=== PATIENT | female | born 1990 | race Caucasian/White ===

== ENCOUNTER 2023-04-20 13:21 | Emergency (ER) | payer OTHER, MEDICAID, SELFPAY ==
[2023-04-20 13:32] VITALS: BP 148/97; PULSE 116; RESP 20; TEMP 36.8; O2SAT 99; BMI 46.9
--- NOTE | 2023-04-20 13:41 | CT_ITS ---
The [address] [address] Patient Name: NICKIE FORD MRN: [id number] date: 1990 Sex: F Assigned Patient Location: ER Current Patient Location: ER Accession/Order Number: [id number] Exam Date: 04/20/2023 14:35 Report Date: 04/20/2023 15:04 At the request of: JUSTINA MEJIA Procedure: CT abdomen pelvis w con EXAM: CT abdomen pelvis w con HISTORY: Right sided abdominal pain COMPARISON: None. TECHNIQUE: Following intravenous administration of 99 cc of Omnipaque 300, axial soft tissue windows of the abdomen and pelvis were performed with coronal and sagittal reformats. CT dose reduction technique was used including Automated Exposure Control. Findings: ABDOMEN: There is fatty infiltration of the liver. Splenic calcifications likely relating to prior granulomatous disease. The pancreas, adrenal glands and kidneys are unremarkable. The bilateral ureters are nondilated. Evaluation of the bowel is limited given the absence of oral contrast. No bowel obstruction. The appendix is nondilated. The aorta is normal caliber. No enlarged abdominal lymph nodes or free abdominal fluid. Small fat-containing umbilicus hernia. Pelvis: Unremarkable bladder. The uterus is present and unremarkable within the limits of CT. No enlarged pelvic lymph nodes or free pelvic fluid. No aggressive sclerotic or lytic osseous lesions. CT/CT abdomen pelvis w con IMPRESSION: 1. No acute abdominal or pelvic abnormality. 2. Fatty liver. Electronically authenticated by: BAY CLEVELAND Date: 04/20/2023 15:04
--- NOTE | 2023-04-20 13:43 | ED.ABDPAIN1 ---
HPI - Abdominal Pain General Chief Complaint: Abdominal Pain Stated Complaint: ABDOMINAL PAIN Time Seen by Provider: 04/20/23 13:25 Source: patient Mode of arrival: walk-in Limitations: no limitations History of Present Illness HPI narrative: patient is a 32-year-old female who presents to the emergency department for the evaluation of right-sided abdominal pain that began last night. She reports a dull ache in the right upper quadrant with a sharp pain radiation into the right lower quadrant. She denies any history of abdominal issues, she has had nausea and one episode of emesis last night. She states her stools have been loose/putty for the last day as well. She has had no fevers or upper respiratory symptoms. She denies any urinary symptoms. She is not concerned for . No medications taken prior to arrival. She denies any previous abdominal surgeries. Related Data Home Medications Medication Instructions Recorded Confirmed norethindrone 1 mg-ethinyl 1 tab PO DAILY 04/20/23 04/20/23 estradiol 35 mcg tablet (Nortrel) Previous Rx's Medication Instructions Recorded hyoscyamine sulfate 0.125 mg 0.125 mg PO Q6H PRN abdominal pain 04/20/23 tablet (Levsin) #12 tabs ondansetron 4 mg disintegrating 4 mg PO Q6H PRN nausea and 04/20/23 tablet vomiting #12 tabs Allergies Allergy/AdvReac Type Severity Reaction Status Date / Time cephalexin [From Keflex] Allergy Severe Verified 04/20/23 13:37 erythromycin base Allergy Severe Verified 04/20/23 13:37 nickel Allergy Severe Verified 04/20/23 13:37 codeine AdvReac Severe Verified 04/20/23 13:37 Review of Systems ROS Constitutional Denies: fever or chills Ears, nose, mouth, and throat Denies: throat pain Cardiovascular Denies: chest pain Respiratory Denies: shortness of breath or cough Gastrointestinal Reports: abdominal pain, nausea, vomiting and diarrhea Genitourinary Denies: painful urination Musculoskeletal Denies: back pain Integumentary/Breast Denies: rash Neurological Denies: headache PFSH PFSH Social History Smoking status: Never smoker Exam Narrative Exam Narrative: Gen.: Awake, alert, in no distress Head: Normocephalic, atraumatic ENT: Moist mucous membranes Respiratory: No respiratory distress, lungs clear bilaterally Cardio: Regular rate and rhythm Gastrointestinal: Abdomen is soft, nondistended and tender to palpation in the right upper quadrant with no guarding or rebound, mild epigastric tenderness Extremities: Moves extremities equally Psych: Normal mood and affect Neuro: No focal neuro deficit Skin: Warm, dry, intact Constitutional Vital Signs, click to edit/add: Last Vital Signs Temp 98.2 F 04/20/23 13:32 Pulse 116 H 04/20/23 13:32 Resp 20 04/20/23 13:32 BP 148/97 H 04/20/23 13:32 Pulse Ox 99 04/20/23 13:32 O2 Del Method Room Air 04/20/23 13:32 Course Vital Signs Vital signs: Vital Signs Temperature 98.2 F 04/20/23 13:32 Pulse Rate 116 H 04/20/23 13:32 Respiratory Rate 20 04/20/23 13:32 Blood Pressure 148/97 H 04/20/23 13:32 Pulse Oximetry 99 04/20/23 13:32 Oxygen Delivery Method Room Air 04/20/23 13:32 Temperature 98.2 F 04/20/23 13:32 Pulse Rate 116 H 04/20/23 13:32 Respiratory Rate 20 04/20/23 13:32 Blood Pressure 148/97 H 04/20/23 13:32 Pulse Oximetry 99 04/20/23 13:32 Oxygen Delivery Method Room Air 04/20/23 13:32 MDM - Abdominal Pain MDM Narrative Medical decision making narrative: patient treated with IV fluids, pain medication and nausea medication. She had no episodes of emesis in the Emergency Room. Labs studies within normal limits, CT of abdomen and pelvis with no evidence of acute abnormalities. Patient discharged with Levsin and Zofran for home. Follow-up with PCP and return to the Emergency Room if symptoms change or worsen. Abdomen is soft and nonsurgical on reevaluation by attending physician Medical Records Attestation: I reviewed the patient's medical records. Lab Data Attestation: I reviewed the patient's lab results. Labs: Lab Results 04/20/23 04/20/23 Range/Units 13:45 13:47 WBC 8.5 (4.0-11.0) 10^3/uL RBC 4.94 (4.20-5.40) 10^6/uL Hgb 13.6 (12.0-16.0) g/dL Hct 41.1 (36.0-48.0) % MCV 83.2 (81.0-99.0) fL MCH 27.5 (26.7-34.0) pg MCHC 33.1 (29.9-35.2) g/dL RDW 13.1 (11.0-15.0) % Plt Count 375 (150-450) 10^3/uL MPV 10.2 (9.5-13.5) fL Neut % (Auto) 57.2 (43.0-75.0) % Lymph % (Auto) 35.9 (20.5-60.0) % [place] % (Auto) 5.3 (1.7-12.0) % Eos % (Auto) 0.8 L (0.9-7.0) % Baso % (Auto) 0.6 (0.2-2.0) % Neut # (Auto) 4.9 (1.4-6.5) 10^3/uL Lymph # (Auto) 3.1 (1.2-3.8) 10^3/uL [place] # (Auto) 0.5 (0.3-0.8) 10^3/uL Eos # (Auto) 0.1 (0.0-0.7) 10^3/uL Baso # (Auto) 0.1 (0.0-0.1) 10^3/uL Abs Immat Gran (auto) 0.02 (0.00-0.03) 10^3/uL Imm/Tot Granulo (auto) 0.2 (0.0-0.5) % Sodium 137 (136-145) mmol/L Potassium 3.6 (3.5-5.1) mmol/L Chloride 101 (98-107) mmol/L Carbon Dioxide 24.9 (21.0-32.0) mmol/L Anion Gap 14.7 BUN 10.0 (7.0-18.0) mg/dL Creatinine 0.81 (0.55-1.02) mg/dL Est GFR ( Amer) >60 (>=60) Est GFR (Non-Af Amer) >60 (>=60) BUN/Creatinine Ratio 12.3 Glucose 90 (74-106) mg/dL Lactate 2.0 (0.4-2.0) mmol/L Calcium 9.5 (8.5-10.1) mg/dL Total Bilirubin 0.3 (0.2-1.0) mg/dL AST 25 (15-37) U/L ALT 31 (14-59) U/L Alkaline Phosphatase 116 (46-116) U/L Total Protein 8.7 H (6.4-8.2) g/dL Albumin 3.4 (3.4-5.0) g/dL Globulin 5.3 g/dL Albumin/Globulin Ratio 0.6 Lipase 40.0 (16.0-77.0) U/L Serum HCG, Qual Negative (NEGATIVE) Urine Color Lt. yellow (YELLOW) Urine Clarity Cloudy A (CLEAR) Urine pH 6.0 (5.0-9.0) Ur Specific [place] >=1.030 A (1.005-1.025) Urine Protein Negative (NEG/TRACE) mg/dL Urine Glucose (UA) Negative (NEGATIVE) mg/dL Urine Ketones Negative (NEGATIVE) mg/dL Urine Occult Blood Trace-i (NEGATIVE) Urine Nitrite Negative (NEGATIVE) Urine Bilirubin Negative (NEGATIVE) Urine Urobilinogen 0.2 (0.2-1.0) EU/dL Ur Leukocyte Esterase Trace A (NEGATIVE) Urine RBC 2-5 A (0-2) #/HPF Urine WBC 10-20 A (NONE SEEN) #/HPF Ur Squamous Epith Cells Moderate A (NONE/RARE) #/LPF Urine Crystals None seen (None Seen) #/HPF Urine Bacteria Large A (NONE SEEN) #/HPF Urine Casts None seen (NONE SEEN) #/LPF Urine Mucus None seen (NONE SEEN) Ur Culture Indicated? Yes Imaging Data CT scan - abdomen: Attestation: I have reviewed the pertinent imaging results. Radiologist's impression: ON: None. TECHNIQUE: Following intravenous administration of 99 cc of Omnipaque 300, axial soft tissue windows of the abdomen and pelvis were performed with coronal and sagittal reformats. CT dose reduction technique was used including Automated Exposure Control. Findings: ABDOMEN: There is fatty infiltration of the liver. Splenic calcifications likely relating to prior granulomatous disease. The pancreas, adrenal glands and kidneys are unremarkable. The bilateral ureters are nondilated. Evaluation of the bowel is limited given the absence of oral contrast. No bowel obstruction. The appendix is nondilated. The aorta is normal caliber. No enlarged abdominal lymph nodes or free abdominal fluid. Small fat-containing umbilicus hernia. Pelvis: Unremarkable bladder. The uterus is present and unremarkable within the limits of CT. No enlarged pelvic lymph nodes or free pelvic fluid. No aggressive sclerotic or lytic osseous lesions. IMPRESSION: 1. No acute abdominal or pelvic abnormality. 2. Fatty liver. Electronically authenticated by: BAY C[place]AND Date: 04/20/2023 15:04 Discharge Plan Discharge Chief Complaint: Abdominal Pain Clinical Impression: Abdominal pain Patient Disposition: Home, Self-Care Time of Disposition Decision: 15:26 Condition: Good Prescriptions / Home Meds: New hyoscyamine sulfate [Levsin] 0.125 mg tablet 0.125 mg PO Q6H PRN (Reason: abdominal pain) Qty: 12 0RF ondansetron 4 mg tablet,disintegrating 4 mg PO Q6H PRN (Reason: nausea and vomiting) Qty: 12 0RF No Action Nortrel 35 (28) 1-35 mg-mcg tablet 1 tab PO DAILY Instructions: Abdominal Pain (ED) Stand Alone Forms: Portal Instructions Referrals: VANI SINGH [Primary Care Provider] - 1 week
[2023-04-20] MEDS: MORPHINE SULFATE 2 MG/ML SYRINGE 4 MG IV (14:06)
[2023-04-20] MEDS: ONDANSETRON PF 4 MG/2 ML VIAL IV (14:06)
[2023-04-20] MEDS: KETOROLAC TROMETHAMINE 30 MG/ML VIAL IVP (14:06)
[2023-04-20] MEDS: 0.9 % SODIUM CHLORIDE 1,000 ML 999 ML IV (14:06)
[2023-04-20 14:14] LABS: Basophils Absolute Auto 0.1 10^3/uL (0.0-0.1); Basophils Percent Auto 0.6 % (0.2-2.0); Eosinophils Absolute Auto 0.1 10^3/uL (0.0-0.7); Eosinophils Percent Auto 0.8 % (0.9-7.0); Hematocrit 41.1 % (36.0-48.0); Hemoglobin 13.6 g/dL (12.0-16.0); Immature Granulocytes Abs Auto 0.02 10^3/uL (0.00-0.03); Immature Granulocytes Pct Auto 0.2 % (0.0-0.5); Lymphocytes Absolute Auto 3.1 10^3/uL (1.2-3.8); Lymphocytes Percent Auto 35.9 % (20.5-60.0); Mean Corpuscular HGB Conc 33.1 g/dL (29.9-35.2); Mean Corpuscular Hemoglobin 27.5 pg (26.7-34.0); Mean Corpuscular Volume 83.2 fL (81.0-99.0); Mean Platelet Volume 10.2 fL (9.5-13.5); Monocytes Absolute Auto 0.5 10^3/uL (0.3-0.8); Monocytes Percent Auto 5.3 % (1.7-12.0); Neutrophils Absolute Auto 4.9 10^3/uL (1.4-6.5); Neutrophils Percent Auto 57.2 % (43.0-75.0); Platelet Count 375 10^3/uL (150-450); Red Blood Count 4.94 10^6/uL (4.20-5.40); Red Cell Distribution Width 13.1 % (11.0-15.0); White Blood Count 8.5 10^3/uL (4.0-11.0)
[2023-04-20 14:24] LABS: Alanine Aminotransferase 31 U/L (14-59); Albumin Globulin Ratio 0.6; Albumin Level 3.4 g/dL (3.4-5.0); Alkaline Phosphatase 116 U/L (46-116); Anion Gap 14.7; Aspartate Amino Transferase 25 U/L (15-37); BUN Creatinine Ratio 12.3; Bilirubin Total 0.3 mg/dL (0.2-1.0); Calcium 9.5 mg/dL (8.5-10.1); Carbon Dioxide 24.9 mmol/L (21.0-32.0); Chloride 101 mmol/L (98-107); Estimated GFR (African America >60 (>=60); Estimated GFR (Non-African Ame >60 (>=60); Globulin 5.3 g/dL; Glucose 90 mg/dL (74-106); Potassium 3.6 mmol/L (3.5-5.1); Sodium 137 mmol/L (136-145); Total Protein 8.7 g/dL (6.4-8.2)
[2023-04-20 14:25] LABS: HCG Qualitative NEGATIVE (NEGATIVE)
[2023-04-20 14:30] LABS: Bilirubin Urine NEGATIVE (NEGATIVE); Blood Urine TRACE-I (NEGATIVE); Clarity Urine CLOUDY (CLEAR); Color Urine LT. YELLOW (YELLOW); Glucose Urine UA NEGATIVE (NEGATIVE); Ketones Urine NEGATIVE (NEGATIVE); Leukocyte Esterase Urine TRACE (NEGATIVE); Nitrite Urine NEGATIVE (NEGATIVE); Protein Urine NEGATIVE (NEG/TRACE); Specific Gravity Urine >=1.030 (1.005-1.025); Urobilinogen Urine 0.2 EU/dL (0.2-1.0)
[2023-04-20 14:31] LABS: Urine Microscopic Indicated YES
[2023-04-20 14:36] LABS: Bacteria Urine LARGE #/HPF (NONE SEEN); Cast Seen? NONE SEEN #/LPF (NONE SEEN); Crystals Seen? None Seen #/HPF (None Seen); Mucus Urine NONE SEEN (NONE SEEN); Squamous Epithelial Cell Urine MODERATE #/LPF (NONE/RARE); Urine Culture Indicated YES
== END 2023-04-20 16:09 | disposition home or self-care (01) ==
PROVIDERS: Physician Assistant; Emergency Provider Emergency Medicine; PCP Family Medicine
DX: R10.9 Unspecified abdominal pain (principal); Z79.899 Other long term (current) drug therapy
CPT/HCPCS: 36415; 74177; 80053; 81001; 83605; 83690; 84703; 85025; 87086; 96374; 96375; 99285; Q9967

== ENCOUNTER 2023-05-03 20:12 | Emergency (ER) | payer OTHER, MEDICAID, SELFPAY ==
[2023-05-03 20:17] VITALS: BP 136/90; PULSE 105; RESP 18; TEMP 36.6; O2SAT 99; BMI 46.9
--- NOTE | 2023-05-03 20:25 | PC.NURSE ---
Pt presents to ER after being ran over by a bore goat Pt states this is a large goat that knocked her over and knocked her into things Pt is experiencing pain down the left side of her neck and into her left arm that is causing some tingling to her fingers
--- NOTE | 2023-05-03 20:54 | CT_ITS ---
[address] [address] Patient Name: NICKIE FORD MRN: [id number] date: 1990 Sex: F Assigned Patient Location: Current Patient Location: Accession/Order Number: [id number] Exam Date: 05/03/2023 21:35 Report Date: 05/03/2023 21:51 At the request of: JACI MARKER Procedure: CT cervical spine wo con EXAMINATION: CT cervical spine wo con TECHNIQUE: Axial CT images were obtained through the cervical spine. Sagittal and coronal reformatted images were also obtained. Dose reduction techniques were achieved by using automated exposure control and/or adjustment of mA and/or kV according to patient size and/or use of iterative reconstruction technique. HISTORY: blunt neck trauma. COMPARISON: None. FINDINGS: Bones: No acute fracture. 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 Alignment: The alignment is anatomic. No acute subluxation. Arthritic changes: No significant arthritic changes Disc spaces: No gross disc herniation given limitation of CT scan. Soft tissues: No soft tissue mass or large hematoma. CT/CT cervical spine wo con IMPRESSION: No acute fracture or subluxation. Electronically authenticated by: BE ROSE Date: 05/03/2023 21:51
--- NOTE | 2023-05-03 21:01 | ED_ITS ---
HPI - Neck Pain/Injury General Chief Complaint: Neck Pain/Injury Stated Complaint: LT SIDE PAIN Time Seen by Provider: 05/03/23 20:26 Source: patient Mode of arrival: walk-in History of Present Illness HPI Narrative: Is 32-year-old female who is right-hand dominant presents for evaluation of left-sided neck pain and stiffness with radiation of pain and numbness and tingling down her left arm. 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 She states that she struck the left side of her neck and upper back into the gate. She was forced to the ground but was able to get herself off the ground and was not trampled by the go. She has bruising and superficial abrasions to the medial aspect of both thighs and t enderness and pain in the left side of her neck. She has been using [id number] Tylenol and Motrin without significant relief. She did get rid of the goat today. She has no chest pain or shortness of breath. She denies any headache or difficulty breathing or swallowing. She has pain with range of motion of her neck in all directions. Related Data Home Medications Medication Instructions Recorded Confirmed norethindrone 1 mg-ethinyl 1 tab PO DAILY 04/20/23 04/20/23 estradiol 35 mcg tablet (Nortrel) Previous Rx's Medication Instructions Recorded hyoscyamine sulfate 0.125 mg 0.125 mg PO Q6H PRN abdominal pain 04/20/23 tablet (Levsin) #12 tabs ondansetron 4 mg disintegrating 4 mg PO Q6H PRN nausea and 04/20/23 tablet vomiting #12 tabs Allergies Allergy/AdvReac Type Severity Reaction Status Date / Time cephalexin [From Keflex] Allergy Severe Verified 04/20/23 13:37 erythromycin base Allergy Severe Verified 04/20/23 13:37 nickel Allergy Severe Verified 04/20/23 13:37 latex Allergy Unknown Verified 05/03/23 20:22 codeine AdvReac Severe Verified 04/20/23 13:37 Review of Systems ROS Status of ROS 10 or more systems reviewed and unremarkable except as noted in history and below PFSH PFSH Social History Smoking status: Never smoker Exam Narrative Exam Narrative: Nurses note and vital signs reviewed and patient is not hypoxic. General: Alert, nontoxic, overweight adult female, no resp distress Skin: Warm, dry, Bruising and superficial abrasions to the medial aspect of both thighs Head: Normocephalic, atraumatic Eye: Normal conjunctiva, no drainage, EOMI. PERRL Ears, Nose, Mouth, and Throat: oral mucosa is moist, no posterior pharyngeal swelling Neck: Decreased range of motion in all directions with tenderness at the posterior left sternocleidomastoid muscle. No midline bony vertebral tenderness or step-off, there is mmuscle spasm and tenderness from the occipital mastoid to the scapular region Cardiovascular: Regular Rate and Rhythm, Pulses are brisk and equal bilaterally Respiratory: Patient is in no distress, no accessory muscle use, lungs are clear to auscultation, no wheezing, rales or rhonchi Back: non-tender, no CVA tenderness bilaterally to percussion. GI: Normal bowel sounds, no tenderness to palpation, no masses appreciated. No rebound, guarding, or rigidity noted. Musculoskeletal: Bruising and superficial abrasions to the medial aspect of both thighs, no laceration or bony tenderness, patient is able to her with a steady gait, neck tenderness as described above, Decreased range of motion of the left upper extremity due to pain in the neck radiating into the left arm. Neurological: A&O x4, normal speech, It Network Engineer strength is intact, subjective decrease in sensation to the left tricep muscle Psychiatric: Cooperative Constitutional Vital Signs, click to edit/add: Last Vital Signs Temp 97.8 F 05/03/23 20:17 Pulse 105 H 05/03/23 20:17 Resp 18 05/03/23 20:17 BP 136/90 05/03/23 20:17 Pulse Ox 99 05/03/23 20:17 O2 Del Method Room Air 05/03/23 20:17 Course Vital Signs Vital signs: Vital Signs Temperature 97.8 F 05/03/23 20:17 Pulse Rate 105 H 05/03/23 20:17 Respiratory Rate 18 05/03/23 20:17 Blood Pressure 136/90 05/03/23 20:17 Pulse Oximetry 99 05/03/23 20:17 Oxygen Delivery Method Room Air 05/03/23 20:17 Temperature 97.8 F 05/03/23 20:17 Pulse Rate 105 H 05/03/23 20:17 Respiratory Rate 18 05/03/23 20:17 Blood Pressure 136/90 05/03/23 20:17 Pulse Oximetry 99 05/03/23 20:17 Oxygen Delivery Method Room Air 05/03/23 20:17 MDM - Neck Pain/Injury MDM Narrative Medical decision making narrative: 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 She was not trampled by the go. She has been using [id number] Tylenol and Motrin without relief. She has tenderness and decreased range of motion of her neck with posterior belly of sternocleidomastoid muscle spasm. She has no neurologic symptoms but does have some decreased sensation to light touch in her trapezius muscle. Her registered nurse obstetrics strength is intact, pulses are brisk and equal. There were no pulsatile masses in her neck. She is medicated in emergency department with IV fluids, Toradol, Solu-Medrol, oral Valium and IV Zofran and Percocet. CT scan of the cervical spine was negative for acute findings. I explained this to the patient. She is feeling better after medications in thee emergency department. She did have an additional episode of nausea and was medicated with oral Zofran prior to discharge. I explained gentle stretching to her and referred her to outpatient family practice. She'll be discharged home with a perception for prednisone to use for the next 6 days, Percocet, Parafon forte and Motrin. Medical Records Medical records narrative: [place] [address] CT Scan Report Signed Patient: NICKIE FORD MR#: [id number] : 1990 Acct:[id number] Age/Sex: 32 / F ADM Date: 05/03/23 Loc: ER Attending Dr: Ordering Physician: Corie Richey Date of Service: 05/03/23 Procedure(s): CT cervical spine wo con Accession Number(s): [id number] cc: VANI SINGH ~ [facility] [place] [id number] Patient Name: NICKIE FORD MRN: [id number] date: 1990 Sex: F Assigned Patient Location: ER Current Patient Location: Accession/Order Number: [id number] Exam Date: 05/03/2023 21:35 Report Date: 05/03/2023 21:51 At the request of: CORIE MARKER Procedure: CT cervical spine wo con EXAMINATION: CT cervical spine wo con TECHNIQUE: Axial CT images were obtained through the cervical spine. Sagittal and coronal reformatted images were also obtained. Dose reduction techniques were achieved by using automated exposure control and/or adjustment of mA and/or kV according to patient size and/or use of iterative reconstruction technique. HISTORY: blunt neck trauma. COMPARISON: None. FINDINGS: Bones: No acute fracture. 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 Alignment: The alignment is anatomic. No acute subluxation. Arthritic changes: No significant arthritic changes Disc spaces: No gross disc herniation given limitation of CT scan. Soft tissues: No soft tissue mass or large hematoma. CT/CT cervical spine wo con IMPRESSION: No acute fracture or subluxation. Electronically authenticated by: BE ROSE Date: 05/03/2023 21:51 Discharge Plan Discharge Chief Complaint: Neck Pain/Injury Clinical Impression: Cervical radiculopathy, Cervical strain, acute Patient Disposition: Home, Self-Care Time of Disposition Decision: 22:00 Condition: Good Prescriptions / Home Meds: No Action Nortrel (28) 1-35 mg-mcg tablet 1 tab PO DAILY hyoscyamine sulfate [Levsin] 0.125 mg tablet 0.125 mg PO Q6H PRN (Reason: abdominal pain) Qty: 12 0RF ondansetron 4 mg tablet,disintegrating 4 mg PO Q6H PRN (Reason: nausea and vomiting) Qty: 12 0RF Instructions: Cervical Strain (ED), Cervical Sprain (ED), Cervical Radiculopathy (ED), Neck Pain (ED) Stand Alone Forms: Portal Instructions Referrals: VANI SINGH [Primary Care Provider] - 1 week
[2023-05-03] MEDS: OXYCODONE HCL/ACETAMINOPHEN 5MG/325MG 1 TAB PO (21:31)
[2023-05-03] MEDS: DIAZEPAM 5 MG TABLET PO (21:31)
[2023-05-03] MEDS: METHYLPREDNISOLONE SOD SUCC PF 125 MG/2 ML VIAL IVP (21:51)
[2023-05-03] MEDS: 0.9 % SODIUM CHLORIDE 1,000 ML 1000 ML IV (21:51)
[2023-05-03] MEDS: KETOROLAC TROMETHAMINE 30 MG/ML VIAL IVP (21:51)
[2023-05-03] MEDS: ONDANSETRON PF 4 MG/2 ML VIAL IV (21:51)
[2023-05-03] MEDS: ONDANSETRON 4 MG RAPDIS TABLET SL (22:50)
== END 2023-05-03 22:50 | disposition home or self-care (01) ==
PROVIDERS: Emergency Provider Emergency Medicine; PCP Family Medicine
DX: S16.1XXA Strain of muscle, fascia and tendon at neck level, initial encounter (principal); M54.12 Radiculopathy, cervical region; W55.32XA Struck by other hoof stock, initial encounter
CPT/HCPCS: 72125; 96374; 96375; 96376; 99285; J2930

== ENCOUNTER 2023-05-22 07:05 | Outpatient (OUT) | payer OTHER, MEDICAID, SELFPAY ==
[2023-05-22 08:00] LABS: Basophils Absolute Auto 0.1 10^3/uL (0.0-0.1); Basophils Percent Auto 0.5 % (0.2-2.0); Eosinophils Absolute Auto 0.1 10^3/uL (0.0-0.7); Eosinophils Percent Auto 0.4 % (0.9-7.0); Hematocrit 39.9 % (36.0-48.0); Immature Granulocytes Pct Auto 0.8 % (0.0-0.5); Lymphocytes Absolute Auto 4.3 10^3/uL (1.2-3.8); Lymphocytes Percent Auto 33.9 % (20.5-60.0); Mean Corpuscular HGB Conc 32.6 g/dL (29.9-35.2); Mean Corpuscular Hemoglobin 27.4 pg (26.7-34.0); Mean Platelet Volume 10.2 fL (9.5-13.5); Monocytes Absolute Auto 0.4 10^3/uL (0.3-0.8); Monocytes Percent Auto 3.3 % (1.7-12.0); Neutrophils Absolute Auto 7.7 10^3/uL (1.4-6.5); Neutrophils Percent Auto 61.1 % (43.0-75.0); Platelet Count 295 10^3/uL (150-450); Red Blood Count 4.75 10^6/uL (4.20-5.40); Red Cell Distribution Width 13.1 % (11.0-15.0); White Blood Count 12.6 10^3/uL (4.0-11.0)
[2023-05-22 08:18] LABS: Estimated Average Glucose 114 mg/dL; Glycohemoglobin A1C 5.6 % (4.5-6.2)
[2023-05-22 08:45] LABS: Alanine Aminotransferase 27 U/L (14-59); Albumin Globulin Ratio 0.6; Albumin Level 3.1 g/dL (3.4-5.0); Alkaline Phosphatase 88 U/L (46-116); Anion Gap 16.4; Aspartate Amino Transferase 17 U/L (15-37); BUN Creatinine Ratio 24.7; Bilirubin Total 0.2 mg/dL (0.2-1.0); Calcium 8.8 mg/dL (8.5-10.1); Carbon Dioxide 25.9 mmol/L (21.0-32.0); Chloride 101 mmol/L (98-107); Chol HDL Ratio 2.5; Cholesterol 202 mg/dL (<=200); Estimated GFR (African America >60 (>=60); Estimated GFR (Non-African Ame >60 (>=60); Globulin 4.8 g/dL; Glucose 81 mg/dL (74-106); HDL Cholesterol 80 mg/dL (40-60); Potassium 4.3 mmol/L (3.5-5.1); Sodium 139 mmol/L (136-145); Total Protein 7.9 g/dL (6.4-8.2); Triglycerides 178 mg/dL (<=150); VLDL CHOLESTEROL 35.6 mg/dL
[2023-05-22 09:56] LABS: TSH W/ REFLEX FT4 1.623 (0.358-3.740)
[2023-05-23 06:08] LABS: HCV Ab Non Reactive (Non Reactive)
[2023-05-23 08:17] LABS: HIV Ab/p24 Ag Screen Non Reactive (Non Reactive)
== END 2023-05-22 07:06 | disposition home or self-care (01) ==
LOC: LAB 07:07
PROVIDERS: PCP Nurse Practitioner Primary Care; Visit Provider Nurse Practitioner Primary Care
DX: Z00.00 Encounter for general adult medical examination without abnormal findings (principal); Z11.59 Encounter for screening for other viral diseases; Z13.29 Encounter for screening for other suspected endocrine disorder; Z11.4 Encounter for screening for human immunodeficiency virus [HIV]; Z13.6 Encounter for screening for cardiovascular disorders
CPT/HCPCS: 36415; 80053; 80061; 83036; 84443; 85025; 86803; 87389

== ENCOUNTER 2023-05-23 14:35 | Outpatient (OUT) | payer OTHER, MEDICAID, SELFPAY ==
--- NOTE | 2023-05-23 14:40 | MR_ITS ---
The [place] [id number] Patient Name: NICKIE FORD MRN: [id number] date: 1990 Sex: F Assigned Patient Location: MRI Current Patient Location: Accession/Order Number: [id number] Exam Date: 05/23/2023 14:50 Report Date: 05/24/2023 08:13 At the request of: IRAJ ROSAS Procedure: MR shoulder LT wo con MR shoulder LT wo con, 05/23/2023 2:50 PM EST INDICATION: Left Shoulder Tendinopathy M67.912 COMPARISON: There is no appropriate prior study for comparison. TECHNIQUE: Multiplanar and multisequential MR images of the left shoulder were obtained without contrast. FINDINGS: The quality of this study has decreased likely due to patient's body habitus. There are mild hypertrophic degenerative changes of AC joint. There is no os acromiale. No Hill-Sachs is noted. No acute fracture or dislocation is noted. The quadrilateral space and supraspinous notch are unremarkable. The T2 prolongation within the insertional portions of the supraspinatus may suggest tendinosis. The long head of biceps , infraspinatus subscapularis and teres minor are unremarkable. No fatty muscle atrophy is noted. The labrum shows no definite abnormality. There is trace intra articular joint effusion. MR/MR shoulder LT wo con IMPRESSION: Mild insertional tendinosis of supraspinatus. No high-grade tear. Electronically authenticated by: YOSSI LEGGETT Date: 05/24/2023 08:13
== END 2023-05-23 14:36 | disposition home or self-care (01) ==
LOC: MRI 14:36
PROVIDERS: PCP Nurse Practitioner Primary Care; Visit Provider Nurse Practitioner Primary Care
DX: M67.912 Unspecified disorder of synovium and tendon, left shoulder (principal)
CPT/HCPCS: 73221

== ENCOUNTER 2023-07-14 11:02 | Outpatient (OUT) | payer OTHER, MEDICAID, SELFPAY ==
--- OUTSIDE RECORDS SUMMARY | 2023-07-14 11:06 | XMS_ITS | CCD ---
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 Role Phone OPAL GERARDO Unavailable Unavailable OPAL GERARDO Unavailable Unavailable SELF, REFERRED Unavailable Unavailable SELF, REFERRED Unavailable Unavailable Jaymie Tripp Unavailable Cleopatra Durbin Unavailable FRANCISCO, DR LUDWIG Primary Care Unavailable NAHID LA Admitting Unavailable NAHID LA Attending Unavailable NAHID AL Consulting Unavailable FRANCISCO, DR LUDWIG Primary Care Unavailable JEANMARIE, DR AGUILAR Admitting Unavailable JEANMARIE, DR AGUILAR Attending Unavailable JEANMARIE, DR AGUILAR Consulting Unavailable NAHID LA Consulting Unavailable JONH WALTON Consulting Unavailable FRANCISCO, DR LUDWIG Primary Care Unavailable NAHID LA Admitting Unavailable NAHID LA Attending Unavailable NAHID LA Consulting Unavailable FRANCISCO, DR LUDWIG Primary Care Unavailable MELECIO, DR MARTINS Admitting Unavailable MELECIO, DR MARTINS Attending Unavailable MELECIO, DR MARTINS Consulting Unavailable ADIS, DR OLESYA Gtz Consulting Unavaildarcy SHERIDAN, DR LINK Consulting Unavailable SHAIKH Jose AMAYA Consulting Unavailable NIKOLAY LOTT Consulting Unavailable FRANCISCO, DR LUDWIG Primary Care Unavailable JEANMARIE, DR AGUILAR Admitting Unavailable JEANMARIE, DR AGUILAR Attending Unavailable PRANAV, DR DANNY Brambila Consulting Unavailable JEANMARIE, DR AGUILAR Consulting Unavailable FRANCISCO, DR LUDWIG Primary Care Unavailable ADIS, DR OLESYA Gtz Admitting Unavaildarcy ARCEO, DR OLESYA Gtz Attending Unavaildarcy ARCEO, DR OLESYA Gtz Consulting Unavaildarcy SINGH, DR LUDWIG Primary Care Unavailable DONNA COREY Admitting Unavailable DONNA COREY Attending Unavailable DAMION MEJIA Consulting Unavailable MADYSON CISNEROS Consulting Unavailable FRANCISCO, DR LUDWIG Primary Care Unavailable NAHID LA Consulting Unavailable NAHID LA Admitting Unavailable ABHINAV, NAHID Attending Unavailable Sherron Singh Unavailable NO FAMILY, PHYSICIAN Primary Care Provider Unava ilable MO Singh Attending Provider Jeimy Verduzco Unavailable Sherron Singh Attending Unavailable Sherron Singh Admitting Unavailable NO FAMILY, PHYSICIAN Primary Care Unavailable HAIR, JACI Attending Unavailable APLING, LILIANA B Referring Unavailable BRINK, HUYEN Attending Unavailable APLING, LILIANA B Referring Unavailable BRINK, HUYEN Attending Unavailable APLING, LILIANA B Referring Unavailable APLING, LILIANA B Attending Unavailable APLING, LILIANA B Attending Unavailable APLING, LILIANA B Referring Unavailable APLING, LILIANA B Attending Unavailable JESUSITA HARLEY Attending Unavailable APLING, LILIANA B Referring Unavailable BRINK, HUYEN Attending Unavailable APLING, LILIANA B Referring Unavailable KELBLEY, JACI Attending Unavailable APLING, LILIANA B Referring Unavailable BRINK, HUYEN Attending Unavailable APLING, LILIANA B Referring Unavailable BRINK, HUYEN Attending Unavailable APLING, LILIANA B Referring Unavailable BRINK, HUYEN Attending Unavailable APLING, LILIANA B Referring Unavailable BRINK, HUYEN Attending Unavailable APLING, LILIANA B Referring Unavailable BRINK, HUYEN Attending Unavailable APLING, LILIANA B Referring Unavailable Allergies Allergy Classification Reported Allergen(s) Allergy Type Date of Onset Reaction(s) Facility (2 sources) codeine Drug Allergy 5 [facility] Repository (2 sources) erythromycin base Drug allergy (disorder) 1 [facility] Repository (6 sources) Acetaminophen / Codeine Drug Allergy vomiting and can't control body [facility] Other (6 sources) Cephalexin Drug Allergy rash [facility] Other (6 sources) Erythromycin Drug Allergy rash [facility] Other (6 sources) nickel Drug Allergy rash [facility] Other (1 source) Cephalexin Drug Allergy 0 [facility] Repository (1 source) Leucine Drug Allergy [facility] Repository Medications Current Medications Medication Drug Class(es) Dates Sig (Normalized) Sig (Original) amoxicillin 875 mg / clavulanate 125 mg oral tablet (1 source) Penicillin-class Antibacterial Start: 10-20-2021 take 1 tablet by mouth every twelve hours Amoxicillin-Pot Clavulanate 875-125 MG 1 tablet Orally every 12 hrs for 10 day(s) Oct, Active cetirizine hydrochloride 10 mg oral tablet (1 source) Histamine-1 Receptor Antagonist Start: 03-29-2021 take 1 tablet by mouth every twelve hours Cetirizine HCl 10 MG 1 tablet Orally bid for 5 days Mar, Active dextromethorphan hydrobromide 15 mg / guaiFENesin 400 mg / pseudoephedrine hydrochloride 60 mg oral tablet (1 source) alpha-Adrenergic Agonist, Uncompetitive P-xfstua-U-aspartate Receptor Antagonist, Sigma-1 Agonist Start: 02-09-2023 take 1 tablet by mouth every six hours as needed for cough Capmist DM 60-15-400 MG 1 tablet Orally q6hrs prn congestion/cough for 7 days Jan, Active Escitalopram (6 sources) Serotonin Reuptake Inhibitor Lexapro Active famotidine 20 mg oral tablet (1 source) Histamine-2 Receptor Antagonist Start: 03-29-2021 take 1 tablet by mouth every twelve hours Famotidine 20 MG 1 tablet Orally Twice a day for 7 days Mar, Active fluticasone propionate 0.05 mg/actuat metered dose nasal spray (1 source) Corticosteroid Start: 10-20-2021 take 2 spray(s) nasal route once daily Fluticasone Propionate 50 MCG/ACT 2 sprays Nasally Once a day for 14 day(s) Oct, Active Ketorolac (8 sources) Nonsteroidal Anti-inflammatory Drug, Cyclooxygenase Inhibitor Start: 04-27-2019 Toradol per 15 mg Apr, 60 mg Start: 08-26-2016 Toradol per 15 mg Aug, 30 mg Nortrel 1/35 (21) (6 sources) Nortrel 1/35 (21 ) Active predniSONE 20 mg oral tablet (1 source) Start: 10-20-2021 take 1 tablet by mouth every twelve hours predniSONE 20 MG 1 tablet Orally bid for 5 day(s) Oct, Active triamcinolone acetonide 5 mg/ml topical cream (10 sources) Corticosteroid Start: 02-09-2023 Triamcinolone Acetonide 0.5 % 1 application Externally TID for 7 days Jan, Active Start: 01-24-2023 Triamcinolone Acetonide 0.1 % 1 application Externally TID for 7 days Dec, Not-Taking Start: 03-29-2021 KENALOG - 10 m g Mar, 40 mg Start: 09-05-2019 KENALOG - 10 m g Aug, 40 mg Completed/Discontinued Medications Medication Drug Class(es) Dates Sig (Normalized) Sig (Original) Aircast AirSport Ankle Brace - (3 sources) Start: 04-23-2021 Aircast AirSport Ankle Brace - as directed left ankle sprain Apr, Not-Taking Start: 04-23-2021 Aircast AirSpo rt Ankle Brace - as directed left ankle sprain Apr, Active hydrOXYzine hydrochloride 25 mg oral tablet (1 source) Antihistamine Start: 01-24-2023 take 1 tablet by mouth every eight hours as needed hydrOXYzine HCl 25 MG 1 tablet Orally q8hrs prn itching, rash for 5 days Dec, Not-Taking methylPREDNISolone 4 mg oral tablet (4 sources) Corticosteroid Start: 10-21-2022 methylPREDNISolone 4 MG as directed Orally for daily dose take half with breakfast, half with dinner for 6 days October, Not-Taking Start: 03-29-2021 methylPREDNISo lone 4 MG start tomorrow as directed Orally Once a day for 6 days Mar, Active naproxen 500 mg oral tablet (1 source) Nonsteroidal Anti-inflammatory Drug Start: 01-17-2023 take 1 tablet by mouth every twelve hours at mealtime as needed Naproxen 500 MG 1 tablet with food or milk as needed Orally every 12 hrs for 7 days Dec, Not-Taking ondansetron 4 mg disintegrating oral tablet (2 sources) Serotonin-3 Receptor Antagonist Start: 10-21-2022 take 1 tablet by mouth every eight hours Ondansetron 4 MG 1 tablet on the tongue and allow to dissolve Orally every 8 hours for 5 days Oct, Not-Taking valACYclovir 1000 mg oral tablet (1 source) Herpesvirus Nucleoside Analog DNA Polymerase Inhibitor, Herpes Simplex Virus Nucleoside Analog DNA Polymerase Inhibitor, Herpes Zoster Virus Nucleoside Analog DNA Polymerase Inhibitor Start: 11-17-2022 take 1 tablet by mouth every eight hours valACYclovir HCl 1 GM 1 tablet Orally TID for 7 days October, Not-Taking Problems Active Problems Problem Classification Problem Date Documented Da te Episodic/Chronic Allergic reactions (9 sources) Allergy status to narcotic agent status; Translations: [Allergy to bee venom] Onset: 11-07-2017 Resolved: 03-29-2021 Episodic Headache; including migraine (4 sources) Headache; including migraine; Translations: [HEADACHE UNSPECIFIED] Onset: 06-17-2021 Immunizations and screening for infectious disease (3 sources) Contact with and (suspected) exposure to other viral communicable diseases Onset: 09-15-2021 Resolved: 10-20-2021 Episodic Nausea and vomiting (4 sources) Vomiting, unspecified; Translations: [Nausea] Onset: 09-17-2021 Episodic Other injuries and conditions due to external causes (4 sources) Unspecified injury of left thigh, initial encounter; Translations: [UNSPECIFIED INJURY OF LEFT THIGH, INITIAL ENCOUNTER] Onset: 11-07-2017 Episodic Other nervous system disorders (2 sources) Anesthesia of skin; Translations: [Paresthesia of skin] Onset: 11-07-2017 Episodic Other upper respiratory disease (6 sources) Seasonal allergy; Translations: [Other seasonal allergic rhinitis] Chronic Other upper respiratory disease (1 source) Nasal congestion Episodic Other upper respiratory infections (6 sources) Frontal sinusitis; Translations: [Chronic frontal sinusitis] Chronic Other upper respiratory infections (6 sources) Acute upper respiratory infection, unspecified; Translations: [Acute sinusitis, unspecified] Onset: 09-15-2021 Resolved: 10-20-2021 Episodic Unclassified (2 sources) Unknown / UNK(Unknown) Onset: 11-07-2017 Unclassified (3 sources) COUGH, UNSPECIFIED; Translations: [COUGH, UNSPECIFIED] Onset: 06-17-2021 Unclassified (1 source) CONTACT W/AND (SUSP) EXPOS COVID-19; Translations: [CONTACT W/AND (SUSP) EXPOS COVID-19] Onset: 06-06-2022 Unclassified (1 source) Strain of unspecified muscle(s) and tendon(s) at lower leg level, right leg, initial encounter; Translations: [Strain of unspecified muscle(s) and tendon(s) at lower leg level, right leg, initial encounter] Onset: 01-17-2023 Viral infection (1 source) Viral infection, unspecified Episodic Past or Other Problems Problem Classification Problem Date Documented Da te Episodic/Chronic Disorders of teeth and jaw (9 sources) Other specified disorders of teeth and supporting structures; Translations: [Jaw pain] Onset: 07-17-2021 Episodic E Codes: Struck by; against (1 source) Striking against or struck by other objects, initial encounter; Translations: [STRIKING AGNST/STRUCK OTH OBJ INIT] Onset: 03-07-2022 Episodic Intestinal infection (1 source) Viral intestinal infection, unspecified; Translations: [VIRAL INTESTINAL INFECTION UNSPEC] Onset: 09-21-2021 Episodic Intracranial injury (1 source) Concussion without loss of consciousness, initial encounter; Translations: [CONCUSSION WITHOUT LOC INITIAL ENC] Onset: 03-07-2022 Episodic Nonspecific chest pain (4 sources) Chest pain, unspecified; Translations: [CHEST PAIN UNSPECIFIED] Onset: 06-15-2021 Episodic Other aftercare (1 source) Other assisted (current) drug therapy; Translations: [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] Onset: 03-07-2022 Episodic Other aftercare (1 source) [facility] (current) use of hormonal contraceptives; Translations: [[facility] HORMONAL CONTRACEPTIVES] Onset: 07-20-2021 Episodic Other injuries and conditions due to external causes (1 source) Other specified injuries of head, initial encounter; Translations: [OTH SPEC INJURIES HEAD INITIAL ENC] Onset: 03-07-2022 Episodic Other non-traumatic joint disorders (1 source) Pain in left ankle and joints of left foot; Translations: [Acute left ankle pain M25.572] Onset: 04-23-2021 Resolved: 04-23-2021 Episodic Other skin disorders (1 source) Localized swelling, mass and lump, head; Translations: [LOCALIZED SWELLING MASS AND LUMP HEAD] Onset: 07-21-2021 Episodic Spondylosis; intervertebral disc disorders; other back problems (1 source) Cervicalgia; Translations: [CERVICALGIA] Onset: 06-17-2021 Episodic Sprains and strains (1 source) Sprain of unspecified ligament of right ankle, initial encounter; Translations: [Sprain of right ankle, unspecified ligament, initial encounter S93.401A] Onset: 04-23-2021 Resolved: 04-23-2021 Episodic Superficial injury; contusion (1 source) Contusion of other part of head, initial encounter; Translations: [CONTUS OTH PRT HEAD INITIAL ENCNTR] Onset: 03-07-2022 Episodic Unclassified (1 source) COUGH, UNSPECIFIED; Translations: [COUGH, UNSPECIFIED] Onset: 06-04-2022 Unclassified (1 source) Suspected COVID-19 virus infection Z20.822 Results Test Name Value Interpretation Reference Range Facility COVID Quick Testingon 2022 Result Negative [employer] Other XR knee RT 4V*on 01-17-2023 XR knee RT 4V* [facility] [place] [address] [place] [address] XRay Report Signed Patient: Nickie Ford MR#: [id number] : 1990 Acct:[id number] Age/Sex: 32 / F ADM Date: 01/17/23 Loc: XDUCLY Room: Type: [facility] Attending Dr: Sherron Singh APRN Copies to: Sherron Singh APRN Ordering Provider: Sherron Singh APRN Date of Service: 01/17/23 XR/XR knee RT 4V*: Injury RIGHT KNEE - 4 views COMPARISON: None CLINICAL DATA: Patient slipped and fell and has pain at the right knee. AP, lateral and both oblique views were obtained. There is no acute fracture or dislocation. No joint space narrowing is identified. There is no sizable knee effusion or focal soft tissue swelling. XR/XR knee RT 4V* IMPRESSION: NO ACUTE BONY INJURY. Impression dictated by: Maria Elena Lucio M.D.01/17/2023 9:46 AM Dictation Location: [facility] Transcribed By: [facility] 01/17/23945 Dictated By: Maria Elena Lucio MD 01/17/23944 Signed By: 01/17/23945 [facility] COVID/FLU RT-PCRon SARS-CoV-2 (COVID-19) RNA SOCO+probe Ql (Unsp spec) Negative [facility] Other COVID/FLU RT-PCR Negative [employer] Other Urinalysis - AUTOMATEDon Appearance (U) cloudy eflow Other Bilirubin Ql (U) Negative [employer] Other Color (U) dark yellow [employer] Other Glucose Ql (U) Negative eflow Other Hemoglobin Ql (U) Negative [employer] Other Ketones Ql (U) Negative eflow Other Leukocyte esterase Test strip Ql (U) Negative [employer] Other Nitrite Ql (U) Negative eflow Other pH (U) 6.0 [pH] [employer] Other Protein Ql (U) 30 eflow Other Specific gravity (U) [Rel density] >=1.030 [employer] Other Urobilinogen (U) [Mass/Vol] 0.2 mg/dL [employer] Other Urinalysis - AUTOMATED [employer] Other Covid-19 PCR ([facility])on SARS-CoV-2 (COVID-19) RNA SOCO+probe Ql (Unsp spec) Not detected Normal NOT DETECTED [facility] Comment on above: Result Comment: When diagnostic testing is negative, the possibility of a false negative should be considered in the context of a patient's recent exposures and the presence of clinical signs and symptoms consistent with SARS-CoV-2. This test is not yet approved or cleared by the [place] FDA. When there are no FDA-approved or cleared tests available, and other criteria are met, FDA can make tests available under an emergency access mechanism called an Emergency Use Authorization (EUA). The EUA for this test is supported by the [place] of Health and Human Service's declaration that circumstances exist to justify the emergency use of in vitro diagnostics for the detection and/or diagnosis of the virus that causes COVID-19. This EUA will remain in effect for the duration of the COVID-19 declaration justifying emergency of IVDs, unless it is terminated or revoked by the FDA (after which the test may no longer be used). Performed By: #### E ITZEL CHANDLER #### [facility] [address] [place] [address] Dr. Timothy Adair GROUP A STREP CULTUREon S. pyogenes Ag Ql (Unsp spec) Culture Observations: NEGATIVE FOR GROUP A STREPTOCOCCUS. Normal [facility] Comment on above: Performed By: #### C BC #### [facility] [address] [place] [address] Dr. Timothy Adair INFLUENZA A AND B AGon 06-04 INFLUANE SEE BELOW Normal [facility] Comment on above: Result Comment: Nega tive for Flu A protein angiten. Infection due to Flu A cannot be ruled out. Flu A angiten in the sample may be below the detection limit of the test. Performed By: #### I NFLUAB #### [facility] [address] [place] [address] Dr. Timothy Adair INFLUBNEGH SEE BELOW Normal [facility] Comment on above: Result Comment: Nega tive for Flu B protein antigen. Infection due to Flu B cannot be ruled out. Flu B antigen in the sample may be below the detection limit of the test. Performed By: #### I NFLUAB #### [facility] [address] [place] [address] Dr. Timothy Adair INFLUENZA A AG Negative Normal NEGATIVE SEE COMMENT [facility] Comment on above: Performed By: #### I NFLUAB #### [facility] [address] [place] [address] Dr. Timothy Adair INFLUENZA B AG Negative Normal NEGATIVE SEE COMMENT [facility] Comment on above: Performed By: #### I NFLUAB #### [facility] [address] [place], [place] [id number] Dr. Timothy Adair INTERNAL CONTROLS Within Normal Limits Normal Wi thin Normal Limits [facility] Comment on above: Performed By: #### I NFLUAB #### [facility] [id number] Timothy Adair STREPT SCREENon 06-04-2022 STREP SCREEN A Negative Normal NEGATIVE [facility] Comment on above: Performed By: #### S SCRN #### [facility] [id number] Timothy Adair XR CHEST 1 Von 06-04-2022 XR CHEST 1 V EXAMINATION: XR CHES T 1 V HISTORY: Cough COMPARISON: Chest x-ray 06/04/2015 TECHNIQUE: Portable chest FINDINGS: The lung parenchyma is free of consolidation or infiltrate. No pneumothorax or pleural effusion. The cardiac, mediastinal and hilar contours are normal. The visualized osseous structures exhibit no gross abnormality. IMPRESSION: No acute cardiopulmonary abnormality. Electronically authenticated by: JONH WALTON Date: 2022-06-04 20:47 Normal [facility] CT HEAD WO CONon 03-03-2022 CT HEAD WO CON EXAMINATION: CT HEAD WO CON, CT FACIAL BONES WO CON HISTORY: UNSPECIFIED INJURY OF HEAD, INITIAL ENCOUNTER ; frontal head injury; additional impact to nose COMPARISON: CT head 04/04/2016 TECHNIQUE: Axial CT images were obtained without IV contrast. Dose reduction techniques were achieved by using automated exposure control and/or adjustment of mA and/or kV according to patient size and/or use of iterative reconstruction technique. FINDINGS: BRAIN: No edema, hemorrhage, mass, acute infarction, or inappropriate atrophy. CSF SPACES: No hydrocephalus, subarachnoid hemorrhage, or mass. Appropriate for age. SKULL: No fracture, mass, or other significant visible lesion. FACIAL BONES: No bony lesion or fracture. SINUSES: No visible mass, significant fluid or mucosal thickening. NASAL FOSSA: No mass, fracture, or significant septal deviation. SKULL BASE: No mass or bone destruction. ORBITS: No visible mass, hematoma, edema or fracture. OTHER: No lymphadenopathy. Unremarkable nasopharynx, oropharynx, and oral cavity. IMPRESSION: 1. Normal CT appearance of the brain. No intracranial hemorrhage. 2. No fracture of the calvarium or scalp hematoma. 3. No fracture of the facial bones with specific attention to the nasal bones. Electronically authenticated by: DANNY ROCK Date: 2022-03-03 14:44 Normal [facility] COVID Quick Testingon 2021 Result Negative [facility] Other Quick Fluon 10-20-2021 FLUAV Ab CF (S) [Titer] Negative [facility] Other FLUBV Ab CF (S) [Titer] Negative [employer] [facility] [employer] Other AMYLASEon 09-17-2021 Amylase [Catalytic activity/Vol] 41 U/L Normal 31-110 [facility] Comment on above: Performed By: #### A MY, CMP, LIPA #### [facility] [address] [place] [address] Dr. Timothy Adair CBC AUTO DIFFon 09-17-2021 BASO # 0.0 103/ul Normal 0.0-0.1 [facility] Comment on above: Performed By: #### C BC #### [facility] [address] [place] [address] Dr. Timothy Adair Basophils/100 WBC (Bld) 0.4 % Normal 0.2-2.0 [facility] Comment on above: Performed By: #### C BC #### [facility] [address] [place] [address] Dr. Timothy Adair EO # 0.0 103/ul Normal 0.0-0.7 [facility] Comment on above: Performed By: #### C BC #### [facility] [address] [place] [address] Dr. Timothy Adair Eosinophils/100 WBC (Bld) 0.4 % Critically low 0.9-7.0 [facility] Comment on above: Performed By: #### C BC #### [facility] [address] [place] [address] Dr. Timothy Adair Erythrocyte distribution width (RBC) [Ratio] 13.0 % Normal 11.0-15.0 [facility] Comment on above: Performed By: #### C BC #### [facility] [address] [place] [address] Dr. Timothy Adair Hematocrit (Bld) [Volume fraction] 40.5 % Normal 36.0-48.0 [facility] Comment on above: Performed By: #### C BC #### [facility] [address] [place] [address] Dr. Timothy Adair Hemoglobin (Bld) [Mass/Vol] 13.1 g/dL Normal 12.0-16.0 [facility] Comment on above: Performed By: #### C BC #### [facility] [address] [place] [address] Dr. Timothy Adair IG # 0.04 10e3/ul Critically high 0.00-0.03 [facility] Comment on above: Performed By: #### C BC #### [facility] [address] [place] [address] Dr. Timothy Adair IG % 0.4 % Normal 0.0-0.5 [facility] Comment on above: Performed By: #### C BC #### [facility] [address] [place] [address] Dr. Timothy Adair LYMPH # 1.9 103/ul Normal 1.2-3.8 [facility] Comment on above: Performed By: #### C BC #### [facility] [address] [place] [address] Dr. Timothy Adair Lymphocytes/100 WBC (Bld) 16.8 % Critically low 20.5-60.0 [facility] Comment on above: Performed By: #### C BC #### [facility] [address] [place] [address] Dr. Timothy Adair MANUAL DIFF REQ NO Normal [facility] Comment on above: Performed By: #### C BC #### [facility] [address] [place] [address] Dr. Timothy Adair MCH (RBC) [Entitic mass] 27.5 pg Normal 26.7-34.0 [facility] Comment on above: Performed By: #### C BC #### [facility] [address] [place] [address] Dr. Timothy Adair MCHC (RBC) [Mass/Vol] 32.3 g/dL Normal 29.9-35.2 [facility] Comment on above: Performed By: #### C BC #### [facility] [address] [place] [address] Dr. Timothy Adair MCV (RBC) [Entitic vol] 85.1 fL Normal 81.0-99.0 [facility] Comment on above: Performed By: #### C BC #### [facility] [address] [address] [address] Timothy Adair MONO # 0.5 103/ul Normal 0.3-0.8 [facility] Comment on above: Performed By: #### C BC #### [facility] [address] [place] [address] Dr. Timothy Adair Monocytes/100 WBC (Bld) 4.7 % Normal 1.7-12.0 [facility] Comment on above: Performed By: #### C BC #### [facility] [address] [place] [address] Dr. Timothy Adair NEUT # 8.6 103/ul Critically high 1.4-6.5 [facility] Comment on above: Performed By: #### C BC #### [facility] [address] [place] [address] Dr. Timothy Adair Neutrophils/100 WBC (Bld) 77.3 % Critically high 43.0-75.0 [facility] Comment on above: Performed By: #### C BC #### [facility] [address] [place] [address] Dr. Timothy Adair Platelet mean volume (Bld) [Entitic vol] 9.9 fL Normal 9.5-13.5 [facility] Comment on above: Performed By: #### C BC #### [facility] [address] [place] [address] Dr. Timothy Adair PLT 357 103/ul Normal 150-450 [facility] Comment on above: Performed By: #### C BC #### [facility] [address] [place] [address] Dr. Timothy Adair RBC 4.76 106/ul Normal 4.20-5.40 [facility] Comment on above: Performed By: #### C BC #### [facility] [address] [place] [address] Dr. Timothy Adair WBC 11.1 103/ul Critically high 4.0-11.0 [facility] Comment on above: Performed By: #### C BC #### [facility] [address] [place] [address] Dr. Timothy Adair CULTURE URINEon 09-17-2021 CULTURE URINE Culture Observations : LIGHT GROWTH OF MIXED GENITAL CHRISTINE. NO POTENTIAL PATHOGENS SEEN. Normal [facility] Comment on above: Performed By: #### C BC #### [facility] [address] [place] [address] Dr. Timothy Adair ER URINE PROFILEon Bilirubin Ql (U) Negative Normal NEGATIVE [facility] Comment on above: Performed By: #### Sanjiv CHANDLER UMICRO #### [facility] [address] [place] [address] Dr. Timothy Adair Clarity (U) CLEAR Normal CLEAR [facility] Comment on above: Performed By: #### Sanjiv CHANDLER UMICRO #### [facility] [address] [place] [address] Dr. Timothy Adair Color (U) LT. YELLOW Normal YELLOW [facility] Comment on above: Performed By: #### Sanjiv CHANDLER UMICRO #### [facility] [address] [place] [address] Dr. Timothy Adair ERUAHD A micrscopic examina tion will be performed if indicated. Normal The [facility] Comment on above: Performed By: #### Sanjiv CHANDLER UMICRO #### [facility] [address] [place] [address] Dr. Timothy Adair Glucose Ql (U) Negative Normal NEGATIVE [facility] Comment on above: Performed By: #### Sanjiv CHANDLER UMICRO #### [facility] [address] [place] [address] Dr. Timothy Adair Hemoglobin Ql (U) TRACE-INTACT Abnormal NEGATIVE [facility] Comment on above: Performed By: #### MASOOD LINARESRO #### [facility] [address] [place] [address] Dr. Timothy Adair Ketones Ql (U) Negative Normal NEGATIVE [facility] Comment on above: Performed By: #### MASOOD LINARESRO #### [facility] [address] [place] [address] Dr. Timothy Adair LEUKOCYTES SMALL Abnormal NEGATIVE [facility] Comment on above: Performed By: #### Sanjiv CHANDLER UMICRO #### [facility] [address] [place] [address] Dr. Timothy Adair Nitrite Ql (U) Negative Normal NEGATIVE [facility] Comment on above: Performed By: #### MASOOD LINARESRO #### [facility] [address] [place] [address] Dr. Timothy Adair pH (U) 5.0 [pH] Normal 5-9 [facility] Comment on above: Performed By: #### MASOOD LINARESRO #### [facility] [address] [place] [address] Dr. Timothy dAair SPEC GRAVITY >=1.030 Abnormal 1.005-<=1.02 5 [facility] Comment on above: Performed By: #### MASOOD LINARESRO #### [facility] [address] [place] [address] Dr. Timothy Adair UA PROTEIN Negative Normal NEGATIVE/ TRACE [facility] Comment on above: Performed By: #### MASOOD LINARESRO #### [facility] [address] [place] [address] Dr. Timothy Adair UR MICRO IND INDICATED Normal [facility] Comment on above: Performed By: #### MASOOD LINARESRO #### [facility] [address] [place] [address] Dr. Timothy Adair Urobilinogen Qn (U) 0.2 {João'U}/dL Normal 0.2 - 1.0 [facility] Comment on above: Performed By: #### MASOOD LINARESRO #### [facility] [address] [place] [address] Dr. Timothy Adair LIPASEon 09-17-2021 Lipase [Catalytic activity/Vol] 125.0 U/L Normal 23.0-300.0 [facility] Comment on above: Performed By: #### A MY, CMP, LIPA #### [facility] [address] [place] [address] Dr. Timothy Adair PROF 14(COMP METB)on 022 Albumin [Mass/Vol] 3.1 g/dL Critically low 3.5-5.0 [facility] Comment on above: Performed By: #### A MY, CMP, LIPA #### [facility] [address] [place] [address] Dr. Timothy Adair Albumin/Globulin [Mass ratio] 0.6 {ratio} Normal [facility] Comment on above: Performed By: #### A MY, CMP, LIPA #### [facility] [address] [place] [address] Dr. Timothy Adair ALP [Catalytic activity/Vol] 105 U/L Normal 38-126 [facility] Comment on above: Performed By: #### A MY, CMP, LIPA #### [facility] [address] [place] [address] Dr. Timothy Adair ALT [Catalytic activity/Vol] 18 U/L Normal 9-52 [facility] Comment on above: Performed By: #### A MY, CMP, LIPA #### [facility] [address] [address] [address] Timothy Adair Anion gap [Moles/Vol] 13.6 mmol/L Normal [facility] Comment on above: Performed By: #### A MY, CMP, LIPA #### [facility] [address] [place] [address] Dr. Timothy Adair AST [Catalytic activity/Vol] 14 U/L Normal 14-36 [facility] Comment on above: Performed By: #### A MY, CMP, LIPA #### [facility] [address] [place] [address] Dr. Timothy Adair Bilirubin [Mass/Vol] 0.3 mg/dL Normal 0.2-1.3 [facility] Comment on above: Performed By: #### A MY, CMP, LIPA #### [facility] [address] [place] [address] Dr. Timothy Adair Calcium [Mass/Vol] 8.8 mg/dL Normal 8.4-10.2 [facility] Comment on above: Performed By: #### A MY, CMP, LIPA #### [facility] [address] [address] [address] Timothy Adair Chloride [Moles/Vol] 101 mmol/L Normal 98-107 [facility] Comment on above: Performed By: #### A MY, CMP, LIPA #### [facility] [address] [place] [address] Dr. Timothy Adair CO2 [Moles/Vol] 28.2 mmol/L Normal 22.0-30.0 [facility] Comment on above: Performed By: #### A MY, CMP, LIPA #### [facility] [address] [place] [address] Dr. Timothy Adair Creatinine [Mass/Vol] 0.87 mg/dL Normal 0.52-1.04 [facility] Comment on above: Performed By: #### A MY, CMP, LIPA #### [facility] [address] [place] [address] Dr. Timothy Adair EGFR-AF SERBIAN >60 Normal >=60 [facility] Comment on above: Performed By: #### A MY, CMP, LIPA #### [facility] [address] [place] [address] Dr. Timothy Adair EGFR-NON AF SERBIAN >60 Normal >=60 [facility] Comment on above: Performed By: #### A MY, CMP, LIPA #### [facility] [address] [place] [address] Dr. Timothy Adair Globulin (S) [Mass/Vol] 5.2 g/dL Normal [facility] Comment on above: Performed By: #### A MY, CMP, LIPA #### [facility] [address] [place] [address] Dr. Timothy Adair Glucose [Mass/Vol] 111 mg/dL Critically high 74-106 [facility] Comment on above: Performed By: #### A MY, CMP, LIPA #### [facility] [address] [address] [address] Timothy Adair Potassium [Moles/Vol] 3.8 mmol/L Normal 3.4-5.0 [facility] Comment on above: Performed By: #### A MY, CMP, LIPA #### [facility] [address] [place] [address] Dr. Timothy Adair Protein [Mass/Vol] 8.3 g/dL Critically high 6.1-8.2 [facility] Comment on above: Performed By: #### A MY, CMP, LIPA #### [facility] [address] [place] [address] Dr. Timothy Adair Sodium [Moles/Vol] 139 mmol/L Normal 137-145 [facility] Comment on above: Performed By: #### A MY, CMP, LIPA #### [facility] [address] [place] [address] Dr. Timothy Adair Urea nitrogen [Mass/Vol] 15.0 mg/dL Normal 7.0-17.0 [facility] Comment on above: Performed By: #### A MY, CMP, LIPA #### [facility] [address] [place] [address] Dr. Timothy Adair Urea nitrogen/Creatini ne [Mass ratio] 17.2 mg/mg Normal [facility] Comment on above: Performed By: #### A MY, CMP, LIPA #### [facility] [address] [place] [address] Dr. Timothy Adair URINE MICROSCOPIC ONLYon BACTERIA LARGE Abnormal NONE SEEN The [facility] Comment on above: Performed By: #### ITZEL LINARES #### [facility] [address] [place] [address] Dr. Timothy Adair Bacteria identified Cx Nom (U) INDICATED Normal [facility] Comment on above: Performed By: #### ITZEL LINARES #### [facility] [address] [place] [address] Dr. Timothy Adair CAST NONE SEEN Normal NONE SEEN The [facility] Comment on above: Performed By: #### MASOOD LINARESRO #### [facility] [address] [place] [address] Dr. Timothy Adair Crystals LM Nom (Urine sed) NONE SEEN Normal NONE SEEN The [facility] Comment on above: Performed By: #### MASOOD LINARESRO #### [facility] [address] [place] [address] Dr. Timothy Adair Epithelial cells LM Ql (Urine sed) MODERATE Abnormal NONE SEEN /RARE The [facility] Comment on above: Performed By: #### MASOOD LINARESRO #### [facility] [address] [place] [address] Dr. Timothy Adair MUCOUS SMALL Abnormal NONE SEEN The [facility] Comment on above: Performed By: #### MASOOD LINARESRO #### [facility] [address] [place] [address] Dr. Timothy Adair RBC 0-2 Normal 0-2 [facility] Comment on above: Performed By: #### ITZEL LINARES #### [facility] [address] [place] [address] Dr. Timothy Adair WBC 5-10 Abnormal NONE SEEN The [facility] Comment on above: Performed By: #### ITZEL LINARES #### [facility] [address] [place] [address] Dr. Timothy Adair CBC AUTO DIFFon 07-19-2021 BASO # 0.0 103/ul Normal 0.0-0.1 [facility] Comment on above: Performed By: #### MASOOD LINARESRO #### [facility] [address] [place] [address] Dr. Timothy Adair Basophils/100 WBC (Bld) 0.1 % Critically low 0.2-2.0 [facility] Comment on above: Performed By: #### MASOOD LINARESRO #### [facility] [address] [place] [address] Dr. Timothy Adair EO # 0.0 103/ul Normal 0.0-0.7 [facility] Comment on above: Performed By: #### MASOOD LINARESRO #### [facility] [address] [place] [address] Dr. Timothy Adair Eosinophils/100 WBC (Bld) 0.0 % Critically low 0.9-7.0 [facility] Comment on above: Performed By: #### MASOOD LINARESRO #### [facility] [address] [place] [address] Dr. Timothy Adair Erythrocyte distribution width (RBC) [Ratio] 12.8 % Normal 11.0-15.0 [facility] Comment on above: Performed By: #### MASOOD LINARESRO #### [facility] [address] [place] [address] Dr. Timothy Adair Hematocrit (Bld) [Volume fraction] 36.6 % Normal 36.0-48.0 [facility] Comment on above: Performed By: #### MASOOD LINARESRO #### [facility] [address] [place] [address] Dr. Timothy Adair Hemoglobin (Bld) [Mass/Vol] 12.0 g/dL Normal 12.0-16.0 [facility] Comment on above: Performed By: #### ERNESTINE LINARESICRO #### [facility] [address] [place] [address] Dr. Timothy Adair IG # 0.03 10e3/ul Normal 0.00-0.03 [facility] Comment on above: Performed By: #### ERNESTINE LINARESICRO #### [facility] [address] [place] [address] Dr. Timothy Adair IG % 0.4 % Normal 0.0-0.5 [facility] Comment on above: Performed By: #### Sanjiv CHANDLER UMICRO #### [facility] [address] [place] [address] Dr. Timothy Adair LYMPH # 1.0 103/ul Critically low 1.2-3.8 [facility] Comment on above: Performed By: #### MASOOD LINARESRO #### [facility] [address] [place] [address] Dr. Timothy Adair Lymphocytes/100 WBC (Bld) 13.2 % Critically low 20.5-60.0 [facility] Comment on above: Performed By: #### MASOOD LINARESRO #### [facility] [address] [place] [address] Dr. Timothy Adair MANUAL DIFF REQ NO Normal [facility] Comment on above: Performed By: #### MASOOD LINARESRO #### [facility] [address] [place] [address] Dr. Timothy Adair MCH (RBC) [Entitic mass] 28.1 pg Normal 26.7-34.0 [facility] Comment on above: Performed By: #### MASOOD LINARESRO #### [facility] [address] [place] [address] Dr. Timothy Adair MCHC (RBC) [Mass/Vol] 32.8 g/dL Normal 29.9-35.2 [facility] Comment on above: Performed By: #### MASOOD LINARESRO #### [facility] [address] [place] [address] Dr. Timothy Adair MCV (RBC) [Entitic vol] 85.7 fL Normal 81.0-99.0 [facility] Comment on above: Performed By: #### MASOOD LINARESRO #### [facility] [address] [place] [address] Dr. Timothy Adair MONO # 0.1 103/ul Critically low 0.3-0.8 [facility] Comment on above: Performed By: #### MASOOD LINARESRO #### [facility] [address] [place] [address] Dr. Timothy Adair Monocytes/100 WBC (Bld) 0.9 % Critically low 1.7-12.0 [facility] Comment on above: Performed By: #### MASOOD LINARESRO #### [facility] [address] [address] [address] Timothy Adair NEUT # 6.6 103/ul Critically high 1.4-6.5 [facility] Comment on above: Performed By: #### ERNESTINE LINARESICRO #### [facility] [address] [place] [address] Dr. Timothy Adair Neutrophils/100 WBC (Bld) 85.4 % Critically high 43.0-75.0 [facility] Comment on above: Performed By: #### Sanjiv CHANDLER UMICRO #### [facility] [address] [place] [address] Dr. Timothy Adair Platelet mean volume (Bld) [Entitic vol] 10.3 fL Normal 9.5-13.5 [facility] Comment on above: Performed By: #### Sanjiv CHANDLER UMICRO #### [facility] [address] [place] [address] Dr. Timothy Adair PLT 341 103/ul Normal 150-450 [facility] Comment on above: Performed By: #### Sanjiv CHANDLER UMICRO #### [facility] [address] [place] [address] Dr. Timothy Adair RBC 4.27 106/ul Normal 4.20-5.40 [facility] Comment on above: Performed By: #### Sanjiv CHANDLER UMICRO #### [facility] [address] [place] [address] Dr. Timothy Adair WBC 7.7 103/ul Normal 4.0-11.0 [facility] Comment on above: Performed By: #### Sanjiv CHANDLER UMICRO #### [facility] [address] [place] [address] Dr. Timothy Adair PROF CHEM 8 (BAS METB)on Anion gap [Moles/Vol] 17.1 mmol/L Normal [facility] Comment on above: Performed By: #### Sanjiv CHANDLER, UMICRO #### [facility] [address] [place] [address] Dr. Timothy Adair Calcium [Mass/Vol] 9.2 mg/dL Normal 8.4-10.2 [facility] Comment on above: Performed By: #### MASOOD LINARESRO #### [facility] [address] [place] [address] Dr. Timothy Adair Chloride [Moles/Vol] 100 mmol/L Normal 98-107 [facility] Comment on above: Performed By: #### MASOOD LINARESRO #### [facility] [address] [place] [address] Dr. Timothy Adair CO2 [Moles/Vol] 24.1 mmol/L Normal 22.0-30.0 [facility] Comment on above: Performed By: #### MASOOD LINARESRO #### [facility] [address] [place] [address] Dr. Timothy Adair Creatinine [Mass/Vol] 0.99 mg/dL Normal 0.52-1.04 [facility] Comment on above: Performed By: #### MASOOD LINARESRO #### [facility] [address] [place] [address] Dr. Timothy Adair EGFR-AF SERBIAN >60 Normal >=60 [facility] Comment on above: Performed By: #### MASOOD LINARESRO #### [facility] [address] [place] [address] Dr. Timothy Adair EGFR-NON AF SERBIAN >60 Normal >=60 The [facility] Comment on above: Performed By: #### MASOOD LINARESRO #### [facility] [address] [place] [address] Dr. Timothy Adair Glucose [Mass/Vol] 154 mg/dL Critically high 74-106 The [facility] Comment on above: Performed By: #### MASOOD LINARESRO #### [facility] [address] [place] [address] Dr. Timothy Adair Potassium [Moles/Vol] 4.2 mmol/L Normal 3.4-5.0 [facility] Comment on above: Performed By: #### MASOOD LINARESRO #### [facility] [address] [place] [address] Dr. Timothy Adair Sodium [Moles/Vol] 137 mmol/L Normal 137-145 The [facility] Comment on above: Performed By: #### ITZEL LINARES #### [facility] [address] [place] [address] Dr. Timothy Adair Urea nitrogen [Mass/Vol] 13.0 mg/dL Normal 7.0-17.0 [facility] Comment on above: Performed By: #### ITZEL LINARES #### [facility] [address] [place] [address] Dr. Timothy Adair Urea nitrogen/Creatini ne [Mass ratio] 13.1 mg/mg Normal [facility] Comment on above: Performed By: #### ITZEL LINARES #### [facility] [address] [place] [address] Dr. Timothy Adair CBC AUTO DIFFon 07-18-2021 BASO # 0.0 103/ul Normal 0.0-0.1 [facility] Comment on above: Performed By: #### C BC #### [facility] [address] [place] [address] Dr. Timothy Adair Basophils/100 WBC (Bld) 0.3 % Normal 0.2-2.0 [facility] Comment on above: Performed By: #### C BC #### [facility] [address] [place] [address] Dr. Timothy Adair EO # 0.0 103/ul Normal 0.0-0.7 [facility] Comment on above: Performed By: #### C BC #### [facility] [address] [place] [address] Dr. Timothy Adair Eosinophils/100 WBC (Bld) 0.1 % Critically low 0.9-7.0 [facility] Comment on above: Performed By: #### C BC #### [facility] [address] [place] [address] Dr. Timothy Adair Erythrocyte distribution width (RBC) [Ratio] 13.2 % Normal 11.0-15.0 [facility] Comment on above: Performed By: #### C BC #### [facility] [address] [place] [address] Dr. Timothy Adair Hematocrit (Bld) [Volume fraction] 39.1 % Normal 36.0-48.0 [facility] Comment on above: Performed By: #### C BC #### [facility] [address] [place] [address] Dr. Timothy Adair Hemoglobin (Bld) [Mass/Vol] 12.9 g/dL Normal 12.0-16.0 [facility] Comment on above: Performed By: #### C BC #### [facility] [address] [place] [address] Dr. Timothy Adair IG # 0.04 10e3/ul Critically high 0.00-0.03 [facility] Comment on above: Performed By: #### C BC #### [facility] [address] [place] [address] Dr. Timothy Adair IG % 0.3 % Normal 0.0-0.5 [facility] Comment on above: Performed By: #### C BC #### [facility] [address] [place] [address] Dr. Timothy Adair LYMPH # 3.7 103/ul Normal 1.2-3.8 [facility] Comment on above: Performed By: #### C BC #### [facility] [address] [place] [address] Dr. Timothy Adair Lymphocytes/100 WBC (Bld) 32.3 % Normal 20.5-60.0 [facility] Comment on above: Performed By: #### C BC #### [facility] [address] [place] [address] Dr. Timothy Adair MANUAL DIFF REQ NO Normal [facility] Comment on above: Performed By: #### C BC #### [facility] [address] [place] [address] Dr. Timothy Adair MCH (RBC) [Entitic mass] 27.9 pg Normal 26.7-34.0 [facility] Comment on above: Performed By: #### C BC #### [facility] [address] [place] [address] Dr. Timothy Adair MCHC (RBC) [Mass/Vol] 33.0 g/dL Normal 29.9-35.2 [facility] Comment on above: Performed By: #### C BC #### [facility] [address] [address] [address] Timothy Adair MCV (RBC) [Entitic vol] 84.4 fL Normal 81.0-99.0 [facility] Comment on above: Performed By: #### C BC #### [facility] [address] [address] [address] Timothy Adair MONO # 0.5 103/ul Normal 0.3-0.8 [facility] Comment on above: Performed By: #### C BC #### [facility] [address] [place] [address] Dr. Timothy Adair Monocytes/100 WBC (Bld) 3.9 % Normal 1.7-12.0 [facility] Comment on above: Performed By: #### C BC #### [facility] [address] [place] [address] Dr. Timothy Adair NEUT # 7.3 103/ul Critically high 1.4-6.5 [facility] Comment on above: Performed By: #### C BC #### [facility] [address] [place] [address] Dr. Timothy Adair Neutrophils/100 WBC (Bld) 63.1 % Normal 43.0-75.0 [facility] Comment on above: Performed By: #### C BC #### [facility] [address] [place] [address] Dr. Timothy Adair Platelet mean volume (Bld) [Entitic vol] 10.4 fL Normal 9.5-13.5 The [facility] Comment on above: Performed By: #### C BC #### [facility] [address] [place] [address] Dr. Timothy Adair PLT 319 103/ul Normal 150-450 [facility] Comment on above: Performed By: #### C BC #### [facility] [address] [place] [address] Dr. Timothy Adair RBC 4.63 106/ul Normal 4.20-5.40 [facility] Comment on above: Performed By: #### C BC #### [facility] [address] [place], [place] [address] Dr. Timothy Adair WBC 11.5 103/ul Critically high 4.0-11.0 [facility] Comment on above: Performed By: #### C BC #### [facility] [address] [place], [place] [address] FACIAL BONES W CONon 07-03 CT FACIAL BONES W CON STUDY: CT face with contrast TECHNIQUE: CT imaging of the face was performed after the administration of IV contrast. Coronal and sagittal reformats were provided. Dose reduction techniques were achieved by using automated exposure control and/or adjustment of mA and/or kV according to patient size and/or use of iterative reconstruction technique. INDICATION: Neck pain COMPARISON: Same date CT neck, head CT 02/03/2016 FINDINGS: Osseous structures of the face and orbits are intact. No focal osseous abnormalities. Paranasal sinuses and mastoid air cells are clear. Dentition is unremarkable. There is subtle fat stranding in the left buccal soft tissues and slight asymmetric thickening of the platysma on the left. Prominent to minimally enlarged cervical chain lymph nodes, left worse than right. No abnormal enhancement. Visualized intracranial structures are unremarkable. IMPRESSION: Inflammatory changes in the left face to include subtle fat stranding and slight thickening of the platysma. Prominent likely reactive cervical chain lymph nodes. The balance of findings suggest infection without abscess. Electronically authenticated by: NIKOLAY LOTT Date: 2021-07-18 14:44 Normal The [facility] CT NECK ST W CONon CT NECK ST W CON STUDY: CT neck with contrast TECHNIQUE: CT imaging of the neck was performed after administration of IV contrast. Coronal and sagittal reformats were provided. Dose reduction techniques were achieved by using automated exposure control and/or adjustment of mA and/or kV according to patient size and/or use of iterative reconstruction technique. INDICATION: Neck pain COMPARISON: CT chest angiogram 07/16/2020 FINDINGS: Soft tissue spaces of the neck are normal and symmetric. No solid or cystic mass lesions. No areas of abnormal enhancement. No retropharyngeal fluid. Prominent cervical chain lymph nodes measuring up to 9 x 18 mm in the left level IIB level. Thyroid, submandibular and parotid glands are normal in appearance. Vascular structures of the neck enhance normally. The lung apices are clear. Imaged portions of the brain are unremarkable. The imaged paranasal sinuses and mastoid air cells are clear. Osseous structures are unremarkable. IMPRESSION: Prominent to minimally enlarged cervical chain lymph nodes which may be reactive in the acute setting. No retropharyngeal fluid or rim-enhancing fluid collection. Electronically authenticated by: NIKOLAY LOTT Date: 2021-07-18 14:37 Normal The [facility] CULTURE BLOODon 07-18-2021 Microscopic examination of blood, culture Culture Observations: NO GROWTH AT 5 DAYS. Normal [facility] Comment on above: Performed By: #### C BC #### [facility] [address] [place] [address] Dr. Timothy Adair Microscopic examination of blood, culture Culture Observations: NO GROWTH AT 5 DAYS. Normal [facility] Comment on above: Performed By: #### C BC #### [facility] [address] [address] [address] Timothy Adair Covid-19 PCR (CVDTB)on 07-03 SARS-CoV-2 (COVID-19) RNA SOCO+probe Ql (Unsp spec) Not detected Normal NOT DETECTED The [facility] Comment on above: Result Comment: When diagnostic testing is negative, the possibility of a false negative should be considered in the context of a patient's recent exposures and the presence of clinical signs and symptoms consistent with SARS-CoV-2. This test is not yet approved or cleared by the [place] FDA. When there are no FDA-approved or cleared tests available, and other criteria are met, FDA can make tests available under an emergency access mechanism called an Emergency Use Authorization (EUA). The EUA for this test is supported by the Flow Manager of Health and Human Service's declaration that circumstances exist to justify the emergency use of in vitro diagnostics for the detection and/or diagnosis of the virus that causes COVID-19. This EUA will remain in effect for the duration of the COVID-19 declaration justifying emergency of IVDs, unless it is terminated or revoked by the FDA (after which the test may no longer be used). Performed By: #### C BC #### [facility] [address] [place] [address] Dr. Timothy Adair PROF CHEM 8 (BAS METB)on Anion gap [Moles/Vol] 11.2 mmol/L Normal [facility] Comment on above: Performed By: #### MASOOD LINARESRO #### [facility] [address] [place] [address] Dr. Timothy Adair Calcium [Mass/Vol] 8.7 mg/dL Normal 8.4-10.2 [facility] Comment on above: Performed By: #### Sanjiv CHANDLER UMVIOLETRO #### [facility] [address] [place] [address] Dr. Timothy Adair Chloride [Moles/Vol] 99 mmol/L Normal 98-107 [facility] Comment on above: Performed By: #### MASOOD LINARESRO #### [facility] [address] [place] [address] Dr. Timothy Adair CO2 [Moles/Vol] 28.7 mmol/L Normal 22.0-30.0 [facility] Comment on above: Performed By: #### MASOOD LINARESRO #### [facility] [address] [place] [address] Dr. Timothy Adair Creatinine [Mass/Vol] 0.84 mg/dL Normal 0.52-1.04 [facility] Comment on above: Performed By: #### MASOOD LINARESRO #### [facility] [address] [place] [address] Dr. Timothy Adair EGFR-AF SERBIAN >60 Normal >=60 [facility] Comment on above: Performed By: #### MASOOD LINARESRO #### [facility] [address] [place] [address] Dr. Timothy Adair EGFR-NON AF SERBIAN >60 Normal >=60 [facility] Comment on above: Performed By: #### MASOOD LINARESRO #### [facility] [address] [place] [address] Dr. Timothy Adair Glucose [Mass/Vol] 87 mg/dL Normal 74-106 [facility] Comment on above: Performed By: #### ITZEL LINARES #### [facility] [address] [place] [address] Dr. Timothy Adair Potassium [Moles/Vol] 3.9 mmol/L Normal 3.4-5.0 [facility] Comment on above: Performed By: #### MASOOD LINARESRO #### [facility] [address] [place] [address] Dr. Timothy Adair Sodium [Moles/Vol] 135 mmol/L Critically low 137-145 [facility] Comment on above: Performed By: #### ITZEL LINARES #### [facility] [address] [place] [address] Dr. Timothy Adair Urea nitrogen [Mass/Vol] 12.0 mg/dL Normal 7.0-17.0 [facility] Comment on above: Performed By: #### MASOOD LINARESRO #### [facility] [address] [place] [address] Dr. Timothy Adair Urea nitrogen/Creatini ne [Mass ratio] 14.3 mg/mg Normal [facility] Comment on above: Performed By: #### ITZEL LINARES #### [facility] [address] [place] [address] Dr. Timothy Adair CBC AUTO DIFFon 07-17-2021 BASO # 0.0 103/ul Normal 0.0-0.1 [facility] Comment on above: Performed By: #### MASOOD LINARESRO #### [facility] [address] [place] [address] Dr. Timothy Adair Basophils/100 WBC (Bld) 0.1 % Critically low 0.2-2.0 [facility] Comment on above: Performed By: #### MASOOD LINARESRO #### [facility] [address] [place] [address] Dr. Timothy Adair EO # 0.0 103/ul Normal 0.0-0.7 [facility] Comment on above: Performed By: #### MASOOD LINARESRO #### [facility] [address] [place] [address] Dr. Timothy Adair Eosinophils/100 WBC (Bld) 0.0 % Critically low 0.9-7.0 [facility] Comment on above: Performed By: #### ITZEL LINARES #### [facility] [address] [place] [address] Dr. Timothy Adair Erythrocyte distribution width (RBC) [Ratio] 13.0 % Normal 11.0-15.0 [facility] Comment on above: Performed By: #### MASOOD LINARESRO #### [facility] [address] [place] [address] Dr. Timothy Adair Hematocrit (Bld) [Volume fraction] 40.3 % Normal 36.0-48.0 [facility] Comment on above: Performed By: #### MASOOD LINARESRO #### [facility] [address] [place] [address] Dr. Timothy Adair Hemoglobin (Bld) [Mass/Vol] 13.1 g/dL Normal 12.0-16.0 [facility] Comment on above: Performed By: #### ITZEL LINARES #### [facility] [address] [place] [address] Dr. Timothy Adair IG # 0.06 10e3/ul Critically high 0.00-0.03 [facility] Comment on above: Performed By: #### MASOOD LINARESRO #### [facility] [address] [place] [address] Dr. Timothy Adair IG % 0.4 % Normal 0.0-0.5 [facility] Comment on above: Performed By: #### MASOOD LINARESRO #### [facility] [address] [place] [address] Dr. Timothy Adair LYMPH # 3.3 103/ul Normal 1.2-3.8 [facility] Comment on above: Performed By: #### MASOOD LINARESRO #### [facility] [address] [place] [address] Dr. Timothy Adair Lymphocytes/100 WBC (Bld) 21.0 % Normal 20.5-60.0 [facility] Comment on above: Performed By: #### MASOOD LINARESRO #### [facility] [address] [place] [address] Dr. Timothy Adair MANUAL DIFF REQ NO Normal [facility] Comment on above: Performed By: #### MASOOD LINARESRO #### [facility] [address] [place] [address] Dr. Timothy Adair MCH (RBC) [Entitic mass] 27.6 pg Normal 26.7-34.0 [facility] Comment on above: Performed By: #### MASOOD LINARESRO #### [facility] [address] [place] [address] Dr. Timothy Adair MCHC (RBC) [Mass/Vol] 32.5 g/dL Normal 29.9-35.2 [facility] Comment on above: Performed By: #### MASOOD LINARESRO #### [facility] [address] [place] [address] Dr. Timothy Adair MCV (RBC) [Entitic vol] 84.8 fL Normal 81.0-99.0 [facility] Comment on above: Performed By: #### MASOOD LINARESRO #### [facility] [address] [place] [address] Dr. Timothy Adair MONO # 0.8 103/ul Normal 0.3-0.8 [facility] Comment on above: Performed By: #### MASOOD LINARESRO #### [facility] [address] [place] [address] Dr. Timothy Adair Monocytes/100 WBC (Bld) 5.2 % Normal 1.7-12.0 [facility] Comment on above: Performed By: #### MASOOD LINARESRO #### [facility] [address] [place] [address] Dr. Timothy Adair NEUT # 11.5 103/ul Critically high 1.4-6.5 [facility] Comment on above: Performed By: #### E RUR, UMICRO #### [facility] [address] [place] [address] Dr. Timothy Adair Neutrophils/100 WBC (Bld) 73.3 % Normal 43.0-75.0 [facility] Comment on above: Performed By: #### Sanjiv CHANDLER UMICRO #### [facility] [address] [place] [address] Dr. Timothy Adair Platelet mean volume (Bld) [Entitic vol] 9.7 fL Normal 9.5-13.5 [facility] Comment on above: Performed By: #### Sanjiv CHANDLER UMICRO #### [facility] [address] [place] [address] Dr. Timothy Adair PLT 369 103/ul Normal 150-450 [facility] Comment on above: Performed By: #### Sanjiv CHANDLER UMICRO #### [facility] [address] [place] [address] Dr. Timothy Adair RBC 4.75 106/ul Normal 4.20-5.40 [facility] Comment on above: Performed By: #### Sanjiv CHANDLER UMICRO #### [facility] [address] [place] [address] Dr. Timothy Adair WBC 15.7 103/ul Critically high 4.0-11.0 [facility] Comment on above: Performed By: #### Sanjiv CHANDLER UMICRO #### [facility] [address] [place] [address] Dr. Timothy Adair CRPon 07-17-2021 CRP 7.6 mg/dL Critically high <=1.0 [facility] Comment on above: Performed By: #### Sanjiv CHANDLER UMICRO #### [facility] [address] [place] [address] Dr. Timothy Adair PROF CHEM 8 (BAS METB)on Anion gap [Moles/Vol] 11.9 mmol/L Normal [facility] Comment on above: Performed By: #### Sanjiv CHANDLER UMICRO #### [facility] [address] [place] [address] Dr. Timothy Adair Calcium [Mass/Vol] 8.8 mg/dL Normal 8.4-10.2 [facility] Comment on above: Performed By: #### ITZEL LINARES #### [facility] [address] [address] [address] Timothy Adair Chloride [Moles/Vol] 102 mmol/L Normal 98-107 [facility] Comment on above: Performed By: #### ITZEL LINARES #### [facility] [address] [address] [address] Timothy Adair CO2 [Moles/Vol] 26.5 mmol/L Normal 22.0-30.0 [facility] Comment on above: Performed By: #### ITZEL LINARES #### [facility] [address] [place] [address] Dr. Timothy Adair Creatinine [Mass/Vol] 1.02 mg/dL Normal 0.52-1.04 [facility] Comment on above: Performed By: #### ITZEL LINARES #### [facility] [address] [place] [address] Dr. Timothy Adair EGFR-AF SERBIAN >60 Normal >=60 [facility] Comment on above: Performed By: #### ITZEL LINARES #### [facility] [address] [place] [address] Dr. Timothy Adair EGFR-NON AF SERBIAN >60 Normal >=60 [facility] Comment on above: Performed By: #### ITZEL LINARES #### [facility] [address] [place] [address] Dr. Timothy Adair Glucose [Mass/Vol] 110 mg/dL Critically high 74-106 [facility] Comment on above: Performed By: #### ITZEL LINARES #### [facility] [address] [place] [address] Dr. Timothy Adair Potassium [Moles/Vol] 3.4 mmol/L Normal 3.4-5.0 [facility] Comment on above: Performed By: #### ITZEL LINARES #### [facility] [address] [place] [address] Dr. Timothy Adair Sodium [Moles/Vol] 137 mmol/L Normal 137-145 [facility] Comment on above: Performed By: #### Sanjiv CHANDLER UMICRO #### [facility] [address] [place] [address] Dr. Timothy Adair Urea nitrogen [Mass/Vol] 12.0 mg/dL Normal 7.0-17.0 [facility] Comment on above: Performed By: #### Sanjiv CHANDLER, UMICRO #### [facility] [address] [place] [address] Dr. Timothy Adair Urea nitrogen/Creatini ne [Mass ratio] 11.8 mg/mg Normal [facility] Comment on above: Performed By: #### Sanjiv CHANDLER UMICRO #### [facility] [address] [place] [address] Dr. Timothy Adair CBC AUTO DIFFon 07-16-2021 BASO # 0.0 103/ul Normal 0.0-0.1 [facility] Comment on above: Performed By: #### Sanjiv CHANDLER UMICRO #### [facility] [address] [place] [address] Dr. Timothy Adair Basophils/100 WBC (Bld) 0.2 % Normal 0.2-2.0 [facility] Comment on above: Performed By: #### Sanjiv CHANDLER UMICRO #### [facility] [address] [place] [address] Dr. Timothy Adair EO # 0.0 103/ul Normal 0.0-0.7 [facility] Comment on above: Performed By: #### Sanjiv CHANDLER UMICRO #### [facility] [address] [place] [address] Dr. Timothy Adair Eosinophils/100 WBC (Bld) 0.1 % Critically low 0.9-7.0 [facility] Comment on above: Performed By: #### Sanjiv CHANDLER, UMICRO #### [facility] [address] [place] [address] Dr. Timothy Adair Erythrocyte distribution width (RBC) [Ratio] 12.9 % Normal 11.0-15.0 [facility] Comment on above: Performed By: #### ITZEL LINARES #### [facility] [address] [place] [address] Dr. Timothy Adair Hematocrit (Bld) [Volume fraction] 38.8 % Normal 36.0-48.0 [facility] Comment on above: Performed By: #### MASOOD LINARESRO #### [facility] [address] [place] [address] Dr. Timothy Adair Hemoglobin (Bld) [Mass/Vol] 12.9 g/dL Normal 12.0-16.0 [facility] Comment on above: Performed By: #### ITZEL LINARES #### [facility] [address] [place] [address] Dr. Timothy Adair IG # 0.04 10e3/ul Critically high 0.00-0.03 [facility] Comment on above: Performed By: #### MASOOD LINARESRO #### [facility] [address] [place] [address] Dr. Timothy Adair IG % 0.3 % Normal 0.0-0.5 [facility] Comment on above: Performed By: #### MASOOD LINARESRO #### [facility] [address] [place] [address] Dr. Timothy Adair LYMPH # 2.0 103/ul Normal 1.2-3.8 [facility] Comment on above: Performed By: #### MASOOD LINARESRO #### [facility] [address] [place] [address] Dr. Timothy Adair Lymphocytes/100 WBC (Bld) 15.6 % Critically low 20.5-60.0 [facility] Comment on above: Performed By: #### MASOOD LINARESRO #### [facility] [address] [place] [address] Dr. Timothy Adair MANUAL DIFF REQ NO Normal [facility] Comment on above: Performed By: #### MASOOD LINARESRO #### [facility] [address] [place] [address] Dr. Timothy Adair MCH (RBC) [Entitic mass] 28.3 pg Normal 26.7-34.0 [facility] Comment on above: Performed By: #### E RUR, UMICRO #### [facility] [address] [place] [address] Dr. Timothy Adair MCHC (RBC) [Mass/Vol] 33.2 g/dL Normal 29.9-35.2 [facility] Comment on above: Performed By: #### E RUR, UMICRO #### [facility] [address] [place] [address] Dr. Tmiothy Adair MCV (RBC) [Entitic vol] 85.1 fL Normal 81.0-99.0 [facility] Comment on above: Performed By: #### E ODETTER, UMICRO #### [facility] [address] [place] [address] Dr. Timothy Adair MONO # 0.7 103/ul Normal 0.3-0.8 [facility] Comment on above: Performed By: #### E ODETTER, UMICRO #### [facility] [address] [place] [address] Dr. Timothy Adair Monocytes/100 WBC (Bld) 5.1 % Normal 1.7-12.0 [facility] Comment on above: Performed By: #### E ODETTER, UMICRO #### [facility] [address] [place] [address] Dr. Timothy Adair NEUT # 10.2 103/ul Critically high 1.4-6.5 [facility] Comment on above: Performed By: #### E RUR, UMICRO #### [facility] [address] [place] [address] Dr. Timothy Adair Neutrophils/100 WBC (Bld) 78.7 % Critically high 43.0-75.0 [facility] Comment on above: Performed By: #### E RUR, UMICRO #### [facility] [address] [place] [address] Dr. Timothy Adair Platelet mean volume (Bld) [Entitic vol] 9.7 fL Normal 9.5-13.5 The [facility] Comment on above: Performed By: #### ITZEL LINARES #### [facility] [address] [place] [address] Dr. Timothy Adair PLT 333 103/ul Normal 150-450 The [facility] Comment on above: Performed By: #### MASOOD LINARESRO #### [facility] [address] [place] [address] Dr. Timothy Adair RBC 4.56 106/ul Normal 4.20-5.40 The [facility] Comment on above: Performed By: #### ITZEL LINARES #### [facility] [address] [place] [address] Dr. Timothy Adair WBC 13.0 103/ul Critically high 4.0-11.0 The [facility] Comment on above: Performed By: #### ITZEL LINARES #### [facility] [address] [place] [address] Dr. Timothy Adair PROF CHEM 8 (BAS METB)on Anion gap [Moles/Vol] 15.4 mmol/L Normal [facility] Comment on above: Performed By: #### ITZEL LINARES #### [facility] [address] [place] [address] Dr. Timothy Adair Calcium [Mass/Vol] 8.6 mg/dL Normal 8.4-10.2 The [facility] Comment on above: Performed By: #### MASOOD LINARESRO #### [facility] [address] [place] [address] Dr. Timothy Adair Chloride [Moles/Vol] 102 mmol/L Normal 98-107 The [facility] Comment on above: Performed By: #### MASOOD LINARESRO #### [facility] [address] [place] [address] Dr. Timothy Adair CO2 [Moles/Vol] 24.7 mmol/L Normal 22.0-30.0 The [facility] Comment on above: Performed By: #### E RUR, UMICRO #### [facility] [address] [address] [address] Timothy Adair Creatinine [Mass/Vol] 0.73 mg/dL Normal 0.52-1.04 [facility] Comment on above: Performed By: #### E RUR, UMICRO #### [facility] [address] [address] [address] Timothy Adair EGFR-AF SERBIAN >60 Normal >=60 The [facility] Comment on above: Performed By: #### E RUR, UMICRO #### [facility] [address] [address] [address] Timothy Adair EGFR-NON AF SERBIAN >60 Normal >=60 [facility] Comment on above: Performed By: #### E ODETTER, UMICRO #### [facility] [address] [address] [address] Timothy Adair Glucose [Mass/Vol] 125 mg/dL Critically high 74-106 [facility] Comment on above: Performed By: #### E RAMESH, UMICRO #### [facility] [address] [address] [address] Timothy Adair Potassium [Moles/Vol] 4.1 mmol/L Normal 3.4-5.0 [facility] Comment on above: Performed By: #### Sanjiv CHANDLER, UMICRO #### [facility] [address] [address] [address] Timothy Adair Sodium [Moles/Vol] 138 mmol/L Normal 137-145 The [facility] Comment on above: Performed By: #### E RUR, UMICRO #### [facility] [address] [address] [address] Timothy Adair Urea nitrogen [Mass/Vol] 5.0 mg/dL Critically low 7.0-17.0 [facility] Comment on above: Performed By: #### E RUR, UMICRO #### [facility] [address] [address] [address] Timothy Adair Urea nitrogen/Creatini ne [Mass ratio] 6.8 mg/mg Normal The [facility] Comment on above: Performed By: #### E RAMESHERNESTINEVIOLETCARINA #### [facility] [address] [place] [address] Dr. Timothy Adair CBC AUTO DIFFon 06-15-2021 BASO # 0.1 103/ul Normal 0.0-0.1 [facility] Comment on above: Performed By: #### C BC #### [facility] [address] [place] [address] Dr. Timothy Adair Basophils/100 WBC (Bld) 0.6 % Normal 0.2-2.0 [facility] Comment on above: Performed By: #### C BC #### [facility] [address] [place] [address] Dr. Timothy Adair EO # 0.1 103/ul Normal 0.0-0.7 [facility] Comment on above: Performed By: #### C BC #### [facility] [address] [place] [address] Dr. Timothy Adair Eosinophils/100 WBC (Bld) 1.0 % Normal 0.9-7.0 [facility] Comment on above: Performed By: #### C BC #### [facility] [address] [place] [address] Dr. Timothy Adair Erythrocyte distribution width (RBC) [Ratio] 13.0 % Normal 11.0-15.0 [facility] Comment on above: Performed By: #### C BC #### [facility] [address] [place] [address] Dr. Timothy Adair Hematocrit (Bld) [Volume fraction] 43.1 % Normal 36.0-48.0 [facility] Comment on above: Performed By: #### C BC #### [facility] [address] [place] [address] Dr. Timothy Adair Hemoglobin (Bld) [Mass/Vol] 14.0 g/dL Normal 12.0-16.0 [facility] Comment on above: Performed By: #### C BC #### [facility] [address] [place] [address] Dr. Timothy Adair IG # 0.03 10e3/ul Normal 0.00-0.03 [facility] Comment on above: Performed By: #### C BC #### [facility] [address] [place] [address] Dr. Timothy Adair IG % 0.3 % Normal 0.0-0.5 [facility] Comment on above: Performed By: #### C BC #### [facility] [address] [place] [address] Dr. Timothy Adair LYMPH # 2.8 103/ul Normal 1.2-3.8 [facility] Comment on above: Performed By: #### C BC #### [facility] [address] [place] [address] Dr. Timothy Adair Lymphocytes/100 WBC (Bld) 27.1 % Normal 20.5-60.0 [facility] Comment on above: Performed By: #### C BC #### [facility] [address] [place] [address] Dr. Timothy Adair MANUAL DIFF REQ NO Normal [facility] Comment on above: Performed By: #### C BC #### [facility] [address] [place] [address] Dr. Timothy Adair MCH (RBC) [Entitic mass] 27.4 pg Normal 26.7-34.0 [facility] Comment on above: Performed By: #### C BC #### [facility] [address] [place] [address] Dr. Timothy Adair MCHC (RBC) [Mass/Vol] 32.5 g/dL Normal 29.9-35.2 [facility] Comment on above: Performed By: #### C BC #### [facility] [address] [place] [address] Dr. Timothy Adair MCV (RBC) [Entitic vol] 84.3 fL Normal 81.0-99.0 [facility] Comment on above: Performed By: #### C BC #### [facility] [address] [place] [address] Dr. Timothy Adair MONO # 0.4 103/ul Normal 0.3-0.8 [facility] Comment on above: Performed By: #### C BC #### [facility] [address] [address] [address] Timothy Adair Monocytes/100 WBC (Bld) 4.1 % Normal 1.7-12.0 [facility] Comment on above: Performed By: #### C BC #### [facility] [address] [address] [address] Timothy Adair NEUT # 6.9 103/ul Critically high 1.4-6.5 [facility] Comment on above: Performed By: #### C BC #### [facility] [address] [address] [address] Timothy Adair Neutrophils/100 WBC (Bld) 66.9 % Normal 43.0-75.0 [facility] Comment on above: Performed By: #### C BC #### [facility] [address] [address] [address] Timothy Adair Platelet mean volume (Bld) [Entitic vol] 9.8 fL Normal 9.5-13.5 [facility] Comment on above: Performed By: #### C BC #### [facility] [address] [address] [address] Timothy Adair PLT 369 103/ul Normal 150-450 The [facility] Comment on above: Performed By: #### C BC #### [facility] [address] [address] [address] Timothy Adair RBC 5.11 106/ul Normal 4.20-5.40 The [facility] Comment on above: Performed By: #### C BC #### [facility] [address] [address] [address] Timothy Adair WBC 10.3 103/ul Normal 4.0-11.0 The [facility] Comment on above: Performed By: #### C BC #### [facility] [address] [place] [address] Dr. Timothy Adair CTA CHEST WO W CONon 021 CTA CHEST WO W CON EXAM: CTA chest. CLINICAL SYMPTOMS: Female, 30 years, Pulmonary embolism. COMPARISONS: None. TECHNIQUE: Helical CTA of the pulmonary arteries was performed following rapid injection of intravenous contrast with coronal and sagittal MIP images following the administration of 100 mL Omnipaque 350 IV contrast. Dose reduction techniques were achieved by using automated exposure control and/or adjustment of mA and/or KVP according to patient size and/or use of iterative reconstruction technique. CTA: There are no filling defects identified in the pulmonary arteries to suggest pulmonary embolism. There is no thoracic aortic dissection or aneurysm identified. The thoracic aorta is normal. CT CHEST: The lung parenchyma is haris.l No mediastinal or hilar adenopathy. Heart size is normal. There are calcified granulomas within the spleen. IMPRESSION: No evidence for pulmonary embolism or aortic dissection. The lungs are clear. Electronically authenticated by: MADYSON CISNEROS Date: 2021-06-15 19:51 Normal The [facility] D-DIMERon 06-15-2021 D-DIMER 0.66 mg/L FEU Critically high 0.19-0.50 The [facility] Comment on above: Result Comment: test repeated critical value verified Performed By: #### ITZEL LINARES #### [facility] [address] [address] [address] Timothy Adair D-DIMER COMMENTS SEE BELOW Normal The [facility] Comment on above: Result Comment: Incr eases in D-Dimer concentration observed with thromboembolic events can be variable due to localization, size, and age of the thrombus. Therefore, a thromboembolic event cannot be diagnosed with certainty on the basis of the reference range. D-Dimers may also be elevated for a variety of disorders including: advanced age, , coronary disease, cancer, liver disease, infection, inflammation, hematoma, DIC, trauma, post-surgery, diabetes, thrombolytic or anticoagulant therapy, stress, and generalized hospitalization. Performed By: #### MASOOD LINARESRO #### [facility] [address] [place], [place] [address] Dr. Timothy Adair PREG HCG QUALon 06-15-2021 , QUAL Negative Normal NEGATIVE The [facility] Comment on above: Performed By: #### MASOOD LINARESRO #### [facility] [address] [place], [place] [address] Dr. Timothy Adair PROF 14(COMP METB)on 12-14-2 021 Albumin [Mass/Vol] 3.1 g/dL Critically low 3.5-5.0 [facility] Comment on above: Performed By: #### C BC #### [facility] [address] [place] [address] Dr. Timothy Adair Albumin/Globulin [Mass ratio] 0.6 {ratio} Normal [facility] Comment on above: Performed By: #### C BC #### [facility] [address] [place] [address] Dr. Timothy Adair ALP [Catalytic activity/Vol] 105 U/L Normal 38-126 The [facility] Comment on above: Performed By: #### C BC #### [facility] [address] [place] [address] Dr. Timothy Adair ALT [Catalytic activity/Vol] 21 U/L Normal 9-52 [facility] Comment on above: Performed By: #### C BC #### [facility] [address] [place] [address] Dr. Timothy Adari Anion gap [Moles/Vol] 14.8 mmol/L Normal [facility] Comment on above: Performed By: #### C BC #### [facility] [address] [place] [address] Dr. Timothy Adair AST [Catalytic activity/Vol] 15 U/L Normal 14-36 [facility] Comment on above: Performed By: #### C BC #### [facility] [address] [place] [address] Dr. Timothy Adair Bilirubin [Mass/Vol] 0.3 mg/dL Normal 0.2-1.3 The [facility] Comment on above: Performed By: #### C BC #### [facility] [address] [place] [address] Dr. Timothy Adair Calcium [Mass/Vol] 9.3 mg/dL Normal 8.4-10.2 The [facility] Comment on above: Performed By: #### C BC #### [facility] [address] [place] [address] Dr. Timothy Adair Chloride [Moles/Vol] 101 mmol/L Normal 98-107 The [facility] Comment on above: Performed By: #### C BC #### [facility] [address] [address] [address] Timothy Adair CO2 [Moles/Vol] 26.6 mmol/L Normal 22.0-30.0 The [facility] Comment on above: Performed By: #### C BC #### [facility] [address] [address] [address] Timothy Adair Creatinine [Mass/Vol] 0.87 mg/dL Normal 0.52-1.04 The [facility] Comment on above: Performed By: #### C BC #### [facility] [address] [address] [address] Timothy Adair EGFR-AF SERBIAN >60 Normal >=60 [facility] Comment on above: Performed By: #### C BC #### [facility] [address] [place] [address] Dr. Timothy Adair EGFR-NON AF SERBIAN >60 Normal >=60 The [facility] Comment on above: Performed By: #### C BC #### [facility] [address] [place] [address] Dr. Timothy Adair Globulin (S) [Mass/Vol] 4.9 g/dL Normal The [facility] Comment on above: Performed By: #### C BC #### [facility] [address] [place] [address] Dr. Timothy Adair Glucose [Mass/Vol] 113 mg/dL Critically high 74-106 The [facility] Comment on above: Performed By: #### C BC #### [facility] [address] [place] [address] Dr. Timothy Adair Potassium [Moles/Vol] 3.4 mmol/L Normal 3.4-5.0 The [facility] Comment on above: Performed By: #### C BC #### [facility] [address] [place] [address] Dr. Timothy Adair Protein [Mass/Vol] 8.0 g/dL Normal 6.1-8.2 The [facility] Comment on above: Performed By: #### C BC #### [facility] [address] [address] [address] Timothy Adair Sodium [Moles/Vol] 139 mmol/L Normal 137-145 The [facility] Comment on above: Performed By: #### C BC #### [facility] [address] [place], [place] [address] Dr. Timothy Adair Urea nitrogen [Mass/Vol] 9.0 mg/dL Normal 7.0-17.0 [facility] Comment on above: Performed By: #### C BC #### [facility] [address] [place], [place] [address] Dr. Timothy Adair Urea nitrogen/Creatini ne [Mass ratio] 10.3 mg/mg Normal The [facility] Comment on above: Performed By: #### C BC #### [facility] [id number] Timothy Adair TROPONIN, HIGH SENSITIVITYon 06-15-2021 HSTROP 4.8 pg/mL Normal 4.0-35.5 The [facility] Comment on above: Result Comment: CUT- OFF POINTS HAVE BEEN ESTABLISHED BASED ON THE FOURTH UNIVERSAL DEFINITIONS OF MYOCARDIAL INFARCTION. THE UPPER REFERENCE LIMIT (URL) OF TROPONIN, DEFINED THE 99TH PERCENTILE OF cTnI DISTRIBUTION IN A REFERENCE POPULATION, HAS BEEN CONFIRMED THE DECISION THRESHOLD FOR [place] DIAGNOSIS. Performed By: #### C BC #### [facility] [id number] Timothy Adair XR ankle LT min 3V*on 2020 XR ankle LT min 3V* [facility] [employer] Other XR ankle LT min 3V* [facility] [employer] Other XR ankle LT min 3V* [address] [place] [address] [employer] Other XR ankle LT min 3V* [place] [address] [employer] Other XR ankle LT min 3V* XRay Report [employer] Other XR ankle LT min 3V* Signed [employer] Other XR ankle LT min 3V* Patient: Nickie Ford MR#: [id number] [employer] Other XR ankle LT min 3V* 271 [employer] Other XR ankle LT min 3V* : 1990 Acct:[id number] [employer] Other XR ankle LT min 3V* Age/Sex: 30 / F ADM Date: 04/23/21 [employer] Other XR ankle LT min 3V* Loc: XDUCLY Room: Type: [facility] [employer] Other XR ankle LT min 3V* Attending Dr: Cleopatra ESCALANTE [employer] Other XR ankle LT min 3V* Ordering Provider: AVA Whitaker [employer] Other XR ankle LT min 3V* Date of Service: 04/23/21 [employer] Other XR ankle LT min 3V* XR/XR ankle LT min 3V*: Acute left ankle pain [employer] Other XR ankle LT min 3V* Copies to: AVA Whitaker [employer] Other XR ankle LT min 3V* XR ankle LT min 3V* [employer] Other XR ankle LT min 3V* CLINICAL HISTORY: Tripped and rolled left ankle, pain at the medial aspect of the left ankle. [employer] Other XR ankle LT min 3V* COMPARISON: 08/06/2018 [employer] Other XR ankle LT min 3V* FINDINGS: AP, lateral and oblique views of the left ankle were obtained. There is no evidence of [employer] Other XR ankle LT min 3V* fracture or subluxation. 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 Minimal spur at the [employer] Other XR ankle LT min 3V* tip of the medial malleolus is noted. There are no focal soft tissue abnormalities. [employer] Other XR ankle LT min 3V* XR/XR ankle LT min 3V* [employer] Other XR ankle LT min 3V* IMPRESSION: [employer] Other XR ankle LT min 3V* NO ACUTE FRACTURE OR SUBLUXATION. [employer] Other XR ankle LT min 3V* MILD FOCAL CONTOUR IRREGULARITY AT THE LATERAL TALAR DOME, PROBABLY RELATED TO OLD INJURY. [employer] Other XR ankle LT min 3V* Impression dictated by: Nicolás Mccormick M.D.04/23/2021 12:30 PM [employer] Other XR ankle LT min 3V* Dictation Location: [facility] [employer] Other XR ankle LT min 3V* Transcribed By: YECENIA 04/23/21 1230 [employer] Other XR ankle LT min 3V* Dictated By: Nicolás Mccormick MD 04/23/21 1225 [employer] Other XR ankle LT min 3V* Signed By: [employer] Other XR ankle LT min 3V* 04/23/21 1230 [employer] Other BASIC METABOLIC PANELon 05-0 -2017 Calcium 9.0 mg/dL Normal 8.6-10.3 The [facility] Comment on above: Performed By: #### 2 8208, 07408 ####[facility] [place] [address], [facility] Chloride 104 mmol/L Normal 98-107 [facility] [place] [facility] Comment on above: Performed By: #### 2 5507, 15082 ####[facility] [place] [address], [facility] CO2 26 mmol/L Normal 21-31 [facility] Comment on above: Performed By: #### 2 5507, 73649 ####[facility] [place] [address], [facility] Creatinine 0.59 mg/dL Low 0.60-1.20 [facility] [place] [facility] Comment on above: Performed By: #### 2 5507, 52291 ####[id number] [facility] [place] [address], [facility] eGFR (black) mL/min/{1.73_m2} Normal >60 The [facility] Comment on above: Performed By: #### 2 5507, 70092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 Provider Active Goals (unrecognized section and content) Goals may be documented in a n alternate section FOR RECORDS PERTAINING TO PATIENTS WHO ARE OR HAVE BEEN ENROLLED IN A CHEMICAL DEPENDENCY/SUBSTANCEABUSE PROGRAM, SOME INFORMATION MAY BE OMITTED. This clinical summary was aggregated from multiple sources. Caution should be exercised in using it in the provision of clinical care. This summary normalizes information from multiple sources, and as a consequence, information in this document may materially change the coding, format and clinical context of patient data. In addition, data may be omitted in some cases. CLINICAL DECISIONS SHOULD BE BASED ON THE PRIMARY CLINICAL RECORDS. [employer] provides no warranty or guarantee of the accuracy or completeness of information in this document.
[2023-07-18 11:13] LABS: QuantiFERON-TB Gold Plus Negative (Negative)
== END 2023-07-14 11:03 | disposition home or self-care (01) ==
LOC: LAB 11:03
PROVIDERS: PCP Nurse Practitioner Primary Care; Visit Provider Nurse Practitioner Primary Care
DX: Z11.1 Encounter for screening for respiratory tuberculosis (principal)
CPT/HCPCS: 36415; 86480

== ENCOUNTER 2024-03-11 12:59 | Emergency (ER) | payer MEDICAID, SELFPAY ==
[2024-03-11 13:07] VITALS: BP 144/100; PULSE 93; TEMP 36.8; O2SAT 100; BMI 45.1
--- NOTE | 2024-03-11 13:22 | CT_ITS ---
The [address] [address] Patient Name: NICKIE FORD MRN: [id number] date: 1990 Sex: F Assigned Patient Location: ER Current Patient Location: Accession/Order Number: [id number] Exam Date: 03/11/2024 13:40 Report Date: 03/11/2024 13:55 At the request of: TIP PATRICK Procedure: CT head/brain wo con CT head/brain wo con, 03/11/2024 1:40 PM EDT INDICATION: Headache COMPARISON: Prior CT of the head dated 03/03/2022 TECHNIQUE: Axial CT images of the brain from skull base to vertex, including portions of the face and sinuses, were obtained without contrast . Multiplanar reformatted images were generated and reviewed as needed. Dose reduction techniques were achieved by using automated exposure control and/or adjustment of mA and/or kV according to patient size and/or use of iterative reconstruction technique. FINDINGS: The cerebral sulci as well as ventricular system are appropriate for age. There is no intracranial mass, mass effect, midline shift, intra or extra-axial fluid collection or hemorrhage. The visualized portions of orbits, mastoid air cells as well as paranasal sinuses are unremarkable. There is no suspicious osteolytic or osteoblastic lesion. CT/CT head/brain wo con IMPRESSION: No acute intracranial process is noted. Electronically authenticated by: YOSSI LEGGETT Date: 03/11/2024 13:55
--- NOTE | 2024-03-11 13:23 | ED_ITS ---
HPI HPI - General Adult General Chief complaint: Headache Stated complaint: HEADACHE Time Seen by Provider: 03/11/24 13:19 Source: patient Mode of arrival: walk-in Limitations: no limitations History of Present Illness HPI narrative: 33 year old female presents to the ED for a left frontal headache. Onset was 1.5-2 weeks ago. It has been intermittent. Denies fever, chills, dizziness, emes is. Reports nausea. States at times her vision is blurry. Today her pain radiated to her neck and left arm which brought her to the ED. She has been taking Tylenol and Motrin without relief; last doses were 0715 this morning. Denies chance of . She is accompanied by family. Related Data Home Medications ?Medication ?Instructions ?Recorded ?Confirmed norethindrone 1 mg-ethinyl 1 tab PO DAILY 04/20/23 03/11/24 estradiol 35 mcg tablet (Nortrel) Allergies Allergy/AdvReac Type Severity Reaction Status Date / Time cephalexin [From Keflex] Allergy Severe Verified 04/20/23 13:37 erythromycin base Allergy Severe Verified 04/20/23 13:37 nickel Allergy Severe Verified 04/20/23 13:37 latex Allergy Unknown Verified 05/03/23 20:22 codeine AdvReac Severe Verified 04/20/23 13:37 Opioid HPI Opioid Management Most Recent Opioid Data: No Data to Display Review of Systems ROS Constitutional Denies: fever or chills Eyes Reports: blurry vision; Denies: blind spots or light sensitivity Ears, nose, mouth, and throat Reports: neck pain; Denies: throat pain, throat swelling, ear pain, ear discharge, nasal discharge or nasal congestion Cardiovascular Denies: chest pain Respiratory Denies: shortness of breath or cough Gastrointestinal Reports: nausea; Denies: abdominal pain or vomiting Musculoskeletal Reports: neck pain and extremity pain; Denies: back pain or extremity swelling Integumentary/Breast Denies: rash Neurological Reports: headache; Denies: numbness in extremities, weakness in extremities, lack of coordination, dizziness or confusion PFSH PFSH Social History Smoking status: Never smoker Little interest or pleasure in doing things: not at all Feeling down, depressed, or hopeless: not at all Exam Constitutional Vital Signs, click to edit/add: Last Vital Signs Temp 98.2 F 03/11/24 13:07 Pulse 93 H 03/11/24 13:07 Resp 18 03/11/24 13:07 BP 144/100 H 03/11/24 13:07 Pulse Ox 100 03/11/24 13:07 Common normals: no apparent distress and oriented x3 General appearance: cooperative HENGA Common normals: normocephalic Face and sinus: normal facial exam External ear: external ears normal Mouth: oral and palatal mucosa normal, lip normal and tongue normal Throat: posterior oropharynx normal Eye Common normals: PERRL, EOMs intact bilaterally, conjunctivae normal and no scleral icterus Neck & C-Spine Common normals: full ROM, supple, no meningeal signs and no JVD Cervical spine: paracervical muscle tenderness left; no cervical spine tenderness Chest Chest: symmetrical chest wall rise Respiratory Common normals: normal respiratory effort and no use of accessory muscles Effort & inspection: able to speak in complete sentences Cardio Common normals: regular rate and regular rhythm Extremity Other: Full ROM to LUE. Distal sensation intact. Neuro Common normals: oriented x3, CN's II-XII intact bilaterally, moves all ext remities and no focal motor deficits Sensorium/orientation: awake and alert Speech: speech normal Gait (neuro): normal gait Course Vital Signs Vital signs: Vital Signs Temperature 98.2 F 03/11/24 13:07 Pulse Rate 93 H 03/11/24 13:07 Respiratory Rate 18 03/11/24 13:07 Blood Pressure 144/100 H 03/11/24 13:07 Pulse Oximetry 100 03/11/24 13:07 Temperature 98.2 F 03/11/24 13:07 Pulse Rate 93 H 03/11/24 13:07 Respiratory Rate 18 03/11/24 13:07 Blood Pressure 144/100 H 03/11/24 13:07 Pulse Oximetry 100 03/11/24 13:07 Medical Decision Making MDM Narrative Medical decision making narrative: CT scan showed no acute findings. She was given IV fluids, Benadryl, Decadron, and Reglan with improvement. Follow up with pcp for a recheck, further evaluation and treatment. She reported she has a pcp appointment today at 1600. Medical Records Medical records reviewed: Yes I reviewed the patient's medical records Imaging Data CT scan - head: Attestation: I have reviewed the pertinent imaging results. Radiologist's impression: ITS Impressions Head CT 03/11/24 13:22 IMPRESSION: No acute intracranial process is noted. Electronically authenticated by: YOSSI LEGGETT Date: 03/11/2024 13:55 Discharge Plan Discharge Chief Complaint: Headache Clinical Impression: Headache Patient Disposition: Home, Self-Care Time of Disposition Decision: 14:42 Condition: Good Mode of Transportation: Private Vehicle Prescriptions / Home Meds: No Action Nortrel (28) 1-35 mg-mcg tablet 1 tab PO DAILY Print Language: Congolese Instructions: Acute Headache (ED) Referrals: French Giles NP [Primary Care Provider] - 1 week Discharge Date/Time: 03/11/24 14:53
[2024-03-11] MEDS: METOCLOPRAMIDE HCL 10 MG/2 ML VIAL IVP (13:56)
[2024-03-11] MEDS: DIPHENHYDRAMINE HCL 50 MG/ML VIAL 25 MG IV (13:56)
[2024-03-11] MEDS: 0.9 % SODIUM CHLORIDE 1,000 ML 1000 ML IV (13:56)
[2024-03-11] MEDS: DEXAMETHASONE SOD PHOS 10 MG/ML VIAL IV (13:57)
== END 2024-03-11 14:53 | disposition home or self-care (01) ==
PROVIDERS: Emergency Provider Emergency Medicine; PCP Nurse Practitioner Primary Care
DX: R51.9 Headache, unspecified (principal)
CPT/HCPCS: 70450; 96374; 96375; 99284; J1100; J1200; J2765

== ENCOUNTER 2024-05-12 19:35 | Emergency (ER) | payer MEDICAID, SELFPAY ==
--- OUTSIDE RECORDS SUMMARY | 2024-05-12 19:41 | XMS_ITS | CCD ---
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 Name Role Phone OPAL GERARDO Unavailable Unavailable OPAL GERARDO Unavailable Unavailable SELF, REFERRED Unavailable Unavailable SELF, REFERRED Unavailable Unavailable Jaymie Tripp Unavailable Cleopatra Durbin Unavailable FRANCISCO, DR LUDWIG Primary Care Unavailable ABHINAV, NAHID Admitting Unavailable NAHID LA Attending Unavailable NAHID LA Consulting Unavailable FRANCISCO, DR LUDWIG Primary Care Unavailable JEANMARIE, DR AGUILAR Admitting Unavailable JEANMARIE, DR AGUILAR Attending Unavailable JEANMARIE, DR AGUILAR Consulting Unavailable NAHID LA Consulting Unavailable JONH WALTON Consulting Unavailable FRANCISCO, DR LUDWIG Primary Care Unavailable ABHINAV, NAHID Admitting Unavailable ABHINAV, NAHID Attending Unavailable ABHINAV, NAHID Consulting Unavailable FRANCISCO, DR LUDWIG Primary Care [...] Admitting Unavaildarcy ARCEO, DR OLESYA Gtz Attending Unavailabl e ADIS, DR OLESYA Gtz Consulting Unavailabl e FRANCISCO, DR LUDWIG Primary Care Unavailable ODNNA COREY Admitting Unavailable DONNA COREY Attending Unavailable DAMION MEJIA Consulting Unavailable MADYSON CISNEROS Consulting Unavailable FRANCISCO, DR LUDWIG Primary Care Unavailable ABHINAV, NAHID Consulting Unavailable ABHINAV, NAHID Admitting Unavailable ABHINAV, NAHID Attending Unavailable Sherron Singh Unavailable NO FAMILY, PHYSICIAN Primary Care Provider Unava ilMO Mcarthur Attending Provider [phone] Jeimy Verduzco Unavailable Sherron Singh Attending Unavailable Sherron Singh Admitting Unavailable NO FAMILY, PHYSICIAN Primary Care Unavailable KELBLEY, JACI Attending Unavailable APLING, LILIANA B Referring Unavailable BRINK, HUYEN Attending Unavailable APLING, LILIANA B Referring Unavailable BRINK, HUYEN Attending Unavailable APLING, LILIANA B Referring Unavailable APLING, LILIANA B Attending Unavailable APLING, LILIANA B Attending Unavailable APLING, LILIANA B Referring Unavailable APLING, LILIANA B Attending Unavailable BLACKSTON, JESUSITA Heller Attending Unavailable APLING, LILIANA B Referring Unavailable BRINK, HUYEN Attending Unavailable APLING, LILIANA B Referring Unavailable KELBLEY, JACI Attending Unavailable APLING, LILIANA B Referring Unavailable BRINK, HUYEN Attending Unavailable APLING, LILIANA B Referring Unavailable BRINK, HUYEN Attending Unavailable APLING, LILIANA B Referring Unavailable BRINK, HUYEN Attending Unavailable APLING, LILIANA B Referring Unavailable BRINK, HUYEN Attending Unavailable APLING, LILIANA B Referring Unavailable TATTERSALL, KALEB Attending Unavailable APLING, LILIANA B Referring Unavailable KELBLEY, JACI Attending Unavailable APLING, LILIANA B Referring Unavailable KELBLEY, JACI Attending Unavailable APLING, LILIANA B Referring Unavailable TATTERSALL, KALEB Attending Unavailable APLING, LILIANA B Referring Unavailable BRINK, HUYEN Attending Unavailable APLING, LILIANA B Referring Unavailable BRINK, HUYEN Attending Unavailable APLING, LILIANA B Referring Unavailable ZOE, JORI L Attending Unavailable FRANCISCO, VANI Sr Referring Unavailable ISRAEL FELIZ Primary Care Unavailable Allergies Allergy Classification Reported Allergen(s) Allergy Type Date of Onset Reaction(s) Facility (4 sources) codeine; Translations: [CODEINE] Drug Allergy 5 vomiting and can't control body [facility] Repository (3 sources) erythromycin base Drug allergy (disorder) 1 rash [facility] (6 sources) Acetaminophen / Codeine Drug Allergy vomiting and can't control body [facility] Other (8 sources) Cephalexin; Translations: [CEPHALEXIN] Drug Allergy 1 [facility] (7 sources) Erythromycin; Translations: [ERYTHROMYCIN] Drug Allergy 7 rash [facility] Repository (8 sources) nickel; Translations: [NICKEL] Drug Allergy 1 rash [facility] (1 source) Cephalexin Drug Allergy 0 [facility] (1 source) Leucine Drug Allergy [facility] (1 source) Acetaminophen Drug Allergy 4 vomiting and can't control body [facility] Medications Current Medications Medication Drug Class(es) Dates [...] oral tablet (1 source) alpha-Adrenergic Agonist, Uncompetitive L-xxpirj-X-aspartate Receptor Antagonist, Sigma-1 Agonist Start: 02-09-2023 take 1 tablet by mouth every six hours as needed for cough Capmist DM 60-15-400 MG 1 tablet Orally q6hrs prn congestion/cough for 7 days Jan, Active Escitalopram (6 sources) Serotonin Reuptake Inhibitor Lexapro Active ethinyl estradiol 0.035 mg / norethindrone 1 mg oral tablet (1 source) Estrogen Start: 09-25-2023 Norethindrone-Et hin Estradiol (Nortrel 1/35 (28)) 1-35 mg-mcg tablet Active TAB PO September 25, 2023 12:00am famotidine 20 mg oral tablet (1 source) [...] bee venom] Onset: 11-07-2017 Resolved: 03-29-2021 Episodic Diabetes mellitus without complication (1 source) Impaired fasting glucose; Translations: [Impaired fasting glucose] Onset: 10-25-2023 Episodic Headache; including migraine (4 sources) Headache; [...] [Paresthesia of skin] Onset: 11-07-2017 Episodic Other nutritional; endocrine; and metabolic disorders (1 source) Morbid (severe) obesity due to excess calories; Translations: [Morbid (severe) obesity due to excess calories] Onset: 10-25-2023 Chronic Other nutritional; endocrine; and metabolic disorders (1 source) Body mass index (BMI) 45.0-49.9, adult; Translations: [Body mass index (BMI) 45.0-49.9, adult] Onset: 10-25-2023 Chronic Other upper respiratory disease (6 sources) Seasonal [...] level, right leg, initial encounter] Onset: 01-17-2023 Unclassified (1 source) New Patient Onset: 10-25-2023 Viral infection (1 source) Viral infection, unspecified [...] 06-15-2021 Episodic Other aftercare (1 source) 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; Translations: [OTH PENITENTIARY CURRENT DRUG THERAPY] Onset: 03-07-2022 Episodic Other aftercare (1 source) 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 CLI Attending Dr: Sherron Singh APRN Copies to: [...] Elena Lucio M.D.01/17/2023 9:46 AM Dictation Location: [place] [address] Transcribed By: [facility] 01/17/2346 Dictated By: Maria Elena Lucio MD 01/17/2345 Signed By: 01/17/23 0946 Normal [facility] COVID/FLU RT-PCRon 3 SARS-CoV-2 (COVID-19) RNA SOCO+probe Ql (Unsp spec) Negative [facility] Other COVID/FLU RT-PCR Negative [facility] Other Urinalysis - AUTOMATEDon Appearance (U) cloudy [facility] Other Bilirubin Ql (U) Negative [facility] Other Color (U) dark yellow [facility] Other Glucose Ql (U) Negative [facility] Other Hemoglobin Ql (U) Negative [facility] Other Ketones Ql (U) Negative [facility] Other Leukocyte esterase Test strip Ql (U) Negative [facility] Other Nitrite Ql (U) Negative [facility] Other pH (U) 6.0 [pH] [facility] Other Protein Ql (U) 30 [facility] Other Specific gravity (U) [Rel density] >=1.030 [facility] Other Urobilinogen (U) [Mass/Vol] 0.2 mg/dL [facility] Other Urinalysis - AUTOMATED [facility] Other Covid-19 PCR (CVDTB)on SARS-CoV-2 (COVID-19) RNA SOCO+probe Ql (Unsp spec) Not detected Normal NOT DETECTED [facility] Comment on above: Result Comment: When diagnostic [...] for this test is supported by the [place] [employer] of Health and Human Service's declaration that [...] no longer be used). Performed By: #### ITZEL LINARES #### [facility] [address] [place] [address] Dr. iTmothy Adair GROUP A STREP CULTUREon S. pyogenes Ag Ql (Unsp spec) Culture Observations: NEGATIVE FOR GROUP A STREPTOCOCCUS. Normal [facility] Comment on above: Performed By: #### C BC #### [facility] [address] [place] [address] Dr. Timothy Adair INFLUENZA A AND B AGon 06-04 INFLUANEGH SEE BELOW Normal [facility] Comment on above: Result Comment: Nega tive for Flu A protein angiten. Infection due to Flu A cannot be ruled out. Flu A angiten in the sample may be below the detection limit of the test. Performed By: #### I NFLUAB #### [facility] [address] [place] [address] Dr. Timothy Adair INFLUBNEGH SEE BELOW Normal [facility] Comment on above: Result Comment: Nega tive for Flu B protein antigen. Infection due to Flu B cannot be ruled out. Flu B antigen in the sample may be below the detection limit of the test. Performed By: #### I NFLUAB #### [facility] [address] [place] [address] Dr. Timothy Adair INFLUENZA A AG Negative Normal NEGATIVE SEE COMMENT [facility] Comment on above: Performed By: #### I NFLUAB #### [facility] [address] [place] [address] Dr. Timothy Adair INFLUENZA B AG Negative Normal NEGATIVE SEE COMMENT [facility] Comment on above: Performed By: #### I NFLUAB #### [facility] [address] [place] [address] Dr. Timothy Adair INTERNAL CONTROLS Within Normal Limits Normal Wi thin Normal Limits [facility] Comment on above: Performed By: #### I NFLUAB #### [facility] [address] [place] [address] Dr. Timothy Adair STREPT SCREENon 06-04-2022 STREP SCREEN A Negative Normal NEGATIVE [facility] Comment on above: Performed By: #### S SCRN #### [facility] [address] [place] [address] Dr. Timothy Adair XR CHEST 1 Von [...] JONH WALTON Date: 2022-06-04 20:47 Normal [facility] CT HEAD WO CONon 03-03-2022 CT HEAD [...] DANNY ROCK Date: 2022-03-03 14:44 Normal [facility] COVID Quick Testingon 2021 Result Negative [facility] Other Quick Fluon 10-20-2021 FLUAV Ab CF (S) [Titer] Negative [facility] Other FLUBV Ab CF (S) [Titer] Negative [facility] Other AMYLASEon 09-17-2021 Amylase [Catalytic activity/Vol] 41 U/L Normal 31-110 [facility] Comment on above: Performed By: #### A MY, CMP, LIPA #### [facility] [address] [place] [address] Dr. Timothy Adair CBC AUTO DIFFon 09-17-2021 BASO # 0.0 103/ul Normal 0.0-0.1 [facility] Comment on above: Performed By: #### C BC #### [facility] [address] [place] [address] Dr. Timothy Adair Basophils/100 WBC (Bld) 0.4 % Normal 0.2-2.0 [facility] Comment on above: Performed By: #### C BC #### [facility] [address] [place] [address] Dr. Timothy Adair EO # 0.0 103/ul Normal 0.0-0.7 [facility] Comment on above: Performed By: #### C BC #### [facility] [address] [place] [address] Dr. Timothy Adair Eosinophils/100 WBC (Bld) 0.4 % Critically low 0.9-7.0 [facility] Comment on above: Performed By: #### C BC #### [facility] [address] [place] [address] Dr. Timothy Adair Erythrocyte distribution width (RBC) [Ratio] 13.0 % Normal 11.0-15.0 [facility] Comment on above: Performed By: #### C BC #### [facility] [address] [place] [address] Dr. Timothy Adair Hematocrit (Bld) [Volume fraction] 40.5 % Normal 36.0-48.0 [facility] Comment on above: Performed By: #### C BC #### [facility] [address] [place] [address] Dr. Timothy Adair Hemoglobin (Bld) [Mass/Vol] 13.1 g/dL Normal 12.0-16.0 [facility] Comment on above: Performed By: #### C BC #### [facility] [address] [place] [address] Dr. Timothy Adair IG # 0.04 10e3/ul Critically high 0.00-0.03 [facility] Comment on above: Performed By: #### C BC #### [facility] [address] [place] [address] Dr. Timothy Adair IG % 0.4 % Normal 0.0-0.5 [facility] Comment on above: Performed By: #### C BC #### [facility] [address] [place] [address] Dr. Timothy Adair LYMPH # 1.9 103/ul Normal 1.2-3.8 [facility] Comment on above: Performed By: #### C BC #### [facility] [address] [place] [address] Dr. Timothy Adair Lymphocytes/100 WBC (Bld) 16.8 % Critically low 20.5-60.0 [facility] Comment on above: Performed By: #### C BC #### [facility] [address] [place] [address] Dr. Timothy Adair MANUAL DIFF REQ NO Normal [facility] Comment on above: Performed By: #### C BC #### [facility] [address] [place] [address] Dr. Timothy Adair MCH (RBC) [Entitic mass] 27.5 pg Normal 26.7-34.0 [facility] Comment on above: Performed By: #### C BC #### [facility] [address] [place] [address] Dr. Timothy Adair MCHC (RBC) [Mass/Vol] 32.3 g/dL Normal 29.9-35.2 [facility] Comment on above: Performed By: #### C BC #### [facility] [address] [place] [address] Dr. Timothy Adair MCV (RBC) [Entitic vol] 85.1 fL Normal 81.0-99.0 [facility] Comment on above: Performed By: #### C BC #### [facility] [address] [place] [address] Dr. Timothy Adair MONO # 0.5 103/ul Normal 0.3-0.8 [facility] Comment on above: Performed By: #### C BC #### [facility] [address] [place] [address] Dr. Timothy Adair Monocytes/100 WBC (Bld) 4.7 % Normal 1.7-12.0 [facility] Comment on above: Performed By: #### C BC #### [facility] [address] [place] [address] Dr. Timothy Adair NEUT # 8.6 103/ul Critically high 1.4-6.5 [facility] Comment on above: Performed By: #### C BC #### [facility] [address] [place] [address] Dr. Timothy Adair Neutrophils/100 WBC (Bld) 77.3 % Critically high 43.0-75.0 [facility] Comment on above: Performed By: #### C BC #### [facility] [address] [place] [address] Dr. Timothy Adair Platelet mean volume (Bld) [Entitic vol] 9.9 fL Normal 9.5-13.5 [facility] Comment on above: Performed By: #### C BC #### [facility] [address] [place] [address] Dr. Timothy Adair PLT 357 103/ul Normal 150-450 [facility] Comment on above: Performed By: #### C BC #### [facility] [address] [place] [address] Dr. Timothy Adair RBC 4.76 106/ul Normal 4.20-5.40 [facility] Comment on above: Performed By: #### C BC #### [facility] [address] [place], [place] [id number] Dr. Timothy Adair WBC 11.1 103/ul Critically high 4.0-11.0 [facility] Comment on above: Performed By: #### C BC #### [facility] [address] [place] [address] Dr. Timothy Adair CULTURE URINEon 09-17-2021 CULTURE URINE Culture Observations : LIGHT GROWTH OF MIXED GENITAL CHRISTINE. NO POTENTIAL PATHOGENS SEEN. Normal [facility] Comment on above: Performed By: #### C BC #### [facility] [address] [place] [address] Dr. Timothy RIVERA URINE PROFILEon 2 Bilirubin Ql (U) Negative Normal NEGATIVE [facility] Comment on above: Performed By: #### E RUR, UMICRO #### [facility] [address] [place] [address] Dr. Timothy Adair Clarity (U) CLEAR Normal CLEAR [facility] Comment on above: Performed By: #### E RUR, UMICRO #### [facility] [address] [place] [address] Dr. Timothy Adair Color (U) LT. YELLOW Normal YELLOW [facility] Comment on above: Performed By: #### E RUR, UMICRO #### [facility] [address] [place] [address] Dr. Timothy UGARTEAHRadha A micrscopic examination will be performed if indicated. Normal [facility] Comment on above: Performed By: #### E RUR, UMICRO #### [facility] [address] [place] [address] Dr. Timothy Adair Glucose Ql (U) Negative Normal NEGATIVE [facility] Comment on above: Performed By: #### E RUR, UMICRO #### [facility] [address] [place] [address] Dr. Timothy Adair Hemoglobin Ql (U) TRACE-INTACT Abnormal NEGATIVE [facility] Comment on above: Performed By: #### E RUR, UMICRO #### [facility] [address] [place] [address] Dr. Timothy Adair Ketones Ql (U) Negative Normal NEGATIVE [facility] Comment on above: Performed By: #### E RUR, UMICRO #### [facility] [address] [place] [address] Dr. Timothy Adair LEUKOCYTES SMALL Abnormal NEGATIVE [facility] Comment on above: Performed By: #### E RUR, UMICRO #### [facility] [address] [place] [address] Dr. Timothy Adair Nitrite Ql (U) Negative Normal NEGATIVE [facility] Comment on above: Performed By: #### ITZEL LINARES #### [facility] [address] [place] [address] Dr. Timothy Adair pH (U) 5.0 [pH] Normal 5-9 [facility] Comment on above: Performed By: #### ITZEL LINARES #### [facility] [address] [place] [address] Dr. Timothy Adair SPEC GRAVITY >=1.030 Abnormal 1.005-<=1.0 25 [facility] Comment on above: Performed By: #### MASOOD LINARESRO #### [facility] [address] [place] [address] Dr. Timothy Adair UA PROTEIN Negative Normal NEGATIVE/ TRACE [facility] Comment on above: Performed By: #### ITZEL LINARES #### [facility] [address] [place] [address] Dr. Timothy Adair UR MICRO IND INDICATED Normal [facility] Comment on above: Performed By: #### MASOOD LINARESRO #### [facility] [address] [place] [address] Dr. Timothy Adair Urobilinogen Qn (U) 0.2 {João'U}/dL Normal 0.2 - 1. 0 [facility] Comment on above: Performed By: #### MASOOD LINARESRO #### [facility] [address] [place] [address] Dr. Timothy Adair LIPASEon 09-17-2021 Lipase [Catalytic activity/Vol] 125.0 U/L Normal 23.0-300.0 [facility] Comment on above: Performed By: #### A MY, CMP, LIPA #### [facility] [address] [place] [address] Dr. Timothy Adair PROF 14(COMP METB)on 022 Albumin [Mass/Vol] 3.1 g/dL Critically low 3.5-5.0 [facility] Comment on above: Performed By: #### A MY, CMP, LIPA #### [facility] [address] [address] [address] Timothy Adair Albumin/Globulin [Mass ratio] 0.6 {ratio} Normal [facility] Comment on above: Performed By: #### A MY, CMP, LIPA #### [facility] [address] [place] [address] [address] Timothy Adair ALP [Catalytic activity/Vol] 105 U/L Normal 38-126 [facility] Comment on above: Performed By: #### A MY, CMP, LIPA #### [facility] [address] [place] [address] Dr. Timtohy Adair ALT [Catalytic activity/Vol] 18 U/L Normal 9-52 [facility] Comment on above: Performed By: #### A MY, CMP, LIPA #### [facility] [address] [place] [address] Dr. Timothy Adair Anion gap [Moles/Vol] 13.6 mmol/L Normal [facility] Comment on above: Performed By: #### A MY, CMP, LIPA #### [facility] [address] [place] [address] Dr. Timothy Adair AST [Catalytic activity/Vol] 14 U/L Normal 14-36 [facility] Comment on above: Performed By: #### A MY, CMP, LIPA #### [facility] [address] [place] [address] Dr. Timothy Adair Bilirubin [Mass/Vol] 0.3 mg/dL Normal 0.2-1.3 [facility] Comment on above: Performed By: #### A MY, CMP, LIPA #### [facility] [address] [place] [address] Dr. Timothy Adair Calcium [Mass/Vol] 8.8 mg/dL Normal 8.4-10.2 [facility] Comment on above: Performed By: #### A MY, CMP, LIPA #### [facility] [address] [place] [address] Dr. Timothy Adair Chloride [Moles/Vol] 101 mmol/L Normal 98-107 [facility] Comment on above: Performed By: #### A MY, CMP, LIPA #### [facility] [address] [address] [address] Timothy Adair CO2 [Moles/Vol] 28.2 mmol/L Normal 22.0-30.0 [facility] Comment on above: Performed By: #### A MY, CMP, LIPA #### [facility] [address] [address] [address] Timtohy Adair Creatinine [Mass/Vol] 0.87 mg/dL Normal 0.52-1.04 [facility] Comment on above: Performed By: #### A MY, CMP, LIPA #### [facility] [address] [place] [address] Dr. Timothy Adair EGFR-AF URUGUAYAN >60 Normal >=60 [facility] Comment on above: Performed By: #### A MY, CMP, LIPA #### [facility] [address] [place] [address] Dr. Timothy Adair EGFR-NON AF URUGUAYAN >60 Normal >=60 [facility] Comment on above: Performed By: #### A MY, CMP, LIPA #### [facility] [address] [place] [address] Dr. Timothy Adair Globulin (S) [Mass/Vol] 5.2 g/dL Normal [facility] Comment on above: Performed By: #### A MY, CMP, LIPA #### [facility] [address] [place] [address] Dr. Timothy Adair Glucose [Mass/Vol] 111 mg/dL Critically high 74-106 [facility] Comment on above: Performed By: #### A MY, CMP, LIPA #### [facility] [address] [address] [address] Timothy Adair Potassium [Moles/Vol] 3.8 mmol/L Normal 3.4-5.0 [facility] Comment on above: Performed By: #### A MY, CMP, LIPA #### [facility] [address] [address] [address] Timothy Adair Protein [Mass/Vol] 8.3 g/dL Critically high 6.1-8.2 [facility] Comment on above: Performed By: #### A MY, CMP, LIPA #### [facility] [address] [address] [address] Timothy Adair Sodium [Moles/Vol] 139 mmol/L Normal 137-145 [facility] Comment on above: Performed By: #### A MY, CMP, LIPA #### [facility] [address] [place] [address] Dr. Timothy Adair Urea nitrogen [Mass/Vol] 15.0 mg/dL Normal 7.0-17.0 [facility] Comment on above: Performed By: #### A MY, CMP, LIPA #### [facility] [address] [place] [address] Dr. Timothy Adair Urea nitrogen/Creatinine [Mass ratio] 17.2 mg/mg Normal [facility] Comment on above: Performed By: #### A MY, CMP, LIPA #### [facility] [address] [place] [address] Dr. Timothy Adair URINE MICROSCOPIC ONLYon BACTERIA LARGE Abnormal NONE SEEN [facility] Comment on above: Performed By: #### Sanjiv CHANDLER UMICRO #### [facility] [address] [place] [address] Dr. Timothy Adair Bacteria identified Cx Nom (U) INDICATED Normal [facility] Comment on above: Performed By: #### E RUPatty UMICRO #### [facility] [address] [place] [address] Dr. Timothy Adair CAST NONE SEEN Normal NONE SEEN [facility] Comment on above: Performed By: #### E RAMESH UMICRO #### [facility] [address] [place] [address] Dr. Timothy Adair Crystals LM Nom (Urine sed) NONE SEEN Normal NONE SEEN [facility] Comment on above: Performed By: #### E RAMESH UMICRO #### [facility] [address] [place] [address] Dr. Timothy Adair Epithelial cells LM Ql (Urine sed) MODERATE Abnormal NONE SEEN /RARE [facility] Comment on above: Performed By: #### ITZEL LINARES #### [facility] [address] [place] [address] Dr. Timothy Adair MUCOUS SMALL Abnormal NONE SEEN [facility] Comment on above: Performed By: #### ITZEL LINARES #### [facility] [address] [place] [address] Dr. Timothy Adair RBC 0-2 Normal 0-2 [facility] Comment on above: Performed By: #### ITZEL LINARES #### [facility] [address] [place] [address] Dr. Timothy Adair WBC 5-10 Abnormal NONE SEEN [facility] Comment on above: Performed By: #### ITZEL LINARES #### [facility] [address] [place] [address] Dr. Timothy Adair CBC AUTO DIFFon 07-19-2021 BASO # 0.0 103/ul Normal 0.0-0.1 [facility] Comment on above: Performed By: #### ITZEL LINARES #### [facility] [address] [place] [address] Dr. Timothy Adair Basophils/100 WBC (Bld) 0.1 % Critically low 0.2-2.0 [facility] Comment on above: Performed By: #### ITZEL LINARES #### [facility] [address] [place] [address] Dr. Timothy Adair EO # 0.0 103/ul Normal 0.0-0.7 [facility] Comment on above: Performed By: #### ITZEL LINARES #### [facility] [address] [place] [address] Dr. Timothy Adair Eosinophils/100 WBC (Bld) 0.0 % Critically low 0.9-7.0 [facility] Comment on above: Performed By: #### ITZEL LINARES #### [facility] [address] [place] [address] Dr. Timothy Adair Erythrocyte distribution width (RBC) [Ratio] 12.8 % Normal 11.0-15.0 [facility] Comment on above: Performed By: #### Sanjiv CHANDLER UMICRO #### [facility] [address] [place] [address] Dr. Timothy Adair Hematocrit (Bld) [Volume fraction] 36.6 % Normal 36.0-48.0 [facility] Comment on above: Performed By: #### Sanjiv CHANDLER UMICRO #### [facility] [address] [place] [address] Dr. Timothy Adair Hemoglobin (Bld) [Mass/Vol] 12.0 g/dL Normal 12.0-16.0 [facility] Comment on above: Performed By: #### Sanjiv CHANDLER UMICRO #### [facility] [address] [place] [address] Dr. Timothy Adair IG # 0.03 10e3/ul Normal 0.00-0.03 [facility] Comment on above: Performed By: #### Sanjiv CHANDLER UMICRO #### [facility] [address] [place] [address] Dr. Timothy Adair IG % 0.4 % Normal 0.0-0.5 [facility] Comment on above: Performed By: #### Sanjiv CHANDLER UMICRO #### [facility] [address] [place] [address] Dr. Timothy Adair LYMPH # 1.0 103/ul Critically low 1.2-3.8 [facility] Comment on above: Performed By: #### Sajniv CHANDLER UMICRO #### [facility] [address] [place] [address] Dr. Timothy Adair Lymphocytes/100 WBC (Bld) 13.2 % Critically low 20.5-60.0 [facility] Comment on above: Performed By: #### Sanjiv CHANDLER UMICRO #### [facility] [address] [place] [address] Dr. Timothy Adair MANUAL DIFF REQ NO Normal [facility] Comment on above: Performed By: #### Sanjiv CHANDLER UMICRO #### [facility] [address] [place] [address] Dr. Timothy Adair MCH (RBC) [Entitic mass] 28.1 pg Normal 26.7-34.0 [facility] Comment on above: Performed By: #### Sanjiv CHANDLER UMICRO #### [facility] [address] [place] [address] Dr. Timothy Adair MCHC (RBC) [Mass/Vol] 32.8 g/dL Normal 29.9-35.2 [facility] Comment on above: Performed By: #### Sanjiv CHANDLER UMICRO #### [facility] [address] [place] [address] Dr. Timothy Adair MCV (RBC) [Entitic vol] 85.7 fL Normal 81.0-99.0 [facility] Comment on above: Performed By: #### MASOOD LINARESRO #### [facility] [address] [place] [address] Dr. Timothy Adair MONO # 0.1 103/ul Critically low 0.3-0.8 [facility] Comment on above: Performed By: #### MASOOD LINARESRO #### [facility] [address] [place] [address] Dr. Timothy Adair Monocytes/100 WBC (Bld) 0.9 % Critically low 1.7-12.0 [facility] Comment on above: Performed By: #### ERNESTINE LINARESICRO #### [facility] [address] [place] [address] Dr. Timothy Adair NEUT # 6.6 103/ul Critically high 1.4-6.5 [facility] Comment on above: Performed By: #### MASOOD LINARESRO #### [facility] [address] [place] [address] Dr. Timothy Adair Neutrophils/100 WBC (Bld) 85.4 % Critically high 43.0-75.0 [facility] Comment on above: Performed By: #### Sanjiv CHANDLER UMICRO #### [facility] [address] [place] [address] Dr. Timothy Adair Platelet mean volume (Bld) [Entitic vol] 10.3 fL Normal 9.5-13.5 [facility] Comment on above: Performed By: #### Sanjiv CHANDLER UMICRO #### [facility] [address] [place] [address] Dr. Timothy Adair PLT 341 103/ul Normal 150-450 [facility] Comment on above: Performed By: #### Sanjiv CHANDLER UMICRO #### [facility] [address] [place] [address] Dr. Timothy Adair RBC 4.27 106/ul Normal 4.20-5.40 [facility] Comment on above: Performed By: #### Sanjiv CHANDLER UMICRO #### [facility] [address] [place] [address] Dr. Timothy Adair WBC 7.7 103/ul Normal 4.0-11.0 [facility] Comment on above: Performed By: #### Sanjiv CHANDLER UMICRO #### [facility] [address] [place] [address] Dr. Timothy Adair PROF CHEM 8 (BAS METB)on Anion gap [Moles/Vol] 17.1 mmol/L Normal [facility] Comment on above: Performed By: #### Sanjiv CHANDLER UMICRO #### [facility] [address] [place] [address] Dr. Timothy Adair Calcium [Mass/Vol] 9.2 mg/dL Normal 8.4-10.2 [facility] Comment on above: Performed By: #### Sanjiv CHANDLER UMICRO #### [facility] [address] [place] [address] Dr. Timothy Adair Chloride [Moles/Vol] 100 mmol/L Normal 98-107 [facility] Comment on above: Performed By: #### Sanjiv CHANDLER UMICRO #### [facility] [address] [place] [address] Dr. Timothy Adair CO2 [Moles/Vol] 24.1 mmol/L Normal 22.0-30.0 [facility] Comment on above: Performed By: #### ITZEL LINARES #### [facility] [address] [place] [address] Dr. Timothy Adair Creatinine [Mass/Vol] 0.99 mg/dL Normal 0.52-1.04 [facility] Comment on above: Performed By: #### ITZEL LINARES #### [facility] [address] [address] [address] Timothy Adair EGFR-AF URUGUAYAN >60 Normal >=60 [facility] Comment on above: Performed By: #### ITZEL LINARES #### [facility] [address] [place] [address] Dr. Timothy Adair EGFR-NON AF URUGUAYAN >60 Normal >=60 [facility] Comment on above: Performed By: #### ITZEL LINARES #### [facility] [address] [place] [address] Dr. Timothy Adair Glucose [Mass/Vol] 154 mg/dL Critically high 74-106 [facility] Comment on above: Performed By: #### ITZEL LINARES #### [facility] [address] [place] [address] Dr. Timothy Adair Potassium [Moles/Vol] 4.2 mmol/L Normal 3.4-5.0 [facility] Comment on above: Performed By: #### ITZEL LINARES #### [facility] [address] [place] [address] Dr. Timothy Adair Sodium [Moles/Vol] 137 mmol/L Normal 137-145 [facility] Comment on above: Performed By: #### ITZEL LINARES #### [facility] [address] [place] [address] Dr. Timothy Adair Urea nitrogen [Mass/Vol] 13.0 mg/dL Normal 7.0-17.0 [facility] Comment on above: Performed By: #### ITZEL LINARES #### [facility] [address] [place] [address] Dr. Timothy Adair Urea nitrogen/Creatinine [Mass ratio] 13.1 mg/mg Normal [facility] Comment on above: Performed By: #### E ITZEL CHANDLER #### [facility] [address] [place] [address] Dr. Timothy Adair CBC AUTO DIFFon 07-18-2021 BASO # 0.0 103/ul Normal 0.0-0.1 [facility] Comment on above: Performed By: #### C BC #### [facility] [address] [place] [address] Dr. Timothy Adair Basophils/100 WBC (Bld) 0.3 % Normal 0.2-2.0 [facility] Comment on above: Performed By: #### C BC #### [facility] [address] [place] [address] Dr. Timothy Adair EO # 0.0 103/ul Normal 0.0-0.7 [facility] Comment on above: Performed By: #### C BC #### [facility] [address] [place] [address] Dr. Timothy Adair Eosinophils/100 WBC (Bld) 0.1 % Critically low 0.9-7.0 [facility] Comment on above: Performed By: #### C BC #### [facility] [address] [place] [address] Dr. Timothy Adair Erythrocyte distribution width (RBC) [Ratio] 13.2 % Normal 11.0-15.0 [facility] Comment on above: Performed By: #### C BC #### [facility] [address] [place] [address] Dr. Timothy Adair Hematocrit (Bld) [Volume fraction] 39.1 % Normal 36.0-48.0 [facility] Comment on above: Performed By: #### C BC #### [facility] [address] [place] [address] Dr. Timothy Adair Hemoglobin (Bld) [Mass/Vol] 12.9 g/dL Normal 12.0-16.0 [facility] Comment on above: Performed By: #### C BC #### [facility] [address] [address] [address] Timothy Adair IG # 0.04 10e3/ul Critically high 0.00-0.03 [facility] Comment on above: Performed By: #### C BC #### [facility] [address] [address] [address] Timothy Adair IG % 0.3 % Normal 0.0-0.5 [facility] Comment on above: Performed By: #### C BC #### [facility] [address] [place] [address] Dr. Timothy Adair LYMPH # 3.7 103/ul Normal 1.2-3.8 [facility] Comment on above: Performed By: #### C BC #### [facility] [address] [place] [address] Dr. Timothy Adair Lymphocytes/100 WBC (Bld) 32.3 % Normal 20.5-60.0 [facility] Comment on above: Performed By: #### C BC #### [facility] [address] [place] [address] Dr. Timothy Adair MANUAL DIFF REQ NO Normal [facility] Comment on above: Performed By: #### C BC #### [facility] [address] [place] [address] Dr. Timothy Adair MCH (RBC) [Entitic mass] 27.9 pg Normal 26.7-34.0 [facility] Comment on above: Performed By: #### C BC #### [facility] [address] [place] [address] Dr. Timothy Adair MCHC (RBC) [Mass/Vol] 33.0 g/dL Normal 29.9-35.2 [facility] Comment on above: Performed By: #### C BC #### [facility] [address] [place] [address] Dr. Timothy Adair MCV (RBC) [Entitic vol] 84.4 fL Normal 81.0-99.0 [facility] Comment on above: Performed By: #### C BC #### [facility] [address] [address] [address] Timothy Adair MONO # 0.5 103/ul Normal 0.3-0.8 [facility] Comment on above: Performed By: #### C BC #### [facility] [address] [place] [address] Dr. Timothy Adair Monocytes/100 WBC (Bld) 3.9 % Normal 1.7-12.0 [facility] Comment on above: Performed By: #### C BC #### [facility] [address] [place] [address] Dr. Timothy Adair NEUT # 7.3 103/ul Critically high 1.4-6.5 [facility] Comment on above: Performed By: #### C BC #### [facility] [address] [place] [address] Dr. Timothy Adair Neutrophils/100 WBC (Bld) 63.1 % Normal 43.0-75.0 [facility] Comment on above: Performed By: #### C BC #### [facility] [address] [place] [address] Dr. Timothy Adair Platelet mean volume (Bld) [Entitic vol] 10.4 fL Normal 9.5-13.5 [facility] Comment on above: Performed By: #### C BC #### [facility] [address] [place] [address] Dr. Timothy Adair PLT 319 103/ul Normal 150-450 [facility] Comment on above: Performed By: #### C BC #### [facility] [address] [place] [address] Dr. Timothy Adair RBC 4.63 106/ul Normal 4.20-5.40 [facility] Comment on above: Performed By: #### C BC #### [facility] [address] [place] [address] Dr. Timothy Adair WBC 11.5 103/ul Critically high 4.0-11.0 [facility] Comment on above: Performed By: #### C BC #### [facility] [address] [place] [address] FACIAL BONES W CONon 07-03 CT FACIAL [facility]ON[facility] W CON STUDY: CT face wit h contrast TECHNIQUE: CT imaging of the face [...] by: NIKOLAY LOTT Date: 2021-07-18 14:[address] [facility] CT NECK ST W CONon CT NECK [facility] STUDY: CT neck with contrast TECHNIQUE: CT [...] by: NIKOLAY LOTT Date: 2021-07-18 14:37 Normal [facility] CULTURE BLOODon 07-18-2021 Microscopic examination of blood, culture Culture Observations: NO GROWTH AT 5 DAYS. Normal [facility] Comment on above: Performed By: #### C BC #### [facility] [address] [place] [address] Dr. Timothy Adair Microscopic examination of blood, culture Culture Observations: NO GROWTH AT 5 DAYS. Normal [facility] Comment on above: Performed By: #### C BC #### [facility] [address] [place] [address] Dr. Timothy Adair Cov[facility]-19 PCR [facility]03 SARS-CoV-2 (COVID-19) RNA SOCO+probe Ql (Unsp spec) Not detected Normal NOT DETECTED [facility] Comment on above: Result Comment: When diagnostic [...] for this test is supported by the [place] of Health and Human Service's declaration that [...] used). Performed By: #### C BC #### [facility] [address] [place] [address] Dr. Timothy Adair PROF CHEM 8 (BAS METB)on Anion gap [Moles/Vol] 11.2 mmol/L Normal [facility] Comment on above: Performed By: #### E MASOOD CHANDLERRO #### [facility] [address] [place] [address] Dr. Timothy Adair Calcium [Mass/Vol] 8.7 mg/dL Normal 8.4-10.2 [facility] Comment on above: Performed By: #### ITZEL LINARES #### [facility] [address] [place] [address] Dr. Timothy Adair Chloride [Moles/Vol] 99 mmol/L Normal 98-107 [facility] Comment on above: Performed By: #### ITZEL LINARES #### [facility] [address] [place] [address] Dr. Timothy Adair CO2 [Moles/Vol] 28.7 mmol/L Normal 22.0-30.0 [facility] Comment on above: Performed By: #### ITZEL LINARES #### [facility] [address] [place] [address] Dr. Timothy Adair Creatinine [Mass/Vol] 0.84 mg/dL Normal 0.52-1.04 [facility] Comment on above: Performed By: #### ITZEL LINARES #### [facility] [address] [place] [address] Dr. Timothy Adair EGFR-AF URUGUAYAN >60 Normal >=60 [facility] Comment on above: Performed By: #### ITZEL LINARES #### [facility] [address] [place] [address] Dr. Timothy Adair EGFR-NON AF URUGUAYAN >60 Normal >=60 [facility] Comment on above: Performed By: #### ITZEL LINARES #### [facility] [address] [place] [address] Dr. Timothy Adair Glucose [Mass/Vol] 87 mg/dL Normal 74-106 [facility] Comment on above: Performed By: #### ITZEL LINARES #### [facility] [address] [place] [address] Dr. Timothy Adair Potassium [Moles/Vol] 3.9 mmol/L Normal 3.4-5.0 [facility] Comment on above: Performed By: #### ITZEL LINARES #### [facility] [address] [place] [address] Dr. Timothy Adair Sodium [Moles/Vol] 135 mmol/L Critically low 137-145 Th [facility] Comment on above: Performed By: #### MASOOD LINARESRO #### [facility] [address] [place] [address] Dr. Timothy Adair Urea nitrogen [Mass/Vol] 12.0 mg/dL Normal 7.0-17.0 [facility] Comment on above: Performed By: #### ERNESTINE LINARESICRO #### [facility] [address] [place] [address] Dr. Timothy Adair Urea nitrogen/Creatinine [Mass ratio] 14.3 mg/mg Normal [facility] Comment on above: Performed By: #### Sanjiv CHANDLER UMICRO #### [facility] [address] [place] [address] Dr. Timothy Adair CBC AUTO DIFFon 07-17-2021 BASO # 0.0 103/ul Normal 0.0-0.1 [facility] Comment on above: Performed By: #### Sanjiv CHANDLER UMICRO #### [facility] [address] [place] [address] Dr. Timothy Adair Basophils/100 WBC (Bld) 0.1 % Critically low 0.2-2.0 [facility] Comment on above: Performed By: #### Sanjiv CHANDLER UMICRO #### [facility] [address] [place] [address] Dr. Timothy Adair EO # 0.0 103/ul Normal 0.0-0.7 [facility] Comment on above: Performed By: #### Sanjiv CHANDLER UMICRO #### [facility] [address] [place] [address] Dr. Timothy Adair Eosinophils/100 WBC (Bld) 0.0 % Critically low 0.9-7.0 [facility] Comment on above: Performed By: #### Sanjiv CHANDLER UMICRO #### [facility] [address] [place] [address] Dr. Timothy Adair Erythrocyte distribution width (RBC) [Ratio] 13.0 % Normal 11.0-15.0 [facility] Comment on above: Performed By: #### ITZEL LINARES #### [facility] [address] [place] [address] Dr. Timothy Adair Hematocrit (Bld) [Volume fraction] 40.3 % Normal 36.0-48.0 [facility] Comment on above: Performed By: #### ITZEL LINARES #### [facility] [address] [place] [address] Dr. Timothy Adair Hemoglobin (Bld) [Mass/Vol] 13.1 g/dL Normal 12.0-16.0 [facility] Comment on above: Performed By: #### ITZEL LINARES #### [facility] [address] [place] [address] Dr. Timothy Adair IG # 0.06 10e3/ul Critically high 0.00-0.03 [facility] Comment on above: Performed By: #### ITZEL LINARES #### [facility] [address] [place] [address] Dr. Timothy Adair IG % 0.4 % Normal 0.0-0.5 [facility] Comment on above: Performed By: #### ITZEL LINARES #### [facility] [address] [place] [address] Dr. Timothy Adair LYMPH # 3.3 103/ul Normal 1.2-3.8 [facility] Comment on above: Performed By: #### MASOOD LINARESRO #### [facility] [address] [place] [address] Dr. Timothy Adair Lymphocytes/100 WBC (Bld) 21.0 % Normal 20.5-60.0 [facility] Comment on above: Performed By: #### MASOOD LINARESRO #### [facility] [address] [place] [address] Dr. Timothy Adair MANUAL DIFF REQ NO Normal [facility] Comment on above: Performed By: #### MASOOD LINARESRO #### [facility] [address] [place] [address] Dr. Timothy Adair MCH (RBC) [Entitic mass] 27.6 pg Normal 26.7-34.0 [facility] Comment on above: Performed By: #### Sanjiv CHANDLER, UMICRO #### [facility] [address] [place] [address] Dr. Timothy Adair MCHC (RBC) [Mass/Vol] 32.5 g/dL Normal 29.9-35.2 [facility] Comment on above: Performed By: #### E ODETTER, UMICRO #### [facility] [address] [place] [address] Dr. Timothy Adair MCV (RBC) [Entitic vol] 84.8 fL Normal 81.0-99.0 [facility] Comment on above: Performed By: #### Sanjiv CHANDLER, UMICRO #### [facility] [address] [place] [address] Dr. Timothy Adair MONO # 0.8 103/ul Normal 0.3-0.8 [facility] Comment on above: Performed By: #### Sanjiv CHANDLER, UMICRO #### [facility] [address] [place] [address] Dr. Timothy Adair Monocytes/100 WBC (Bld) 5.2 % Normal 1.7-12.0 [facility] Comment on above: Performed By: #### Sanjiv CHANDLER, UMICRO #### [facility] [address] [place] [address] Dr. Timothy Adair NEUT # 11.5 103/ul Critically high 1.4-6.5 [facility] Comment on above: Performed By: #### E ODETTER, UMICRO #### [facility] [address] [place] [address] Dr. Timothy Adair Neutrophils/100 WBC (Bld) 73.3 % Normal 43.0-75.0 [facility] Comment on above: Performed By: #### E ODETTER, UMICRO #### [facility] [address] [place] [address] Dr. Timothy Adair Platelet mean volume (Bld) [Entitic vol] 9.7 fL Normal 9.5-13.5 [facility] Comment on above: Performed By: #### MASOOD LINARESRO #### [facility] [address] [place] [address] Dr. Timothy Adair PLT 369 103/ul Normal 150-450 [facility] Comment on above: Performed By: #### ERNESTINE LINARESICRO #### [facility] [address] [place] [address] Dr. Timothy Adair RBC 4.75 106/ul Normal 4.20-5.40 [facility] Comment on above: Performed By: #### MASOOD LINARESRO #### [facility] [address] [place] [address] Dr. Timothy Adair WBC 15.7 103/ul Critically high 4.0-11.0 [facility] Comment on above: Performed By: #### MASOOD LINARESRO #### [facility] [address] [place] [address] Dr. Timothy Adair CRPon 07-17-2021 CRP 7.6 mg/dL Critically high <=1.0 [facility] Comment on above: Performed By: #### MASOOD LINARESRO #### [facility] [address] [place] [address] Dr. Timothy Adair PROF CHEM 8 (BAS METB)on Anion gap [Moles/Vol] 11.9 mmol/L Normal [facility] Comment on above: Performed By: #### MASOOD LINARESRO #### [facility] [address] [place] [address] Dr. Timothy Adair Calcium [Mass/Vol] 8.8 mg/dL Normal 8.4-10.2 [facility] Comment on above: Performed By: #### MASOOD LINARESRO #### [facility] [address] [place] [address] Dr. Timothy Adair Chloride [Moles/Vol] 102 mmol/L Normal 98-107 [facility] Comment on above: Performed By: #### MASOOD LINARESRO #### [facility] [address] [address] [address] Timothy Adair CO2 [Moles/Vol] 26.5 mmol/L Normal 22.0-30.0 [facility] Comment on above: Performed By: #### Sanjiv CHANDLER, UMICRO #### [facility] [address] [address] [address] Timothy Adair Creatinine [Mass/Vol] 1.02 mg/dL Normal 0.52-1.04 [facility] Comment on above: Performed By: #### Sanjiv CHANDLER, UMICRO #### [facility] Laboratory [address] [address] [address] Timothy Adair EGFR-AF URUGUAYAN >60 Normal >=60 [facility] Comment on above: Performed By: #### Sanjiv CHANDLER, UMICRO #### [facility] [place] [facility] [address] [place] [address] Dr. Timothy Adair EGFR-NON AF URUGUAYAN >60 Normal >=60 [facility] Comment on above: Performed By: #### Sanjiv CHANDLER, UMICRO #### [facility] [place] [facility] [address] [address] [address] Timothy Adair Glucose [Mass/Vol] 110 mg/dL Critically high 74-106 [facility] Comment on above: Performed By: #### Sanjiv CHANDLER, UMICRO #### [facility] [place] [facility] [address] [place] [address] Dr. Timothy Adair Potassium [Moles/Vol] 3.4 mmol/L Normal 3.4-5.0 [facility] Comment on above: Performed By: #### Sanjiv CHANDLER, UMICRO #### [facility] [place] [facility] [address] [place] [address] Dr. Timothy Adair Sodium [Moles/Vol] 137 mmol/L Normal 137-145 [facility] Comment on above: Performed By: #### Sanjiv CHANDLER, UMICRO #### [facility] [place] [facility] [address] [address] [address] Timothy Adair Urea nitrogen [Mass/Vol] 12.0 mg/dL Normal 7.0-17.0 [facility] Comment on above: Performed By: #### MASOOD LINARESRO #### [facility] [place] [facility] [address] [place] [address] Dr. Timothy Adair Urea nitrogen/Creatinine [Mass ratio] 11.8 mg/mg Normal [facility] Comment on above: Performed By: #### ITZEL LINARES #### [facility] [place] [facility] [address] [place] [address] Dr. Timothy Adair CBC AUTO DIFFon 07-16-2021 BASO # 0.0 103/ul Normal 0.0-0.1 [facility] Comment on above: Performed By: #### MASOOD LINARESRO #### [facility] [place] [facility] [address] [place] [address] Dr. Timothy Adair Basophils/100 WBC (Bld) 0.2 % Normal 0.2-2.0 [facility] Comment on above: Performed By: #### MASOOD LINARESRO #### [facility] [place] [facility] [address] [place] [address] Dr. Timothy Adair EO # 0.0 103/ul Normal 0.0-0.7 [facility] [place] [facility] Comment on above: Performed By: #### ITZEL LINARES #### [facility] [place] [facility] [address] [place] [address] Dr. Timothy Adair Eosinophils/100 WBC (Bld) 0.1 % Critically low 0.9-7.0 [facility] Comment on above: Performed By: #### MASOOD LINARESRO #### [facility] [place] [facility] [address] [place] [address] Dr. Timothy Adair Erythrocyte distribution width (RBC) [Ratio] 12.9 % Normal 11.0-15.0 [facility] [place] [facility] Comment on above: Performed By: #### MASOOD LINARESRO #### [facility] [place] [facility] [address] [place] [address] Dr. Timothy Adair Hematocrit (Bld) [Volume fraction] 38.8 % Normal 36.0-48.0 [facility] Comment on above: Performed By: #### MASOOD LINARESRO #### [facility] [place] [facility] [address] [address] [address] Timothy Adair Hemoglobin (Bld) [Mass/Vol] 12.9 g/dL Normal 12.0-16.0 [facility] [place] [facility] Comment on above: Performed By: #### E ODETTER, UMICRO #### [facility] [place] [facility] [address] [address] [address] Timothy Adair IG # 0.04 10e3/ul Critically high 0.00-0.03 [facility] Comment on above: Performed By: #### E ODETTER, UMICRO #### [facility] [place] [facility] [address] [place] [address] Dr. Timothy Adair IG % 0.3 % Normal 0.0-0.5 [facility] Comment on above: Performed By: #### Sanjiv CHANDLER, UMICRO #### [facility] [place] [facility] [address] [place] [address] Dr. Timothy Adair LYMPH # 2.0 103/ul Normal 1.2-3.8 [facility] [place] [facility] Comment on above: Performed By: #### Sanjiv CHANDLER, UMICRO #### [facility] [place] [facility] [address] [place] [address] Dr. Timothy Adair Lymphocytes/100 WBC (Bld) 15.6 % Critically low 20.5-60.0 [facility] Comment on above: Performed By: #### Sanjiv CHANDLER, UMICRO #### [facility] [place] [facility] [address] [place] [address] Dr. Timothy Adair MANUAL DIFF REQ NO Normal [facility] Comment on above: Performed By: #### E RAMESH, UMICRO #### [facility] [place] [facility] [address] [place] [address] Dr. Timothy Adair MCH (RBC) [Entitic mass] 28.3 pg Normal 26.7-34.0 [facility] Comment on above: Performed By: #### E ODETTER, UMICRO #### [facility] [place] [facility] [address] [place] [address] Dr. Timothy Adair MCHC (RBC) [Mass/Vol] 33.2 g/dL Normal 29.9-35.2 [facility] [place] [facility] Comment on above: Performed By: #### MASOOD ILNARESRO #### [facility] [place] [facility] [address] [place] [address] Dr. Timothy Adair MCV (RBC) [Entitic vol] 85.1 fL Normal 81.0-99.0 [facility] Comment on above: Performed By: #### MASOOD LINARESRO #### [facility] [place] [facility] [address] [place] [address] Dr. Timothy Adair MONO # 0.7 103/ul Normal 0.3-0.8 [facility] Comment on above: Performed By: #### MASOOD LINARESRO #### [facility] [place] [facility] [address] [place] [address] Dr. Timothy Adair Monocytes/100 WBC (Bld) 5.1 % Normal 1.7-12.0 [facility] [place] [facility] Comment on above: Performed By: #### MASOOD LINARESRO #### [facility] [place] [facility] [address] [place] [address] Dr. Timothy Adair NEUT # 10.2 103/ul Critically high 1.4-6.5 [facility] Comment on above: Performed By: #### ITZEL LINARES #### [facility] [place] [facility] [address] [place] [address] Dr. Timothy Adair Neutrophils/100 WBC (Bld) 78.7 % Critically high 43.0-75.0 [facility] [place] [facility] Comment on above: Performed By: #### MASOOD LINARESRO #### [facility] [place] [facility] [address] [place] [address] Dr. Timothy Adair Platelet mean volume (Bld) [Entitic vol] 9.7 fL Normal 9.5-13.5 [facility] [place] [facility] Comment on above: Performed By: #### MASOOD LINARESRO #### [facility] [place] [facility] [address] [place] [address] Dr. Timothy Adair PLT 333 103/ul Normal 150-450 [facility] [place] [facility] Comment on above: Performed By: #### MASOOD LINARESRO #### [facility] [place] [facility] [address] [place], [place] [id number] Dr. Timothy Adair RBC 4.56 106/ul Normal 4.20-5.40 [facility] Comment on above: Performed By: #### Sanjiv CHANDLER UMICRO #### [facility] [place] [facility] [address] [place] [address] Dr. Timothy Adair WBC 13.0 103/ul Critically high 4.0-11.0 [facility] Comment on above: Performed By: #### Sanjiv CHANDLER UMICRO #### [facility] [place] [facility] [address] [place] [address] Dr. Timothy Adair PROF CHEM 8 (BAS METB)on Anion gap [Moles/Vol] 15.4 mmol/L Normal [facility] Comment on above: Performed By: #### Sanjiv CHANDLER UMICRO #### [facility] [place] [facility] [address] [place] [address] Dr. Timothy Adair Calcium [Mass/Vol] 8.6 mg/dL Normal 8.4-10.2 [facility] Comment on above: Performed By: #### Sanjiv CHANDLER UMICRO #### [facility] [place] [facility] [address] [place] [address] Dr. Timothy Adair Chloride [Moles/Vol] 102 mmol/L Normal 98-107 [facility] Comment on above: Performed By: #### Sanjiv CHANDLER UMICRO #### [facility] [place] [facility] [address] [place] [address] Dr. Timothy Adair CO2 [Moles/Vol] 24.7 mmol/L Normal 22.0-30.0 [facility] Comment on above: Performed By: #### Sanjiv CHANDLER UMICRO #### [facility] [place] [facility] [address] [place] [address] Dr. Timothy Adair Creatinine [Mass/Vol] 0.73 mg/dL Normal 0.52-1.04 [facility] Comment on above: Performed By: #### Sanjiv CHANDLER UMICRO #### [facility] [place] [facility] [address] [place] [address] Dr. Timothy Adair EGFR-AF URUGUAYAN >60 Normal >=60 [facility] Comment on above: Performed By: #### Sanjiv CHANDLER UMICRO #### [facility] [place] [facility] [address] [place] [address] Dr. iTmothy Adair EGFR-NON AF URUGUAYAN >60 Normal >=60 [facility] Comment on above: Performed By: #### Sanjiv CHANDLER UMICRO #### [facility] [place] [facility] [address] [place] [address] Dr. Timothy Adair Glucose [Mass/Vol] 125 mg/dL Critically high 74-106 [facility] Comment on above: Performed By: #### Sanjiv CHANDLER UMICRO #### [facility] [place] [facility] [address] [place] [address] Dr. Timothy Adair Potassium [Moles/Vol] 4.1 mmol/L Normal 3.4-5.0 [facility] Comment on above: Performed By: #### Sanjiv CHANDLER UMICRO #### [facility] [place] [facility] [address] [place] [address] Dr. Timothy Adair Sodium [Moles/Vol] 138 mmol/L Normal 137-145 [facility] Comment on above: Performed By: #### Sanjiv CHANDLER UMICRO #### [facility] [place] [facility] [address] [place] [address] Dr. Timothy Adair Urea nitrogen [Mass/Vol] 5.0 mg/dL Critically low 7.0-17.0 [facility] Comment on above: Performed By: #### Sanjiv CHANDLER UMICRO #### [facility] [place] [facility] [address] [place] [address] Dr. Timothy Adair Urea nitrogen/Creatinine [Mass ratio] 6.8 mg/mg Normal [facility] Comment on above: Performed By: #### Sanjiv CHANDLER UMICRO #### [facility] [place] [facility] [address] [place] [address] Dr. Timothy Adair CBC AUTO DIFFon 06-15-2021 BASO # 0.1 103/ul Normal 0.0-0.1 [facility] Comment on above: Performed By: #### C BC #### [facility] [place] [facility] [address] [place] [address] Dr. Timothy Adair Basophils/100 WBC (Bld) 0.6 % Normal 0.2-2.0 [facility] Comment on above: Performed By: #### C BC #### [facility] [place] [facility] [address] [place] [address] Dr. Timothy Adair EO # 0.1 103/ul Normal 0.0-0.7 [facility] Comment on above: Performed By: #### C BC #### [facility] [place] [facility] [address] [place] [address] Dr. Timothy Adair Eosinophils/100 WBC (Bld) 1.0 % Normal 0.9-7.0 [facility] Comment on above: Performed By: #### C BC #### [facility] [place] [facility] [address] [place] [address] Dr. Timothy Adair Erythrocyte distribution width (RBC) [Ratio] 13.0 % Normal 11.0-15.0 [facility] Comment on above: Performed By: #### C BC #### [facility] [place] [facility] [address] [place] [address] Dr. Timothy Adair Hematocrit (Bld) [Volume fraction] 43.1 % Normal 36.0-48.0 [facility] Comment on above: Performed By: #### C BC #### [facility] [place] [facility] [address] [place] [address] Dr. Timothy Adair Hemoglobin (Bld) [Mass/Vol] 14.0 g/dL Normal 12.0-16.0 [facility] Comment on above: Performed By: #### C BC #### [facility] [place] [facility] [address] [place] [address] Dr. Timothy Adair IG # 0.03 10e3/ul Normal 0.00-0.03 [facility] Comment on above: Performed By: #### C BC #### [facility] [place] [facility] [address] [place] [address] Dr. Timothy Adair IG % 0.3 % Normal 0.0-0.5 [facility] [place] [facility] Comment on above: Performed By: #### C BC #### [facility] [place] [facility] [address] [place] [address] Dr. Timothy Adair LYMPH # 2.8 103/ul Normal 1.2-3.8 [facility] Comment on above: Performed By: #### C BC #### [facility] [place] [facility] [address] [place] [address] Dr. Timothy Adair Lymphocytes/100 WBC (Bld) 27.1 % Normal 20.5-60.0 [facility] Comment on above: Performed By: #### C BC #### [facility] [place] [facility] [address] [place] [address] Dr. Timothy Adair MANUAL DIFF REQ NO Normal [facility] Comment on above: Performed By: #### C BC #### [facility] [place] [facility] [address] [place] [address] Dr. Timothy Adair MCH (RBC) [Entitic mass] 27.4 pg Normal 26.7-34.0 [facility] Comment on above: Performed By: #### C BC #### [facility] [place] [facility] [address] [place] [address] Dr. Timothy Adair MCHC (RBC) [Mass/Vol] 32.5 g/dL Normal 29.9-35.2 [facility] Comment on above: Performed By: #### C BC #### [facility] [place] [facility] [address] [place] [address] Dr. Timothy Adair MCV (RBC) [Entitic vol] 84.3 fL Normal 81.0-99.0 [facility] Comment on above: Performed By: #### C BC #### [facility] [place] [facility] [address] [place] [address] Dr. Timothy Adair MONO # 0.4 103/ul Normal 0.3-0.8 [facility] Comment on above: Performed By: #### C BC #### [facility] [place] [facility] [address] [place] [address] Dr. Timothy Adair Monocytes/100 WBC (Bld) 4.1 % Normal 1.7-12.0 [facility] Comment on above: Performed By: #### C BC #### [facility] [place] [facility] [address] [place] [address] Dr. Timothy Adair NEUT # 6.9 103/ul Critically high 1.4-6.5 [facility] Comment on above: Performed By: #### C BC #### [facility] [place] [facility] [address] [place] [address] Dr. Timothy Adair Neutrophils/100 WBC (Bld) 66.9 % Normal 43.0-75.0 [facility] Comment on above: Performed By: #### C BC #### [facility] [place] [facility] [address] [place] [address] Dr. Timothy Adair Platelet mean volume (Bld) [Entitic vol] 9.8 fL Normal 9.5-13.5 [facility] Comment on above: Performed By: #### C BC #### [facility] [place] [facility] [address] [place] [address] Dr. Timothy Adair PLT 369 103/ul Normal 150-450 [facility] Comment on above: Performed By: #### C BC #### [facility] [place] [facility] [address] [place] [address] Dr. Timothy Adair RBC 5.11 106/ul Normal 4.20-5.40 [facility] Comment on above: Performed By: #### C BC #### [facility] [place] [facility] [address] [place] [address] Dr. Timothy Adair WBC 10.3 103/ul Normal 4.0-11.0 [facility] Comment on above: Performed By: #### C BC #### [facility] [place] [facility] [address] [place] [address] Dr. Timothy Adair CTA CHEST WO W CONon -14-2 021 CTA CHEST WO W CON EXAM: [...] MADYSON CISNEROS Date: 2021-06-15 19:51 Normal [facility] [place] [facility] D-DIMERon 06-15-2021 D-DIMER 0.66 mg/L FEU Critically high 0.19-0.50 [facility] Comment on above: Result Comment: test repeated critical value verified Performed By: #### ITZEL LINARES #### [facility] [place] [facility] [address] [place] [address] Dr. Timothy Adair D-DIMER COMMENTS SEE BELOW Normal [facility] Comment on above: Result Comment: Incr eases [...] stress, and generalized hospitalization. Performed By: #### ITZEL LINARES #### [facility] [place] [facility] [address] [place] [address] Dr. Timothy Adair PREG HCG QUALon 06-15-2021 , QUAL Negative Normal NEGATIVE [facility] Comment on above: Performed By: #### ITZEL LINARES #### [facility] [place] [facility] [address] [place] [address] Dr. Timothy Adair PROF 14(COMP METB)on 06-15- 021 Albumin [Mass/Vol] 3.1 g/dL Critically low 3.5-5.0 [facility] Comment on above: Performed By: #### C BC #### [facility] [place] [facility] [address] [place] [address] Dr. Timothy Adair Albumin/Globulin [Mass ratio] 0.6 {ratio} Normal [facility] Comment on above: Performed By: #### C BC #### [facility] [place] [facility] [address] [place] [address] Dr. Timothy Adair ALP [Catalytic activity/Vol] 105 U/L Normal 38-126 [facility] Comment on above: Performed By: #### C BC #### [facility] [place] [facility] [address] [address] [address] Timothy Adair ALT [Catalytic activity/Vol] 21 U/L Normal 9-52 [facility] Comment on above: Performed By: #### C BC #### [facility] [place] [facility] [address] [address] [address] Timothy Adair Anion gap [Moles/Vol] 14.8 mmol/L Normal [facility] Comment on above: Performed By: #### C BC #### [facility] [place] [facility] [address] [address] [address] Timothy Adair AST [Catalytic activity/Vol] 15 U/L Normal 14-36 [facility] Comment on above: Performed By: #### C BC #### [facility] [place] [facility] [address] [address] [address] Timothy Adair Bilirubin [Mass/Vol] 0.3 mg/dL Normal 0.2-1.3 [facility] Comment on above: Performed By: #### C BC #### [facility] [place] [facility] [address] [address] [address] Timothy Adair Calcium [Mass/Vol] 9.3 mg/dL Normal 8.4-10.2 [facility] Comment on above: Performed By: #### C BC #### [facility] [place] [facility] [address] [address] [address] Timothy Adair Chloride [Moles/Vol] 101 mmol/L Normal 98-107 [facility] [place] [facility] Comment on above: Performed By: #### C BC #### [facility] [place] [facility] [address] [address] [address] Timothy Adair CO2 [Moles/Vol] 26.6 mmol/L Normal 22.0-30.0 [facility] Comment on above: Performed By: #### C BC #### [facility] [place] [facility] [address] [address] [address] Timothy Adair Creatinine [Mass/Vol] 0.87 mg/dL Normal 0.52-1.04 [facility] Comment on above: Performed By: #### C BC #### [facility] [place] [facility] [address] [address] [address] Timothy Adair EGFR-AF URUGUAYAN >60 Normal >=60 [facility] Comment on above: Performed By: #### C BC #### [facility] [place] [facility] [address] [address] [address] Timothy Adair EGFR-NON AF URUGUAYAN >60 Normal >=60 [facility] Comment on above: Performed By: #### C BC #### [facility] [place] [facility] [address] [address] [address] Timothy Adair Globulin (S) [Mass/Vol] 4.9 g/dL Normal [facility] Comment on above: Performed By: #### C BC #### [facility] [place] [facility] [address] [place] [address] Dr. Timothy Adair Glucose [Mass/Vol] 113 mg/dL Critically high 74-106 [facility] Comment on above: Performed By: #### C BC #### [facility] [place] [facility] [address] [address] [address] Timothy Adair Potassium [Moles/Vol] 3.4 mmol/L Normal 3.4-5.0 [facility] Comment on above: Performed By: #### C BC #### [facility] [place] [facility] [address] [place] [address] Dr. Timothy Adair Protein [Mass/Vol] 8.0 g/dL Normal 6.1-8.2 [facility] Comment on above: Performed By: #### C BC #### [facility] [place] [facility] [address] [address] [address] Timothy Adair Sodium [Moles/Vol] 139 mmol/L Normal 137-145 [facility] Comment on above: Performed By: #### C BC #### [facility] [place] [facility] [address] [address] [address] Timothy Adair Urea nitrogen [Mass/Vol] 9.0 mg/dL Normal 7.0-17.0 [facility] Comment on above: Performed By: #### C BC #### [facility] [place] [facility] [address], [place] [address] Dr. Timothy Adair Urea nitrogen/Creatinine [Mass ratio] 10.3 mg/mg Normal [facility] Comment on above: Performed By: #### C BC #### [facility] [place] [facility] [address], [place] [address] Dr. Timothy Adair TROPONIN, HIGH SENSITIVITYon 06-15-2021 HSTROP 4.8 pg/mL Normal 4.0-35.5 [facility] Comment on above: Result Comment: CUT- OFF POINTS HAVE BEEN ESTABLISHED BASED ON THE FOURTH UNIVERSAL DEFINITIONS OF MYOCARDIAL INFARCTION. THE UPPER REFERENCE LIMIT (URL) OF TROPONIN, DEFINED THE 99TH PERCENTILE OF cTnI DISTRIBUTION IN A REFERENCE POPULATION, HAS BEEN CONFIRMED THE DECISION THRESHOLD FOR MS DIAGNOSIS. Performed By: #### C BC #### [facility] [place] [facility] [address], [place] [address] Dr. Timothy Adair XR ankle LT min 3V*on 2020 XR ankle LT min 3V* [facility] [employer] Other XR ankle LT min 3V* [facility] [employer] Other XR ankle LT min 3V* [address] [place] [address] [employer] Other XR ankle LT min 3V* [place] [address] [employer] Other XR ankle LT min 3V* XRay Report [facility] [employer] Other XR ankle LT min 3V* Signed [employer] Other XR ankle LT min 3V* Patient: Josemanuel Ford in [place] MR#: [id number] [employer] Other XR ankle LT min 3V* 271 [employer] Other XR ankle LT min 3V* : 1990 Acct:[id number] [employer] Other XR ankle LT min 3V* Age/Sex: 30 / F ADM Date: 04/23/21 [employer] Other XR ankle LT min 3V* Loc: XDUCLY Room: Ty pe: REG CLI [employer] Other XR ankle LT min 3V* Attending Dr: Cleopatra ESCALANTE [employer] Other XR ankle LT min 3V* Ordering Provider: AVA Whitaker [employer] Other XR ankle LT min 3V* Date of Service: 04/23/21 [employer] Other XR ankle LT min 3V* XR/XR ankle LT min 3V*: Acute left ankle pain [employer] Other XR ankle LT min 3V* Copies to: AVA Whitaker [employer] Other XR ankle LT min 3V* XR ankle LT min 3V* [employer] Other XR ankle LT min 3V* CLINICAL HISTORY: Tripped and rolled left ankle, pain at the medial aspect of the left ankle. [employer] Other XR ankle LT min 3V* COMPARISON: 08/06/2018 [employer] Other XR ankle LT min 3V* FINDINGS: AP, latera l and oblique views of the left ankle were obtained. There is no evidence of [employer] Other XR ankle LT min 3V* fracture or subluxation. 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 Minimal spur at the [employer] Other XR ankle LT min 3V* tip of the medial malleolus is noted. There are no focal soft tissue abnormalities. [employer] Other XR ankle LT min 3V* XR/XR ankle LT min 3V* [employer] Other XR ankle LT min 3V* IMPRESSION: [facility] [employer] Other XR ankle LT min 3V* NO ACUTE FRACTURE OR SUBLUXATION. [employer] Other XR ankle LT min 3V* MILD FOCAL CONTOUR IRREGULARITY AT THE LATERAL TALAR DOME, PROBABLY RELATED TO OLD INJURY. [employer] Other XR ankle LT min 3V* Impression dictated by: Nicolás Mccormick M.D.04/23/2021 12:30 PM [employer] Other XR ankle LT min 3V* Dictation Location: [place] [address] [employer] Other XR ankle LT min 3V* Transcribed By: YECENIA 04/23/21 1230 [employer] Other XR ankle LT min 3V* Dictated By: Nicolás Mccormick MD 04/23/21 1225 [employer] Other XR ankle LT min 3V* Signed By: [employer] Other XR ankle LT min 3V* 04/23/21 1230 No rt [employer] Other BASIC METABOLIC PANELon 05-0 -2017 Calcium 9.0 mg/dL Normal 8.6-10.3 [facility] Comment on above: Performed By: #### 2 0718, [id number] ####[facility] [place] [address], [facility] Chloride 104 mmol/L Normal 98-107 [facility] Comment on above: Performed By: #### 2 [id number] ####[facility] [place] [address], [facility] CO2 26 mmol/L Normal 21-31 [facility] Comment on above: Performed By: #### 2 5507, [id number] ####[facility] [place] [address], [facility] Creatinine 0.59 mg/dL Low 0.60-1.20 [facility] Comment on above: Performed By: #### 2 5507, [id number] ####[facility] [place] [address], [facility] eGFR (black) mL/min/{1.73_m2} Normal >60 [facility] Comment on above: Performed By: #### 2 5507, 50446 ####[facility] [facility] [place] [address], [facility] eGFR (non-black) mL/min/{1.73_m2} Normal >60 [facility] Comment on above: Performed By: #### 2 5507, [id number] ####[facility] [facility] [place] [address], [facility] Glucose mass conc 86 mg/dL Normal 70-100 [facility] Comment on above: Performed By: #### 2 5507, 18671 ####[place] [address] [place] [address], [facility] Potassium molar conc 3.6 mmol/L Normal 3.5-5.1 [facility] Comment on above: Performed By: #### 2 5507, [id number] ####[facility] [facility] [place] [address], [facility] Sodium 138 mmol/L Normal 136-145 [facility] Comment on above: Performed By: #### 2 5507, 08121 ####[facility] [facility] [place] [address], [facility] Urea nitrogen 9 mg/dL Normal 7-25 [facility] Comment on above: Performed By: #### 2 5507, 17143 ####[facility] [address] CPKon 11-07-2017 Creatine kinase (CK) 90 U/L Normal 30-223 [facility] Comment on above: Performed By: #### 2 5508, [address] ####[place] [address], [facility] CTA LOWER EXTREMITYon 2017 CTA LOWER EXTREMITY [facility] Unccewgra[address] [id number] =====Patient Name: NICKIE FORD : 1990Sex: FAge: Race: WhiteMRN: [id number]. Location: EMERPatient Status: DVisit #: [id number] Date: 11/07/2017Completed Date: 11/07/2017 01:37 AMRequesting Provider: OPAL GERARDO Attending Provider: OPAL GERARDO Report Copy To: Signs & Symptoms: Numbness in Extremity (specify)History: Patient history not availableComments: R/O Vascular Stenosis, left lower extremity. S/P crushing injuryExam: CTA LOWER EXTREMITYAccession #: [id number] CTA LOWER EXTREMITY 11/07/2017 1:37 AM EDT SIGNS AND SYMPTOMS: Numbness in Extremity (specify) TECHNOLOGIST COMMENTS: Pt had car pin her left leg while changing a tire. Pt is transfer from [facility]. Small bruising anteriorly just superior to left [...] injury Electronically signed by:Sina Carranza. Transcribed by: [id number], User Resident: Electronically Signed by: SINA CARRANZA @ 11/07/2017 09:17 AM Normal [facility] Comment on above: Order Comment: R/O V ascular Stenosis, left lower extremity. S/P crushing injury History and Physicalon 11-07 History and Physical [id number] Admitted: 11/06/2017 [...] significant soft tissueswelling. She was transferred to [facility] for evaluation over a concern ofcompartment [...] Soft and nondistended.PELVIS: No pelvic instability or tenderness.MUSCULOSKELE KEVAN: Intact motor and sensation to the bilateral lower andupper extremities. She has decreased sensation, however, to the left lowerextremity, there is no significant swelling or bruising detectable in theleft thigh, she has full range of motion to the hip and knee on the left.VASCULAR: The patient has palpable popliteal, DP, and PT pulsesbilaterally.LABOR ATORY DATA: Sodium of 138, potassium of 3.6, chloride of 104, bicarbof 26, BUN of 9, creatinine of 0.59, glucose of 86.Creatine kinase within normal limits.CTA of the bilateral lower extremities demonstrates normal vasculature andno aneurysm, dissection, or thrombosis, the soft tissue has no significantswelling.ASS ESSMENT AND PLAN: This is a 27-year-old otherwise healthy female, whopresents after a compression injury to her left thigh. There is nocompartment syndrome and she has intact neurovascular function beyond theinjury.The patient will follow up in clinic in 2 weeks to monitor for continuedimprovement of her left lower extremity paresthesia.Discharge with [place], vabe-wrr-hcdivgi pain medications, crutches, returnto work as able.Electronically Signed by:Antonio Joseph M.D. 11/12/2017 10:54 A Antonio Joseph M.D. I was not present but assume all responsibility for the exam. NOTBILLABLEDate Dict: 11/07/2017/01:53 A/Gary Granados MDDate Trans: 11/07/2017 08:36 A/mmoDN_JN:[id number] Normal [facility] CYTOLOGYon 02-27-2017 CYTOLOGY ---Abnormal Pap Test - Epithelial Cell Abnormality---Specimen #: [id number] Physician: JASMYN PLATA SUBMITTEDA: CERVICAL, SCREENING, FLUID FI NAL DIAGNOSISA. CERVICAL, SCREENING, FLUIDSatisfactory for interpretation.Epitheli al cell abnormality.Atypical squamous cells of undetermined significance (ASC-US).This specimen has been analyzed by the ThinPrep Imaging System, anautomated imaging and review system, which assists the laboratory inevaluating cells on ThinPrep Pap tests. Following automated imaging,selected robertson from every slide are reviewed by a field naturalist.Sun Jeffrey MD (Electronic Signature) CL INICAL DATA PAP Source: Cervical-PFCERSSTAINSA: CERVICAL, SCREENING, FLUID THIN PREP GYNPatient ID #: [id number] of Report: 03/09/2017Date of Procedure: 02/27/2017Date of Receipt: 03/02/2017Submitted by: JASMYN PHILIPLocation: Diagnostic interpretation performed at [facility], [facility], [facility] [address].The Pap Smear is a screening test for cervical cancer. False negativeresults occur with all screening tests, emphasizing the need forrescreening at recommended intervals, and clinical correlation. Normal [facility] Comment on above: Performed By: #### C ####See report for performing lab information. Vital Signs Date Time Vital Sign Value Performing Clinician Facility 09-25-2023 12:49-0400 Body height 161.29 cm [facility] 09-25-2023 12:49-0400 Body mass index (BMI) [Ratio] 47 kg/m2 [facility] 09-25-2023 12:49-0400 Body temperature 98.9 [degF] [facility] 09-25-2023 12:49-0400 Body weight 122.46 kg [facility] 09-25-2023 12:49-0400 Heart rate 108 /min [facility] 09-25-2023 12:49-0400 Respiratory rate 18 /min [facility] 09-25-2023 12:49-0400 SaO2% (BldA) [Mass fraction] 98 % [facility] 02-09-2023 16:10-0400 Body height 161.29 cm Jeimy Verduzco Other [employer] [facility] [employer] Other 02-09-2023 16:10-0400 Body mass index (BMI) [Ratio] 48.4 kg/m2 Jeimy Verduzco Other [employer] Other 02-09-2023 16:10-0400 Body temperature 97.5 [degF] Jeimy Verduzco Other [employer] Other 02-09-2023 16:10-0400 Body weight 125.92 kg Jeimy Verduzco Other [employer] Other 02-09-2023 16:10-0400 Diastolic blood pressure 96 mm[Hg] Jeimy Hansonley Other [employer] Other 02-09-2023 16:10-0400 Respiratory rate 18 /min Jeimy Hansonley Other [employer] Other 02-09-2023 16:10-0400 SaO2% (BldA) [Mass fraction] 98 % Jeimy Hansonley Other [employer] Other 02-09-2023 16:10-0400 Systolic blood pressure 141 mm[Hg] Jeimy Hansonley Other [employer] Other 10-21-2022 10:00-0400 Body height 161.29 cm Sherron Singh Other [employer] Other 10-21-2022 10:00-0400 Body mass index (BMI) [Ratio] 47.94 kg/m2 Sherron Singh Other [employer] Other 10-21-2022 10:00-0400 Body temperature 97.1 [degF] Sherron Singh Other [employer] Other 10-21-2022 10:00-0400 Body weight 124.74 kg Sherron Singh Other [employer] Other 10-21-2022 10:00-0400 Respiratory rate 18 /min Sherron Stylesler Other [employer] Other 10-21-2022 10:00-0400 SaO2% (BldA) [Mass fraction] 98 % Sherron Singh Other [employer] Other 10-20-2021 12:40-0400 Body height 161.29 cm Cleopatra Durbin Other [employer] Other 10-20-2021 12:40-0400 Body mass index (BMI) [Ratio] 46.38 kg/m2 Cleopatra Hawkmond Other [employer] Other 10-20-2021 12:40-0400 Body temperature 97.9 [degF] Cleopatra Gifty Other [employer] Other 10-20-2021 12:40-0400 Body weight 120.66 kg Cleopatra Hawkmond Other [employer] Other 10-20-2021 12:40-0400 Respiratory rate 18 /min Cleopatra Durbin Other [employer] Other 10-20-2021 12:40-0400 SaO2% (BldA) [Mass fraction] 97 % Cleopatra Durbin Other [employer] Other 09-15-2021 13:20-0400 Body height 161.29 cm Cleopatra Durbin Other [employer] Other 09-15-2021 13:20-0400 Body mass index (BMI) [Ratio] 45.33 kg/m2 Cleopatra Hawkmond Other [employer] Other 09-15-2021 13:20-0400 Body temperature 97.5 [degF] Cleopatra Gifty Other [employer] Other 09-15-2021 13:20-0400 Body weight 117.94 kg Cleopatra Gifty Other [employer] Other 09-15-2021 13:20-0400 Respiratory rate 18 /min Cleopatra Gifty Other [employer] Other 09-15-2021 13:20-0400 SaO2% (BldA) [Mass fraction] 97 % Cleopatra Gifty Other [employer] Other 04-23-2021 11:55-0400 Body height 161.29 cm Cleopatra Gifty Other [employer] Other 04-23-2021 11:55-0400 Body mass index (BMI) [Ratio] 46.38 kg/m2 Cleopatra Gifty Other [employer] Other 04-23-2021 11:55-0400 Body temperature 97 [degF] Cleopatra Gifty Other [employer] Other 04-23-2021 11:55-0400 Body weight 120.66 kg Cleopatra Gifty Other [employer] Other 04-23-2021 11:55-0400 Diastolic blood pressure 89 mm[Hg] Cleopatra Gifty Other [employer] Other 04-23-2021 11:55-0400 Respiratory rate 18 /min Cleopatra Gifty Other [employer] Other 04-23-2021 11:55-0400 SaO2% (BldA) [Mass fraction] 97 % Cleopatra Gifty Other [employer] Other 04-23-2021 11:55-0400 Systolic blood pressure 141 mm[Hg] Cleopatra Gifty Other [employer] Other 03-29-2021 16:10-0400 Body height 161.29 cm Jaymie Tripp Other [employer] Other 03-29-2021 16:10-0400 Body mass index (BMI) [Ratio] 46.38 kg/m2 Jaymie Tripp Other [employer] Other 03-29-2021 16:10-0400 Body temperature 97.1 [degF] Jaymie Tripp Other [employer] Other 03-29-2021 16:10-0400 Body weight 120.66 kg Jaymie Tripp Other [employer] Other 03-29-2021 16:10-0400 Diastolic blood pressure 90 mm[Hg] Jaymie Cotaault Other [employer] Other 03-29-2021 16:10-0400 Respiratory rate 18 /min Jaymie Tripp Other [employer] Other 03-29-2021 16:10-0400 SaO2% (BldA) [Mass fraction] 98 % Jaymie Tripp Other [employer] Other 03-29-2021 16:10-0400 Systolic blood pressure 140 mm[Hg] Jaymie Tripp Other [employer] Other Encounters Encounter Date Encounter Type Care Provider Facility Start: 10-25-2023 End: 10-25-2023 ambulatory [facility] Start: 10-25-2023 Encounter for genera l adult medical examination without abnormal findings [facility] Start: 09-25-2023 End: 09-25-2023 ambulatory [facility] Work Phone: Start: 09-25-2023 End: 09-25-2023 Patient encounter procedure [facility] Work Phone: Start: 08-08-2023 End: 08-08-2023 ambulatory KALEB TATTERSALL Not Available Start: 08-01-2023 End: 08-01-2023 ambulatory JACI KELBLEY Not Available Start: 07-28-2023 End: 07-28-2023 ambulatory JACI KELBLEY Not Available Start: 07-24-2023 End: 07-24-2023 ambulatory KALEB TATTERSALL Not Available Start: 07-21-2023 End: 07-21-2023 ambulatory HUYEN BRINK Not Available Start: 07-12-2023 End: 07-12-2023 ambulatory LILIANA B APLING Not Available Start: 07-10-2023 End: 07-10-2023 ambulatory HUYEN BRINK Not Available Start: 07-04-2023 End: 07-04-2023 ambulatory HUYEN BRINK Not Available Start: 06-30-2023 End: 06-30-2023 ambulatory JACI KELBLEY Not Available Start: 06-27-2023 End: 06-27-2023 ambulatory HUYEN BRINK Not Available Start: 06-23-2023 End: 06-23-2023 ambulatory HUYEN BRINK Not Available Start: 06-19-2023 End: 06-19-2023 ambulatory HUYEN BRINK Not Available Start: 06-16-2023 End: 06-16-2023 ambulatory HUYEN BRINK Not Available Start: 06-14-2023 End: 06-14-2023 ambulatory HUYEN BRINK Not Available Start: 06-09-2023 End: 06-09-2023 ambulatory JACI KELBLEY Not Available Start: 06-07-2023 End: 06-07-2023 ambulatory HUYEN BRINK Not Available Start: 06-05-2023 End: 06-05-2023 ambulatory JESUSITA HARLEY Not Available Start: 05-31-2023 End: 05-31-2023 ambulatory LILIANA B APLING Not Available Start: 05-17-2023 End: 05-18-2023 ambulatory LILIANA B APLING Not Available Start: 05-17-2023 End: 05-17-2023 ambulatory LILIANA Franco APLING Not Available Start: 02-09-2023 End: 02-09-2023 ambulatory Jeimy Verduzco Other [employer] Other Start: 02-09-2023 Office outpatient vi sit 15 minutes Jeimy Verduzco [facility] Start: 01-17-2023 End: 01-17-2023 ambulatory Sherron Singh Facility:[facility] Start: 01-17-2023 End: 01-17-2023 ambulatory PHYSICIAN [facility] Work Phone: Start: 01-17-2023 End: 01-17-2023 Patient encounter procedure PHYSICIAN NO [facility] Work Phone: Start: 10-21-2022 End: 10-21-2022 ambulatory Sherron Singh Other [employer] Other Start: 10-21-2022 Office outpatient vi sit 25 minutes Sherron Singh [facility] Start: 06-04-2022 End: 06-04-[address] VANI SINGH Facility:[facility] Start: 03-03-2022 End: 03-03-[address] VANI SINGH Facility:[facility] Start: 10-20-2021 End: 10-20-2021 ambulatory Cleopatra Durbin Other [employer] Other Start: 10-20-2021 Office outpatient vi sit 15 minutes Cleopatra Durbin [facility] Start: 09-17-2021 End: 09-17-[address] VANI SINGH Facility:[facility] Start: 09-15-2021 (URG) Urgent Care Visit Cleopatra Chávez d [facility] Start: 09-15-2021 End: 09-15-2021 ambulatory Cleopatra Durbin Other [employer] Other Start: 07-18-2021 End: 07-19-[address] VANI SINGH Facility:[facility] Start: 07-17-2021 End: 07-17-[address] VANI SINGH Facility:[facility] Start: 07-16-2021 End: 07-16-[address] VANI SINGH Facility:[facility] Start: 07-15-2021 End: 07-15-2021 ambulatory VANI FRANCISCO Facility:[facility] Start: 06-15-2021 End: 06-15-2021 ambulatory VANI FRANCISCO Facility:[facility] Start: 04-23-2021 Office outpatient vi sit 15 minutes Cleopatra Durbin [facility] Start: 03-29-2021 Office outpatient vi sit 15 minutes Jaymiebeto Tripp [facility] Start: 11-07-2017 End: 11-07-2017 Emergency department patient visit OPAL GERARDO Facility:[facility] Procedures Date Procedure Procedure Detail Performing Clinician Start: 09-25-2023 Quick Strep (POC) Start: 01-17-2023 X-ray of right knee PHY SICIAN NO FAMILY Immunizations Immunization Date Immunization Notes Care Provider Fa cility 03-29-2021 KENALOG - 10 mg Jaymie Br eault Other [employer] Other 09-05-2019 KENALOG - 10 mg Jaymie Br eault Other [employer] Other 08-26-2016 Toradol per 15 mg Jaymie Josee Other [employer] Other NEGATED: Highlighted row has not occurred!04-27-2019 Toradol per 15 mg Jaymie Josee Other [employer] Other Payers Date Payer Category Payer Self-pay [id number] 2022 Medicaid [id number] 2. [id number] 2018 Unknown [id number] 2.16.8 40.1.989452.19 1990 Unknown [id number] 2.16.84 0.1.993618.3.579.2.593 1990 Unknown [id number] 2.16.84 0.1.703379.3.579.2.593 1990 Unknown [id number] 2.16.84 0.1.765220.3.579.2.593 1990 Unknown [id number] 2.16.84 0.1.103909.3.579.2.593 1990 Unknown [id number] 2.16.84 0.1.536515.3.579.2.593 1990 Unknown [id number] 2.16.84 0.1.021861.3.579.2.593 1990 Unknown [id number] 2.16.84 0.1.762489.3.579.2.593 1990 Unknown [id number] 2.16.84 0.1.881013.3.579.2.593 1990 Unknown [id number] 2.16.84 0.1.561749.3.579.2.1259 1990 Unknown [id number] 2.16.84 0.1.386969.3.579.2.1259 1990 Unknown [id number] 2.16.84 0.1.012865.3.579.2.1259 1990 Unknown [id number] 2.16.84 0.1.506179.3.579.2.1259 1990 Unknown [id number] 2.16.84 0.1.011533.3.579.2.1259 1990 Unknown [id number] 2.16.84 0.1.843878.3.579.2.1259 1990 Unknown [id number] 2.16.840 .1.976918.3.579.2.1259 1990 Unknown [id number] 2.16.840 .1.297624.3.579.2.1259 1990 Unknown [id number] 2.16.840 .1.522701.3.579.2.1258 1990 Unknown [id number] 2.16.840 .1.489745.3.579.2.1258 1990 Unknown [id number] 2.16.840 .1.360342.3.579.2.1258 1990 Unknown [id number] 2.16.840 .1.211273.3.579.2.1258 1990 Unknown [id number] 2.16.840 .1.527812.3.579.2.1258 1990 Unknown [id number] 2.16.840 .1.130712.3.579.2.1258 1990 Unknown [id number] 2.16.840 .1.085365.3.579.2.1258 1990 Unknown [id number] 2.16.840 .1.456028.3.579.2.1258 1990 Unknown [id number] 2.16.840 .1.281443.3.579.2.1258 1990 Unknown [id number] 2.16.840 .1.275295.3.579.2.1258 1990 Unknown [id number] 2.16.840 .1.101768.3.579.2.1258 1990 Unknown [id number] 2.16.840. 1.753904.3.579.2.1258 1990 Unknown [id number] 2.16.8 40.1.828175.3.579.2.1286 1959 Private Health Insurance [id number] 2.16.840.1.766974. 1959 Unknown [id number] 2.1 6.840.1.244659.19 1959 Unknown [id number] Unknown [id number] Unknown [id number] 2.16.8 40.1.302837.3.579.2.531 Social History Date Type Detail Facility Unknown if ever smoked [employer] Other Sex Assigned At Sex Assigned At Bir th [employer] Other Start: 1990 Sex Assigned At Female [facility] Start: 08-06-2018 Tobacco smoking status NHIS Never smoked tobacco (finding) [facility] Evaluation note 02-09-2023 Note Date & [...] Suspected COVID-19 virus infection (ICD-10 - Z20.822) [employer] Other Evaluation note 10-21-2022 Note Date & [...] - Z20.828) Oct, Nausea (ICD-10 - R11.0) [employer] Other Evaluation note 10-20-2021 Note Date & [...] Patient care instructions given in writting by [facility] Care At Home document. [employer] Other Evaluation note 09-15-2021 Note Date & [...] Patient care instructions given in writting by [facility] Care At Home document. [employer] Other Evaluation note 04-23-2021 Note Date & [...] no improvement in 5 to 7 days [facility] Other Evaluation note 03-29-2021 Note Date & Type Note Facility 03-29-2021 Evaluation note Encounter Date Diagnosis Assessment Notes Mar, Bee sting allergy (ICD-10 - Z91.030) Steroid shot given in office today. Start oral steroid pack in the morning but all other meds tomorrow [facility] Other History general Narrative - Reported 10-31-2017 Note Date & Type Note Facility 10-31-2017 History general N arrative - Reported Type Medical History anxiety Medical History migraine headache Surgical History wisdom teeth Surgical History ankle surgery Hospitalization History preclampsia Hospitalization History car fell on pt in 10/2017 [facility] Other Evaluation note Note Date & Type Note Facility Evaluation note No assessment information availa [facility] Work Phone: History general Narrative - Reported Note Date & Type Note Facility History general Narrative - Reported Type Medical History anxiety Medical History migraine headache Medical History PTSD Surgical History wisdom teeth Surgical History ankle surgery Hospitalization History preclampsia Hospitalization History car fell on pt in 10/2017 [facility] Other Summary Purpose Family History No Family History Records Found Relationship Condition Age at Onset Recorded Date/T tim father Heart disease Unknown Diabetes mellitus Unknown Unknown Not Specified Hypertension Unknown Advance Directives No Advanced Directives Records Found Advance Directive Response Recorded Date/ Time Advance Directives No August 07, 2018 8:33am Chief Complaint and Reason for Visit Chief Complaint sore throat, loss vo ice Additional Source Comments INFORMATION SOURCE (unrecogn ized section and content) DATE CREATED AUTHOR 12/19/2017 [facility] DATE CREATED AUTHOR AUTHOR'S ORGANIZ ATION 12/27/2017 [facility] DATE CREATED AUTHOR AUTHOR'S ORGANIZ ATION 06/07/2022 [facility] DATE CREATED AUTHOR AUTHOR'S ORGANIZ ATION 05/25/2023 [facility] DATE CREATED AUTHOR AUTHOR'S ORGANIZ ATION 08/09/2023 [facility] EPIC DATE CREATED AUTHOR AUTHOR'S ORGANIZ ATION 10/27/2023 [facility] REASON FOR VISIT (unrecogniz ed section and content) LEFT ARM SWELLING, REDNESS P OST INSECT STING ON 1LEFT ANKLE INJURY, FELL GOING OUT OF HOUSEWHTIE F150, COUGH, [id number], CONGESTION, H/A, SORE THROAT, EARACHECOUGH, CONGESTION, LOOSE STOOL, N/VRIGHT LEG, THINKS IT'S SHINGLES, SYMPTOMS SENSITIVE TO LIGHT, ITCHY, HAD SHINGLES EARLIER Care Teams (unrecognized sec tion and content) Team Status: Active Member Role Status Dates PHYSICIAN NO FAMILY Primary Care Provider Active Team Status: Inactive Member Role Status Dates PHYSICIAN NO FAMILY Primary Care Provider Active Sherron Singh APRN Attending Provider Active Team Status: Inactive Member Role Status Dates PHYSICIAN NO FAMILY Primary Care Provider Active Start: September 25, 2023 End: September 25, 2023 Sophia Bryan APRN Attending Provider Active S tart: September 25, 2023 End: September 25, 2023 Goals (unrecognized section and content) Goals may [...] BE BASED ON THE PRIMARY CLINICAL RECORDS. [facility] [id number] [facility]. provides no warranty or guarantee of the accuracy or completeness of information in this document.
[2024-05-12 19:54] VITALS: BP 154/117; PULSE 109; TEMP 36.7; O2SAT 99; BMI 45.1
--- NOTE | 2024-05-12 20:02 | XR_ITS ---
The [address] [address] Patient Name: NICKIE FORD MRN: [id number] date: 1990 Sex: F Assigned Patient Location: ER Current Patient Location: Accession/Order Number: [id number] Exam Date: 05/12/2024 20:05 Report Date: 05/12/2024 21:03 At the request of: EMILEE ATKINSON Procedure: XR ankle LT min 3V EXAM: XR ankle LT min 3V, XR foot LT min 3V HISTORY: fall COMPARISON: None. TECHNIQUE: 3 views left foot and ankle FINDINGS: Bones: No acute fracture or aggressive appearing bony lesion. Joints: Normal alignment. No significant osteoarthritic change. Soft tissues: Unremarkable. XR/XR ankle LT min 3V IMPRESSION: Unremarkable examination. No evidence of fracture. Electronically authenticated by: IVELISSE WALLACE Date: 05/12/2024 21:03
--- NOTE | 2024-05-12 20:02 | XR_ITS ---
The [address] [address] Patient Name: NICKIE FORD MRN: [id number] date: 1990 Sex: F Assigned Patient Location: ER Current Patient Location: Accession/Order Number: [id number] Exam Date: 05/12/2024 20:05 Report Date: 05/12/2024 21:03 At the request of: EMILEE ATKINSON Procedure: XR foot LT min 3V EXAM: XR ankle LT min 3V, XR foot LT min 3V HISTORY: fall COMPARISON: None. TECHNIQUE: 3 views left foot and ankle FINDINGS: Bones: No acute fracture or aggressive appearing bony lesion. Joints: Normal alignment. No significant osteoarthritic change. Soft tissues: Unremarkable. XR/XR foot LT min 3V IMPRESSION: Unremarkable examination. No evidence of fracture. Electronically authenticated by: IVELISSE WALLACE Date: 05/12/2024 21:03
--- NOTE | 2024-05-12 20:45 | ED_ITS ---
HPI HPI - Extremity Injury (Lower) General Chief Complaint: Extremity Injury, Lower Stated Complaint: Lower Injury FALL Time Seen by Provider: 05/12/24 20:36 Source: patient Mode of arrival: walk-in Limitations: no limitations History of Present Illness HPI Narrative: Patient is a 33-year-old female presents to the ER with concerns of left ankle pain. Patient states that May 03 she was walking down her steps and slipped on a snowman driving her leg into some cans and twisting her ankle. She reports having pain ever since with ambulation, swelling has improved. She sees [facility] in [place]. She denies any proximal knee pain. She has a pertinent history of prior talus surgery with Dr. Rocha following a remote injury. Patient denies any head or neck injury. She appears in no distress. Patient previously taking Motrin 600 mg but ran out. Injury: Left: ankle and foot Type of Injury: Reports blunt Place: Reports home Severity: mild Relieving factors: Reports NSAID Exacerbating factors: Reports movement Context: Reports other (slipped on steps. ) Related Data Home Medications ?Medication ?Instructions ?Recorded ?Confirmed norethindrone 1 mg-ethinyl 1 tab PO DAILY 04/20/23 05/12/24 estradiol 35 mcg tablet (Nortrel) Allergies Allergy/AdvReac Type Severity Reaction Status Date / Time cephalexin (From Keflex) Allergy Severe Rash Verified 05/12/24 20:02 erythromycin base Allergy Severe Rash Verified 05/12/24 20:02 nickel Allergy Severe Rash Verified 05/12/24 20:02 latex Allergy Unknown Rash Verified 05/12/24 20:02 codeine AdvReac Severe Nausea Verified 05/12/24 20:02 Opioid HPI Opioid Management Most Recent Pain and Opioid Data: No Data to Display Review of Systems ROS Constitutional Denies: fever or chills Eyes Denies: change in vision or blurry vision Ears, nose, mouth, and throat Denies: throat pain or neck pain Cardiovascular Denies: chest pain Respiratory Denies: shortness of breath Gastrointestinal Denies: abdominal pain Genitourinary Denies: painful urination Musculoskeletal Denies: back pain or neck pain Integumentary/Breast Denies: rash Neurological Denies: headache Psychiatric Denies: anxiety Hematologic/Lymphatic Denies: easy bruising PFSH PFSH Social History Smoking status: Never smoker Little interest or pleasure in doing things: not at all Feeling down, depressed, or hopeless: not at all Exam Narrative Exam Narrative: Vital signs reviewed and nurse's notes. The patient is not hypoxic. General: Alert, no acute distress, patient resting comfortably Skin: warm, intact, no pallor noted Head: Normocephalic, atraumatic Eye: Normal conjunctiva, no exudates Respiratory: No acute distress, lungs CTA Musculoskeletal: No evidence of deformity to the left ankle. There is minima amount of swelling. There is no ecchymosis. No erythema or warmth noted. DP and PT pulses are intact 2+. Normal sensation, normal capillary refill less than 2 seconds. There is no cyanosis or mottling noted. The patient has tenderness to distal fibula mostly over the ATFL and CFL ligaments. The patient has negative anterior drawer to the ankle. remote surgical scar noted.. The patient was able to flex and extend ankle without difficulty. Patient was able to extend leg off the cart without difficulty. No tenderness noted to the 5th MT, midfoot, or proximal fibular area. There is no pain with calcaneal squeeze, achilles tendon is intact and no defect is palpated. The patient has no pelvic instability. The patient has no shortening or rotation noted to the bilateral lower extremities. Neurological: alert and orient x4, normal sensory and motor observed. Psychiatric: Cooperative Constitutional Vital Signs, click to edit/add: Last Vital Signs Temp 98.1 F 05/12/24 19:54 Pulse 109 H 05/12/24 19:54 Resp 18 05/12/24 19:54 BP 154/117 H 05/12/24 19:54 Pulse Ox 99 05/12/24 19:54 O2 Del Method Room Air 05/12/24 19:54 Course Vital Signs Vital signs: Vital Signs Temperature 98.1 F 05/12/24 19:54 Pulse Rate 109 H 05/12/24 19:54 Respiratory Rate 18 05/12/24 19:54 Blood Pressure 154/117 H 05/12/24 19:54 Pulse Oximetry 99 05/12/24 19:54 Oxygen Delivery Method Room Air 05/12/24 19:54 Temperature 98.1 F 05/12/24 19:54 Pulse Rate 109 H 05/12/24 19:54 Respiratory Rate 18 05/12/24 19:54 Blood Pressure 154/117 H 05/12/24 19:54 Pulse Oximetry 99 05/12/24 19:54 Oxygen Delivery Method Room Air 05/12/24 19:54 MDM - Extremity Injury (Lower) MDM Narrative Medical decision making narrative: Discussed patient's injury 9 days ago, x-rays performed, no evidence of fracture. Given location of pain on exam most consistent with ankle sprain. We discussed follow-up to her orthopedic provider for reevaluation. Will hold on placing her in a Aircast splint but she was secured with an Bill wrap. Patient may need a long-term ASO as she has a recurrent history of ankle sprains prior to her ankle surgery. Patient thankful had no further concerns or questions. The patient is to followup with primary care physician in next 2-3 days or to return to the emergency department should any of the signs or symptoms worsen or new symptoms develop. Patient had questions answered. The patient agrees with the following Diagnosis and Treatment plan and the patient will be discharged home. Imaging Data left ankle and foot: Attestation: I personally reviewed and interpreted this imaging study as follows: My impression: Left foot and ankle 3 view each with minimal degenerative changes to the ankle joint, no acute fracture Radiologist's impression: EXAM: XR ankle LT min 3V, XR foot LT min 3V HISTORY: fall COMPARISON: None. TECHNIQUE: 3 views left foot and ankle FINDINGS: Bones: No acute fracture or aggressive appearing bony lesion. Joints: Normal alignment. No significant osteoarthritic change. Soft tissues: Unremarkable. IMPRESSION: Unremarkable examination. No evidence of fracture. Electronically authenticated by: [employer] Date: 05/12/2024 21:03 Procedure: XR ankle LT min 3V EXAM: XR ankle LT min 3V, XR foot LT min 3V HISTORY: fall COMPARISON: None. TECHNIQUE: 3 views left foot and ankle FINDINGS: Bones: No acute fracture or aggressive appearing bony lesion. Joints: Normal alignment. No significant osteoarthritic change. Soft tissues: Unremarkable. IMPRESSION: Unremarkable examination. No evidence of fracture. Electronically authenticated by: [employer] Date: 05/12/2024 21:03 Discharge Plan Discharge Chief Complaint: Extremity Injury, Lower Clinical Impression: Left ankle sprain Patient Disposition: Home, Self-Care Time of Disposition Decision: 20:45 Condition: Good Prescriptions / Home Meds: No Action Nortrel (28) 1-35 mg-mcg tablet 1 tab PO DAILY Print Language: Ukrainian Instructions: Ankle Sprain (ED) Additional Instructions: May Call Belinda Jurado NP tomorrow morning at [phone] Referrals: ISRAEL FELIZ [Primary Care Provider] - 1 week
== END 2024-05-12 20:49 | disposition home or self-care (01) ==
PROVIDERS: Emergency Provider Emergency Medicine; PCP Nurse Practitioner
DX: S93.402A Sprain of unspecified ligament of left ankle, initial encounter (principal); W10.9XXA Fall (on) (from) unspecified stairs and steps, initial encounter
CPT/HCPCS: 73610; 73630; 99283

== ENCOUNTER 2024-05-24 07:50 | Outpatient (OUT) | payer MEDICAID, SELFPAY ==
--- NOTE | 2024-05-24 07:52 | MR_ITS ---
[place] [id number] Patient Name: NICKIE FORD MRN: [id number] date: 1990 Sex: F Assigned Patient Location: MRI Current Patient Location: MRI Accession/Order Number: [id number] Exam Date: 05/24/2024 08:00 Report Date: 05/27/2024 19:36 At the request of: LILIANA Franco APLSHIN Procedure: MR ankle LT wo con EXAM: MR ankle LT wo con HISTORY: Left Ankle Sprain COMPARISON: 05/12/2024 TECHNIQUE: MRI images obtained with multiple sequences. MRI of the left ankle without contrast. Sequences obtained by the standard department protocol. FINDINGS: Achilles tendon is intact. Plantar fascia is intact. No ankle joint effusion. Extensor, flexor and peroneal tendons are intact. Anterior and posterior syndesmotic ligaments are intact. Anterior talofibular, posterior talofibular and calcaneofibular ligaments are intact. Deltoid ligament fibers are intact. No acute fractures. No abnormal signal of the plantar musculature. MR/MR ankle LT wo con IMPRESSION: 1. No acute ligamentous abnormality. Anterior talofibular, posterior talofibular and calcaneofibular ligaments are intact. 2. Deltoid ligament fibers are intact. 3. No acute tendinous abnormality. 4. No acute fractures. 5. No ankle joint effusion. Electronically authenticated by: GINET[employer] Date: 05/27/2024 19:36
--- OUTSIDE RECORDS SUMMARY | 2024-05-24 07:53 | XMS_ITS | CCD ---
Author Organization [facility] Providers Care Marketing Strategy Lead Name Role Phone OPAL GERARDO Unavailable Unavailable HUMAIRASHERINEUS Unavailable Unavailable SELF, REFERRED Unavailable Unavailable SELF, REFERRED Unavailable Unavailable Jaymie Tripp Unavailable Cleopatra Durbin Unavailable FRANCISCO, DR LUDWIG Primary Care Unavailable ABHINAV, NAHID Admitting Unavailable ABHINAV, NAHID Attending Unavailable NAHID LA Consulting Unavailable FRANCISCO, DR LUDWIG Primary Care Unavailable JEANMARIE, DR AGUILAR Admitting Unavailable JEANMARIE, DR AGUILAR Attending Unavailable JEANMARIE, DR AGUILAR Consulting Unavailable ABHINAV, NAHID Consulting Unavailable JONH WALTON Consulting Unavailable FRANCISCO, DR LUDWIG Primary Care Unavailable ABHINAV, NAHID Admitting Unavailable ABHINAV, NAHID Attending Unavailable ABHINAV, NAHID Consulting Unavailable FRANCISCO, DR LUDWIG Primary Care Unavailable MELECIO, DR MARTINS Admitting Unavailable LISSETHY, DR MARTINS Attending Unavailable MELECIO, DR MARTINS [...] Care Unavailable ADIS, DR OLESYA Gtz Admitting Unavailabl sanjiv ARCEO, DR OLESYA Gtz Attending Unavailabl e ADIS, DR OLESYA Gtz Consulting Unavailabl e FRANCISCO, DR LUDWIG Primary Care Unavailable DONNA COREY Admitting Unavailable DONNA COREY Attending Unavailable DAMION MEJIA Consulting Unavailable MADYSON CISNEROS Consulting Unavailable FRANCISCO, DR LUDWIG Primary Care Unavailable ABHINAV, NAHID Consulting Unavailable ABHINAV, NAHID Admitting Unavailable ABHINAV, NAHID Attending Unavailable Sherron Singh Unavailable NO FAMILY, PHYSICIAN Primary Care Provider Unava ilMO Mcarthur Attending Provider Jeimy Verduzco Unavailable Sherron Singh Attending Unavailable Sherron Singh Admitting Unavailable NO FAMILY, PHYSICIAN Primary Care Unavailable JORI ENRIQUEZ Attending Unavailable FRANCISCO VANI Remberto Referring Unavailable ISRAEL TEIXEIRA Primary Care Unavailable KELBLEY, JACI Attending Unavailable APLING, BELINDA B Referring Unavailable BRINK, HUYEN Attending Unavailable APLING, BELINDA B Referring Unavailable APLING, BELINDA B Attending Unavailable APLING, BELINDA B Referring Unavailable BRINK, HUYEN Attending Unavailable APLING, BELINDA B Referring Unavailable APLING, BELINDA B Attending Unavailable APLING, BELINDA B Attending Unavailable BLACKSTON, JESUSITA Heller Attending Unavailable APLING, BELINDA B Referring Unavailable BRINK, HUYEN Attending Unavailable APLING, BELINDA B Referring Unavailable BRINK, HUYEN Attending Unavailable APLING, BELINDA B Referring Unavailable TATTERSALL, KALEB Attending Unavailable APLING, BELINDA B Referring Unavailable KELBLEY, JACI Attending Unavailable APLING, BELINDA B Referring Unavailable KELBLEY, JACI Attending Unavailable APLING, BELINDA B Referring Unavailable TATTERSALL, KALEB Attending Unavailable APLING, BELINDA B Referring Unavailable KELBLEY, JACI Attending Unavailable APLING, BELINDA B Referring Unavailable BRINK, HUYEN Attending Unavailable APLING, BELINDA B Referring Unavailable BRINK, HUYEN Attending Unavailable APLING, BELINDA B Referring Unavailable BRINK, HUYEN Attending Unavailable APLING, BELINDA B Referring Unavailable BRINK, HUYEN Attending Unavailable APLING, BELINDA B Referring Unavailable BRINK, HUYEN Attending Unavailable APLING, BELINDA B Referring Unavailable APLING, BELINDA B Attending Unavailable Israel Mike Unavailable [phone] Allergies Allergy Classification Reported Allergen(s) Allergy Type Date of Onset Reaction(s) Facility (4 sources) codeine; Translations: [CODEINE] Drug Allergy 5 vomiting and can't control body [facility] Repository (3 sources) erythromycin base Drug allergy (disorder) 1 rash [facility] Repository (6 sources) Acetaminophen / Codeine Drug Allergy vomiting and can't control body [facility] Other (10 sources) Cephalexin; Translations: [CEPHALEXIN] Drug Allergy 1 [facility] (9 sources) Erythromycin; Translations: [ERYTHROMYCIN] Drug Allergy 7 rash [facility] Repository (8 sources) nickel; Translations: [NICKEL] Drug Allergy 1 [facility] (1 source) Cephalexin Drug Allergy 0 [facility] Repository (1 source) Leucine Drug Allergy [facility] Repository (1 source) Acetaminophen Drug Allergy 4 vomiting and can't control body [facility] (2 sources) Acetaminophen / Codeine Drug Allergy 3 [facility] (2 sources) nickel sulfate Drug Allergy 3 [facility] Healthcare Medications Current Medications Medication Drug Class(es) Dates [...] oral tablet (1 source) alpha-Adrenergic Agonist, Uncompetitive T-iflwsx-G-aspartat e Receptor Antagonist, Sigma-1 Agonist Start: 02-09-2023 take 1 tablet by mouth every six hours as needed for cough Capmist DM 60-15-400 MG 1 tablet Orally q6hrs prn congestion/cough for 7 days Jan, Active Escitalopram (6 sources) Serotonin Reuptake Inhibitor Lexapro Active ethinyl estradiol 0.035 mg / norethindrone 1 mg oral tablet (3 sources) Estrogen Start: 09-25-2023 Norethindrone-Et hin Estradiol (Nortrel 1/35 (28)) 1-35 mg-mcg tablet Active TAB PO September 25, 2023 12:00am Start: 11-21-2022 norethindrone- ethinyl estradiol (Ortho-Novum, Nortrel) 1-35 MG-MCG tablet Indications: control counseling Take 1 tablet by mouth in the morning. 28 tablet 1 11/21/2022 Active famotidine 20 mg oral tablet (1 [...] a day for 14 day(s) Oct, Active ibuprofen 600 mg oral tablet (2 sources) Nonsteroidal Anti-inflammatory Drug ibuprofen 600 MG tablet every 8 (eight) hours. Active Ketorolac (8 sources) Nonsteroidal Anti-inflammatory Drug, [...] itching, rash for 5 days Dec, Not-Taking liraglutide (2 sources) GLP-1 Receptor Agonist End: 05-13-2024 Liraglutide (VICTOZA SC) Inject under the skin 05/13/2024 Discontinued (Med list cleanup) methylPREDNISolone 4 mg oral tablet (4 sources) [...] 8 hours for 5 days Oct, Not-Taking traMADol hydrochloride 50 mg oral tablet (2 sources) Opioid Agonist Start: 05-16-2023 End: 05-13-2024 traMADol (Ultram) 50 MG tablet 1 (one) time each day at the same time. 05/16/2023 05/13/2024 Discontinued (Med list cleanup) valACYclovir 1000 mg oral tablet (1 source) [...] [Paresthesia of skin] Onset: 11-07-2017 Episodic Other non-traumatic joint disorders (2 sources) Ankle pain; Translations: [Pain in left ankle and joints of left foot] 05-13-2024 Episodic Other nutritional; endocrine; and metabolic disorders [...] sinusitis, unspecified] Onset: 09-15-2021 Resolved: 10-20-2021 Episodic Sprains and strains (3 sources) Sprain of unspecified ligament of right ankle, initial encounter; Translations: [Sprain of left ankle] Onset: 04-23-2021 Resolved: 04-23-2021 Episodic Superficial injury; contusion (3 sources) Contusion of other part of head, initial encounter; Translations: [Contusion of left ankle] Onset: 03-07-2022 05-13-2024 Episodic Unclassified (2 sources) Unknown / UNK(Unknown) [...] Unclassified (1 source) New Patient Onset: 10-25-2023 Unclassified (2 sources) Sprain of left ankle 05-14-2024 Unclassified (2 sources) Contusion of left ankle 05-14-2024 Viral infection (1 source) Viral infection, unspecified [...] 06-15-2021 Episodic Other aftercare (1 source) 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; Translations: [OTH 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 CURRENT DRUG THERAPY] Onset: 03-07-2022 Episodic Other aftercare (1 source) penitentiary (current) use of hormonal contraceptives; Translations: [RESIDENTIAL HORMONAL CONTRACEPTIVES] Onset: 07-20-2021 Episodic Other injuries [...] source) Cervicalgia; Translations: [CERVICALGIA] Onset: 06-17-2021 Episodic Unclassified (1 source) COUGH, UNSPECIFIED; Translations: [COUGH, UNSPECIFIED] Onset: 06-04-2022 Unclassified (1 source) Suspected COVID-19 virus infection Z20.822 Results Test Name Value Interpretation Reference Range Facility No Panel InformationOrdered By: Sophia Bryan on 09-25-2023 Quick Strep (POC) [facility] COVID Quick Testingon 2022 Result Negative [facility] Other XR knee RT 4V*on 01-17-2023 XR knee RT 4V* [facility] [place] [address] XRay Report Signed Patient: Nickie Ford MR#: [id number] 271 : 1990 Acct:[id number] Age/Sex: 32 / F ADM Date: 01/17/23 Loc: XDUCLY Room: Type: [facility] Attending Dr: Sherron Singh APRN Copies to: [...] Elena Lucio M.D.01/17/2023 9:46 AM Dictation Location: [facility]--10 Transcribed By: [facility] 01/17/23945 Dictated By: Maria Elena Lucio MD 01/17/2345 Signed By: 01/17/23945 [facility] COVID/FLU RT-PCRon SARS-CoV-2 (COVID-19) RNA SOCO+probe Ql (Unsp spec) Negative [facility] Other COVID/FLU RT-PCR Negative Active-Semi Other Urinalysis - AUTOMATEDon Appearance (U) cloudy [facility] Other Bilirubin Ql (U) Negative Active-Semi Other Color (U) dark yellow [facility] Other Glucose Ql (U) Negative [facility] Other Hemoglobin Ql (U) Negative [facility] Other Ketones Ql (U) Negative [facility] Other Leukocyte esterase Test strip Ql (U) Negative [facility] Other Nitrite Ql (U) Negative [facility] Other pH (U) 6.0 [pH] [facility] Other Protein Ql (U) 30 [facility] Other Specific gravity (U) [Rel density] >=1.030 [facility] Other Urobilinogen (U) [Mass/Vol] 0.2 mg/dL [facility] Other Urinalysis - AUTOMATED [facility] Other Covid-19 PCR ([facility])on SARS-CoV-2 (COVID-19) RNA SOCO+probe Ql (Unsp spec) Not detected Normal NOT DETECTED [facility] Comment on above: Result Comment: When [...] for this test is supported by the [place] of Health and Human Service's declaration that [...] Performed By: #### E ITZEL CHANDLER #### [facility] [address] [place] [address] Dr. Timothy Adair GROUP A STREP CULTUREon S. pyogenes Ag Ql (Unsp spec) Culture Observations: NEGATIVE FOR GROUP A STREPTOCOCCUS. Normal [facility] Comment on above: Performed By: #### C BC #### [facility] [address] [address] [address] Timothy Adair INFLUENZA A AND B AGon 06-04 INFLUANEGH SEE BELOW Normal [facility] Comment on above: Result Comment: Nega tive for Flu A protein angiten. Infection due to Flu A cannot be ruled out. Flu A angiten in the sample may be below the detection limit of the test. Performed By: #### I NFLUAB #### [facility] [address] [place] [address] Dr. Timothy Adair INFLUBNEG SEE BELOW Normal [facility] Comment on above: Result Comment: Nega tive for Flu B protein antigen. Infection due to Flu B cannot be ruled out. Flu B antigen in the sample may be below the detection limit of the test. Performed By: #### I NFLUAB #### [facility] [address] [place] [address] Dr. Timothy Adair INFLUENZA A AG Negative Normal NEGATIVE SEE COMMENT [facility] Comment on above: Performed By: #### I NFLUAB #### [facility] [address] [address] [address] Timothy Adair INFLUENZA B AG Negative Normal NEGATIVE SEE COMMENT [facility] Comment on above: Performed By: #### I NFLUAB #### [facility] [address] [place] [address] Dr. Timothy Adair INTERNAL CONTROLS Within Normal Limits Normal Wi thin Normal Limits [facility] Comment on above: Performed By: #### I NFLUAB #### [facility] [address] [place] [address] Dr. Timothy Adair STREPT SCREENon 06-04-2022 STREP SCREEN A Negative Normal NEGATIVE [facility] Comment on above: Performed By: #### S SCRN #### [facility] [address] [place] [address] Dr. Timothy Adair XR CHEST 1 Von [...] JONH WALTON Date: 2022-06-04 20:47 Normal [facility] CT HEAD WO CONon 03-03-2022 CT [...] DANNY ROCK Date: 2022-03-03 14:44 Normal [facility] COVID Quick Testingon 2021 Result Negative [facility] Other Quick Fluon 10-20-2021 FLUAV Ab CF (S) [Titer] Negative [facility] Other FLUBV Ab CF (S) [Titer] Negative [facility] Other AMYLASEon 09-17-2021 Amylase [Catalytic activity/Vol] 41 U/L Normal 31-110 [facility] Comment on above: Performed By: #### A MY, CMP, LIPA #### [facility] [address] [address] [address] Timothy Adair CBC AUTO DIFFon 09-17-2021 BASO # 0.0 103/ul Normal 0.0-0.1 [facility] Comment on above: Performed By: #### C BC #### [facility] [address] [address] [address] Timothy Adair Basophils/100 WBC (Bld) 0.4 % Normal 0.2-2.0 [facility] Comment on above: Performed By: #### C BC #### [facility] [address] [place] [address] Dr. Timothy Adair EO # 0.0 103/ul Normal 0.0-0.7 [facility] Comment on above: Performed By: #### C BC #### [facility] [address] [place] [address] Dr. Timothy Adair Eosinophils/100 WBC (Bld) 0.4 % Critically low 0.9-7.0 [facility] Comment on above: Performed By: #### C BC #### [facility] [address] [place] [address] Dr. Timothy Adair Erythrocyte distribution width (RBC) [Ratio] 13.0 % Normal 11.0-15.0 [facility] Comment on above: Performed By: #### C BC #### [facility] [address] [place] [address] Dr. Timothy Adair Hematocrit (Bld) [Volume fraction] 40.5 % Normal 36.0-48.0 [facility] Comment on above: Performed By: #### C BC #### [facility] [address] [place] [address] Dr. Timothy Adair Hemoglobin (Bld) [Mass/Vol] 13.1 g/dL Normal 12.0-16.0 [facility] Comment on above: Performed By: #### C BC #### [facility] [address] [place] [address] Dr. Timothy Adair IG # 0.04 10e3/ul Critically high 0.00-0.03 [facility] Comment on above: Performed By: #### C BC #### [facility] [address] [place] [address] Dr. Timothy Adair IG % 0.4 % Normal 0.0-0.5 [facility] Comment on above: Performed By: #### C BC #### [facility] [address] [place] [address] Dr. Timothy Adair LYMPH # 1.9 103/ul Normal 1.2-3.8 [facility] Comment on above: Performed By: #### C BC #### [facility] [address] [place] [address] Dr. Timothy Adair Lymphocytes/100 WBC (Bld) 16.8 % Critically low 20.5-60.0 [facility] Comment on above: Performed By: #### C BC #### [facility] [address] [place] [address] Dr. Timothy Adair MANUAL DIFF REQ NO Normal [facility] Comment on above: Performed By: #### C BC #### [facility] [address] [place] [address] Dr. Timothy Adair MCH (RBC) [Entitic mass] 27.5 pg Normal 26.7-34.0 [facility] Comment on above: Performed By: #### C BC #### [facility] [address] [place] [address] Dr. Timothy Adair MCHC (RBC) [Mass/Vol] 32.3 g/dL Normal 29.9-35.2 [facility] Comment on above: Performed By: #### C BC #### [facility] [address] [place] [address] Dr. Timothy Adair MCV (RBC) [Entitic vol] 85.1 fL Normal 81.0-99.0 [facility] Comment on above: Performed By: #### C BC #### [facility] [address] [place] [address] Dr. Timothy Adair MONO # 0.5 103/ul Normal 0.3-0.8 [facility] Comment on above: Performed By: #### C BC #### [facility] [address] [place] [address] Dr. Timothy Adair Monocytes/100 WBC (Bld) 4.7 % Normal 1.7-12.0 [facility] Comment on above: Performed By: #### C BC #### [facility] [address] [place] [address] Dr. Timothy Adair NEUT # 8.6 103/ul Critically high 1.4-6.5 [facility] Comment on above: Performed By: #### C BC #### [facility] [address] [place] [address] Dr. Timothy Adair Neutrophils/100 WBC (Bld) 77.3 % Critically high 43.0-75.0 [facility] Comment on above: Performed By: #### C BC #### [facility] [address] [place] [address] Dr. Timothy Adair Platelet mean volume (Bld) [Entitic vol] 9.9 fL Normal 9.5-13.5 [facility] Comment on above: Performed By: #### C BC #### [facility] [address] [place] [address] Dr. Timothy Adair PLT 357 103/ul Normal 150-450 [facility] Comment on above: Performed By: #### C BC #### [facility] [address] [place] [address] Dr. Timothy Adair RBC 4.76 106/ul Normal 4.20-5.40 [facility] Comment on above: Performed By: #### C BC #### [facility] [address] [place] [address] Dr. Timothy Adair WBC 11.1 103/ul Critically high 4.0-11.0 [facility] Comment on above: Performed By: #### C BC #### [facility] [address] [place] [address] Dr. Timothy Adair CULTURE URINEon 09-17-2021 CULTURE URINE Culture Observations : LIGHT GROWTH OF MIXED GENITAL CHRISTINE. NO POTENTIAL PATHOGENS SEEN. Normal [facility] Comment on above: Performed By: #### C BC #### [facility] [address] [place] [address] Dr. Timothy Adair ER URINE PROFILEon 2 Bilirubin Ql (U) Negative Normal NEGATIVE [facility] Comment on above: Performed By: #### MASOOD LINARESRO #### [facility] [address] [place] [address] Dr. Timothy Adair Clarity (U) CLEAR Normal CLEAR [facility] Comment on above: Performed By: #### Sanjiv CHANDLER UMICRO #### [facility] [address] [place] [address] Dr. Timothy Adair Color (U) LT. YELLOW Normal YELLOW [facility] Comment on above: Performed By: #### Sanjiv CHANDLER UMICRO #### [facility] [address] [address] [address] Timothy GALVAN A micrscopic examination will be performed if indicated. Normal [facility] Comment on above: Performed By: #### Sanjiv CHANDLER UMICRO #### [facility] [address] [address] [address] Timothy Adair Glucose Ql (U) Negative Normal NEGATIVE [facility] Comment on above: Performed By: #### Sanjiv CHANDLER UMICRO #### [facility] [address] [address] [address] Timothy Adair Hemoglobin Ql (U) TRACE-INTACT Abnormal NEGATIVE [facility] Comment on above: Performed By: #### Sanjiv CHANDLER UMICRO #### [facility] [address] [place] [address] Dr. Timothy Adair Ketones Ql (U) Negative Normal NEGATIVE [facility] Comment on above: Performed By: #### Sanjiv CHANDLER UMICRO #### [facility] [address] [place] [address] Dr. Timothy Adair LEUKOCYTES SMALL Abnormal NEGATIVE [facility] Comment on above: Performed By: #### Sanjiv CHANDLER UMICRO #### [facility] [address] [place] [address] Dr. Timothy Adair Nitrite Ql (U) Negative Normal NEGATIVE [facility] Comment on above: Performed By: #### Sanjiv CHANDLER UMICRO #### [facility] [address] [place] [address] Dr. Timothy Adair pH (U) 5.0 [pH] Normal 5-9 [facility] Comment on above: Performed By: #### Sanjiv CHANDLER UMICRO #### [facility] [address] [place] [address] Dr. Timothy Adair SPEC GRAVITY >=1.030 Abnormal 1.005-<=1.0 25 [facility] Comment on above: Performed By: #### Sanjiv CHANDLER UMICRO #### [facility] [address] [place] [address] Dr. Timothy Adair UA PROTEIN Negative Normal NEGATIVE/ TRACE [facility] Comment on above: Performed By: #### ITZEL LINARES #### [facility] [address] [place] [address] Dr. Timothy Adair UR MICRO IND INDICATED Normal [facility] Comment on above: Performed By: #### ITZEL LINARES #### [facility] [address] [place] [address] Dr. Timothy Adair Urobilinogen Qn (U) 0.2 {João'U}/dL Normal 0.2 - 1. 0 [facility] Comment on above: Performed By: #### ITZEL LINARES #### [facility] [address] [place] [address] Dr. Timothy Adair LIPASEon 09-17-2021 Lipase [Catalytic activity/Vol] 125.0 U/L Normal 23.0-300.0 [facility] Comment on above: Performed By: #### A MY, CMP, LIPA #### [facility] [address] [place] [address] Dr. Timothy Adair PROF 14(COMP METB)on 022 Albumin [Mass/Vol] 3.1 g/dL Critically low 3.5-5.0 [facility] Comment on above: Performed By: #### A MY, CMP, LIPA #### [facility] [address] [place] [address] Dr. Timothy Adair Albumin/Globulin [Mass ratio] 0.6 {ratio} Normal [facility] Comment on above: Performed By: #### A MY, CMP, LIPA #### [facility] [address] [place] [address] Dr. Timothy Adair ALP [Catalytic activity/Vol] 105 U/L Normal 38-126 [facility] Comment on above: Performed By: #### A MY, CMP, LIPA #### [facility] [address] [place] [address] Dr. Timothy Adair ALT [Catalytic activity/Vol] 18 U/L Normal 9-52 [facility] Comment on above: Performed By: #### A MY, CMP, LIPA #### [facility] [address] [address] [address] Timothy Adair Anion gap [Moles/Vol] 13.6 mmol/L Normal Th [facility] Comment on above: Performed By: #### A MY, CMP, LIPA #### [facility] [address] [place] [address] Dr. Timothy Adair AST [Catalytic activity/Vol] 14 U/L Normal 14-36 [facility] Comment on above: Performed By: #### A MY, CMP, LIPA #### [facility] [address] [place] [address] Dr. Timothy Adair Bilirubin [Mass/Vol] 0.3 mg/dL Normal 0.2-1.3 [facility] Comment on above: Performed By: #### A MY, CMP, LIPA #### [facility] [address] [place] [address] Dr. Timothy Adair Calcium [Mass/Vol] 8.8 mg/dL Normal 8.4-10.2 [facility] Comment on above: Performed By: #### A MY, CMP, LIPA #### [facility] [address] [place] [address] Dr. Timothy Adair Chloride [Moles/Vol] 101 mmol/L Normal 98-107 [facility] Comment on above: Performed By: #### A MY, CMP, LIPA #### [facility] [address] [place] [address] Dr. Timothy Adair CO2 [Moles/Vol] 28.2 mmol/L Normal 22.0-30.0 [facility] Comment on above: Performed By: #### A MY, CMP, LIPA #### [facility] [address] [place] [address] Dr. Timothy Adair Creatinine [Mass/Vol] 0.87 mg/dL Normal 0.52-1.04 [facility] Comment on above: Performed By: #### A MY, CMP, LIPA #### [facility] [address] [address] [address] Timothy Adair EGFR-AF ECUADOREAN >60 Normal >=60 [facility] Comment on above: Performed By: #### A MY, CMP, LIPA #### [facility] [address] [address] [address] Timothy Adair EGFR-NON AF ECUADOREAN >60 Normal >=60 [facility] Comment on above: Performed By: #### A MY, CMP, LIPA #### [facility] [address] [address] [address] Timothy Adair Globulin (S) [Mass/Vol] 5.2 g/dL Normal [facility] Comment on above: Performed By: #### A MY, CMP, LIPA #### [facility] [address] [place] [address] Dr. Timothy Adair Glucose [Mass/Vol] 111 mg/dL Critically high 74-106 [facility] Comment on above: Performed By: #### A MY, CMP, LIPA #### [facility] [address] [place] [address] Dr. Timothy Adair Potassium [Moles/Vol] 3.8 mmol/L Normal 3.4-5.0 [facility] Comment on above: Performed By: #### A MY, CMP, LIPA #### [facility] [address] [place] [address] Dr. Timothy Adair Protein [Mass/Vol] 8.3 g/dL Critically high 6.1-8.2 [facility] Comment on above: Performed By: #### A MY, CMP, LIPA #### [facility] [address] [place] [address] Dr. Timothy Adair Sodium [Moles/Vol] 139 mmol/L Normal 137-145 [facility] Comment on above: Performed By: #### A MY, CMP, LIPA #### [facility] [address] [address] [address] Timothy Adair Urea nitrogen [Mass/Vol] 15.0 mg/dL Normal 7.0-17.0 [facility] Comment on above: Performed By: #### A MY, CMP, LIPA #### [facility] [address] [place] [address] Dr. Timothy Adair Urea nitrogen/Creatinine [Mass ratio] 17.2 mg/mg Normal [facility] Comment on above: Performed By: #### A MY, CMP, LIPA #### [facility] [address] [place] [address] Dr. Timothy Adair URINE MICROSCOPIC ONLYon BACTERIA LARGE Abnormal NONE SEEN [facility] Comment on above: Performed By: #### E RUR, UMICRO #### [facility] [address] [place] [address] Dr. Timothy Adair Bacteria identified Cx Nom (U) INDICATED Normal [facility] Comment on above: Performed By: #### E RUR, UMICRO #### [facility] [address] [place] [address] Dr. Timothy Adair CAST NONE SEEN Normal NONE SEEN [facility] Comment on above: Performed By: #### E RAMESH, UMICRO #### [facility] [address] [place] [address] Dr. Timothy Adair Crystals LM Nom (Urine sed) NONE SEEN Normal NONE SEEN [facility] Comment on above: Performed By: #### E RAMESH, UMICRO #### [facility] [address] [place] [address] Dr. Timotyh Adair Epithelial cells LM Ql (Urine sed) MODERATE Abnormal NONE SEEN /RARE [facility] Comment on above: Performed By: #### E RUR UMICRO #### [facility] [address] [place] [address] Dr. Timothy Adair MUCOUS SMALL Abnormal NONE SEEN [facility] Comment on above: Performed By: #### E RUR, UMICRO #### [facility] [address] [place] [address] Dr. Timothy Adair RBC 0-2 Normal 0-2 [facility] Comment on above: Performed By: #### Sanjiv PINOR, UMICRO #### [facility] [address] [place] [address] Dr. Timothy Adair WBC 5-10 Abnormal NONE SEEN [facility] Comment on above: Performed By: #### MASOOD LINARESRO #### [facility] [address] [place] [address] Dr. Timothy Adair CBC AUTO DIFFon 07-19-2021 BASO # 0.0 103/ul Normal 0.0-0.1 [facility] Comment on above: Performed By: #### Sanjiv CHANDLER UMVIOLETRO #### [facility] [address] [place] [address] Dr. Timothy Adair Basophils/100 WBC (Bld) 0.1 % Critically low 0.2-2.0 [facility] Comment on above: Performed By: #### MASOOD LINARESRO #### [facility] [address] [place] [address] Dr. Timothy Adair EO # 0.0 103/ul Normal 0.0-0.7 [facility] Comment on above: Performed By: #### MASOOD LINARESRO #### [facility] [address] [place] [address] Dr. Timothy Adair Eosinophils/100 WBC (Bld) 0.0 % Critically low 0.9-7.0 [facility] Comment on above: Performed By: #### MASOOD LINARESRO #### [facility] [address] [place] [address] Dr. Timothy Adair Erythrocyte distribution width (RBC) [Ratio] 12.8 % Normal 11.0-15.0 [facility] Comment on above: Performed By: #### Sanjiv CHANDLER UMICRO #### [facility] [address] [place] [address] Dr. Timothy Adair Hematocrit (Bld) [Volume fraction] 36.6 % Normal 36.0-48.0 [facility] Comment on above: Performed By: #### Sanjiv CHANDLER UMICRO #### [facility] [address] [place] [address] Dr. Timothy Adair Hemoglobin (Bld) [Mass/Vol] 12.0 g/dL Normal 12.0-16.0 [facility] Comment on above: Performed By: #### E RAEMSH UMICRO #### [facility] [address] [place] [address] Dr. Timothy Adair IG # 0.03 10e3/ul Normal 0.00-0.03 [facility] Comment on above: Performed By: #### E RUPatty UMICRO #### [facility] [address] [place] [address] Dr. Timothy Adair IG % 0.4 % Normal 0.0-0.5 [facility] Comment on above: Performed By: #### E RAMESH, UMICRO #### [facility] [address] [place] [address] Dr. Timothy Adair LYMPH # 1.0 103/ul Critically low 1.2-3.8 [facility] Comment on above: Performed By: #### Sanjiv CHANDLER UMICRO #### [facility] [address] [place] [address] Dr. Timothy Adair Lymphocytes/100 WBC (Bld) 13.2 % Critically low 20.5-60.0 [facility] Comment on above: Performed By: #### Sanjiv CHANDLER UMICRO #### [facility] [address] [place] [address] Dr. Timothy Adair MANUAL DIFF REQ NO Normal [facility] Comment on above: Performed By: #### Sanjiv CHANDLER, UMICRO #### [facility] [address] [place] [address] Dr. Timothy Adair MCH (RBC) [Entitic mass] 28.1 pg Normal 26.7-34.0 [facility] Comment on above: Performed By: #### E RUPatty, UMICRO #### [facility] [address] [place] [address] Dr. Timothy Adair MCHC (RBC) [Mass/Vol] 32.8 g/dL Normal 29.9-35.2 [facility] Comment on above: Performed By: #### Sanjiv RUPatty, UMICRO #### [facility] [address] [place] [address] Dr. Timothy Adair MCV (RBC) [Entitic vol] 85.7 fL Normal 81.0-99.0 [facility] Comment on above: Performed By: #### MASOOD LINARESRO #### [facility] [address] [place] [address] Dr. Timothy Adair MONO # 0.1 103/ul Critically low 0.3-0.8 [facility] Comment on above: Performed By: #### ERNESTINE LINARESICRO #### [facility] [address] [place] [address] Dr. Timothy Adair Monocytes/100 WBC (Bld) 0.9 % Critically low 1.7-12.0 [facility] Comment on above: Performed By: #### ERNESTINE LINARESICRO #### [facility] [address] [place] [address] Dr. Timothy Adair NEUT # 6.6 103/ul Critically high 1.4-6.5 [facility] Comment on above: Performed By: #### ERNESTINE LINARESICRO #### [facility] [address] [place] [address] Dr. Timothy Adair Neutrophils/100 WBC (Bld) 85.4 % Critically high 43.0-75.0 [facility] Comment on above: Performed By: #### ERNESTINE LINARESICRO #### [facility] [address] [place] [address] Dr. Timothy Adair Platelet mean volume (Bld) [Entitic vol] 10.3 fL Normal 9.5-13.5 [facility] Comment on above: Performed By: #### Sanjiv CHANDLER UMICRO #### [facility] [address] [place] [address] Dr. Timothy Adair PLT 341 103/ul Normal 150-450 [facility] Comment on above: Performed By: #### Sanjiv CHANDLER UMICRO #### [facility] [address] [place] [address] Dr. Timothy Adair RBC 4.27 106/ul Normal 4.20-5.40 [facility] Comment on above: Performed By: #### MASOOD LINARESRO #### [facility] [address] [place] [address] Dr. Timothy Adair WBC 7.7 103/ul Normal 4.0-11.0 [facility] Comment on above: Performed By: #### MASOOD LINARESRO #### [facility] [address] [place] [address] Dr. Timothy Adair PROF CHEM 8 (BAS METB)on Anion gap [Moles/Vol] 17.1 mmol/L Normal [facility] Comment on above: Performed By: #### MASOOD LIANRESRO #### [facility] [address] [place] [address] Dr. Timothy Adair Calcium [Mass/Vol] 9.2 mg/dL Normal 8.4-10.2 [facility] Comment on above: Performed By: #### MASOOD LINARESRO #### [facility] [address] [place] [address] Dr. Timothy Adair Chloride [Moles/Vol] 100 mmol/L Normal 98-107 [facility] Comment on above: Performed By: #### MASOOD LINARESRO #### [facility] [address] [place] [address] Dr. Timothy Adair CO2 [Moles/Vol] 24.1 mmol/L Normal 22.0-30.0 [facility] Comment on above: Performed By: #### MASOOD LINARESRO #### [facility] [address] [place] [address] Dr. Timothy Adair Creatinine [Mass/Vol] 0.99 mg/dL Normal 0.52-1.04 [facility] Comment on above: Performed By: #### MASOOD LINARESRO #### [facility] [address] [place] [address] Dr. Timothy Adair EGFR-AF ECUADOREAN >60 Normal >=60 [facility] Comment on above: Performed By: #### MASOOD LINARESRO #### [facility] [address] [place] [address] Dr. Timothy Adair EGFR-NON AF ECUADOREAN >60 Normal >=60 [facility] Comment on above: Performed By: #### ITZEL LINARES #### [facility] [address] [place] [address] Dr. Timothy Adair Glucose [Mass/Vol] 154 mg/dL Critically high 74-106 [facility] Comment on above: Performed By: #### ITZEL LINARES #### [facility] [address] [place] [address] Dr. Timothy Adair Potassium [Moles/Vol] 4.2 mmol/L Normal 3.4-5.0 [facility] Comment on above: Performed By: #### ITZEL LINARES #### [facility] [address] [place] [address] Dr. Timothy Adair Sodium [Moles/Vol] 137 mmol/L Normal 137-145 [facility] Comment on above: Performed By: #### ITZEL LINARES #### [facility] [address] [place] [address] Dr. Timothy Adair Urea nitrogen [Mass/Vol] 13.0 mg/dL Normal 7.0-17.0 [facility] Comment on above: Performed By: #### ITZEL LINARES #### [facility] [address] [place] [address] Dr. Timothy Adair Urea nitrogen/Creatinine [Mass ratio] 13.1 mg/mg Normal [facility] Comment on above: Performed By: #### ITZEL LINARES #### [facility] [address] [place] [address] Dr. Timothy Adair CBC AUTO DIFFon 07-18-2021 BASO # 0.0 103/ul Normal 0.0-0.1 [facility] Comment on above: Performed By: #### C BC #### [facility] [address] [place] [address] Dr. Timothy Adair Basophils/100 WBC (Bld) 0.3 % Normal 0.2-2.0 [facility] Comment on above: Performed By: #### C BC #### [facility] [address] [place] [address] Dr. Timothy Adair EO # 0.0 103/ul Normal 0.0-0.7 [facility] Comment on above: Performed By: #### C BC #### [facility] [address] [place] [address] Dr. Timothy Adair Eosinophils/100 WBC (Bld) 0.1 % Critically low 0.9-7.0 [facility] Comment on above: Performed By: #### C BC #### [facility] [address] [place] [address] Dr. Timothy Adair Erythrocyte distribution width (RBC) [Ratio] 13.2 % Normal 11.0-15.0 [facility] Comment on above: Performed By: #### C BC #### [facility] [address] [place] [address] Dr. Timothy Adair Hematocrit (Bld) [Volume fraction] 39.1 % Normal 36.0-48.0 [facility] Comment on above: Performed By: #### C BC #### [facility] [address] [place] [address] Dr. Timothy Adair Hemoglobin (Bld) [Mass/Vol] 12.9 g/dL Normal 12.0-16.0 [facility] Comment on above: Performed By: #### C BC #### [facility] [address] [place] [address] Dr. Timothy Adair IG # 0.04 10e3/ul Critically high 0.00-0.03 [facility] Comment on above: Performed By: #### C BC #### [facility] [address] [place] [address] Dr. Timothy Adair IG % 0.3 % Normal 0.0-0.5 [facility] Comment on above: Performed By: #### C BC #### [facility] [address] [place] [address] Dr. iTmothy Adair LYMPH # 3.7 103/ul Normal 1.2-3.8 [facility] Comment on above: Performed By: #### C BC #### [facility] [address] [place] [address] Dr. Timothy Adair Lymphocytes/100 WBC (Bld) 32.3 % Normal 20.5-60.0 [facility] Comment on above: Performed By: #### C BC #### [facility] [address] [place] [address] Dr. Timothy Adair MANUAL DIFF REQ NO Normal [facility] Comment on above: Performed By: #### C BC #### [facility] [address] [address] [address] Timothy Adair MCH (RBC) [Entitic mass] 27.9 pg Normal 26.7-34.0 [facility] Comment on above: Performed By: #### C BC #### [facility] [address] [place] [address] Dr. Timothy Adair MCHC (RBC) [Mass/Vol] 33.0 g/dL Normal 29.9-35.2 [facility] Comment on above: Performed By: #### C BC #### [facility] [address] [place] [address] Dr. Timothy Adair MCV (RBC) [Entitic vol] 84.4 fL Normal 81.0-99.0 [facility] Comment on above: Performed By: #### C BC #### [facility] [address] [place] [address] Dr. Timothy Adair MONO # 0.5 103/ul Normal 0.3-0.8 [facility] Comment on above: Performed By: #### C BC #### [facility] [address] [place] [address] Dr. Timothy Adair Monocytes/100 WBC (Bld) 3.9 % Normal 1.7-12.0 [facility] Comment on above: Performed By: #### C BC #### [facility] [address] [place] [address] Dr. Timothy Adair NEUT # 7.3 103/ul Critically high 1.4-6.5 [facility] Comment on above: Performed By: #### C BC #### [facility] [address] [place] [address] Dr. Timothy Adair Neutrophils/100 WBC (Bld) 63.1 % Normal 43.0-75.0 [facility] Comment on above: Performed By: #### C BC #### [facility] [address] [address] [address] Timothy Adair Platelet mean volume (Bld) [Entitic vol] 10.4 fL Normal 9.5-13.5 [facility] Comment on above: Performed By: #### C BC #### [facility] [address] [address] [address] Timothy Adair PLT 319 103/ul Normal 150-450 [facility] Comment on above: Performed By: #### C BC #### [facility] [address] [address] [address] Timothy Adair RBC 4.63 106/ul Normal 4.20-5.40 [facility] Comment on above: Performed By: #### C BC #### [facility] [address] [address] [address] Timothy Adair WBC 11.5 103/ul Critically high 4.0-11.0 [facility] Comment on above: Performed By: #### C BC #### [facility] [address] [place] [address] FACIAL BONES W [...] NIKOLAY LOTT Date: 2021-07-18 14:44 Normal [facility] CT NECK ST W CONon [address] W CON STUDY: CT [...] NIKOLAY LOTT Date: 2021-07-18 14:37 Normal [facility] CULTURE BLOODon 07-18-2021 Microscopic examination of blood, culture Culture Observations: NO GROWTH AT 5 DAYS. Normal [facility] Comment on above: Performed By: #### C BC #### [facility] [address] [address] [address] Timothy Adair Microscopic examination of blood, culture Culture Observations: NO GROWTH AT 5 DAYS. Normal [facility] Comment on above: Performed By: #### C BC #### [facility] [address] [address] [address] Timothy Adair [facility] SARS-CoV-2 (COVID-19) RNA SOCO+probe Ql (Unsp spec) Not detected Normal NOT DETECTED [facility] Comment on above: Result Comment: When [...] for this test is supported by the [place] of [employer] and Human Service's declaration that [...] no longer be used). Performed By: #### Urvashi OLIVAREZ #### [facility] [address] [place] [address] Dr. Timothy Adair PROF CHEM 8 (BAS METB)on Anion gap [Moles/Vol] 11.2 mmol/L Normal [facility] Comment on above: Performed By: #### ITZEL LINARES #### [facility] [address] [place] [address] Dr. Timothy Adair Calcium [Mass/Vol] 8.7 mg/dL Normal 8.4-10.2 [facility] Comment on above: Performed By: #### ITZEL LINARES #### [facility] [address] [place] [address] Dr. Timothy Adair Chloride [Moles/Vol] 99 mmol/L Normal 98-107 [facility] Comment on above: Performed By: #### ITZEL LINARES #### [facility] [address] [place] [address] Dr. Timothy Adair CO2 [Moles/Vol] 28.7 mmol/L Normal 22.0-30.0 [facility] Comment on above: Performed By: #### ITZEL LINARES #### [facility] [address] [place] [address] Dr. Timothy Adair Creatinine [Mass/Vol] 0.84 mg/dL Normal 0.52-1.04 [facility] Comment on above: Performed By: #### ITZEL LINARES #### [facility] [address] [address] [address] Timothy Adair EGFR-AF ECUADOREAN >60 Normal >=60 [facility] Comment on above: Performed By: #### ITZEL LINARES #### [facility] [address] [address] [address] Timothy Adair EGFR-NON AF ECUADOREAN >60 Normal >=60 [facility] Comment on above: Performed By: #### ITZEL LINARES #### [facility] [address] [address] [address] Timothy Adair Glucose [Mass/Vol] 87 mg/dL Normal 74-106 [facility] Comment on above: Performed By: #### ITZEL LINARES #### [facility] [address] [place] [address] Dr. Timothy Adair Potassium [Moles/Vol] 3.9 mmol/L Normal 3.4-5.0 [facility] Comment on above: Performed By: #### ITZEL LINARES #### [facility] [address] [place] [address] Dr. Timothy Adair Sodium [Moles/Vol] 135 mmol/L Critically low 137-145 [facility] Comment on above: Performed By: #### ITZEL LINARES #### [facility] [address] [place] [address] Dr. Timothy Adair Urea nitrogen [Mass/Vol] 12.0 mg/dL Normal 7.0-17.0 [facility] Comment on above: Performed By: #### ITZEL LINARES #### [facility] [address] [place] [address] Dr. Timothy Adair Urea nitrogen/Creatinine [Mass ratio] 14.3 mg/mg Normal [facility] Comment on above: Performed By: #### ITZEL LINARES #### [facility] [address] [place] [address] Dr. Timothy Adair CBC AUTO DIFFon 07-17-2021 BASO # 0.0 103/ul Normal 0.0-0.1 [facility] Comment on above: Performed By: #### Sanjiv CHANDLER UMICRO #### [facility] [address] [place] [address] Dr. Timothy Adair Basophils/100 WBC (Bld) 0.1 % Critically low 0.2-2.0 [facility] Comment on above: Performed By: #### Sanjiv CHANDLER UMICRO #### [facility] [address] [place] [address] Dr. Timothy Adair EO # 0.0 103/ul Normal 0.0-0.7 [facility] Comment on above: Performed By: #### Sanjiv CHANDLER UMICRO #### [facility] [address] [place] [address] Dr. Timothy Adair Eosinophils/100 WBC (Bld) 0.0 % Critically low 0.9-7.0 [facility] Comment on above: Performed By: #### ERNESTINE LINARESICRO #### [facility] [address] [place] [address] Dr. Timothy Adair Erythrocyte distribution width (RBC) [Ratio] 13.0 % Normal 11.0-15.0 [facility] Comment on above: Performed By: #### ERNESTINE LINARESICRO #### [facility] [address] [place] [address] Dr. Timothy Adair Hematocrit (Bld) [Volume fraction] 40.3 % Normal 36.0-48.0 [facility] Comment on above: Performed By: #### Sanjiv CHANDLER UMICRO #### [facility] [address] [place] [address] Dr. Timothy Adair Hemoglobin (Bld) [Mass/Vol] 13.1 g/dL Normal 12.0-16.0 [facility] Comment on above: Performed By: #### Sanjiv CHANDLER UMICRO #### [facility] [address] [place] [address] Dr. Timothy Adair IG # 0.06 10e3/ul Critically high 0.00-0.03 [facility] Comment on above: Performed By: #### ITZEL LINARES #### [facility] [address] [place] [address] Dr. Timothy Adair IG % 0.4 % Normal 0.0-0.5 [facility] Comment on above: Performed By: #### MASOOD LINARESRO #### [facility] [address] [place] [address] Dr. Timothy Adair LYMPH # 3.3 103/ul Normal 1.2-3.8 [facility] Comment on above: Performed By: #### ITZEL LINARES #### [facility] [address] [place] [address] Dr. Timothy Adair Lymphocytes/100 WBC (Bld) 21.0 % Normal 20.5-60.0 [facility] Comment on above: Performed By: #### MASOOD LINARESRO #### [facility] [address] [place] [address] Dr. Timothy Adair MANUAL DIFF REQ NO Normal [facility] Comment on above: Performed By: #### ITZEL LINARES #### [facility] [address] [place] [address] Dr. Timothy Adair MCH (RBC) [Entitic mass] 27.6 pg Normal 26.7-34.0 [facility] Comment on above: Performed By: #### MASOOD LINARESRO #### [facility] [address] [place] [address] Dr. Timothy Adair MCHC (RBC) [Mass/Vol] 32.5 g/dL Normal 29.9-35.2 [facility] Comment on above: Performed By: #### MASOOD LINARESRO #### [facility] [address] [place] [address] Dr. Timothy Adair MCV (RBC) [Entitic vol] 84.8 fL Normal 81.0-99.0 [facility] Comment on above: Performed By: #### ERNESTINE LINARESICRO #### [facility] [address] [place] [address] Dr. Timothy Adair MONO # 0.8 103/ul Normal 0.3-0.8 [facility] Comment on above: Performed By: #### ERNESTINE LINARESICRO #### [facility] [address] [place] [address] Dr. Timothy Adair Monocytes/100 WBC (Bld) 5.2 % Normal 1.7-12.0 [facility] Comment on above: Performed By: #### Sanjiv CHANDLER UMICRO #### [facility] [address] [place] [address] Dr. Timothy Adair NEUT # 11.5 103/ul Critically high 1.4-6.5 [facility] Comment on above: Performed By: #### Sanjiv CHANDLER ICRO #### [facility] [address] [place] [address] Dr. Timothy Adair Neutrophils/100 WBC (Bld) 73.3 % Normal 43.0-75.0 [facility] Comment on above: Performed By: #### Sanjiv CHANDLER ICRO #### [facility] [address] [place] [address] Dr. Timothy Adair Platelet mean volume (Bld) [Entitic vol] 9.7 fL Normal 9.5-13.5 [facility] Comment on above: Performed By: #### ERNESTINE LINARESICRO #### [facility] [address] [place] [address] Dr. Timothy Adair PLT 369 103/ul Normal 150-450 [facility] Comment on above: Performed By: #### Sanjiv CHANDLER UMICRO #### [facility] [address] [place] [address] Dr. Timothy Adair RBC 4.75 106/ul Normal 4.20-5.40 [facility] Comment on above: Performed By: #### Sanjiv CHANDLER UMICRO #### [facility] [address] [place] [address] Dr. Timothy Adair WBC 15.7 103/ul Critically high 4.0-11.0 [facility] Comment on above: Performed By: #### MASOOD LINARESRO #### [facility] [address] [place] [address] Dr. Timothy Adair CRPon 07-17-2021 CRP 7.6 mg/dL Critically high <=1.0 [facility] Comment on above: Performed By: #### Sanjiv CHANDLER UMICRO #### [facility] [address] [place] [address] Dr. Timothy Adair PROF CHEM 8 (BAS METB)on Anion gap [Moles/Vol] 11.9 mmol/L Normal Th [facility] Comment on above: Performed By: #### MASOOD LINARESRO #### [facility] [address] [place] [address] Dr. Timothy Adair Calcium [Mass/Vol] 8.8 mg/dL Normal 8.4-10.2 [facility] Comment on above: Performed By: #### Sanjiv CHANDLER UMICRO #### [facility] [address] [place] [address] Dr. Timothy Adair Chloride [Moles/Vol] 102 mmol/L Normal 98-107 [facility] Comment on above: Performed By: #### AMSOOD LINARESRO #### [facility] [address] [place] [address] Dr. Timothy Adair CO2 [Moles/Vol] 26.5 mmol/L Normal 22.0-30.0 [facility] Comment on above: Performed By: #### Sanjiv CHANDLER UMICRO #### [facility] [address] [place] [address] Dr. Timothy Adair Creatinine [Mass/Vol] 1.02 mg/dL Normal 0.52-1.04 [facility] Comment on above: Performed By: #### MASOOD LINARESRO #### [facility] [address] [place] [address] Dr. Timothy Adair EGFR-AF ECUADOREAN >60 Normal >=60 [facility] Comment on above: Performed By: #### E RUR, UMICRO #### [facility] [address] [place] [address] Dr. Timothy Adair EGFR-NON AF ECUADOREAN >60 Normal >=60 [facility] Comment on above: Performed By: #### Sanjiv CHANDLER, UMICRO #### [facility] [address] [address] [address] Timothy Adair Glucose [Mass/Vol] 110 mg/dL Critically high 74-106 [facility] Comment on above: Performed By: #### Sanjiv CHANDLER, UMICRO #### [facility] [address] [place] [address] Dr. Timothy Adair Potassium [Moles/Vol] 3.4 mmol/L Normal 3.4-5.0 [facility] Comment on above: Performed By: #### Sanjiv CHANDLER UMICRO #### [facility] [address] [place] [address] Dr. Timothy Adair Sodium [Moles/Vol] 137 mmol/L Normal 137-145 [facility] Comment on above: Performed By: #### Sanjiv CHANDLER UMICRO #### [facility] [address] [place] [address] Dr. Timothy Adair Urea nitrogen [Mass/Vol] 12.0 mg/dL Normal 7.0-17.0 [facility] Comment on above: Performed By: #### Sanjiv CHANDLER, UMICRO #### [facility] [address] [place] [address] Dr. Timothy Adair Urea nitrogen/Creatinine [Mass ratio] 11.8 mg/mg Normal [facility] Comment on above: Performed By: #### Sanjiv CHANDLER UMICRO #### [facility] [address] [place] [address] Dr. Timothy Adair CBC AUTO DIFFon 07-16-2021 BASO # 0.0 103/ul Normal 0.0-0.1 [facility] Comment on above: Performed By: #### Sanjiv CHANDLER, UMICRO #### [facility] [address] [place] [address] Dr. Timothy Adair Basophils/100 WBC (Bld) 0.2 % Normal 0.2-2.0 [facility] Comment on above: Performed By: #### ITZEL LINARES #### [facility] [address] [place] [address] Dr. Timothy Adair EO # 0.0 103/ul Normal 0.0-0.7 [facility] Comment on above: Performed By: #### ITZEL LINARES #### [facility] [address] [place] [address] Dr. Timothy Adair Eosinophils/100 WBC (Bld) 0.1 % Critically low 0.9-7.0 [facility] Comment on above: Performed By: #### ITZEL LINARES #### [facility] [address] [place] [address] Dr. Timothy Adair Erythrocyte distribution width (RBC) [Ratio] 12.9 % Normal 11.0-15.0 [facility] Comment on above: Performed By: #### ITZEL LINARES #### [facility] [address] [place] [address] Dr. Timothy Adair Hematocrit (Bld) [Volume fraction] 38.8 % Normal 36.0-48.0 [facility] Comment on above: Performed By: #### ITZEL LINARES #### [facility] [address] [place] [address] Dr. Timothy Adair Hemoglobin (Bld) [Mass/Vol] 12.9 g/dL Normal 12.0-16.0 [facility] Comment on above: Performed By: #### MASOOD LINARESRO #### [facility] [address] [place] [address] Dr. Timothy Adair IG # 0.04 10e3/ul Critically high 0.00-0.03 [facility] Comment on above: Performed By: #### MASOOD LINARESRO #### [facility] [address] [place] [address] Dr. Timothy Adair IG % 0.3 % Normal 0.0-0.5 [facility] Comment on above: Performed By: #### E RUR, UMICRO #### [facility] [address] [place] [address] Dr. Timothy Adair LYMPH # 2.0 103/ul Normal 1.2-3.8 [facility] Comment on above: Performed By: #### E RUPatty, UMICRO #### [facility] [address] [place] [address] Dr. Timothy Adair Lymphocytes/100 WBC (Bld) 15.6 % Critically low 20.5-60.0 [facility] Comment on above: Performed By: #### E RAMESH UMICRO #### [facility] [address] [place] [address] Dr. Timothy Adair MANUAL DIFF REQ NO Normal [facility] Comment on above: Performed By: #### E RAMESH UMICRO #### [facility] [address] [place] [address] Dr. Timothy Adair MCH (RBC) [Entitic mass] 28.3 pg Normal 26.7-34.0 [facility] Comment on above: Performed By: #### Sanjiv CHANDLER UMICRO #### [facility] [address] [place] [address] Dr. Timothy Adair MCHC (RBC) [Mass/Vol] 33.2 g/dL Normal 29.9-35.2 [facility] Comment on above: Performed By: #### Sanjiv CHANDLER UMICRO #### [facility] [address] [place] [address] Dr. Timothy Adair MCV (RBC) [Entitic vol] 85.1 fL Normal 81.0-99.0 [facility] Comment on above: Performed By: #### Sanjiv CHANDLER UMICRO #### [facility] [address] [place] [address] Dr. Timothy Adair MONO # 0.7 103/ul Normal 0.3-0.8 [facility] Comment on above: Performed By: #### E RUPatty, UMICRO #### [facility] [address] [place] [address] Dr. Timothy Adair Monocytes/100 WBC (Bld) 5.1 % Normal 1.7-12.0 [facility] Comment on above: Performed By: #### ITZEL LINARES #### [facility] [address] [place] [address] Dr. Timothy Adair NEUT # 10.2 103/ul Critically high 1.4-6.5 [facility] Comment on above: Performed By: #### ITZEL LINARES #### [facility] [address] [place] [address] Dr. Timothy Adair Neutrophils/100 WBC (Bld) 78.7 % Critically high 43.0-75.0 [facility] Comment on above: Performed By: #### ITZEL LINARES #### [facility] [address] [place] [address] Dr. Timothy Adair Platelet mean volume (Bld) [Entitic vol] 9.7 fL Normal 9.5-13.5 [facility] Comment on above: Performed By: #### ITZEL LINARES #### [facility] [address] [place] [address] Dr. Timothy Adair PLT 333 103/ul Normal 150-450 [facility] Comment on above: Performed By: #### ITZEL LINARES #### [facility] [address] [place] [address] Dr. Timothy Adair RBC 4.56 106/ul Normal 4.20-5.40 [facility] Comment on above: Performed By: #### ITZEL LINARES #### [facility] [address] [place] [address] Dr. Timothy Adair WBC 13.0 103/ul Critically high 4.0-11.0 [facility] Comment on above: Performed By: #### ITZEL LINARES #### [facility] [address] [place] [address] Dr. Timothy Adair PROF CHEM 8 (BAS METB)on Anion gap [Moles/Vol] 15.4 mmol/L Normal Th [facility] Comment on above: Performed By: #### E RUR, UMICRO #### [facility] [address] [address] [address] Timothy Adair Calcium [Mass/Vol] 8.6 mg/dL Normal 8.4-10.2 [facility] Comment on above: Performed By: #### E RAMESH, UMICRO #### [facility] [address] [place] [address] Dr. Timothy Adair Chloride [Moles/Vol] 102 mmol/L Normal 98-107 [facility] Comment on above: Performed By: #### E RAMESH, UMICRO #### [facility] [address] [place] [address] Dr. Timothy Adair CO2 [Moles/Vol] 24.7 mmol/L Normal 22.0-30.0 [facility] Comment on above: Performed By: #### Sanjiv CHANDLER UMICRO #### [facility] [address] [place] [address] Dr. Timothy Adair Creatinine [Mass/Vol] 0.73 mg/dL Normal 0.52-1.04 [facility] Comment on above: Performed By: #### Sanjiv CHANDLER UMICRO #### [facility] [address] [place] [address] Dr. Timothy Adair EGFR-AF ECUADOREAN >60 Normal >=60 [facility] Comment on above: Performed By: #### Sanjiv CHANDLER UMICRO #### [facility] [address] [place] [address] Dr. Timothy Adair EGFR-NON AF ECUADOREAN >60 Normal >=60 [facility] Comment on above: Performed By: #### Sanjiv CHANDLER, UMICRO #### [facility] [address] [place] [address] Dr. Timothy Adair Glucose [Mass/Vol] 125 mg/dL Critically high 74-106 T [facility] Comment on above: Performed By: #### E RAMESH, UMICRO #### [facility] [address] [place] [address] Dr. Timothy Adair Potassium [Moles/Vol] 4.1 mmol/L Normal 3.4-5.0 [facility] Comment on above: Performed By: #### ITZEL LINARES #### [facility] [address] [place] [address] Dr. Timothy Adair Sodium [Moles/Vol] 138 mmol/L Normal 137-145 [facility] Comment on above: Performed By: #### ITZEL LINARES #### [facility] [address] [place] [address] Dr. Timothy Adair Urea nitrogen [Mass/Vol] 5.0 mg/dL Critically low 7.0-17.0 [facility] Comment on above: Performed By: #### ITZEL LINARES #### [facility] [address] [place] [address] Dr. Timothy Adair Urea nitrogen/Creatinine [Mass ratio] 6.8 mg/mg Normal [facility] Comment on above: Performed By: #### ITZEL LINARES #### [facility] [address] [place] [address] Dr. Timothy Adair CBC AUTO DIFFon 06-15-2021 BASO # 0.1 103/ul Normal 0.0-0.1 [facility] Comment on above: Performed By: #### C BC #### [facility] [address] [place] [address] Dr. Timothy Adair Basophils/100 WBC (Bld) 0.6 % Normal 0.2-2.0 [facility] Comment on above: Performed By: #### C BC #### [facility] [address] [place] [address] Dr. Timothy Adair EO # 0.1 103/ul Normal 0.0-0.7 [facility] Comment on above: Performed By: #### C BC #### [facility] [address] [place] [address] Dr. Timothy Adair Eosinophils/100 WBC (Bld) 1.0 % Normal 0.9-7.0 [facility] Comment on above: Performed By: #### C BC #### [facility] [address] [place] [address] Dr. Timothy Adair Erythrocyte distribution width (RBC) [Ratio] 13.0 % Normal 11.0-15.0 [facility] Comment on above: Performed By: #### C BC #### [facility] [address] [place] [address] Dr. Timtohy Adair Hematocrit (Bld) [Volume fraction] 43.1 % Normal 36.0-48.0 [facility] Comment on above: Performed By: #### C BC #### [facility] [address] [place] [address] Dr. Timothy Adair Hemoglobin (Bld) [Mass/Vol] 14.0 g/dL Normal 12.0-16.0 [facility] Comment on above: Performed By: #### C BC #### [facility] [address] [place] [address] Dr. Timothy Adair IG # 0.03 10e3/ul Normal 0.00-0.03 [facility] Comment on above: Performed By: #### C BC #### [facility] [address] [place] [address] Dr. Timothy Adair IG % 0.3 % Normal 0.0-0.5 [facility] Comment on above: Performed By: #### C BC #### [facility] [address] [place] [address] Dr. Timothy Adair LYMPH # 2.8 103/ul Normal 1.2-3.8 [facility] Comment on above: Performed By: #### C BC #### [facility] [address] [place] [address] Dr. Timothy Adair Lymphocytes/100 WBC (Bld) 27.1 % Normal 20.5-60.0 [facility] Comment on above: Performed By: #### C BC #### [facility] [address] [place] [address] Dr. Timothy Adair MANUAL DIFF REQ NO Normal [facility] Comment on above: Performed By: #### C BC #### [facility] [address] [place] [address] Dr. Timothy Adair MCH (RBC) [Entitic mass] 27.4 pg Normal 26.7-34.0 [facility] Comment on above: Performed By: #### C BC #### [facility] [address] [address] [address] Timothy Adair MCHC (RBC) [Mass/Vol] 32.5 g/dL Normal 29.9-35.2 [facility] Comment on above: Performed By: #### C BC #### [facility] [address] [place] [address] Dr. Timothy Adair MCV (RBC) [Entitic vol] 84.3 fL Normal 81.0-99.0 [facility] Comment on above: Performed By: #### C BC #### [facility] [address] [place] [address] Dr. Timothy Adair MONO # 0.4 103/ul Normal 0.3-0.8 [facility] Comment on above: Performed By: #### C BC #### [facility] [address] [place] [address] Dr. Timothy Adair Monocytes/100 WBC (Bld) 4.1 % Normal 1.7-12.0 [facility] Comment on above: Performed By: #### C BC #### [facility] [address] [place] [address] Dr. Timothy Adair NEUT # 6.9 103/ul Critically high 1.4-6.5 [facility] Comment on above: Performed By: #### C BC #### [facility] [address] [place] [address] Dr. Timothy Adair Neutrophils/100 WBC (Bld) 66.9 % Normal 43.0-75.0 [facility] Comment on above: Performed By: #### C BC #### [facility] [address] [place] [address] Dr. Timothy Adair Platelet mean volume (Bld) [Entitic vol] 9.8 fL Normal 9.5-13.5 [facility] Comment on above: Performed By: #### C BC #### [facility] [address] [place] [address] Dr. Timothy Adair PLT 369 103/ul Normal 150-450 [facility] Comment on above: Performed By: #### C BC #### [facility] [address] [place], [place] [address] Dr. Timothy Adair RBC 5.11 106/ul Normal 4.20-5.40 [facility] Comment on above: Performed By: #### C BC #### [facility] [address] [place], [place] [address] Dr. Timothy Adair WBC 10.3 103/ul Normal 4.0-11.0 [facility] Comment on above: Performed By: #### C BC #### [facility] [address] [place], [place] [address] Dr. Timothy Adair CTA CHEST WO W [...] MADYSON CISNEROS Date: 2021-06-15 19:51 Normal [facility] D-DIMERon 06-15-2021 D-DIMER 0.66 mg/L FEU Critically high 0.19-0.50 [facility] Comment on above: Result Comment: test repeated critical value verified Performed By: #### E ITZEL CHANDLER #### [facility] [address] [place], [place] [address] Dr. Timothy Adair D-DIMER COMMENTS SEE BELOW Normal [facility] Comment on above: Result Comment: Incr eases [...] hospitalization. Performed By: #### ITZEL LINARES #### [facility] [address] [place] [address] Dr. Timothy Adair PREG HCG QUALon 06-15-2021 , QUAL Negative Normal NEGATIVE [facility] Comment on above: Performed By: #### ITZEL LINARES #### [facility] [address] [place] [address] Dr. Timothy Adair PROF 14(COMP METB)on 021 Albumin [Mass/Vol] 3.1 g/dL Critically low 3.5-5.0 [facility] Comment on above: Performed By: #### C BC #### [facility] [address] [place] [address] Dr. Timothy Adair Albumin/Globulin [Mass ratio] 0.6 {ratio} Normal [facility] Comment on above: Performed By: #### C BC #### [facility] [address] [place] [address] Dr. Timothy Adair ALP [Catalytic activity/Vol] 105 U/L Normal 38-126 [facility] Comment on above: Performed By: #### C BC #### [facility] [address] [place] [address] Dr. Timothy Adair ALT [Catalytic activity/Vol] 21 U/L Normal 9-52 [facility] Comment on above: Performed By: #### C BC #### [facility] [address] [place] [address] Dr. Timothy Adair Anion gap [Moles/Vol] 14.8 mmol/L Normal [facility] Comment on above: Performed By: #### C BC #### [facility] [address] [place] [address] Dr. Timothy Adair AST [Catalytic activity/Vol] 15 U/L Normal 14-36 [facility] Comment on above: Performed By: #### C BC #### [facility] [address] [place] [address] Dr. Timothy Adair Bilirubin [Mass/Vol] 0.3 mg/dL Normal 0.2-1.3 [facility] Comment on above: Performed By: #### C BC #### [facility] [address] [place] [address] [address] Timothy Adair Calcium [Mass/Vol] 9.3 mg/dL Normal 8.4-10.2 [facility] Comment on above: Performed By: #### C BC #### [facility] [address] [place] [address] Dr. Timothy Adair Chloride [Moles/Vol] 101 mmol/L Normal 98-107 [facility] Comment on above: Performed By: #### C BC #### [facility] [address] [place] [address] Dr. Timothy Adair CO2 [Moles/Vol] 26.6 mmol/L Normal 22.0-30.0 [facility] Comment on above: Performed By: #### C BC #### [facility] [address] [place] [address] Dr. Timothy Adair Creatinine [Mass/Vol] 0.87 mg/dL Normal 0.52-1.04 [facility] Comment on above: Performed By: #### C BC #### [facility] [address] [place] [address] Dr. Timothy Adair EGFR-AF ECUADOREAN >60 Normal >=60 [facility] Comment on above: Performed By: #### C BC #### [facility] [address] [place] [address] Dr. Timothy Adair EGFR-NON AF ECUADOREAN >60 Normal >=60 [facility] Comment on above: Performed By: #### C BC #### [facility] [address] [place] [address] Dr. Timothy Adair Globulin (S) [Mass/Vol] 4.9 g/dL Normal [facility] Comment on above: Performed By: #### C BC #### [facility] [address] [place] [address] [address] Timothy Adair Glucose [Mass/Vol] 113 mg/dL Critically high 74-106 T [facility] Comment on above: Performed By: #### C BC #### [facility] [address] [place] [address] [address] Timothy Adair Potassium [Moles/Vol] 3.4 mmol/L Normal 3.4-5.0 [facility] Comment on above: Performed By: #### C BC #### [facility] [address] [place] [address] [address] Timothy Adair Protein [Mass/Vol] 8.0 g/dL Normal 6.1-8.2 [facility] Comment on above: Performed By: #### C BC #### [facility] [address] [place] [address] [address] Timothy Adair Sodium [Moles/Vol] 139 mmol/L Normal 137-145 [facility] Comment on above: Performed By: #### C BC #### [facility] [address] [place] [address] [address] Timothy Adair Urea nitrogen [Mass/Vol] 9.0 mg/dL Normal 7.0-17.0 [facility] Comment on above: Performed By: #### C BC #### [facility] [address] [place] [address] [address] Timothy Adair Urea nitrogen/Creatinine [Mass ratio] 10.3 mg/mg Normal [facility] Comment on above: Performed By: #### C BC #### [facility] [address] [place] [address] [address] Timothy Adair TROPONIN, HIGH SENSITIVITYon 06-15-2021 HSTROP 4.8 pg/mL Normal 4.0-35.5 [facility] Comment on above: Result Comment: CUT- OFF POINTS HAVE BEEN ESTABLISHED BASED ON THE FOURTH UNIVERSAL DEFINITIONS OF MYOCARDIAL INFARCTION. THE UPPER REFERENCE LIMIT (URL) OF TROPONIN, DEFINED THE 99TH PERCENTILE OF cTnI DISTRIBUTION IN A REFERENCE POPULATION, HAS BEEN CONFIRMED THE DECISION THRESHOLD FOR [place] DIAGNOSIS. Performed By: #### C BC #### [facility] [address] [place] [address] [address] Timothy Adair XR ankle LT min 3V*on 2020 XR ankle LT min 3V* [facility] depict Other XR ankle LT min 3V* [facility] [employer] Other XR ankle LT min 3V* [facility] [employer] Other XR ankle LT min 3V* [address] depict Other XR ankle LT min 3V* XRay Report [facility] depict Other XR ankle LT min 3V* Signed [employer] Other XR ankle LT min 3V* Patient: Josemanuel Ford in [place] MR#: [id number] [place] depict Other XR ankle LT min 3V* 271 [facility] Other XR ankle LT min 3V* : 1990 Acct:[id number] [facility] Other XR ankle LT min 3V* Age/Sex: 30 / F ADM Date: 04/23/21 [employer] Other XR ankle LT min 3V* Loc: XDUCLY Room: pe: REG CLI [facility] Other XR ankle LT min 3V* Attending Dr: Cleopatra ESCALANTE [employer] Other XR ankle LT min 3V* Ordering Provider: AVA Whitaker [facility] Other XR ankle LT min 3V* Date of Service: 04/23/21 [facility] Other XR ankle LT min 3V* XR/XR ankle LT min 3V*: Acute left ankle pain [employer] Other XR ankle LT min 3V* Copies to: Cleopatra Durbin CAN MARK[employer]-C [employer] Other XR ankle LT min 3V* XR ankle LT min 3V* [employer] Other XR ankle LT min 3V* CLINICAL HISTORY: Tripped and rolled left ankle, pain at the medial aspect of the left ankle. [employer] Other XR ankle LT min 3V* COMPARISON: 08/06/2018 [employer] Other XR ankle LT min 3V* FINDINGS: AP, latera l and oblique views of the left ankle were obtained. There is no evidence of [employer] Other XR ankle LT min 3V* fracture or subluxation. 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 Minimal spur at the [employer] Other XR ankle LT min 3V* tip of the medial malleolus is noted. There are no focal soft tissue abnormalities. [employer] Other XR ankle LT min 3V* XR/XR ankle LT min 3V* [employer] Other XR ankle LT min 3V* IMPRESSION: [email or web address] Other XR ankle LT min 3V* NO ACUTE FRACTURE OR SUBLUXATION. [employer] Other XR ankle LT min 3V* MILD FOCAL CONTOUR IRREGULARITY AT THE LATERAL TALAR DOME, PROBABLY RELATED TO OLD INJURY. [employer] Other XR ankle LT min 3V* Impression dictated by: Nicolás Mccormick M.D.04/23/2021 12:30 PM [facility] Other XR ankle LT min 3V* Dictation Location: RADIO-PC-13 [facility] Other XR ankle LT min 3V* Transcribed By: YECENIA 04/23/21 1230 [facility] Other XR ankle LT min 3V* Dictated By: Nicolás Mccormick MD 04/23/21 1225 [employer] Other XR ankle LT min 3V* Signed By: [employer] Other XR ankle LT min 3V* 04/23/21 1230 No rt depict Other BASIC METABOLIC PANELon 05-0 -2017 Calcium 9.0 mg/dL Normal 8.6-10.3 [facility] Comment on above: Performed By: #### 2 5938, 85686 ####[facility] [facility].[address] Chloride 104 mmol/L Normal 98-107 [facility] Comment on above: Performed By: #### 2 8, 70220 ####[facility] [place] [address], [facility] CO2 26 mmol/L Normal 21-31 [facility] Comment on above: Performed By: #### 2 018, 55319 ####[facility] [place] [address], [facility] Creatinine 0.59 mg/dL Low 0.60-1.20 [facility] Comment on above: Performed By: #### 2 8, 03573 ####[facility] [place] [address], [facility] eGFR (black) mL/min/{1.73_m2} Normal >60 [facility] Comment on above: Performed By: #### 2 8, 43946 ####[facility] [place] [address], [facility] eGFR (non-black) mL/min/{1.73_m2} Normal >60 Th e [facility] Comment on above: Performed By: #### 2 5507, [address]203 ####[place] [address] [facility] [address], [facility] Glucose mass conc 86 mg/dL Normal 70-100 [facility] Comment on above: Performed By: #### 2 5507, 09175 ####[place] [address] [facility] [address], [facility] Potassium molar conc 3.6 mmol/L Normal 3.5-5.1 [facility] Comment on above: Performed By: #### 2 5507, 25985 ####[address] Sodium 138 mmol/L Normal 136-145 [facility] Comment on above: Performed By: #### 2 5507, [address]461 ####[place] [address] Urea nitrogen 9 mg/dL Normal 7-[address] [facility] Comment on above: Performed By: #### 2 5507, [address]51 ####[place] [address] [facility].[address] CPKon 11-07-2017 Creatine kinase (CK) 90 U/L Normal 30-223 [facility] Comment on above: Performed By: #### 2 5507, 85963 ####[address] [place] [address], [facility] CTA LOWER EXTREMITYon 2017 CTA LOWER EXTREMITY [facility] [address] [place] [id number] =====Patient Name: NICKIE FORD : 1990Sex: FAge: Race: WhiteMRN: [id number]. Location: EMERPatient Status: DVisit #: [id number] Date: 11/07/2017Completed Date: 11/07/2017 01:37 AMRequesting Provider: OPAL GERARDO Attending Provider: OPAL GERARDO Report Copy To: Signs & Symptoms: Numbness in Extremity (specify)History: Patient history not availableComments: R/O Vascular Stenosis, left lower extremity. S/P crushing injuryExam: CTA LOWER EXTREMITYAccession #: [id number] CTA LOWER EXTREMITY 11/07/2017 1:37 AM EDT SIGNS AND SYMPTOMS: Numbness in Extremity (specify) TECHNOLOGIST COMMENTS: Pt had car pin her left leg while changing a tire. Pt is transfer from [facility]. Small bruising anteriorly just superior to [...] bony or soft tissue injury Electronically signed by:Alejandrina Carranza. Transcribed by: [email or web address], User Resident: Electronically Signed by: ALEJANDRINA CARRANZA @ 11/07/2017 09:17 AM [place] [facility] Comment on above: Order Comment: R/O V ascular Stenosis, left lower extremity. S/P crushing injury History and Physicalon 11-07 History and Physical [id number] Nickie Ford Admitted: 11/06/2017 [...] significant soft tissueswelling. She was transferred to [facility] for evaluation over a concern [...] of her left lower extremity paresthesia.Discharge with [place], [id number]-[id number] pain medications, crutches, returnto work as able.Electronically Signed by:Antonio Joseph M.D. 11/12/2017 10:54 A Antonio Joseph M.D. I was not present but assume all responsibility for the exam. NOTBILLABLEDate Dict: 11/07/2017/01:53 A/Christ Lema Trans: 11/07/2017 08:36 A/Rachel_JN:[id number] Normal [facility] CYTOLOGYon 02-27-2017 CYTOLOGY ---Abnormal Pap Test - Epithelial Cell Abnormality---Specimen #: [id number] Physician: JASMYN HOUSESPECIMEN SUBMITTEDA: CERVICAL, SCREENING, FLUID FI NAL DIAGNOSISA. CERVICAL, SCREENING, FLUIDSatisfactory for interpretation.Epitheli al cell abnormality.Atypical squamous cells of undetermined significance (ASC-US).This specimen has been analyzed by the ThinPrep Imaging System, EzLike imaging and review system, which assists the laboratory inevaluating cells on ThinPrep Pap tests. Following automated imaging,selected robertson from every slide are reviewed by a robotics application engineer.Sun Jeffrey MD (Electronic Signature) CL INICAL DATA PAP Source: Cervical-PFCERSSTAINSA: CERVICAL, SCREENING, FLUID THIN PREP GYNPatient ID #: [id number] of Report: 03/09/2017Date of Procedure: 02/27/2017Date of Receipt: 03/02/2017Submitted by: JASMYN PHILIPLocation: Diagnostic interpretation performed at [facility], [address] [place] [address].The Pap Smear is a screening test for cervical cancer. False negativeresults occur with all screening tests, emphasizing the need forrescreening at recommended intervals, and clinical correlation. Normal [facility] Comment on above: Performed By: #### C ####See report for performing lab information. Vital Signs Date Time Vital Sign Value Performing Clinician Facility 09-25-2023 12:49-0400 Body height 161.29 cm [facility] 09-25-2023 12:490400 Body mass index (BMI) [Ratio] 47 kg/m2 [facility] 09-25-2023 12:49-0400 Body temperature 98.9 [degF] [facility] 09-25-2023 12:49-0400 Body weight 122.46 kg [facility] 09-25-2023 12:49-0400 Heart rate 108 /min [facility] 09-25-2023 12:49-0400 Respiratory rate 18 /min [facility] 09-25-2023 12:49-0400 SaO2% (BldA) [Mass fraction] 98 % [facility] 02-09-2023 16:10-0400 Body height 161.29 cm Jeimy Verduzco Other [facility] Other 02-09-2023 16:10-0400 Body mass index (BMI) [Ratio] 48.4 kg/m2 Jeimy Verduzco Other [facility] Other 02-09-2023 16:10-0400 Body temperature 97.5 [degF] Jeimy Verduzco Other [facility] Other 02-09-2023 16:10-0400 Body weight 125.92 kg Jeimy Verduzco Other [facility] Other 02-09-2023 16:10-0400 Diastolic blood pressure 96 mm[Hg] Jeimy Verduzco Other [facility] Other 02-09-2023 16:10-0400 Respiratory rate 18 /min Jeimy Verduzco Other [facility] Other 02-09-2023 16:10-0400 SaO2% (BldA) [Mass fraction] 98 % Jeimy Verduzco Other [facility] Other 02-09-2023 16:10-0400 Systolic blood pressure 141 mm[Hg] Jeimy Verduzco Other [facility] Other 10-21-2022 10:00-0400 Body height 161.29 cm Sherron Francisco Other [facility] Other 10-21-2022 10:00-0400 Body mass index (BMI) [Ratio] 47.94 kg/m2 Sherron Singh Other [facility] Other 10-21-2022 10:00-0400 Body temperature 97.1 [degF] Sherron Singh Other [facility] Other 10-21-2022 10:00-0400 Body weight 124.74 kg Sherron Singh Other [facility] Other 10-21-2022 10:00-0400 Respiratory rate 18 /min Sherron Singh Other [facility] Other 10-21-2022 10:00-0400 SaO2% (BldA) [Mass fraction] 98 % Sherron Singh Other [facility] Other 10-20-2021 12:40-0400 Body height 161.29 cm Cleopatra Gifty Other [facility] Other 10-20-2021 12:40-0400 Body mass index (BMI) [Ratio] 46.38 kg/m2 Cleopatra Gifty Other [facility] Other 10-20-2021 12:40-0400 Body temperature 97.9 [degF] Cleopatra Gifty Other [facility] Other 10-20-2021 12:40-0400 Body weight 120.66 kg Cleopatra Gifty Other [facility] Other 10-20-2021 12:40-0400 Respiratory rate 18 /min Cleopatra Gifty Other [facility] Other 10-20-2021 12:40-0400 SaO2% (BldA) [Mass fraction] 97 % Cleopatra Gifty Other [facility] Other 09-15-2021 13:20-0400 Body height 161.29 cm Cleopatra Gifty Other [facility] Other 09-15-2021 13:20-0400 Body mass index (BMI) [Ratio] 45.33 kg/m2 Cleopatra Gifty Other [facility] Other 09-15-2021 13:20-0400 Body temperature 97.5 [degF] Cleopatra Gifty Other [facility] Other 09-15-2021 13:20-0400 Body weight 117.94 kg Cleopatra Gifty Other [facility] Other 09-15-2021 13:20-0400 Respiratory rate 18 /min Cleopatra Gifty Other [facility] Other 09-15-2021 13:20-0400 SaO2% (BldA) [Mass fraction] 97 % Cleopatra Gifty Other [facility] Other 04-23-2021 11:55-0400 Body height 161.29 cm Cleopatra Gifty Other [facility] Other 04-23-2021 11:55-0400 Body mass index (BMI) [Ratio] 46.38 kg/m2 Cleopatra Gifty Other [facility] Other 04-23-2021 11:55-0400 Body temperature 97 [degF] Cleopatra Durbin Other [facility] Other 04-23-2021 11:55-0400 Body weight 120.66 kg Cleopatra Durbin Other [facility] Other 04-23-2021 11:55-0400 Diastolic blood pressure 89 mm[Hg] Cleopatra Durbin Other [facility] Other 04-23-2021 11:55-0400 Respiratory rate 18 /min Cleopatra Durbin Other [facility] Other 04-23-2021 11:55-0400 SaO2% (BldA) [Mass fraction] 97 % Cleopatra Durbin Other [facility] Other 04-23-2021 11:55-0400 Systolic blood pressure 141 mm[Hg] Cleopatra Durbin Other [facility] Other 03-29-2021 16:10-0400 Body height 161.29 cm Jaymie Josee Other [facility] Other 03-29-2021 16:10-0400 Body mass index (BMI) [Ratio] 46.38 kg/m2 Jaymie Josee Other [facility] Other 03-29-2021 16:10-0400 Body temperature 97.1 [degF] Jaymie Josee Other [facility] Other 03-29-2021 16:10-0400 Body weight 120.66 kg Jaymie Josee Other [facility] Other 03-29-2021 16:10-0400 Diastolic blood pressure 90 mm[Hg] Jaymie Tripp Other [facility] Other 03-29-2021 16:10-0400 Respiratory rate 18 /min Jaymie Tripp Other [facility] Other 03-29-2021 16:10-0400 SaO2% (BldA) [Mass fraction] 98 % Jaymie Tripp Other [facility] Other 03-29-2021 16:10-0400 Systolic blood pressure 140 mm[Hg] Jaymie Tripp Other [facility] Other Encounters Encounter Date Encounter Type Care Provider Facility Start: 05-13-2024 End: 05-13-2024 Office outpatient visit 15 minutes Belinda Jurado CAN MARKER Work Phone: [facility] Comment on above: Left ankle pain, uns pecified chronicity (Primary Dx); Sprain of left ankle, unspecified ligament, initial encounter; Contusion of left ankle, initial encounter Start: 05-13-2024 End: 05-13-2024 ambulatory BELINDA JURADO Not Available Start: 10-25-2023 End: 10-25-2023 ambulatory [facility] Start: 10-25-2023 Encounter for genera l adult medical examination without abnormal findings [facility] Start: 09-25-2023 End: 09-25-2023 ambulatory [facility] Work Phone: Start: 09-25-2023 End: 09-25-2023 Patient encounter procedure [facility] Work Phone: Start: 08-08-2023 End: 08-08-2023 ambulatory KALEB TATTERSALL Not Available Start: 08-01-2023 End: 08-01-2023 ambulatory JACI KELBLEY Not Available Start: 07-28-2023 End: 07-28-2023 ambulatory JACI KELBLEY Not Available Start: 07-24-2023 End: 07-24-2023 ambulatory KALEB GONZALES Not Available Start: 07-21-2023 End: 07-21-2023 ambulatory HUYEN BRINK Not Available Start: 07-12-2023 End: 07-12-2023 ambulatory BELINDA B APLING Not Available Start: 07-10-2023 End: [...] Available Start: 06-05-2023 End: 06-05-2023 ambulatory JESUSITA REYNASEAN Not Available Start: 05-31-2023 End: 05-31-2023 ambulatory BELINDA B APLING Not Available Start: 05-17-2023 End: 05-17-2023 ambulatory BELINDA B APLING Not Available Start: 05-17-2023 End: 05-17-2023 ambulatory BELINDA B APLING Not Available Start: 02-09-2023 End: 02-09-2023 ambulatory Jeimy Verduzco Other [facility] Other Start: 02-09-2023 Office outpatient vi sit 15 minutes Jeimy Luba [facility] Start: 01-17-2023 End: 01-17-2023 ambulatory Sherron Singh Facility:[facility] Start: 01-17-2023 End: 01-17-2023 ambulatory PHYSICIAN NO [facility] Work Phone: Start: 01-17-2023 End: 01-17-2023 Patient encounter procedure PHYSICIAN NO [facility] Work Phone: Start: 10-21-2022 End: 10-21-2022 ambulatory Sherron Singh Other [facility] Other Start: 10-21-2022 Office outpatient vi sit 25 minutes Sherron Singh [facility] Start: 06-04-2022 End: 06-04-[address] VANI SINGH Facility:[facility] Start: 03-03-2022 End: 03-03-[address] VANI SINGH Facility:[facility] Start: 10-20-2021 End: 10-20-2021 ambulatory Cleopatra Durbin Other [facility] Other Start: 10-20-2021 Office outpatient vi sit 15 minutes Cleopatra Durbin [facility] Start: 09-17-2021 End: 09-17-[address] VANI SINGH Facility:[facility] Start: 09-15-2021 (URG) Urgent Care Visit Cleopatra Chávez d [facility] Start: 09-15-2021 End: 09-15-2021 ambulatory Cleopatra Durbin Other [facility] Other Start: 07-18-2021 End: 07-19-[address] VANI SINGH Facility:[facility] Start: 07-17-2021 End: 07-17-[address] VANI SINGH Facility:[facility] Start: 07-16-2021 End: 07-16-[address] VANI SINGH Facility:[facility] Start: 07-15-2021 End: 07-15-[address] VANI SINGH Facility:[facility] Start: 06-15-2021 End: 06-15-[address] VANI SINGH Facility:[facility] Start: 04-23-2021 Office outpatient vi sit 15 minutes Cleopatra Durbin [facility] Start: 03-29-2021 Office outpatient vi sit 15 minutes Jaymie Tripp [facility] Start: 11-07-2017 End: 11-07-2017 Emergency department patient visit OPAL GERARDO Facility:[facility] Procedures Date Procedure Procedure Detail Performing Clinician Start: 09-25-2023 Quick Strep (POC) Start: 01-17-2023 X-ray of right knee PHY SICIAN NO FAMILY Plan of Treatment Date Care Activity Detail Author Start: 05-13-2024 End: 05-13-2025 MR Ankle - left WO contrast MR ankle left wo IV contrast Imaging Routine Sprain of left ankle, unspecified ligament, initial encounter Contusion of left ankle, initial encounter Expected: 05/13/2024 (Approximate), Expires: 05/13/2025 [facility] Work Phone: Comment on above: Expected: 05/13/2024 (Approximate), Expires: 05/13/2025 Start: 03-03-2024 Influenza vaccination Influenza Vacc ine (#1) [facility] Start: 04-18-2023 Screening for malign ant neoplasm of cervix [facility] Start: 10-27-2011 Screening for malign ant neoplasm of cervix Pap Smear [facility] Immunizations Immunization Date Immunization Notes Care Provider Ban ag 03-31-2023 influenza virus vaccine, unspecified formulation Belinda Jurado NP Work Phone: [facility] 03-29-2021 KENALOG - 10 mg Jaymie Br eault Other [facility] Other 09-05-2019 KENALOG - 10 mg Jaymie Br eault Other [facility] Other 08-26-2016 Toradol per 15 mg Jaymie Josee Other [facility] Other NEGATED: Highlighted row has not occurred!04-27-2019 Toradol per 15 mg Jaymie Josee Other [facility] Other Payers Date Payer Category Payer Self-pay [id number] 2022 Medicaid [facility] [id number] 2022 Medicaid [id number] 2.16.840.1.865535.19 2018 Unknown [id number] 2.16.840.1.844474.19 1990 Unknown [id number] 2.16.840.1.998826.3.579.2. 593 1990 Unknown [id number] 2.16.840.1.786535.3.579.2. 593 1990 Unknown [id number] 2.16.840.1.554198.3.579.2. 593 1990 Unknown [id number] 2.16.840.1.987797.3.579.2. 593 1990 Unknown [id number] 2.16.840.1.463311.3.579.2. 593 1990 Unknown [id number] 2.16.840.1.926096.3.579.2. 593 1990 Unknown [id number] 2.16.840.1.195632.3.579.2. 593 1990 Unknown [id number] 2.16.840.1.027200.3.579.2. 593 1990 Unknown [id number] 2.16.840.1.575773.3.579.2. 1286 1990 Unknown [id number] 2.16.840.1.751448.3.579.2. 1259 1990 Unknown [id number] 2.16.840.1.802207.3.579.2. 9 1990 Unknown [id number] 2.16.840.1.550149.3.579.2. 1259 1990 Unknown [id number] 2.16.840.1.937720.3.579.2. 1258 1990 Unknown [id number] 2.16.840.1.985150.3.579.2. 9 1990 Unknown [id number] 2.16.840.1.910866.3.579.2. 1258 1990 Unknown [id number] 2.16.840.1.419583.3.579.2. 9 1990 Unknown [id number] 2.16.840.1.457488.3.579.2. 1258 1990 Unknown [id number] 2.16.840.1.157821.3.579.2. 9 1990 Unknown [id number] 2.16.840.1.790943.3.579.2. 1258 1990 Unknown [id number] 2.16.840.1.268405.3.579.2. 1259 1990 Unknown [id number] 2.16.840.1.414636.3.579.2. 1258 1990 Unknown [id number] 2.16.840.1.199230.3.579.2. 9 1990 Unknown [id number] 2.16.840.1.837968.3.579.2. 1258 1990 Unknown [id number] 2.16.840.1.313881.3.579.2. 1259 1990 Unknown [id number] 2.16.840.1.445577.3.579.2. 9 1990 Unknown [id number] 2.16.840.1.288512.3.579.2. 9 1990 Unknown [id number] 2.16.840.1.351914.3.579.2. 9 1990 Unknown [id number] 2.16.840.1.012068.3.579.2. 9 1990 Unknown [id number] 2.16.840.1.188276.3.579.2. 1258 1990 Unknown [id number] 2.16.840.1.592934.3.579.2. 1259 1959 Private Health Insurance [id number] 2.16.840.1.206331.19 1959 Unknown [id number] 2.16.840.1.385637.19 1959 Unknown [id number] Unknown [id number] Unknown [id number] 2.16.840.1.478827.3.579.2. 531 Social History Date Type Detail Facility Unknown if ever smoked [facility] Other Start: 11-21-2022 End: 07-12-2023 Sex Assigned At [facility] Start: 1990 Sex Assigned At Female [facility] Start: 08-06-2018 End: 05-17-2023 Tobacco smoking status WAIS Never smoked tobacco (finding) [facility] Start: 05-17-2023 Tobacco use and exposure Smokeless tobacco non-user [facility] Start: 07-14-2023 Alcoholic beverage intake Ex-drinker (finding) [facility] Start: 11-21-2022 End: 07-12-2023 History of Social function [facility] Within the last year , have you been afraid of your partner or ex-partner? No [facility] Do you belong to any clubs or organizations such as adventist groups, unions, fraternal or athletic groups, or school groups? Yes [facility] Are you now , , , , never or living with a partner? Never [facility] How often to you hav e a drink containing alcohol? Never [facility] How many standard dr inks containing alcohol do you have on a typical day? Patient does not drink [facility] How hard is it for y ou to pay for the very basics like food, housing, medical care, and heating Somewhat hard [facility] Do you feel stress - tense, restless, nervous, or anxious, or unable to sleep at night because your mind is troubled all the time - these days [OSQ] Rather much [facility] (I/We) worried [facility] (my/our) food would run out before (I/we) got money to buy more. Never true [facility] Start: 07-14-2023 Alcohol Comment caffeine 1-2 cups per day [facility] Start: 11-18-2022 Gender identity Identifies as female gender (finding) [facility] Clinical Notes 10-31-2017 to 05-13-2024 Belinda Jurado NP - 05/13/2024 12:30 PM EST Note Date & Type Note Facility 05-13-2024 History of Presen t illness Narrative Images from the original note were not included. Subjective Patient ID: Nickie Ford is a 33 y.o. female. LT Ankle DOI: 05/03/24 1 week and 3 days, Pt fell down stairs (6 stairs) at home DOI 05/03/24. States she slipped on a snowman and fell down stairs running into canned goods at the bottom of the stairs, believes she twisted her ankle and landed on it. She went to [facility] on 05/12/24. She notes she tried nursing is back on her own but is not getting relief so she went to [facility]. Presents in chen wrap from [facility]. Pain lateral ankle. Pain is constant, occas radiates into medial and anterior ankle and the top of her foot. Pain at rest 8/10. Pain at worst 10+/10 with WB. Limited ROM. Admits waking at night. Admits swelling that is not improving. Admits N/T in her ankle, foot and toes which comes and goes, since the injury on 05/03/24. She has been taking IBU 600 from previous shoulder injury. Has been icing and elevating. Admits locking/catching. Admits cracking and popping. Previously fractured her talus in 2009. and had Sx in 2010. [place]: [facility] ER/XR 05/12/24, IBU 600, ice, elevation, chen wrap Here with her mother. Lower Extremity Issue The symptoms are aggravated by movement, palpation and weight bearing. Objective Ortho Exam Foot/Ankle Musculoskeletal Exam Gait Limp: left Inspection Left Erythema: none Effusion: none Edema: mild Edema comment: lateral ankle Ecchymosis: none Palpation Left Increased warmth: none Masses: none Tenderness: present ATFL: moderate CFL: mild Deltoid: mild Anterior syndesmosis: mild Range of Motion Range of motion additional comments: Pain with all rom of the ankle Special Tests Left Single heel rise: with pain Single heel rise comment: on the left, unable to single heel raise Xrays of the left ankle and left foot done at [facility] on 05/12/24 are unremarkable. I reviewed [facility] note from 05/12/24, given chen wrap. Assessment/Plan Encounter Diagnoses: ICD-10-CM 1. Left ankle pain, unspecified chronicity M25.572 2. Sprain of left ankle, unspecified ligament, initial encounter S93.402A discussion of due to failure of conservative treatment would recommend an MRI of the left ankle without contrast, activities as tolerated, f/u s/p MRI to be done at [facility] A left [id number] Walking Boot, Pneumatic and/or Vacuum, With or Without Joints, Prefabricated, Off the Shelf was dispensed and applied at this visit. Due to the patient's diagnosis and related symptoms this is medically necessary for treatment. The function of this device is to restrict and limit motion, provide stabilization, immobilization, and compression to the affected area. The goals and function-of this device were explained in detail to the patient. Upon gait analysis, the device appeared to be fitting well and the patient states that the device is comfortable at this time. The patient was shown and told in detail how to properly wear and care for the device. They were able to apply the device properly themselves and able to ambulate without distress. At the time the device was dispensed, it was suitable for the condition and was not substandard. No guarantees were given and precautions were reviewed. Written instructions and warranty information was given along with the list of the current Durable Medical Equipment Supplier Guidelines. The patient was given a patient education sheet regarding signs and symptoms of a DVT and was instructed to call the doctor immediately if they experience any symptoms. Continue with douglas therapy. Discussed crutches and or a knee walker. documented in this encounter [facility] 02-09-2023 Evaluation note Encounter Date Diagnosis Assessment [...] Suspected COVID-19 virus infection (ICD-10 - Z20.822) [facility] Other 04-21-2023 Evaluation note* Encounter Date Diagnosis Assessment Notes Treatment Notes Treatment Clinical Notes Oct, Nasal congestion (ICD-10 - R09.81) [...] - Z20.828) Oct, Nausea (ICD-10 - R11.0) [facility] Other 04-20-2022 Evaluation note* Encounter Date Diagnosis Assessment Notes Treatment Notes Treatment Clinical Notes Oct, Contact with and (suspected) exposure [...] Patient care instructions given in writting by [facility] Care At Home document. [facility] Other 03-16-2022 Evaluation note* Encounter Date Diagnosis Assessment Notes Treatment Notes Treatment Clinical Notes Aug, Contact with and (suspected) exposure [...] Patient care instructions given in writting by [facility] Care At Home document. [facility] Other 10-22-2021 Evaluation note* Encounter Date Diagnosis Assessment Notes Treatment Notes Treatment Clinical Notes Apr, Acute left ankle pain (ICD-10 [...] no improvement in 5 to 7 days [facility] Other 09-27-2021 Evaluation note* Encounter Date Diagnosis Assessment Notes Treatment Notes Treatment Clinical Notes Mar, Bee sting allergy (ICD-10 - Z91.030) Steroid shot given in office today. Start oral steroid pack in the morning but all other meds tomorrow [facility] Other 05-01-2018 History general Narrative - Reported* Type Description Date Medical History anxiety Medical History migraine headache Surgical History wisdom teeth Surgical History ankle surgery Hospitalization History preclampsia Hospitalization History car fell on pt in 10/2017 [facility] Other Evaluation noteNo assessment information available [facility] Work Phone: Evaluation note* Diagnosis Left ankle pain, unspecified chronicity- Primary Sprain of left ankle, unspecified ligament, initial encounter Contusion of left ankle, initial encounter [facility]* Type Description Date Medical History anxiety Medical History migraine headache Medical History PTSD Surgical History wisdom teeth Surgical History ankle surgery Hospitalization History preclampsia Hospitalization History car fell on pt in 10/2017 [facility] Other Summary Purpose Family History Relationship Condition Age at Onset Recorded Date/T tim father Heart disease Unknown Diabetes mellitus Unknown Unknown Not Specified Hypertension Unknown Advance Directives Advance Directive Response Recorded Date/ Time Advance Directives No August 07, 2018 8:33am Chief Complaint and Reason for Visit Chief Complaint sore throat, loss vo ice Additional Source Comments INFORMATION SOURCE (unrecogn ized section and content) DATE CREATED AUTHOR 12/19/2017 [facility] DATE CREATED AUTHOR AUTHOR'S ORGANIZ ATION 12/27/2017 [facility] DATE CREATED AUTHOR AUTHOR'S ORGANIZ ATION 06/07/2022 [facility] DATE CREATED AUTHOR AUTHOR'S ORGANIZ ATION 05/25/2023 [facility] DATE CREATED AUTHOR AUTHOR'S ORGANIZ ATION 10/27/2023 [facility] DATE CREATED AUTHOR AUTHOR'S ORGANIZ ATION 05/14/2024 [facility] EPIC REASON FOR VISIT (unrecogniz ed section and content) Reason Comments Pain Care Teams (unrecognized sec tion and content) [...] September 25, 2023 End: September 25, 2023 Marketing Strategy Lead Relationship Specialty Start Date End Date Israel Teixeira CRNP [address] [place] [address] Referring Physician Nurse Practitioner 05/13/24 Goals (unrecognized section and content) Goals may [...] BE BASED ON THE PRIMARY CLINICAL RECORDS. [facility]. provides no warranty or guarantee of the accuracy or completeness of information in this document.
== END 2024-05-24 07:51 | disposition home or self-care (01) ==
LOC: MRI 07:50
PROVIDERS: PCP Nurse Practitioner; Visit Provider Nurse Practitioner Family
DX: S93.402A Sprain of unspecified ligament of left ankle, initial encounter (principal); S90.02XA Contusion of left ankle, initial encounter
CPT/HCPCS: 73721

== ENCOUNTER 2024-10-18 20:28 | Emergency (ER) | payer MEDICAID, SELFPAY ==
[2024-10-18 20:54] VITALS: BP 140/82; PULSE 115; TEMP 36.8; O2SAT 99; BMI 47.0
--- OUTSIDE RECORDS SUMMARY | 2024-10-18 21:22 | XMS_ITS | CCD ---
Author Organization [facility] CliniSyma Care Team Providers Care Multilith Operator Name Role Phone HUMAIRAOPAL Unavailable Unavailable HUMAIRASHERINEUS Unavailable Unavailable SELF, REFERRED Unavailable Unavailable SELF, REFERRED Unavailable Unavailable Jaymie Tripp Unavailable Cleopatra Durbin Unavailable FRANCISCO, DR LUDWIG Primary Care Unavailable ABHINAV, NAHID Admitting Unavailable NAHID LA Attending Unavailable ABHINAV, NAHID Consulting Unavailable FRANCISCO, [...] Unavailable ADIS, DR OLESYA Gtz Admitting Unavailabl e ADIS, DR OLESYA Gtz Attending Unavailabl e ADIS, [...] Provider Unava ilable MO Singh Attending Provider [phone] Jeimy Verduzco Unavailable Sherron Singh Attending Unavailable Sherron Singh Admitting Unavailable NO FAMILY, PHYSICIAN Primary Care Unavailable JORI ENRIQUEZ Attending Unavailable VANI SINGH Referring Unavailable TRINI, ISRAEL Waters Primary Care Unavailable Teixeirajaun EL, [place] Unavailable JACI ARNDT Attending Unavailable APLING, BELINDA Franco Referring Unavailable BRINK, HUYEN Attending Unavailable APLING, BELINDA B Referring Unavailable BRINK, HUYEN Attending Unavailable APLING, BELINDA B Referring Unavailable APLING, BELINDA Franco Attending Unavailable BRINK, HUYEN Attending Unavailable APLING, BELINDA B Referring Unavailable TATTERSALL, KALEB Attending Unavailable APLING, BELINDA B Referring Unavailable BLACKSTON, JESUSITA Heller Attending Unavailable APLING, [...] Attending Unavailable APLING, BELINDA B Attending Unavailable Teixeira STACK MATCHER-CONSUMER STUDIES PROFESSOR, Israel Waters Primary Care Provid er Allergies Allergy Classification Reported Allergen(s) Allergy Type Date of Onset Reaction(s) Facility (4 sources) codeine; Translations: [CODEINE] Drug Allergy 5 vomiting and can't control body [facility] Repository (3 sources) erythromycin base Drug allergy (disorder) 1 rash [facility] Repository (6 sources) Acetaminophen / Codeine Drug Allergy vomiting and can't control body [facility] Other (14 sources) Cephalexin; Translations: [CEPHALEXIN] Drug Allergy 1 [facility] (13 sources) Erythromycin; Translations: [ERYTHROMYCIN] Drug Allergy 7 rash [facility] Repository (10 sources) nickel; Translations: [NICKEL] Drug Allergy 1 [facility] (1 source) Cephalexin Drug Allergy 0 [facility] Repository (1 source) Leucine Drug Allergy [facility] Repository (1 source) Acetaminophen Drug Allergy 4 vomiting and can't control body [facility] (4 sources) Acetaminophen / Codeine Drug Allergy 3 [facility] (4 sources) nickel sulfate Drug Allergy 3 [facility] (2 sources) Codeine Drug Allergy 7 [facility] [employer] [facility] Work Phone: Medications Current Medications Medication Drug Class(es) Dates [...] oral tablet (1 source) alpha-Adrenergic Agonist, Uncompetitive G-fzefgy-A-asparta te Receptor Antagonist, Sigma-1 Agonist Start: 02-09-2023 take 1 tablet by mouth every six hours as needed for cough Capmist DM 60-15-400 MG 1 tablet Orally q6hrs prn congestion/cough for 7 days Jan, Active Ethinyl Estradiol / Ferrous fumarate / Norethindrone (2 sources) Estrogen norethindrone-e. es tradiol-iron (ESTROSTEP FE) 1-20(5)/1-30(7) /1mg-35mcg (9) tablet Take 1 tablet by mouth in the morning. Active ethinyl estradiol 0.035 mg / norethindrone 1 mg oral tablet (6 sources) Estrogen Start: 09-16-2024 take 1 tablet by mouth once daily, then take [id number] 57 tablet by mouth once norethindrone-ethi n estradioL (NORTREL 1/35, 28,) 1-35 mg-mcg per tablet Indications: Encounter for gynecological examination (general) (routine) without abnormal findings TAKE 1 TABLET BY MOUTH DAILY 28 tablet 6 09/16/2024 Active Start: 09-25-2023 Norethindrone- Ethin Estradiol (Nortrel 1/35 (28)) 1-35 mg-mcg tablet [...] as directed left ankle sprain Apr, Active benzocaine 6 mg / menthol 10 mg oral lozenge (1 source) Standardized Chemical Allergen Start: 06-09-2021 End: 10-25-2023 take 1 tablet by mouth every two hours as needed benzocaine-menthoL (CHLORASEPTIC SORE THROAT) 6-10 mg lozenge Dissolve 1 lozenge in the mouth every 2 (two) hours as needed for sore throat. 100 tablet 06/09/2021 10/25/2023 Discontinued (Therapy completed) escitalopram 20 mg oral tablet (7 sources) Serotonin Reuptake Inhibitor End: 10-25-2023 take 1 tablet by mouth once daily escitalopram (LEXAPRO) 20 mg tablet Take 20 mg by mouth daily. 10/25/2023 Discontinued (Therapy completed) Lexapro Active hydrOXYzine hydrochloride 25 mg oral tablet (1 source) Antihistamine Start: 01-24-2023 take 1 tablet by mouth every eight hours as needed hydrOXYzine HCl 25 MG 1 tablet Orally q8hrs prn itching, rash for 5 days Dec, Not-Taking ibuprofen 800 mg oral tablet (5 sources) Nonsteroidal Anti-inflammatory Drug Start: 04-24-2021 End: 10-25-2023 take 1 tablet by mouth three times daily ibuprofen (ADVIL,MOTRIN) 800 mg tablet Take 1 tablet (800 mg total) by mouth 3 (three) times a day. 21 tablet 04/24/2021 10/25/2023 Discontinued (Therapy completed) ibuprofen 600 MG tablet every 8 (eight) hours. Active liraglutide (2 sources) GLP-1 Receptor Agonist End: [...] Active Problems Problem Classification Problem Date Documented Date Episodic/Chronic Allergic reactions (9 sources) Allergy status to narcotic agent status; Translations: [Allergy to bee venom] Onset: 11-07-2017 Resolved: 03-29-2021 Episodic Anxiety disorders (2 sources) Posttraumatic stress disorder; Translations: [Post-traumatic stress disorder, unspecified] 10-25-2023 Chronic Diabetes mellitus without complication (2 sources) Impaired fasting glucose; Translations: [Impaired fasting glycemia] Onset: 10-25-2023 10-25-2023 Episodic Headache; including migraine (4 sources) [...] Onset: 11-07-2017 Episodic Other non-traumatic joint disorders (4 sources) Ankle pain; Translations: [Pain in left [...] (BMI) 45.0-49.9, adult] Onset: 10-25-2023 Chronic Other nutritional; endocrine; and metabolic disorders (1 source) Severe obesity; Translations: [Morbid (severe) obesity due to excess calories] 10-25-2023 Chronic Other upper respiratory disease (6 sources) Seasonal allergy; Translations: [Other seasonal allergic rhinitis] Chronic Other upper respiratory disease (1 source) Nasal congestion Episodic Other upper respiratory infections (6 sources) Frontal sinusitis; Translations: [Chronic frontal sinusitis] Chronic Other upper respiratory infections (6 sources) Acute upper respiratory infection, unspecified; Translations: [Acute sinusitis, unspecified] Onset: 09-15-2021 Resolved: 10-20-2021 Episodic Sprains and strains (5 sources) Sprain of unspecified ligament of right [...] Classification Problem Date Documented Da te Episodic/Chronic Contraceptive and procreative management (1 source) Patient encounter status; Translations: [Encounter for other general counseling and advice on contraception] 10-25-2023 Episodic Disorders of teeth and jaw (9 sources) [...] WITHOUT LOC INITIAL ENC] Onset: 03-07-2022 Episodic Mood disorders (2 sources) Mood disorders Onset: 10-25-2023 10-25-2023 Nonspecific chest pain (4 sources) Chest pain, unspecified; Translations: [CHEST PAIN UNSPECIFIED] Onset: 06-15-2021 Episodic Other aftercare (1 source) Other extermination inspector (current) drug therapy; Translations: [OTH INGOT CASTER CURRENT DRUG THERAPY] Onset: 03-07-2022 Episodic Other aftercare (1 source) rn long term care (current) use of hormonal contraceptives; Translations: [INGOT CASTER HORMONAL CONTRACEPTIVES] Onset: 07-20-2021 Episodic Other injuries [...] Test Name Value Interpretation Reference Range Facility POCT Hemoglobin [id number] B y: Henna Chano on 10-25-2023 HbA1c (Bld) [Mass fraction] 5.3 g/dL 4 - 7 g/dL [facility] No Panel InformationOrdered By: Sophia Bryan on 09-25-2023 Quick Strep (POC) [facility] COVID Quick Testingon 2022 Result Negative [facility] Other XR knee RT 4V*on 01-17-2023 XR knee RT 4V* [place] [address] XRay Report Signed Patient: Nickie Ford MR#: [id number] 271 : 1990 Acct:[id number] Age/Sex: 32 / F ADM Date: 01/17/23 Loc: XDUCLY Room: Type: [facility] Attending Dr: Sherron Singh APRN Copies to: [...] Elena Lucio M.D.01/17/2023 9:46 AM Dictation Location: [facility]--10 Transcribed By: [facility] 01/17/23 0946 Dictated By: Maria Elena Lucio MD 01/17/23 0945 Signed By: 01/17/23 0946 [facility] COVID/FLU RT-PCRon 3 SARS-CoV-2 (COVID-19) RNA SOCO+probe Ql (Unsp spec) Negative [facility] Other COVID/FLU RT-PCR Negative [employer] Other Urinalysis - AUTOMATEDon Appearance (U) cloudy [facility] Other Bilirubin Ql (U) Negative [employer] Other Color (U) dark yellow [facility] Other Glucose Ql (U) Negative [facility] Other Hemoglobin Ql (U) Negative [employer] Other Ketones Ql (U) Negative [facility] Other Leukocyte esterase Test strip Ql (U) Negative [facility] Other Nitrite Ql (U) Negative [facility] Other pH (U) 6.0 [pH] [facility] Other Protein Ql (U) 30 [facility] [employer] Other Specific gravity (U) [Rel density] >=1.030 [facility] Other Urobilinogen (U) [Mass/Vol] 0.2 mg/dL [facility] Other Urinalysis - AUTOMATED [facility] Other Covid-19 PCR ([facility])on SARS-CoV-2 (COVID-19) RNA SOCO+probe Ql (Unsp spec) Not detected Normal NOT DETECTED [facility] Comment on above: Result Comment: When [...] for this test is supported by the Email Marketing Executive of Health and Human Service's declaration that [...] Performed By: #### E ITZEL CHANDLER #### [facility] [address] [place] [address] Dr. Timothy Adair GROUP A STREP CULTUREon S. pyogenes Ag Ql (Unsp spec) Culture Observations: NEGATIVE FOR GROUP A STREPTOCOCCUS. Normal [facility] Comment on above: Performed By: #### C BC #### [facility] [address] [place] [address] Dr. Timothy Adair INFLUENZA A AND B AGon 06-04 INFLUANEGH SEE BELOW Normal [facility] Comment on above: Result Comment: Nega tive for Flu A protein angiten. Infection due to Flu A cannot be ruled out. Flu A angiten in the sample may be below the detection limit of the test. Performed By: #### I NFLUAB #### [facility] [address] [place] [address] Dr. Timothy Adair INFLUBNEGH SEE BELOW Normal [facility] Comment on above: Result Comment: Nega tive for Flu B protein antigen. Infection due to Flu B cannot be ruled out. Flu B antigen in the sample may be below the detection limit of the test. Performed By: #### I NFLUAB #### [facility] [address] [place] [address] Dr. Timothy Adair INFLUENZA A AG Negative Normal NEGATIVE SEE COMMENT [facility] Comment on above: Performed By: #### I NFLUAB #### [facility] [address] [place] [address] Dr. Timothy Adair INFLUENZA B AG Negative Normal NEGATIVE SEE COMMENT [facility] Comment on above: Performed By: #### I NFLUAB #### [facility] [address] [place] [address] Dr. Timothy Adair INTERNAL CONTROLS Within Normal Limits Normal Wi thin Normal Limits [facility] Comment on above: Performed By: #### I NFLUAB #### [facility] [address] [place] [address] Dr. Timothy Adair STREPT SCREENon 06-04-2022 STREP SCREEN A Negative Normal NEGATIVE [facility] Comment on above: Performed By: #### S SCRN #### [facility] [address] [place] [address] Dr. Timothy Adair XR CHEST 1 Von [...] JONH WALTON Date: 2022-06-04 20:47 Normal [facility] CT HEAD WO CONon 03-03-2022 CT [...] DANNY ROCK Date: 2022-03-03 14:44 Normal [facility] COVID Quick Testingon 2021 Result Negative [facility] Other Quick Fluon 10-20-2021 FLUAV Ab CF (S) [Titer] Negative [facility] Other FLUBV Ab CF (S) [Titer] Negative [facility] Other AMYLASEon 09-17-2021 Amylase [Catalytic activity/Vol] 41 U/L Normal 31-110 [facility] Comment on above: Performed By: #### A MY, CMP, LIPA #### [facility] [address] [place] [address] Dr. Timothy Adair CBC AUTO DIFFon 09-17-2021 BASO # 0.0 103/ul Normal 0.0-0.1 [facility] Comment on above: Performed By: #### C BC #### [facility] [address] [address] [address] Timothy Adair Basophils/100 WBC (Bld) 0.4 % Normal 0.2-2.0 [facility] Comment on above: Performed By: #### C BC #### [facility] [address] [address] [address] Timothy Adair EO # 0.0 103/ul Normal 0.0-0.7 [facility] Comment on above: Performed By: #### C BC #### [facility] [address] [place] [address] Dr. Timothy Adair Eosinophils/100 WBC (Bld) 0.4 % Critically low 0.9-7.0 [facility] Comment on above: Performed By: #### C BC #### [facility] [address] [place] [address] Dr. Timothy Adair Erythrocyte distribution width (RBC) [Ratio] 13.0 % Normal 11.0-15.0 [facility] Comment on above: Performed By: #### C BC #### [facility] [address] [place] [address] Dr. Timothy Adair Hematocrit (Bld) [Volume fraction] 40.5 % Normal 36.0-48.0 [facility] Comment on above: Performed By: #### C BC #### [facility] [address] [place] [address] Dr. Timothy Adair Hemoglobin (Bld) [Mass/Vol] 13.1 g/dL Normal 12.0-16.0 [facility] Comment on above: Performed By: #### C BC #### [facility] [address] [place] [address] Dr. Timothy Adair IG # 0.04 10e3/ul Critically high 0.00-0.03 [facility] Comment on above: Performed By: #### C BC #### [facility] [address] [place] [address] Dr. Timothy Adair IG % 0.4 % Normal 0.0-0.5 [facility] Comment on above: Performed By: #### C BC #### [facility] [address] [place] [address] Dr. Timothy Adair LYMPH # 1.9 103/ul Normal 1.2-3.8 [facility] Comment on above: Performed By: #### C BC #### [facility] [address] [place] [address] Dr. Timothy Adair Lymphocytes/100 WBC (Bld) 16.8 % Critically low 20.5-60.0 [facility] Comment on above: Performed By: #### C BC #### [facility] [address] [place] [address] Dr. Timothy Adair MANUAL DIFF REQ NO Normal [facility] Comment on above: Performed By: #### C BC #### [facility] [address] [place] [address] Dr. Timothy Adair MCH (RBC) [Entitic mass] 27.5 pg Normal 26.7-34.0 [facility] Comment on above: Performed By: #### C BC #### [facility] [address] [place] [address] Dr. Timothy Adair MCHC (RBC) [Mass/Vol] 32.3 g/dL Normal 29.9-35.2 [facility] Comment on above: Performed By: #### C BC #### [facility] [address] [place] [address] Dr. Timothy Adair MCV (RBC) [Entitic vol] 85.1 fL Normal 81.0-99.0 [facility] Comment on above: Performed By: #### C BC #### [facility] [address] [place] [address] Dr. Timothy Adair MONO # 0.5 103/ul Normal 0.3-0.8 [facility] Comment on above: Performed By: #### C BC #### [facility] [address] [place] [address] Dr. Timothy Adair Monocytes/100 WBC (Bld) 4.7 % Normal 1.7-12.0 [facility] Comment on above: Performed By: #### C BC #### [facility] [address] [place] [address] Dr. Timothy Adair NEUT # 8.6 103/ul Critically high 1.4-6.5 [facility] Comment on above: Performed By: #### C BC #### [facility] [address] [place] [address] Dr. Timothy Adair Neutrophils/100 WBC (Bld) 77.3 % Critically high 43.0-75.0 [facility] Comment on above: Performed By: #### C BC #### [facility] [address] [place] [address] Dr. Timothy Adair Platelet mean volume (Bld) [Entitic vol] 9.9 fL Normal 9.5-13.5 [facility] Comment on above: Performed By: #### C BC #### [facility] [address] [place] [address] Dr. Timothy Adair PLT 357 103/ul Normal 150-450 [facility] Comment on above: Performed By: #### C BC #### [facility] [address] [place] [address] Dr. Timothy Adair RBC 4.76 106/ul Normal 4.20-5.40 [facility] Comment on above: Performed By: #### C BC #### [facility] [address] [place] [address] Dr. Timothy Adair WBC 11.1 103/ul Critically high 4.0-11.0 [facility] Comment on above: Performed By: #### C BC #### [facility] [address] [place], [place] [id number] Dr. Timothy Adair CULTURE URINEon 09-17-2021 CULTURE URINE Culture Observations : LIGHT GROWTH OF MIXED GENITAL CHRISTINE. NO POTENTIAL PATHOGENS SEEN. Normal [facility] Comment on above: Performed By: #### C BC #### [facility] [address] [place] [address] Dr. Timothy Adair ER URINE PROFILEon 03-18-202 2 Bilirubin Ql (U) Negative Normal NEGATIVE [facility] Comment on above: Performed By: #### Sanjiv CHANDLER UMICRO #### [facility] [address] [place] [address] Dr. Timothy Adair Clarity (U) CLEAR Normal CLEAR [facility] Comment on above: Performed By: #### Sanjiv CHANDLER, UMICRO #### [facility] [address] [address] [address] Timothy Adair Color (U) LT. YELLOW Normal YELLOW [facility] Comment on above: Performed By: #### Sanjiv CHANDLER UMICRO #### [facility] [address] [place] [address] Dr. Timothy GALVAN A micrscopic examination will be performed if indicated. Normal [facility] Comment on above: Performed By: #### Sanjiv CHANDLER UMICRO #### [facility] [address] [place] [address] Dr. Timothy Adair Glucose Ql (U) Negative Normal NEGATIVE [facility] Comment on above: Performed By: #### Sanjiv CHANDLER UMICRO #### [facility] [address] [place] [address] Dr. Timothy Adair Hemoglobin Ql (U) TRACE-INTACT Abnormal NEGATIVE [facility] Comment on above: Performed By: #### Sanjiv CHANDLER UMICRO #### [facility] [address] [place] [address] Dr. Timothy Adair Ketones Ql (U) Negative Normal NEGATIVE [facility] Comment on above: Performed By: #### Sanjiv CHANDLER UMICRO #### [facility] [address] [place] [address] Dr. Timothy Adair LEUKOCYTES SMALL Abnormal NEGATIVE [facility] Comment on above: Performed By: #### Sanjiv CHANDLER UMICRO #### [facility] [address] [place] [address] Dr. Timothy Adair Nitrite Ql (U) Negative Normal NEGATIVE [facility] Comment on above: Performed By: #### Sanjiv CHANDLER UMICRO #### [facility] [address] [place] [address] Dr. Timothy Adair pH (U) 5.0 [pH] Normal 5-9 [facility] Comment on above: Performed By: #### ITZEL LINARES #### [facility] [address] [place] [address] Dr. Timothy Adair SPEC GRAVITY >=1.030 Abnormal 1.005-<=1.0 25 [facility] Comment on above: Performed By: #### ITZEL LINARES #### [facility] [address] [place] [address] Dr. Timothy Adair UA PROTEIN Negative Normal NEGATIVE/ TRACE [facility] Comment on above: Performed By: #### ITZEL LINARES #### [facility] [address] [place] [address] Dr. Timothy Adair UR MICRO IND INDICATED Normal [facility] Comment on above: Performed By: #### ITZEL LINARES #### [facility] [address] [place] [address] Dr. Timothy Adair Urobilinogen Qn (U) 0.2 {João'U}/dL Normal 0.2 - 1. 0 [facility] Comment on above: Performed By: #### ITZEL LINARES #### [facility] [address] [place] [address] Dr. Timothy Adair LIPASEon 09-17-2021 Lipase [Catalytic activity/Vol] 125.0 U/L Normal 23.0-300.0 [facility] Comment on above: Performed By: #### A MY, CMP, LIPA #### [facility] [address] [place] [address] Dr. Timothy Adair PROF 14(COMP METB)on 022 Albumin [Mass/Vol] 3.1 g/dL Critically low 3.5-5.0 [facility] Comment on above: Performed By: #### A MY, CMP, LIPA #### [facility] [address] [place] [address] Dr. Timothy Adair Albumin/Globulin [Mass ratio] 0.6 {ratio} Normal [facility] Comment on above: Performed By: #### A MY, CMP, LIPA #### [facility] [address] [address] [address] Timothy Adair ALP [Catalytic activity/Vol] 105 U/L Normal 38-126 [facility] Comment on above: Performed By: #### A MY, CMP, LIPA #### [facility] [address] [address] [address] Timothy Adair ALT [Catalytic activity/Vol] 18 U/L Normal 9-52 [facility] Comment on above: Performed By: #### A MY, CMP, LIPA #### [facility] [address] [place] [address] Dr. Timothy Adair Anion gap [Moles/Vol] 13.6 mmol/L Normal [facility] Comment on above: Performed By: #### A MY, CMP, LIPA #### [facility] [address] [place] [address] Dr. Timothy Adair AST [Catalytic activity/Vol] 14 U/L Normal 14-36 [facility] Comment on above: Performed By: #### A MY, CMP, LIPA #### [facility] [address] [place] [address] Dr. Timothy Adair Bilirubin [Mass/Vol] 0.3 mg/dL Normal 0.2-1.3 [facility] Comment on above: Performed By: #### A MY, CMP, LIPA #### [facility] [address] [place] [address] Dr. Timothy Adair Calcium [Mass/Vol] 8.8 mg/dL Normal 8.4-10.2 [facility] Comment on above: Performed By: #### A MY, CMP, LIPA #### [facility] [address] [place] [address] Dr. Timothy Adair Chloride [Moles/Vol] 101 mmol/L Normal 98-107 [facility] Comment on above: Performed By: #### A MY, CMP, LIPA #### [facility] [address] [place] [address] Dr. Timothy Adair CO2 [Moles/Vol] 28.2 mmol/L Normal 22.0-30.0 [facility] Comment on above: Performed By: #### A MY, CMP, LIPA #### [facility] [address] [address] [address] Timothy Adair Creatinine [Mass/Vol] 0.87 mg/dL Normal 0.52-1.04 [facility] Comment on above: Performed By: #### A MY, CMP, LIPA #### [facility] [address] [address] [address] Timothy Adair EGFR-AF PUERTO RICAN >60 Normal >=60 [facility] Comment on above: Performed By: #### A MY, CMP, LIPA #### [facility] [address] [address] [address] Timothy Adair EGFR-NON AF PUERTO RICAN >60 Normal >=60 [facility] Comment on above: Performed By: #### A MY, CMP, LIPA #### [facility] [address] [address] [address] Timothy Adair Globulin (S) [Mass/Vol] 5.2 g/dL Normal [facility] Comment on above: Performed By: #### A MY, CMP, LIPA #### [facility] [address] [address] [address] Timothy Adair Glucose [Mass/Vol] 111 mg/dL Critically high 74-106 [facility] Comment on above: Performed By: #### A MY, CMP, LIPA #### [facility] [address] [address] [address] Timothy Adair Potassium [Moles/Vol] 3.8 mmol/L Normal 3.4-5.0 [facility] Comment on above: Performed By: #### A MY, CMP, LIPA #### [facility] [address] [address] [address] Timothy Adair Protein [Mass/Vol] 8.3 g/dL Critically high 6.1-8.2 [facility] Comment on above: Performed By: #### A MY, CMP, LIPA #### [facility] [address] [place] [address] Dr. Timothy Adair Sodium [Moles/Vol] 139 mmol/L Normal 137-145 [facility] Comment on above: Performed By: #### A MY, CMP, LIPA #### [facility] [address] [place] [address] Dr. Timothy Adair Urea nitrogen [Mass/Vol] 15.0 mg/dL Normal 7.0-17.0 [facility] Comment on above: Performed By: #### A MY, CMP, LIPA #### [facility] [address] [place] [address] Dr. Timothy Adair Urea nitrogen/Creatinine [Mass ratio] 17.2 mg/mg Normal [facility] Comment on above: Performed By: #### A RYANN, CMP, LIPA #### [facility] [address] [place] [address] Dr. Timothy Adair URINE MICROSCOPIC ONLYon BACTERIA LARGE Abnormal NONE SEEN [facility] Comment on above: Performed By: #### Sanjiv CHANDLER UMICRO #### [facility] [address] [place] [address] Dr. Timothy Adair Bacteria identified Cx Nom (U) INDICATED Normal [facility] Comment on above: Performed By: #### Sanjiv CHANDLER UMICRO #### [facility] [address] [place] [address] Dr. Timothy Adair CAST NONE SEEN Normal NONE SEEN [facility] Comment on above: Performed By: #### Sanjiv CHANDLER UMICRO #### [facility] [address] [place] [address] Dr. Timothy Adair Crystals LM Nom (Urine sed) NONE SEEN Normal NONE SEEN [facility] Comment on above: Performed By: #### Sanjiv CHANDLER UMICRO #### [facility] [address] [place] [address] Dr. Timothy Adair Epithelial cells LM Ql (Urine sed) MODERATE Abnormal NONE SEEN /RARE [facility] Comment on above: Performed By: #### Sanjiv CHANDLER UMICRO #### [facility] [address] [place] [address] Dr. Timothy Adair MUCOUS SMALL Abnormal NONE SEEN [facility] Comment on above: Performed By: #### ITZEL LINARES #### [facility] [address] [place] [address] Dr. Timothy Adair RBC 0-2 Normal 0-2 [facility] Comment on above: Performed By: #### ITZEL LINARES #### [facility] [address] [place] [address] Dr. Timothy Adair WBC 5-10 Abnormal NONE SEEN [facility] Comment on above: Performed By: #### ITZEL LINARES #### [facility] [address] [place] [address] Dr. Timothy Adair CBC AUTO DIFFon 07-19-2021 BASO # 0.0 103/ul Normal 0.0-0.1 [facility] Comment on above: Performed By: #### ITZEL LINARES #### [facility] [address] [place] [address] Dr. Timothy Adair Basophils/100 WBC (Bld) 0.1 % Critically low 0.2-2.0 [facility] Comment on above: Performed By: #### ITZEL LINARES #### [facility] [address] [place] [address] Dr. Timothy Adair EO # 0.0 103/ul Normal 0.0-0.7 [facility] Comment on above: Performed By: #### ITZEL LINARES #### [facility] [address] [place] [address] Dr. Timothy Adair Eosinophils/100 WBC (Bld) 0.0 % Critically low 0.9-7.0 [facility] Comment on above: Performed By: #### ITZEL LINARES #### [facility] [address] [place] [address] Dr. Timothy Adair Erythrocyte distribution width (RBC) [Ratio] 12.8 % Normal 11.0-15.0 [facility] Comment on above: Performed By: #### ITZEL LINARES #### [facility] [address] [place] [address] Dr. Timothy Adair Hematocrit (Bld) [Volume fraction] 36.6 % Normal 36.0-48.0 [facility] Comment on above: Performed By: #### E RAMESH, UMICRO #### [facility] [address] [place] [address] Dr. Timothy Adair Hemoglobin (Bld) [Mass/Vol] 12.0 g/dL Normal 12.0-16.0 [facility] Comment on above: Performed By: #### Sanjiv CHANDLER, UMICRO #### [facility] [address] [place] [address] Dr. Timothy Adair IG # 0.03 10e3/ul Normal 0.00-0.03 [facility] Comment on above: Performed By: #### Sanjiv CHANDLER, UMICRO #### [facility] [address] [place] [address] Dr. Timothy Adair IG % 0.4 % Normal 0.0-0.5 [facility] Comment on above: Performed By: #### Sanjiv CHANDLER UMICRO #### [facility] [address] [place] [address] Dr. Timothy Adair LYMPH # 1.0 103/ul Critically low 1.2-3.8 [facility] Comment on above: Performed By: #### Sanjiv CHANDLER, UMICRO #### [facility] [address] [place] [address] Dr. Timothy Adair Lymphocytes/100 WBC (Bld) 13.2 % Critically low 20.5-60.0 [facility] Comment on above: Performed By: #### Sanjiv CHANDLER, UMICRO #### [facility] [address] [place] [address] Dr. Timothy Adair MANUAL DIFF REQ NO Normal [facility] Comment on above: Performed By: #### E RUPatty, UMICRO #### [facility] [address] [place] [address] Dr. Timothy Adair MCH (RBC) [Entitic mass] 28.1 pg Normal 26.7-34.0 [facility] Comment on above: Performed By: #### MASOOD LINARESRO #### [facility] [address] [place] [address] Dr. Timothy Adair MCHC (RBC) [Mass/Vol] 32.8 g/dL Normal 29.9-35.2 [facility] Comment on above: Performed By: #### MASOOD LINARESRO #### [facility] [address] [place] [address] Dr. Timothy Adair MCV (RBC) [Entitic vol] 85.7 fL Normal 81.0-99.0 [facility] Comment on above: Performed By: #### MASOOD LINARESRO #### [facility] [address] [place] [address] Dr. Timothy Adair MONO # 0.1 103/ul Critically low 0.3-0.8 [facility] Comment on above: Performed By: #### MASOOD LINARESRO #### [facility] [address] [place] [address] Dr. Timothy Adair Monocytes/100 WBC (Bld) 0.9 % Critically low 1.7-12.0 [facility] Comment on above: Performed By: #### MASOOD LINARESRO #### [facility] [address] [place] [address] Dr. Timothy Adair NEUT # 6.6 103/ul Critically high 1.4-6.5 [facility] Comment on above: Performed By: #### MASOOD LINARESRO #### [facility] [address] [place] [address] Dr. Timothy Adair Neutrophils/100 WBC (Bld) 85.4 % Critically high 43.0-75.0 [facility] Comment on above: Performed By: #### MASOOD LINARESRO #### [facility] [address] [place] [address] Dr. Timothy Adair Platelet mean volume (Bld) [Entitic vol] 10.3 fL Normal 9.5-13.5 [facility] Comment on above: Performed By: #### E RUR, UMICRO #### [facility] [address] [place] [address] Dr. Timothy Adair PLT 341 103/ul Normal 150-450 [facility] Comment on above: Performed By: #### Sanjiv CHANDLER UMICRO #### [facility] [address] [place] [address] Dr. Timothy Adair RBC 4.27 106/ul Normal 4.20-5.40 [facility] Comment on above: Performed By: #### Sanjiv CHANDLER UMICRO #### [facility] [address] [place] [address] Dr. Timothy Adair WBC 7.7 103/ul Normal 4.0-11.0 [facility] Comment on above: Performed By: #### Sanjiv CHANDLER UMICRO #### [facility] [address] [place] [address] Dr. Timothy Adair PROF CHEM 8 (BAS METB)on Anion gap [Moles/Vol] 17.1 mmol/L Normal [facility] Comment on above: Performed By: #### Sanjiv CHANDLER UMICRO #### [facility] [address] [place] [address] Dr. Timothy Adair Calcium [Mass/Vol] 9.2 mg/dL Normal 8.4-10.2 [facility] Comment on above: Performed By: #### Sanjiv CHANDLER UMICRO #### [facility] [address] [place] [address] Dr. Timothy Adair Chloride [Moles/Vol] 100 mmol/L Normal 98-107 [facility] Comment on above: Performed By: #### Sanjiv CHANDLER UMICRO #### [facility] [address] [place] [address] Dr. Timothy Adair CO2 [Moles/Vol] 24.1 mmol/L Normal 22.0-30.0 [facility] Comment on above: Performed By: #### Sanjiv CHANDLER, UMICRO #### [facility] [address] [place] [address] Dr. Timothy Adair Creatinine [Mass/Vol] 0.99 mg/dL Normal 0.52-1.04 [facility] Comment on above: Performed By: #### ITZEL LINARES #### [facility] [address] [place] [address] Dr. Timothy Adair EGFR-AF PUERTO RICAN >60 Normal >=60 [facility] Comment on above: Performed By: #### ITZEL LINARES #### [facility] [address] [place] [address] Dr. Timothy Adair EGFR-NON AF PUERTO RICAN >60 Normal >=60 [facility] Comment on above: Performed By: #### ITZEL LINARES #### [facility] [address] [place] [address] Dr. Timothy Adair Glucose [Mass/Vol] 154 mg/dL Critically high 74-106 [facility] Comment on above: Performed By: #### ITZEL LINARES #### [facility] [address] [place] [address] Dr. Timothy Adair Potassium [Moles/Vol] 4.2 mmol/L Normal 3.4-5.0 [facility] Comment on above: Performed By: #### ITZEL LINARES #### [facility] [address] [place] [address] Dr. Timothy Adair Sodium [Moles/Vol] 137 mmol/L Normal 137-145 [facility] Comment on above: Performed By: #### ITZEL LINARES #### [facility] [address] [place] [address] Dr. Timothy Adair Urea nitrogen [Mass/Vol] 13.0 mg/dL Normal 7.0-17.0 [facility] Comment on above: Performed By: #### ITZEL LINARES #### [facility] [address] [place] [address] Dr. Timothy Adair Urea nitrogen/Creatinine [Mass ratio] 13.1 mg/mg Normal [facility] Comment on above: Performed By: #### ITZEL LINARES #### [facility] [address] [place] [address] Dr. Timothy Adair CBC AUTO DIFFon 07-18-2021 BASO # 0.0 103/ul Normal 0.0-0.1 [facility] Comment on above: Performed By: #### C BC #### [facility] [address] [address] [address] Timothy Adair Basophils/100 WBC (Bld) 0.3 % Normal 0.2-2.0 [facility] Comment on above: Performed By: #### C BC #### [facility] [address] [address] [address] Timothy Adair EO # 0.0 103/ul Normal 0.0-0.7 [facility] Comment on above: Performed By: #### C BC #### [facility] [address] [place] [address] Dr. Timothy Adair Eosinophils/100 WBC (Bld) 0.1 % Critically low 0.9-7.0 [facility] Comment on above: Performed By: #### C BC #### [facility] [address] [place] [address] Dr. Timothy Adair Erythrocyte distribution width (RBC) [Ratio] 13.2 % Normal 11.0-15.0 [facility] Comment on above: Performed By: #### C BC #### [facility] [address] [place] [address] Dr. Timothy Adair Hematocrit (Bld) [Volume fraction] 39.1 % Normal 36.0-48.0 [facility] Comment on above: Performed By: #### C BC #### [facility] [address] [place] [address] Dr. Timothy Adair Hemoglobin (Bld) [Mass/Vol] 12.9 g/dL Normal 12.0-16.0 [facility] Comment on above: Performed By: #### C BC #### [facility] [address] [place] [address] Dr. Timothy Adair IG # 0.04 10e3/ul Critically high 0.00-0.03 [facility] Comment on above: Performed By: #### C BC #### [facility] [address] [place] [address] Dr. Timothy Adair IG % 0.3 % Normal 0.0-0.5 [facility] Comment on above: Performed By: #### C BC #### [facility] [address] [place] [address] Dr. Timothy Adair LYMPH # 3.7 103/ul Normal 1.2-3.8 [facility] Comment on above: Performed By: #### C BC #### [facility] [address] [place] [address] Dr. Timothy Adair Lymphocytes/100 WBC (Bld) 32.3 % Normal 20.5-60.0 [facility] Comment on above: Performed By: #### C BC #### [facility] [address] [place] [address] Dr. Timothy Adair MANUAL DIFF REQ NO Normal [facility] Comment on above: Performed By: #### C BC #### [facility] [address] [place] [address] Dr. Timothy Adair MCH (RBC) [Entitic mass] 27.9 pg Normal 26.7-34.0 [facility] Comment on above: Performed By: #### C BC #### [facility] [address] [place] [address] Dr. Timothy Adair MCHC (RBC) [Mass/Vol] 33.0 g/dL Normal 29.9-35.2 [facility] Comment on above: Performed By: #### C BC #### [facility] [address] [place] [address] Dr. Timothy Adair MCV (RBC) [Entitic vol] 84.4 fL Normal 81.0-99.0 [facility] Comment on above: Performed By: #### C BC #### [facility] [address] [place] [address] Dr. Timothy Adair MONO # 0.5 103/ul Normal 0.3-0.8 [facility] Comment on above: Performed By: #### C BC #### [facility] [address] [place] [address] Dr. Timothy Adair Monocytes/100 WBC (Bld) 3.9 % Normal 1.7-12.0 [facility] Comment on above: Performed By: #### C BC #### [facility] [address] [place] [address] Dr. Timothy Adair NEUT # 7.3 103/ul Critically high 1.4-6.5 [facility] Comment on above: Performed By: #### C BC #### [facility] [address] [place] [address] Dr. Timothy Adair Neutrophils/100 WBC (Bld) 63.1 % Normal 43.0-75.0 [facility] Comment on above: Performed By: #### C BC #### [facility] [address] [place] [address] Dr. Timothy Adair Platelet mean volume (Bld) [Entitic vol] 10.4 fL Normal 9.5-13.5 [facility] Comment on above: Performed By: #### C BC #### [facility] [address] [place] [address] Dr. Timothy Adair PLT 319 103/ul Normal 150-450 [facility] Comment on above: Performed By: #### C BC #### [facility] [address] [place] [address] Dr. Timothy Adair RBC 4.63 106/ul Normal 4.20-5.40 [facility] Comment on above: Performed By: #### C BC #### [facility] [address] [place] [address] Dr. Timothy Adair WBC 11.5 103/ul Critically high 4.0-11.0 [facility] Comment on above: Performed By: #### C BC #### [facility] [address] [place] [address] FACIAL BONES W [...] NIKOLAY LOTT Date: 2021-07-18 14:44 Normal [facility] CT NECK ST W CONon 2 CT NECK RUST CON STUDY: CT neck with contrast TECHNIQUE: [...] NIKOLAY LOTT Date: 2021-07-18 14:37 Normal [facility] CULTURE BLOODon 07-18-2021 Microscopic examination of blood, culture Culture Observations: NO GROWTH AT 5 DAYS. Normal [facility] Comment on above: Performed By: #### C BC #### [facility] [address] [place] [address] Dr. Timothy Adair Microscopic examination of blood, culture Culture Observations: NO GROWTH AT 5 DAYS. Normal [facility] Comment on above: Performed By: #### C BC #### [facility] [address] [place] [address] Dr. Timothy Adair [facility] SARS-CoV-2 (COVID-19) RNA SOCO+probe Ql (Unsp spec) Not detected Normal NOT DETECTED [facility] Comment on above: Result Comment: When diagnostic [...] for this test is supported by the Email Marketing Executive of Health and Human Service's declaration that [...] used). Performed By: #### C BC #### [facility] [address] [place] [address] Dr. Timothy Adair PROF CHEM 8 (BAS METB)on Anion gap [Moles/Vol] 11.2 mmol/L Normal [facility] Comment on above: Performed By: #### ITZEL LINARES #### [facility] [address] [place] [address] Dr. Timothy Adair Calcium [Mass/Vol] 8.7 mg/dL Normal 8.4-10.2 [facility] Comment on above: Performed By: #### ITZEL LINARES #### [facility] [address] [place] [address] Dr. Timothy Adair Chloride [Moles/Vol] 99 mmol/L Normal 98-107 [facility] Comment on above: Performed By: #### ITZEL LINARES #### [facility] [address] [place] [address] Dr. Timothy Adair CO2 [Moles/Vol] 28.7 mmol/L Normal 22.0-30.0 [facility] Comment on above: Performed By: #### ITZEL LINARES #### [facility] [address] [place] [address] Dr. Timothy Adair Creatinine [Mass/Vol] 0.84 mg/dL Normal 0.52-1.04 [facility] Comment on above: Performed By: #### ITZEL LINARES #### [facility] [address] [place] [address] Dr. Timothy Adair EGFR-AF PUERTO RICAN >60 Normal >=60 [facility] Comment on above: Performed By: #### ITZEL LINARES #### [facility] [address] [place] [address] Dr. Timothy Adair EGFR-NON AF PUERTO RICAN >60 Normal >=60 [facility] Comment on above: Performed By: #### ITZEL LINARES #### [facility] [address] [place] [address] Dr. Timothy Adair Glucose [Mass/Vol] 87 mg/dL Normal 74-106 [facility] Comment on above: Performed By: #### ITZEL LINARES #### [facility] [address] [place] [address] Dr. Timothy Adair Potassium [Moles/Vol] 3.9 mmol/L Normal 3.4-5.0 [facility] Comment on above: Performed By: #### ITZEL LINARES #### [facility] [address] [place] [address] Dr. Timothy Adair Sodium [Moles/Vol] 135 mmol/L Critically low 137-145 [facility] Comment on above: Performed By: #### ITZEL LINARES #### [facility] [address] [place] [address] Dr. Timothy Adair Urea nitrogen [Mass/Vol] 12.0 mg/dL Normal 7.0-17.0 [facility] Comment on above: Performed By: #### Sanjiv CHANDLER UMICRO #### [facility] [address] [place] [address] Dr. Timothy Adair Urea nitrogen/Creatinine [Mass ratio] 14.3 mg/mg Normal [facility] Comment on above: Performed By: #### Sanjiv CHANDLER, UMICRO #### [facility] [address] [place] [address] Dr. Timothy Adair CBC AUTO DIFFon 07-17-2021 BASO # 0.0 103/ul Normal 0.0-0.1 [facility] Comment on above: Performed By: #### Sanjiv CHANDLER UMICRO #### [facility] [address] [place] [address] Dr. Timothy Adair Basophils/100 WBC (Bld) 0.1 % Critically low 0.2-2.0 [facility] Comment on above: Performed By: #### Sanjiv CHANDLER, UMICRO #### [facility] [address] [place] [address] Dr. Timothy Adair EO # 0.0 103/ul Normal 0.0-0.7 [facility] Comment on above: Performed By: #### Sanjiv CHANDLER, UMICRO #### [facility] [address] [place] [address] Dr. Timothy Adair Eosinophils/100 WBC (Bld) 0.0 % Critically low 0.9-7.0 [facility] Comment on above: Performed By: #### Sanjiv CHANDLER, UMICRO #### [facility] [address] [place] [address] Dr. Timothy Adair Erythrocyte distribution width (RBC) [Ratio] 13.0 % Normal 11.0-15.0 [facility] Comment on above: Performed By: #### Sanjiv CHANDLER, UMICRO #### [facility] [address] [place] [address] Dr. Timothy Adair Hematocrit (Bld) [Volume fraction] 40.3 % Normal 36.0-48.0 [facility] Comment on above: Performed By: #### MASOOD LINARESRO #### [facility] [address] [place] [address] Dr. Timothy Adair Hemoglobin (Bld) [Mass/Vol] 13.1 g/dL Normal 12.0-16.0 [facility] Comment on above: Performed By: #### MASOOD LINARESRO #### [facility] [address] [place] [address] Dr. Timothy Adair IG # 0.06 10e3/ul Critically high 0.00-0.03 [facility] Comment on above: Performed By: #### MASOOD LINARESRO #### [facility] [address] [place] [address] Dr. Timothy Adair IG % 0.4 % Normal 0.0-0.5 [facility] Comment on above: Performed By: #### MASOOD LINARESRO #### [facility] [address] [place] [address] Dr. Timothy Adair LYMPH # 3.3 103/ul Normal 1.2-3.8 [facility] Comment on above: Performed By: #### MASOOD LINARESRO #### [facility] [address] [place] [address] Dr. Timothy Adair Lymphocytes/100 WBC (Bld) 21.0 % Normal 20.5-60.0 [facility] Comment on above: Performed By: #### MASOOD LINARESRO #### [facility] [address] [place] [address] Dr. Timothy Adair MANUAL DIFF REQ NO Normal [facility] Comment on above: Performed By: #### MASOOD LINARESRO #### [facility] [address] [place] [address] Dr. Timothy Adair MCH (RBC) [Entitic mass] 27.6 pg Normal 26.7-34.0 [facility] Comment on above: Performed By: #### MASOOD LINARESRO #### [facility] [address] [place] [address] Dr. Timothy Adair MCHC (RBC) [Mass/Vol] 32.5 g/dL Normal 29.9-35.2 [facility] Comment on above: Performed By: #### Sanjiv CHANDLER UMICRO #### [facility] [address] [place] [address] Dr. Timothy Adair MCV (RBC) [Entitic vol] 84.8 fL Normal 81.0-99.0 [facility] Comment on above: Performed By: #### Sanjiv CHANDLER, UMICRO #### [facility] [address] [place] [address] Dr. Timothy Adair MONO # 0.8 103/ul Normal 0.3-0.8 [facility] Comment on above: Performed By: #### Sanjiv CHANDLER, UMICRO #### [facility] [address] [place] [address] Dr. Timothy Adair Monocytes/100 WBC (Bld) 5.2 % Normal 1.7-12.0 [facility] [facility] Comment on above: Performed By: #### Sanjiv CHANDLER UMICRO #### [facility] [address] [place] [address] Dr. Timothy Adair NEUT # 11.5 103/ul Critically high 1.4-6.5 [facility] Comment on above: Performed By: #### Sanjiv CHANDLER, UMICRO #### [facility] [address] [place] [address] Dr. Timothy Adair Neutrophils/100 WBC (Bld) 73.3 % Normal 43.0-75.0 [facility] Comment on above: Performed By: #### Sanjiv CHANDLER, UMICRO #### [facility] [address] [place] [address] Dr. Timothy Adair Platelet mean volume (Bld) [Entitic vol] 9.7 fL Normal 9.5-13.5 [facility] Comment on above: Performed By: #### Sanjiv CHANDLER, UMICRO #### [facility] [address] [place] [address] Dr. Timothy Adair PLT 369 103/ul Normal 150-450 [facility] Comment on above: Performed By: #### MASOOD LINARESRO #### [facility] [address] [address] [address] Timothy Adair RBC 4.75 106/ul Normal 4.20-5.40 [facility] Comment on above: Performed By: #### MASOOD LINARESRO #### [facility] [address] [address] [address] Timothy Adair WBC 15.7 103/ul Critically high 4.0-11.0 [facility] [place] Comment on above: Performed By: #### MASOOD LINARESRO #### [facility] [address] [place] [address] Dr. Timothy Adair CRPon 07-17-2021 CRP 7.6 mg/dL Critically high <=1.0 [facility] Comment on above: Performed By: #### MASOOD LINARESRO #### [facility] [address] [place] [address] Dr. Timothy Adair PROF CHEM 8 (BAS METB)on Anion gap [Moles/Vol] 11.9 mmol/L Normal Th [facility] Comment on above: Performed By: #### MASOOD LINARESRO #### [facility] [address] [place] [address] Dr. Timothy Adair Calcium [Mass/Vol] 8.8 mg/dL Normal 8.4-10.2 [facility] Comment on above: Performed By: #### MASOOD LINARESRO #### [facility] [address] [place] [address] Dr. Timothy Adair Chloride [Moles/Vol] 102 mmol/L Normal 98-107 [facility] Comment on above: Performed By: #### MASOOD LINARESRO #### [facility] [address] [place] [address] Dr. Timothy Adair CO2 [Moles/Vol] 26.5 mmol/L Normal 22.0-30.0 [facility] Comment on above: Performed By: #### MASOOD LINARESRO #### [facility] [address] [address] [address] Timothy Adair Creatinine [Mass/Vol] 1.02 mg/dL Normal 0.52-1.04 [facility] Comment on above: Performed By: #### Sanjiv CHANDLER, UMICRO #### [facility] [address] [address] [address] Timothy Adair EGFR-AF PUERTO RICAN >60 Normal >=60 [facility] [place] Comment on above: Performed By: #### Sanjiv CHANDLER, UMICRO #### [facility] [address] [address] [address] Timothy Adair EGFR-NON AF PUERTO RICAN >60 Normal >=60 [facility] Comment on above: Performed By: #### Sanjiv CHANDLER UMICRO #### [facility] [address] [address] [address] Timothy Adair Glucose [Mass/Vol] 110 mg/dL Critically high 74-106 [facility] Comment on above: Performed By: #### Sanjiv CHANDLER, UMICRO #### [facility] [address] [address] [address] Timothy Adair Potassium [Moles/Vol] 3.4 mmol/L Normal 3.4-5.0 [facility] Comment on above: Performed By: #### Sanjiv CHANDLER, UMICRO #### [facility] [address] [address] [address] Timothy Adair Sodium [Moles/Vol] 137 mmol/L Normal 137-145 [facility] Comment on above: Performed By: #### Sanjiv CHANDLER, UMICRO #### [facility] [address] [address] [address] Timothy Adair Urea nitrogen [Mass/Vol] 12.0 mg/dL Normal 7.0-17.0 [facility] Comment on above: Performed By: #### Sanjiv CHANDLER, UMICRO #### [facility] [address] [address] [address] Timothy Adair Urea nitrogen/Creatinine [Mass ratio] 11.8 mg/mg Normal [facility] Comment on above: Performed By: #### E RUR, UMICRO #### [facility] [address] [place] [address] Dr. Timothy Adair CBC AUTO DIFFon 07-16-2021 BASO # 0.0 103/ul Normal 0.0-0.1 [facility] Comment on above: Performed By: #### MASOOD LINARESRO #### [facility] [address] [place] [address] Dr. Timothy Adair Basophils/100 WBC (Bld) 0.2 % Normal 0.2-2.0 [facility] Comment on above: Performed By: #### MASOOD LINARESRO #### [facility] [address] [place] [address] Dr. Timothy Adair EO # 0.0 103/ul Normal 0.0-0.7 [facility] Comment on above: Performed By: #### ITZEL LINARES #### [facility] [address] [place] [address] Dr. Timothy Adair Eosinophils/100 WBC (Bld) 0.1 % Critically low 0.9-7.0 [facility] Comment on above: Performed By: #### ITZEL LINARES #### [facility] [address] [place] [address] Dr. Timothy Adair Erythrocyte distribution width (RBC) [Ratio] 12.9 % Normal 11.0-15.0 [facility] Comment on above: Performed By: #### MASOOD LINARESRO #### [facility] [address] [place] [address] Dr. Timothy Adair Hematocrit (Bld) [Volume fraction] 38.8 % Normal 36.0-48.0 [facility] Comment on above: Performed By: #### MASOOD LINARESRO #### [facility] [address] [place] [address] Dr. Timothy Adair Hemoglobin (Bld) [Mass/Vol] 12.9 g/dL Normal 12.0-16.0 [facility] Comment on above: Performed By: #### ITZEL LINARES #### [facility] [address] [address] [address] Timothy Adair IG # 0.04 10e3/ul Critically high 0.00-0.03 [facility] Comment on above: Performed By: #### E RAMESH, UMICRO #### [facility] [address] [address] [address] Timothy Adair IG % 0.3 % Normal 0.0-0.5 [facility] Comment on above: Performed By: #### E RAMESH, UMICRO #### [facility] [address] [place] [address] Dr. Timothy Adair LYMPH # 2.0 103/ul Normal 1.2-3.8 [facility] Comment on above: Performed By: #### Sanjiv CHANDLER, UMICRO #### [facility] [address] [place] [address] Dr. Timothy Adair Lymphocytes/100 WBC (Bld) 15.6 % Critically low 20.5-60.0 [facility] Comment on above: Performed By: #### Sanjiv CHANDLER, UMICRO #### [facility] [address] [place] [address] Dr. Timothy Adair MANUAL DIFF REQ NO Normal [facility] Comment on above: Performed By: #### Sanjiv CHANDLER, UMICRO #### [facility] [address] [place] [address] Dr. Timothy Adair MCH (RBC) [Entitic mass] 28.3 pg Normal 26.7-34.0 [facility] Comment on above: Performed By: #### Sanjiv CHANDLER, UMICRO #### [facility] [address] [place] [address] Dr. Timothy Adair MCHC (RBC) [Mass/Vol] 33.2 g/dL Normal 29.9-35.2 [facility] Comment on above: Performed By: #### E RAMESH, UMICRO #### [facility] [address] [place] [address] Dr. Timothy Adair MCV (RBC) [Entitic vol] 85.1 fL Normal 81.0-99.0 [facility] Comment on above: Performed By: #### MASOOD LINARESRO #### [facility] [address] [place] [address] Dr. Timothy Adair MONO # 0.7 103/ul Normal 0.3-0.8 [facility] Comment on above: Performed By: #### MASOOD LINARESRO #### [facility] [address] [place] [address] Dr. Timothy Adair Monocytes/100 WBC (Bld) 5.1 % Normal 1.7-12.0 [facility] Comment on above: Performed By: #### MASOOD LINARESRO #### [facility] [address] [place] [address] Dr. Timothy Adair NEUT # 10.2 103/ul Critically high 1.4-6.5 [facility] Comment on above: Performed By: #### MASOOD LINARESRO #### [facility] [address] [place] [address] Dr. Timothy Adair Neutrophils/100 WBC (Bld) 78.7 % Critically high 43.0-75.0 [facility] Comment on above: Performed By: #### MASOOD LINARESRO #### [facility] [address] [place] [address] Dr. Timothy Adair Platelet mean volume (Bld) [Entitic vol] 9.7 fL Normal 9.5-13.5 [facility] Comment on above: Performed By: #### MASOOD LINARESRO #### [facility] [address] [place] [address] Dr. Timothy Adair PLT 333 103/ul Normal 150-450 [facility] Comment on above: Performed By: #### MASOOD LINARESRO #### [facility] [address] [place] [address] Dr. Timothy Adair RBC 4.56 106/ul Normal 4.20-5.40 [facility] Comment on above: Performed By: #### MASOOD LINARESRO #### [facility] [address] [place] [address] Dr. Timothy Adair WBC 13.0 103/ul Critically high 4.0-11.0 [facility] [place] Comment on above: Performed By: #### Sanjiv CHANDLER UMICRO #### [facility] [address] [place] [address] Dr. Timothy Adair PROF CHEM 8 (BAS METB)on Anion gap [Moles/Vol] 15.4 mmol/L Normal [facility] Comment on above: Performed By: #### Sanjiv CHANDLER UMICRO #### [facility] [address] [place] [address] Dr. Timothy Adair Calcium [Mass/Vol] 8.6 mg/dL Normal 8.4-10.2 [facility] Comment on above: Performed By: #### Sanjiv CHANDLER UMICRO #### [facility] [address] [place] [address] Dr. Timothy Adair Chloride [Moles/Vol] 102 mmol/L Normal 98-107 [facility] Comment on above: Performed By: #### Sanjiv CHANDLER UMICRO #### [facility] [address] [place] [address] Dr. Timothy Adair CO2 [Moles/Vol] 24.7 mmol/L Normal 22.0-30.0 [facility] [place] Comment on above: Performed By: #### Sanjiv CHANDLER UMICRO #### [facility] [address] [place] [address] Dr. Timothy Adair Creatinine [Mass/Vol] 0.73 mg/dL Normal 0.52-1.04 [facility] Comment on above: Performed By: #### Sanjiv CHANDLER UMICRO #### [facility] [address] [place] [address] Dr. Timothy Adair EGFR-AF PUERTO RICAN >60 Normal >=60 [facility] Comment on above: Performed By: #### Sanjiv CHANDLER UMICRO #### [facility] [address] [place] [address] Dr. Timothy Adair EGFR-NON AF PUERTO RICAN >60 Normal >=60 [facility] Comment on above: Performed By: #### ERNESTINE LINARESICRO #### [facility] [address] [place] [address] Dr. Timothy Adair Glucose [Mass/Vol] 125 mg/dL Critically high 74-106 [facility] Comment on above: Performed By: #### Sanjiv CHANDLER UMICRO #### [facility] [address] [place] [address] Dr. Timothy Adair Potassium [Moles/Vol] 4.1 mmol/L Normal 3.4-5.0 [facility] Comment on above: Performed By: #### Sanjiv CHANDLER UMICRO #### [facility] [address] [place] [address] Dr. Timothy Adair Sodium [Moles/Vol] 138 mmol/L Normal 137-145 [facility] Comment on above: Performed By: #### Sanjiv CHANDLER UMICRO #### [facility] [address] [place] [address] Dr. Timothy Adair Urea nitrogen [Mass/Vol] 5.0 mg/dL Critically low 7.0-17.0 [facility] Comment on above: Performed By: #### ERNESTINE LINARESICRO #### [facility] [address] [place] [address] Dr. Timothy Adair Urea nitrogen/Creatinine [Mass ratio] 6.8 mg/mg Normal [facility] Comment on above: Performed By: #### ERNESTINE LINARESICRO #### [facility] [address] [place] [address] Dr. Timothy Adair CBC AUTO DIFFon 06-15-2021 BASO # 0.1 103/ul Normal 0.0-0.1 [facility] Comment on above: Performed By: #### C BC #### [facility] [address] [place] [address] Dr. Timothy Adair Basophils/100 WBC (Bld) 0.6 % Normal 0.2-2.0 [facility] Comment on above: Performed By: #### C BC #### [facility] [address] [place] [address] Dr. Timothy Adair EO # 0.1 103/ul Normal 0.0-0.7 [facility] Comment on above: Performed By: #### C BC #### [facility] [address] [place] [address] Dr. Timothy Adair Eosinophils/100 WBC (Bld) 1.0 % Normal 0.9-7.0 [facility] Comment on above: Performed By: #### C BC #### [facility] [address] [place] [address] Dr. Timothy Adair Erythrocyte distribution width (RBC) [Ratio] 13.0 % Normal 11.0-15.0 [facility] Comment on above: Performed By: #### C BC #### [facility] [address] [place] [address] Dr. Timothy Adair Hematocrit (Bld) [Volume fraction] 43.1 % Normal 36.0-48.0 [facility] Comment on above: Performed By: #### C BC #### [facility] [address] [place] [address] Dr. Timothy Adair Hemoglobin (Bld) [Mass/Vol] 14.0 g/dL Normal 12.0-16.0 [facility] Comment on above: Performed By: #### C BC #### [facility] [address] [place] [address] Dr. Timothy Adair IG # 0.03 10e3/ul Normal 0.00-0.03 [facility] Comment on above: Performed By: #### C BC #### [facility] [address] [place] [address] Dr. Timothy Adair IG % 0.3 % Normal 0.0-0.5 [facility] Comment on above: Performed By: #### C BC #### [facility] [address] [place] [address] Dr. Timothy Adair LYMPH # 2.8 103/ul Normal 1.2-3.8 [facility] Comment on above: Performed By: #### C BC #### [facility] [address] [place] [address] Dr. Timothy Adair Lymphocytes/100 WBC (Bld) 27.1 % Normal 20.5-60.0 [facility] Comment on above: Performed By: #### C BC #### [facility] [address] [place] [address] Dr. Timothy Adair MANUAL DIFF REQ NO Normal [facility] Comment on above: Performed By: #### C BC #### [facility] [address] [place] [address] Dr. Timothy Adair MCH (RBC) [Entitic mass] 27.4 pg Normal 26.7-34.0 [facility] Comment on above: Performed By: #### C BC #### [facility] [address] [place] [address] Dr. Timothy Adair MCHC (RBC) [Mass/Vol] 32.5 g/dL Normal 29.9-35.2 [facility] Comment on above: Performed By: #### C BC #### [facility] [address] [place] [address] Dr. Timothy Adair MCV (RBC) [Entitic vol] 84.3 fL Normal 81.0-99.0 [facility] Comment on above: Performed By: #### C BC #### [facility] [address] [place] [address] Dr. Timothy Adair MONO # 0.4 103/ul Normal 0.3-0.8 [facility] Comment on above: Performed By: #### C BC #### [facility] [address] [place] [address] Dr. Timothy Adair Monocytes/100 WBC (Bld) 4.1 % Normal 1.7-12.0 [facility] Comment on above: Performed By: #### C BC #### [facility] [address] [place] [address] Dr. Timothy Adair NEUT # 6.9 103/ul Critically high 1.4-6.5 [facility] Comment on above: Performed By: #### C BC #### [facility] [address] [place] [address] Dr. Timothy Adair Neutrophils/100 WBC (Bld) 66.9 % Normal 43.0-75.0 [facility] Comment on above: Performed By: #### C BC #### [facility] [address] [address] [address] Timothy Adair Platelet mean volume (Bld) [Entitic vol] 9.8 fL Normal 9.5-13.5 [facility] Comment on above: Performed By: #### C BC #### [facility] [address] [address] [address] Timothy Adair PLT 369 103/ul Normal 150-450 [facility] Comment on above: Performed By: #### C BC #### [facility] [address] [address] [address] Timothy Adiar RBC 5.11 106/ul Normal 4.20-5.40 [facility] Comment on above: Performed By: #### C BC #### [facility] [address] [place] [address] Dr. Timothy Adair WBC 10.3 103/ul Normal 4.0-11.0 [facility] Comment on above: Performed By: #### C BC #### [facility] [address] [place] [address] Dr. Timothy Adair CTA CHEST WO W [...] MADYSON CISNEROS Date: 2021-06-15 19:51 Normal [facility] D-DIMERon 06-15-2021 D-DIMER 0.66 mg/L FEU Critically high 0.19-0.50 [facility] Comment on above: Result Comment: test repeated critical value verified Performed By: #### ITZEL LINARES #### [facility] [address] [place] [address] Dr. Timothy Adair D-DIMER COMMENTS SEE BELOW Normal [facility] [place] Comment on above: Result Comment: Incr eases [...] hospitalization. Performed By: #### ITZEL LINARES #### [facility] [address] [place] [address] Dr. Timothy Adair PREG HCG QUALon 06-15-2021 , QUAL Negative Normal NEGATIVE [facility] Comment on above: Performed By: #### ITZEL LINARES #### [facility] [address] [place] [address] Dr. Timothy Adair PROF 14(COMP METB)on 021 Albumin [Mass/Vol] 3.1 g/dL Critically low 3.5-5.0 [facility] Comment on above: Performed By: #### C BC #### [facility] [address] [place] [address] Dr. Timothy Adair Albumin/Globulin [Mass ratio] 0.6 {ratio} Normal [facility] Comment on above: Performed By: #### C BC #### [facility] [address] [place] [address] Dr. Timothy Adair ALP [Catalytic activity/Vol] 105 U/L Normal 38-126 [facility] Comment on above: Performed By: #### C BC #### [facility] [address] [place] [address] Dr. Timothy Adair ALT [Catalytic activity/Vol] 21 U/L Normal 9-52 [facility] Comment on above: Performed By: #### C BC #### [facility] [address] [address] [address] Timothy Adair Anion gap [Moles/Vol] 14.8 mmol/L Normal Th e [facility] Comment on above: Performed By: #### C BC #### [facility] [address] [address] [address] Timothy Adair AST [Catalytic activity/Vol] 15 U/L Normal 14-36 [facility] Comment on above: Performed By: #### C BC #### [facility] [address] [address] [address] Timothy Adair Bilirubin [Mass/Vol] 0.3 mg/dL Normal 0.2-1.3 [facility] Comment on above: Performed By: #### C BC #### [facility] [address] [place] [address] Dr. Timothy Adair Calcium [Mass/Vol] 9.3 mg/dL Normal 8.4-10.2 [facility] Comment on above: Performed By: #### C BC #### [facility] [address] [place] [address] Dr. Timothy Adair Chloride [Moles/Vol] 101 mmol/L Normal 98-107 [facility] Comment on above: Performed By: #### C BC #### [facility] [address] [address] [address] Timothy Adair CO2 [Moles/Vol] 26.6 mmol/L Normal 22.0-30.0 [facility] Comment on above: Performed By: #### C BC #### [facility] [address] [address] [address] Timothy Adair Creatinine [Mass/Vol] 0.87 mg/dL Normal 0.52-1.04 [facility] Comment on above: Performed By: #### C BC #### [facility] [address] [address] [address] Timothy Adair EGFR-AF PUERTO RICAN >60 Normal >=60 [facility] Comment on above: Performed By: #### C BC #### [facility] [address] [address] [address] Timothy Adair EGFR-NON AF PUERTO RICAN >60 Normal >=60 [facility] Comment on above: Performed By: #### C BC #### [facility] [address] [address] [address] Timothy Adair Globulin (S) [Mass/Vol] 4.9 g/dL Normal [facility] Comment on above: Performed By: #### C BC #### [facility] [address] [address] [address] Timothy Adair Glucose [Mass/Vol] 113 mg/dL Critically high 74-106 [facility] Comment on above: Performed By: #### C BC #### [facility] [address] [address] [address] Timothy Adair Potassium [Moles/Vol] 3.4 mmol/L Normal 3.4-5.0 [facility] Comment on above: Performed By: #### C BC #### [facility] [address] [address] [address] Timothy Adair Protein [Mass/Vol] 8.0 g/dL Normal 6.1-8.2 [facility] Comment on above: Performed By: #### C BC #### [facility] [address] [address] [address] Timothy Adair Sodium [Moles/Vol] 139 mmol/L Normal 137-145 [facility] Comment on above: Performed By: #### C BC #### [facility] [address] [address] [address] Timothy Adair Urea nitrogen [Mass/Vol] 9.0 mg/dL Normal 7.0-17.0 [facility] Comment on above: Performed By: #### C BC #### [facility] [address] [address] [address] Timothy Adair Urea nitrogen/Creatinine [Mass ratio] 10.3 mg/mg Normal [facility] Comment on above: Performed By: #### C BC #### [facility] [address] [place], [place] [address] Dr. Timothy Adair TROPONIN, HIGH SENSITIVITYon 06-15-2021 HSTROP 4.8 pg/mL Normal 4.0-35.5 [facility] Comment on above: Result Comment: CUT- OFF POINTS HAVE BEEN ESTABLISHED BASED ON THE FOURTH UNIVERSAL DEFINITIONS OF MYOCARDIAL INFARCTION. THE UPPER REFERENCE LIMIT (URL) OF TROPONIN, DEFINED THE 99TH PERCENTILE OF cTnI DISTRIBUTION IN A REFERENCE POPULATION, HAS BEEN CONFIRMED THE DECISION THRESHOLD FOR [place] DIAGNOSIS. Performed By: #### C BC #### [facility] [address] [place], [place] [address] Dr. Timothy Adair XR ankle LT min 3V*on 2020 XR ankle LT min 3V* [facility] [employer] Other XR ankle LT min 3V* [facility] [employer] Other XR ankle LT min 3V* [address] [place] [address] [employer] Other XR ankle LT min 3V* [place] [address] [employer] Other XR ankle LT min 3V* XRay Report Nort [employer] Other XR ankle LT min 3V* Signed [employer] Other XR ankle LT min 3V* Patient: Josemanuel Ford in [place] MR#: [id number] [employer] Other XR ankle LT min 3V* 271 [employer] Other XR ankle LT min 3V* : 1990 Acct:[id number] [employer] Other XR ankle LT min 3V* Age/Sex: 30 / F ADM Date: 04/23/21 [employer] Other XR ankle LT min 3V* Loc: [facility] Room: pe: REG CLI [employer] Other XR ankle LT min 3V* Attending Dr: Cleopatra ESCALANTE [employer] Other XR ankle LT min 3V* Ordering Provider: AVA Whitaker [employer] Other XR ankle LT min 3V* Date of Service: 04/23/21 [employer] Other XR ankle LT min 3V* XR/XR ankle LT min 3V*: Acute left ankle pain [employer] Other XR ankle LT min 3V* Copies to: AVA Whitaker [employer] Other XR ankle LT min 3V* XR ankle LT min 3V* [employer] Other XR ankle LT min 3V* CLINICAL HISTORY: Tripped and rolled left ankle, pain at the medial aspect of the left ankle. [employer] Other XR ankle LT min 3V* COMPARISON: 08/06/2018 [employer] Other XR ankle LT min 3V* FINDINGS: AP, latera l and oblique views of the left ankle were obtained. There is no evidence of [employer] Other XR ankle LT min 3V* fracture or subluxation. 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 Minimal spur at the [employer] Other XR ankle LT min 3V* tip of the medial malleolus is noted. There are no focal soft tissue abnormalities. [employer] Other XR ankle LT min 3V* XR/XR ankle LT min 3V* [employer] Other XR ankle LT min 3V* IMPRESSION: [employer] Other XR ankle LT min 3V* NO ACUTE FRACTURE OR SUBLUXATION. [employer] Other XR ankle LT min 3V* MILD FOCAL CONTOUR IRREGULARITY AT THE LATERAL TALAR DOME, PROBABLY RELATED TO OLD INJURY. [employer] Other XR ankle LT min 3V* Impression dictated by: Nicolás Mccormick M.D.04/23/2021 12:30 PM [employer] Other XR ankle LT min 3V* Dictation Location: RADIO-PC-13 [employer] Other XR ankle LT min 3V* Transcribed By: YECENIA 04/23/21 1230 [employer] Other XR ankle LT min 3V* Dictated By: Nicolás Mccormick MD 04/23/21 1225 [employer] Other XR ankle LT min 3V* Signed By: [employer] Other XR ankle LT min 3V* 04/23/21 1230 No rt [employer] Other BASIC METABOLIC PANELon 05-0 -2017 Calcium 9.0 mg/dL Normal 8.6-10.3 [facility] Comment on above: Performed By: #### 2 2798, [id number] ####[facility] [place] [address], [facility] Chloride 104 mmol/L Normal 98-107 [facility] Comment on above: Performed By: #### 2 [id number] ####[facility] [place] [address], [facility] CO2 26 mmol/L Normal 21-31 [facility] Comment on above: Performed By: #### 2 9638, 89840 ####[facility] [place] [address], [facility] Creatinine 0.59 mg/dL Low 0.60-1.20 [facility] Comment on above: Performed By: #### 2 5507, 36742 ####[facility] [place] [address], [facility] eGFR (black) mL/min/{1.73_m2} Normal >60 [facility] Comment on above: Performed By: #### 2 5507, 41644 ####[facility] [place] [address], [facility] eGFR (non-black) mL/min/{1.73_m2} Normal >60 Th e [facility] Comment on above: Performed By: #### 2 5507, 53588 ####[place] [id number] [place] [address], [facility] Glucose mass conc 86 mg/dL Normal 70-100 [facility] Comment on above: Performed By: #### 2 5507, 17693 ####[place] [id number] [facility].[address] Potassium molar conc 3.6 mmol/L Normal 3.5-5.1 [facility] Comment on above: Performed By: #### 2 5507, 30268 ####[place] [address] [facility] Sodium 138 mmol/L Normal 136-145 [facility] Comment on above: Performed By: #### 2 5507, 34064 ####[facility] [facility] Urea nitrogen 9 mg/dL Normal 7-25 [facility] Comment on above: Performed By: #### 2 5507, 25030 ####[facility] [facility] CPKon 11-07-2017 Creatine kinase (CK) 90 U/L Normal 30-223 [facility] Comment on above: Performed By: #### 2 5507, 36746 ####[facility] [place] [address], [facility] CTA LOWER EXTREMITYon 2017 CTA LOWER EXTREMITY [facility] Rehabilitation[facility] of [id number] [place] [id number] =====Patient Name: NICKIE FORD : 1990Sex: FAge: Race: WhiteMRN: [id number]. Location: EMERPatient Status: DVisit #: [id number] Date: 11/07/2017Completed Date: 11/07/2017 01:37 AMRequesting Provider: OPAL GERARDO Attending Provider: OPAL GERARDO Report Copy To: Signs & Symptoms: Numbness in Extremity (specify)History: Patient history not availableComments: R/O Vascular Stenosis, left lower extremity. S/P crushing injuryExam: CTA LOWER EXTREMITYAccession #: [id number] CTA LOWER EXTREMITY 11/07/2017 1:37 AM EDT SIGNS AND SYMPTOMS: Numbness in Extremity (specify) TECHNOLOGIST COMMENTS: Pt had car pin her left leg while changing a tire. Pt is transfer from [facility]. Small bruising anteriorly just superior to [...] injury Electronically signed by:Alejandrina Carranza. Transcribed by: [email or web address], User Resident: Electronically Signed by: ALEJANDRINA CARRANZA @ 11/07/2017 09:17 AM Normal [facility] Comment on above: Order Comment: R/O V ascular Stenosis, left lower extremity. S/P crushing injury History and Physicalon 11-07 History and Physical [id number] Nickie Ford Admitted: 11/06/2017 Date [...] significant soft tissueswelling. She was transferred to [facility] for evaluation over a concern ofcompartment syndrome. [...] of her left lower extremity paresthesia.Discharge with [place], gloh-fct-sqppqeq pain medications, crutches, returnto work as able.Electronically Signed by:Antonio Joseph M.D. 11/12/2017 10:54 A Antonio Joseph M.D. I was not present but assume all responsibility for the exam. NOTBILLABLEDate Dict: 11/07/2017/01:53 A/Christ Lema Trans: 11/07/2017 08:36 A/Rachel_JN:[id number] Normal [facility] CYTOLOGYon 02-27-2017 CYTOLOGY ---Abnormal Pap Test - Epithelial Cell Abnormality---Specimen #: [id number] Physician: JASMYN POWELLIMEMauro SUBMITTEDA: CERVICAL, SCREENING, FLUID FI NAL DIAGNOSISA. CERVICAL, SCREENING, FLUIDSatisfactory for interpretation.Epitheli al cell abnormality.Atypical squamous cells of undetermined significance (ASC-US).This specimen has been analyzed by the ThinPrep Imaging System, InstantQ imaging and review system, which assists the laboratory inevaluating cells on ThinPrep Pap tests. Following automated imaging,selected robertson from every slide are reviewed by a welfare analyst.Sun Jeffrey MD (Electronic Signature) CL INICAL DATA PAP Source: Cervical-PFCERSSTAINSA: CERVICAL, SCREENING, FLUID THIN PREP GYNPatient ID #: [id number] Report: 03/09/2017Date of Procedure: 02/27/2017Date of Receipt: 03/02/2017Submitted by: JASMYN PHILIPLocation: Diagnostic interpretation performed at [facility], [address] [place] [id number].The Pap Smear is a screening test for cervical cancer. False negativeresults occur with all screening tests, emphasizing the need forrescreening at recommended intervals, and clinical correlation. Normal [facility] Comment on above: Performed By: #### C ####See report for performing lab information. Vital Signs Date Time Vital Sign Value Performing Clinician Facility 10-25-2023 13:08-0400 Body height 162.6 cm Jori Enriquez APRN-CONSUMER STUDIES PROFESSOR Work Phone: [facility] 10-25-2023 13:08-0400 Body mass index (BMI) [Ratio] 46.93 kg/m2 Jori Enriquez APRN-CONSUMER STUDIES PROFESSOR Work Phone: [facility] 10-25-2023 13:08-0400 Body temperature 98.4 [degF] Jori Enriquez APRN-CONSUMER STUDIES PROFESSOR Work Phone: [facility] 10-25-2023 13:08-0400 Body weight 124.01 kg Jori Enriquez APRN-CONSUMER STUDIES PROFESSOR Work Phone: [facility] 10-25-2023 13:08-0400 Diastolic blood pressure 90 mm[Hg] Jori Enriquez APRN-CONSUMER STUDIES PROFESSOR Work Phone: [facility] 10-25-2023 13:08-0400 Heart rate 93 /min Jori Enriquez APRN-CONSUMER STUDIES PROFESSOR Work Phone: [facility] 10-25-2023 13:08-0400 SaO2% (BldA) [Mass fraction] 98 % Jori Enriquez APRN-CONSUMER STUDIES PROFESSOR Work Phone: [facility] 10-25-2023 13:08-0400 Systolic blood pressure 130 mm[Hg] Jori Enriquez APRN-CONSUMER STUDIES PROFESSOR Work Phone: [facility] 09-25-2023 12:49-0400 Body height 161.29 cm [facility] 09-25-2023 12:49-0400 Body mass index (BMI) [Ratio] 47 kg/m2 [facility] 09-25-2023 12:49-0400 Body temperature 98.9 [degF] [facility] 09-25-2023 12:49-0400 Body weight 122.46 kg [facility] 09-25-2023 12:49-0400 Heart rate 108 /min [facility] 09-25-2023 12:49-0400 Respiratory rate 18 /min [facility] 09-25-2023 12:49-0400 SaO2% (BldA) [Mass fraction] 98 % [facility] 02-09-2023 16:10-0400 Body height 161.29 cm Jeimy Verduzco Other [employer] Other 02-09-2023 16:10-0400 Body mass index (BMI) [Ratio] 48.4 kg/m2 Jeimy Verduzco Other [employer] Other 02-09-2023 16:10-0400 Body temperature 97.5 [degF] Jeimy Verduzco Other [facility] Other 02-09-2023 16:10-0400 Body weight 125.92 kg Jeimy Verduzco Other [facility] Other 02-09-2023 16:10-0400 Diastolic blood pressure 96 mm[Hg] Jeimy Verduzco Other [facility] Other 02-09-2023 16:10-0400 Respiratory rate 18 /min Jeimy Verduzco Other [facility] Other 02-09-2023 16:10-0400 SaO2% (BldA) [Mass fraction] 98 % Jeimy Verduzco Other [facility] Other 02-09-2023 16:10-0400 Systolic blood pressure 141 mm[Hg] Jeimy Verduzco Other [facility] Other 10-21-2022 10:00-0400 Body height 161.29 cm Sherron Singh Other [employer] Other 10-21-2022 10:00-0400 Body mass index (BMI) [Ratio] 47.94 kg/m2 Sherron Singh Other [facility] Other 10-21-2022 10:00-0400 Body temperature 97.1 [degF] Sherron Singh Other [facility] Other 10-21-2022 10:00-0400 Body weight 124.74 kg Sherron Singh Other [facility] Other 10-21-2022 10:00-0400 Respiratory rate 18 /min Sherron Singh Other [facility] Other 10-21-2022 10:00-0400 SaO2% (BldA) [Mass fraction] 98 % Sherron Singh Other [facility] Other 10-20-2021 12:40-0400 Body height 161.29 cm Cleopatra Gifty Other [employer] Other 10-20-2021 12:40-0400 Body mass index (BMI) [Ratio] 46.38 kg/m2 Cleopatra Gifty Other [facility] Other 10-20-2021 12:40-0400 Body temperature 97.9 [degF] Cleopatra Gifty Other [facility] Other 10-20-2021 12:40-0400 Body weight 120.66 kg Cleopatra Gifty Other [facility] Other 10-20-2021 12:40-0400 Respiratory rate 18 /min Cleopatra Hawkmond Other [facility] Other 10-20-2021 12:40-0400 SaO2% (BldA) [Mass fraction] 97 % Cleopatra Gifty Other [facility] Other 09-15-2021 13:20-0400 Body height 161.29 cm Cleopatra Gifty Other [facility] Other 09-15-2021 13:20-0400 Body mass index (BMI) [Ratio] 45.33 kg/m2 Cleopatra Gifty Other [facility] Other 09-15-2021 13:20-0400 Body temperature 97.5 [degF] Cleopatra Gifty Other [facility] Other 09-15-2021 13:20-0400 Body weight 117.94 kg Cleopatra Gifty Other [facility] Other 09-15-2021 13:20-0400 Respiratory rate 18 /min Cleopatra Gifty Other [facility] Other 09-15-2021 13:20-0400 SaO2% (BldA) [Mass fraction] 97 % Cleopatra Gifty Other [facility] Other 04-23-2021 11:55-0400 Body height 161.29 cm Cleopatra Gifty Other [facility] Other 04-23-2021 11:55-0400 Body mass index (BMI) [Ratio] 46.38 kg/m2 Cleopatra Gifty Other [facility] Other 04-23-2021 11:55-0400 Body temperature 97 [degF] Cleopatra Durbin Other [employer] Other 04-23-2021 11:55-0400 Body weight 120.66 kg Cleopatra Durbin Other [facility] Other 04-23-2021 11:55-0400 Diastolic blood pressure 89 mm[Hg] Cleopatra Durbin Other [facility] Other 04-23-2021 11:55-0400 Respiratory rate 18 /min Cleopatra Durbin Other [facility] Other 04-23-2021 11:55-0400 SaO2% (BldA) [Mass fraction] 97 % Cleopatra Durbin Other [facility] Other 04-23-2021 11:55-0400 Systolic blood pressure 141 mm[Hg] Cleopatra Durbin Other [facility] Other 03-29-2021 16:10-0400 Body height 161.29 cm Jaymie Tripp Other [employer] Other 03-29-2021 16:10-0400 Body mass index (BMI) [Ratio] 46.38 kg/m2 Jaymie Josee Other [employer] Other 03-29-2021 16:10-0400 Body temperature 97.1 [degF] Jaymie Josee Other [employer] Other 03-29-2021 16:10-0400 Body weight 120.66 kg Jaymie Josee Other [employer] Other 03-29-2021 16:10-0400 Diastolic blood pressure 90 mm[Hg] Jaymie Tripp Other [facility] Other 03-29-2021 16:10-0400 Respiratory rate 18 /min Jaymie Tripp Other [facility] Other 03-29-2021 16:10-0400 SaO2% (BldA) [Mass fraction] 98 % Jaymie Tripp Other [employer] Other 03-29-2021 16:10-0400 Systolic blood pressure 140 mm[Hg] Jaymie Tripp Other [employer] Other Encounters Encounter Date Encounter Type Care Provider Facility Start: 09-13-2024 End: 09-16-2024 Patient encounter status Israel Teixeira APRN-CONSUMER STUDIES PROFESSOR [facility] Start: 09-13-2024 End: 09-16-2024 Refill Israel Teixeira STACK MATCHER-CONSUMER STUDIES PROFESSOR Work Phone: [facility] - [facility] Comment on above: Encounter for gyneco logical examination (general) (routine) without abnormal findings Start: 06-03-2024 End: 06-03-2024 Office outpatient visit 15 minutes Belinda Jurado HOOKER OFF Work Phone: [facility] Comment on above: Left ankle pain, uns pecified chronicity (Primary Dx); Sprain of ligament of left ankle, subsequent encounter Start: 06-03-2024 End: 06-03-2024 ambulatory BELINDA JURADO Not Available Start: 05-13-2024 End: 05-13-2024 Office outpatient visit 15 minutes Belinda Jurado HOOKER OFF Work Phone: [facility] Comment on above: Left ankle pain, uns pecified chronicity (Primary Dx); Sprain of left ankle, unspecified ligament, initial encounter; Contusion of left ankle, initial encounter Start: 05-13-2024 End: 05-13-2024 ambulatory BELINDA B APLING Not Available Start: 10-25-2023 End: 10-25-2023 ambulatory JORI Sommer [facility] Start: 10-25-2023 Encounter for genera l adult medical examination without abnormal findings JORI Kemal [facility] Start: 10-25-2023 End: 10-25-2023 Office outpatient new 30 minutes Jori Enriquez STACK MATCHER-CONSUMER STUDIES PROFESSOR Work Phone: [facility] - [facility] Comment on above: Encounter for medica l examination to establish care (Primary Dx); Class 3 severe obesity due to excess calories without serious comorbidity with body mass index (BMI) of 45.0 to 49.9 in adult ([facility]); Impaired fasting glucose; Encounter for other general counseling or advice on contraception Start: 09-25-2023 End: 09-25-2023 ambulatory [facility] Work Phone: Start: 09-25-2023 End: 09-25-2023 Patient encounter procedure [facility] Work Phone: Start: 08-08-2023 End: 08-08-2023 ambulatory KALEB BALBUENASHAYY Not Available Start: 08-01-2023 End: 08-01-2023 ambulatory JACI MADELINEY Not Available Start: 07-28-2023 End: 07-28-2023 ambulatory JACI MADELINEY Not Available Start: 07-24-2023 End: 07-24-2023 ambulatory KALEB HOLMTERSALL Not Available Start: 07-21-2023 End: 07-21-2023 ambulatory HUYEN BRINK Not Available Start: 07-12-2023 End: 07-12-2023 ambulatory BELINDA B APLING Not Available Start: 07-10-2023 End: 07-10-2023 ambulatory HUYEN BRINK Not Available Start: 07-04-2023 End: 07-04-2023 ambulatory HUYEN BRINK Not Available Start: 06-30-2023 End: 06-30-2023 ambulatory JACIDIANNA JEFFREYBLEY Not Available Start: 06-27-2023 End: 06-27-2023 [...] 06-05-2023 ambulatory JESUSITA HARLEY Not Available Start: 02-09-2023 End: 02-09-2023 ambulatory Jeimy Verduzco Other [facility] Other Start: 02-09-2023 Office outpatient vi sit 15 minutes Jeimy Verduzco [facility] Start: 01-17-2023 End: 01-17-2023 ambulatory Sherron Singh Facility:[facility] Start: 01-17-2023 End: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
[2024-10-18] MEDS: ORPHENADRINE 60 MG/2 ML VIAL IM (21:39)
[2024-10-18] MEDS: KETOROLAC TROMETHAMINE 60 MG/2 ML VIAL IM (21:39)
--- NOTE | 2024-10-18 21:46 | PC.NURSE ---
no LOC and no vomiting since hitting head 3 wks ago, no bump found at site of complaint, pt alert and appropriate
--- NOTE | 2024-10-18 21:47 | ED.GENADUL1 ---
Documented by User: Tania Kincaid 10/20/24 16:05 HPI HPI - General Adult General Chief complaint: Headache Stated complaint: HEADACHE, NECK PAIN Time Seen by Provider: 10/18/24 20:41 Source: patient Mode of arrival: walk-in Limitations: no limitations History of Present Illness HPI narrative: 33-year-old female presents emergency room chief complaint of a headache and right lateral neck pain. She states she walked into a garage door approximately 3 weeks ago and has had pain since. She denies any loss consciousness at that time. She states the pain has gotten increasingly worse complains of photophobia. She said a history of migraine headaches but is not a typical headache for her. Her vital signs are stable afebrile. She has minimal pain tenderness noted to the right lateral cervical column. She has no midline tenderness. Full range of motion of her neck and back. Pupils are equal round reactive. Patient has no physical upper extremity weakness and no neurological deficits. Related Data Home Medications ?Medication ?Instructions ?Recorded ?Confirmed norethindrone 1 mg-ethinyl 1 tab PO DAILY 04/20/23 05/12/24 estradiol 35 mcg tablet (Nortrel) Previous Rx's ?Medication ?Instructions ?Recorded methocarbamol 500 mg tablet 500 mg PO Q8H PRN pain #14 tabs 10/18/24 Allergies Allergy/AdvReac Type Severity Reaction Status Date / Time cephalexin (From Keflex) Allergy Severe Rash Verified 05/12/24 20:02 erythromycin base Allergy Severe Rash Verified 05/12/24 20:02 nickel Allergy Severe Rash Verified 05/12/24 20:02 latex Allergy Unknown Rash Verified 05/12/24 20:02 codeine AdvReac Severe Nausea Verified 05/12/24 20:02 Opioid HPI Opioid Management Most Recent Opioid Data: No Data to Display Review of Systems ROS Status of ROS 10 or more systems reviewed and unremarkable except as noted in history and below PFSH PFSH Social History Smoking status: Never smoker Little interest or pleasure in doing things: not at all Feeling down, depressed, or hopeless: not at all Exam Narrative Exam Narrative: All Systems are negative except as noted/marked.All systems reviewed and otherwise negative Nurses note and vital signs reviewed and patient is not hypoxic. General: The patient appears well and in no apparent distress. Patient is resting comfortably on cart. Skin: Warm, dry, no pallor noted. There is no rash noted. Head: Normocephalic, atraumatic, neck: Neck tenderness no midline tenderness palpation full range of motion no step-offs Eye: Normal conjunctiva, no drainage, EOMI. PERRL Ears, Nose, Mouth, and Throat: oral mucosa is moist. Nares patent. Mouth without vesicles. Ear canals patent. Tm's without Erythema Cardiovascular: Regular Rate and Rhythm Respiratory: Patient is in no distress, no accessory muscle use, lungs are clear to auscultation, no wheezing, rales or rhonchi Back: non-tender, no CVA tenderness bilaterally to percussion. GI: Normal bowel sounds, no tenderness to palpation, no masses appreciated. No rebound, guarding, or rigidity noted. Musculoskeletal: The patient has no evidence of calf tenderness, no pitting edema, symmetrical pulses noted bilaterally Neurological: A&O x4, normal speech Psychiatric: Cooperative Constitutional Vital Signs, click to edit/add: Last Vital Signs Temp 98.2 F 10/18/24 20:54 Pulse 99 H 10/18/24 22:57 Resp 20 10/18/24 22:57 BP 142/80 H 10/18/24 22:57 Pulse Ox 98 10/18/24 22:57 O2 Del Method Room Air 10/18/24 22:57 Course Vital Signs Vital signs: Vital Signs Temperature 98.2 F 10/18/24 20:54 Pulse Rate 115 H 10/18/24 20:54 Respiratory Rate 18 10/18/24 20:54 Blood Pressure 140/82 10/18/24 20:54 Pulse Oximetry 99 10/18/24 20:54 Oxygen Delivery Method Room Air 10/18/24 20:54 Temperature 98.2 F 10/18/24 20:54 Pulse Rate 99 H 10/18/24 22:57 Respiratory Rate 20 10/18/24 22:57 Blood Pressure 142/80 H 10/18/24 22:57 Pulse Oximetry 98 10/18/24 22:57 Oxygen Delivery Method Room Air 10/18/24 22:57 Medical Decision Making MDM Narrative Medical decision making narrative: 33-year-old female presents emergency room chief complaint of a headache and right lateral neck pain. She states she walked into a garage door approximately 3 weeks ago and has had pain since. She denies any loss consciousness at that time. She states the pain has gotten increasingly worse complains of photophobia. She said a history of migraine headaches but is not a typical headache for her. Her vital signs are stable afebrile. She has minimal pain tenderness noted to the right lateral cervical column. She has no midline tenderness. Full range of motion of her neck and back. Pupils are equal round reactive. Patient has no physical upper extremity weakness and no neurological deficits. Here with a 3-week history of worsening headache. I explained to her she continues to appreciate any focal neurological deficits. Do not believe she needed a head CT. Patient was not comfortable going home without a head and neck CT demanded 1 to be done. Patient had minimal pain tenderness to the right paraspinal region. Examination consistent with cervical strain. Patient was medicated with Toradol and Norflex. patient will be able to be discharged home once head and neck ct complete. transition of care to dr torres at 2200. Differential Diagnosis Differential Diagnosis: , Cervical neck strain, headache Medical Records Medical records reviewed: Yes I reviewed the patient's medical records Discharge Plan Discharge Chief Complaint: Headache Clinical Impression: Cervical strain, acute, Headache Patient Disposition: Home, Self-Care Condition: Good Mode of Transportation: Private Vehicle Prescriptions / Home Meds: New methocarbamol 500 mg tablet 500 mg PO Q8H PRN (Reason: pain) Qty: 14 0RF No Action Nortrel (28) 1-35 mg-mcg tablet 1 tab PO DAILY Print Language: Palestinian Instructions: Cervical Strain (DC), General Headache (ED) Referrals: [facility] FELIZ [Primary Care Provider] - 1 week Discharge Date/Time: 10/18/24 22:59 Documented by User: Ariel Torres MD 10/18/24 22:51 HPI HPI - General Adult General Chief complaint: Headache Stated complaint: HEADACHE, NECK PAIN Time Seen by Provider: 10/18/24 20:41 Related Data Home Medications ?Medication ?Instructions ?Recorded ?Confirmed norethindrone 1 mg-ethinyl 1 tab PO DAILY 04/20/23 05/12/24 estradiol 35 mcg tablet (Nortrel) Previous Rx's ?Medication ?Instructions ?Recorded methocarbamol 500 mg tablet 500 mg PO Q8H PRN pain #14 tabs 10/18/24 Allergies Allergy/AdvReac Type Severity Reaction Status Date / Time cephalexin (From Keflex) Allergy Severe Rash Verified 05/12/24 20:02 erythromycin base Allergy Severe Rash Verified 05/12/24 20:02 nickel Allergy Severe Rash Verified 05/12/24 20:02 latex Allergy Unknown Rash Verified 05/12/24 20:02 codeine AdvReac Severe Nausea Verified 05/12/24 20:02 Opioid HPI Opioid Management Most Recent Opioid Data: No Data to Display PFSH PFS Social History Smoking status: Never smoker Little interest or pleasure in doing things: not at all Feeling down, depressed, or hopeless: not at all Exam Constitutional Vital Signs, click to edit/add: Last Vital Signs Temp 98.2 F 10/18/24 20:54 Pulse 99 H 10/18/24 22:57 Resp 20 10/18/24 22:57 BP 142/80 H 10/18/24 22:57 Pulse Ox 98 10/18/24 22:57 O2 Del Method Room Air 10/18/24 22:57 Course Vital Signs Vital signs: Vital Signs Temperature 98.2 F 10/18/24 20:54 Pulse Rate 115 H 10/18/24 20:54 Respiratory Rate 18 10/18/24 20:54 Blood Pressure 140/82 10/18/24 20:54 Pulse Oximetry 99 10/18/24 20:54 Oxygen Delivery Method Room Air 10/18/24 20:54 Temperature 98.2 F 10/18/24 20:54 Pulse Rate 99 H 10/18/24 22:57 Respiratory Rate 20 10/18/24 22:57 Blood Pressure 142/80 H 10/18/24 22:57 Pulse Oximetry 98 10/18/24 22:57 Oxygen Delivery Method Room Air 10/18/24 22:57 Medical Decision Making MDM Narrative Medical decision making narrative: 33-year-old female presents emergency room chief complaint of a headache and right lateral neck pain. She states she walked into a garage door approximately 3 weeks ago and has had pain since. She denies any loss consciousness at that time. She states the pain has gotten increasingly worse complains of photophobia. She said a history of migraine headaches but is not a typical headache for her. Her vital signs are stable afebrile. She has minimal pain tenderness noted to the right lateral cervical column. She has no midline tenderness. Full range of motion of her neck and back. Pupils are equal round reactive. Patient has no physical upper extremity weakness and no neurological deficits. Here with a 3-week history of worsening headache. I explained to her she continues to appreciate any focal neurological deficits. Do not believe she needed a head CT. Patient was not comfortable going home without a head and neck CT demanded 1 to be done. Patient had minimal pain tenderness to the right paraspinal region. Examination consistent with cervical strain. Patient was medicated with Toradol and Norflex. care transferred at end of PA shift. CTs neg both brain and C-spine. Patient informed. Headache improved some with Toradol. Given injection of solumedrol and discharged with prednisone and advised to follow up with her doctor patient will be able to be discharged home once head and neck ct complete. transition of care to dr torres at 2200. Discharge Plan Discharge Chief Complaint: Headache Clinical Impression: Cervical strain, acute, Headache Patient Disposition: Home, Self-Care Condition: Good Mode of Transportation: Private Vehicle Prescriptions / Home Meds: New methocarbamol 500 mg tablet 500 mg PO Q8H PRN (Reason: pain) Qty: 14 0RF No Action Nortrel (28) 1-35 mg-mcg tablet 1 tab PO DAILY Print Language: Palestinian Instructions: Cervical Strain (DC), General Headache (ED) Referrals: [facility] FELIZ [Primary Care Provider] - 1 week Discharge Date/Time: 10/18/24 22:59
[2024-10-18] MEDS: METHYLPREDNISOLONE SOD SUCC PF 125 MG/2 ML VIAL IM (22:51)
[2024-10-18 22:57] VITALS: BP 142/80; PULSE 99; O2SAT 98
== END 2024-10-18 22:59 | disposition home or self-care (01) ==
PROVIDERS: Emergency Provider Internal Medicine; PCP Nurse Practitioner
DX: S16.1XXA Strain of muscle, fascia and tendon at neck level, initial encounter (principal); W22.09XA Striking against other stationary object, initial encounter; R51.9 Headache, unspecified
CPT/HCPCS: 70450; 72125; 96372; 99285; J1885; J2360; J2919